=== PATIENT | male | born 1940 | race Caucasian/White ===

== ENCOUNTER → 2017-11-13 13:27 | Outpatient (CLI) | payer MEDICARE, BC, SELFPAY ==
--- NOTE | 2017-11-13 13:30 | RAD_ITS ---
STUDY: X-RAY CHEST REASON FOR EXAM: Male, 77 years old. Shortness of breath/dyspnea and chest tightness. TECHNIQUE: PA and lateral views of the chest. COMPARISON: Comparison is made with prior study dated February 08, 2017. FINDINGS: Hyperinflation. Mild increased linear markings at the lung bases worse in the lingular segment of the left upper lobe suggestive of scarring. Decreased bronchovascular markings bilaterally suggestive of emphysematous changes. Blunting of both cost phrenic angles. Sternal cerclage wires and vascular clips are present from a prior sternotomy and coronary artery bypass graft procedure (CABG). Normal mediastinum and abraham. Normal visualized pulmonary arteries. There is atherosclerotic calcification of the aortic arch with tortuosity. There is demineralization of the osseous structures. Normal visualized ribs, clavicles, and shoulders. There is no demonstrated abnormality of the visualized soft tissue structures of the upper abdomen. RAD/Chest PA and Lateral IMPRESSION: Hyperinflation. Increased markings at the lung bases worse in the lingular segment of the left upper lobe suggestive of scarring. Electronically Signed: Chris Gregory MD at 13:52 EST Tel [phone], Service support ,
--- NOTE | 2017-11-13 13:30 | EKG12_ITS ---
Test Reason : SOB Blood Pressure : / mmHG Vent. Rate : 082 BPM Atrial Rate : 082 BPM P-R Int : 136 ms QRS Dur : 116 ms QT Int : 402 ms P-R-T Axes : 079 052 -39 degrees QTc Int : 469 ms Sinus rhythm with Premature supraventricular complexes Possible Inferior infarct , age undetermined Abnormal ECG Confirmed by BAILEY SALDANA ([id number]), editor in chief newspaper JACQUELINE MEDLEY ([id number]) on 11/16/2017 8:12:42 AM Referred By: MINAL MENENDEZ Confirmed By:BAILEY SALDANA
[2017-11-13 14:17] LABS: Hematocrit 38.8 % (40-54); Hemoglobin 12.5 g/dl (13.0-16.5); Mean Corp Hgb Conc 32.2 g/gl (32-36); Mean Corpuscular Hgb 29.5 pg (27.0-32.0); Mean Corpuscular Volume 91.5 fL (80-94); Mean Platelet Vol. 10.1 fl (6.2-12.0); Platelet Count 299 K/mm3 (150-450); RBC Distribution Width SD 42.7 fl (35.1-43.9); Red Blood Count 4.24 M/mm3 (4.6-6.2); White Blood Count 8.2 K/mm3 (4.4-11.0)
[2017-11-13 14:21] LABS: Scan Indicated on CBC? Y/N NO
[2017-11-13 14:54] LABS: ALB/GLOB Ratio 1.1 RATIO (0.9-2.4); AST(SGOT) 17 U/L (15-37); Alanine Aminotransfer ALT/SGPT 24 U/L (12-78); Alkaline Phosphatase 87 U/L (45-117); Anion Gap 5 (5-15); BUN 38 mg/dL (7-18); BUN/Creat Ratio 26.4 RATIO (10-20); Calcium,Total 9.4 mg/dL (8.5-10.1); Chloride 92 mmol/L (98-107); Creatinine, Serum 1.44 mg/dL (0.70-1.30); EST Glomerular Filtration Rate 50 mL/min (>60); Est Glom Filt Rate - Afr Amer 61 mL/min (>60); Globulin 3.7 g/dL (2.2-4.2); Glucose 75 mg/dL (70-110); Potassium 3.3 mmol/L (3.5-5.1); Protein, Total 7.7 g/dL (6.4-8.2); Sodium Level 136 mmol/L (136-145)
== END ==
PROVIDERS: Family Provider Internal Medicine; PCP Internal Medicine; Visit Provider Nurse Practitioner Acute Care
DX: R06.09 Other forms of dyspnea (principal)
CPT/HCPCS: 36415; 71046; 80053; 83880; 85027; 93005

== ENCOUNTER → 2017-11-30 14:48 | Outpatient (CLI) | payer MEDICARE, BC, SELFPAY ==
[2017-11-30 18:55] LABS: Anion Gap 7 (5-15); BUN 25 mg/dL (7-18); BUN/Creat Ratio 23.6 RATIO (10-20); Calcium,Total 9.3 mg/dL (8.5-10.1); Chloride 100 mmol/L (98-107); Creatinine, Serum 1.06 mg/dL (0.70-1.30); EST Glomerular Filtration Rate 72 mL/min (>60); Est Glom Filt Rate - Afr Amer 87 mL/min (>60); Glucose 73 mg/dL (74-106); Potassium 3.7 mmol/L (3.5-5.1); Sodium Level 140 mmol/L (136-145)
[2017-11-30 18:59] LABS: Hemoglobin A1c 6.1 % (4.2-6.3)
== END ==
PROVIDERS: Family Provider Internal Medicine; PCP Internal Medicine; Visit Provider Internal Medicine
DX: E87.6 Hypokalemia (principal); E11.9 Type 2 diabetes mellitus without complications
CPT/HCPCS: 36415; 80048; 83036

== ENCOUNTER → 2018-04-09 10:49 | Outpatient (CLI) | payer MEDICARE, BC, SELFPAY ==
--- NOTE | 2018-04-09 15:29 | LEAS ---
Arterial Study - Arterial Study Arterial Study: This is a 78-year-old male with a history of chronic obstructive pulmonary disease, coronary artery disease, hypertension, and diabetes mellitus. Suspecting the presence of atherosclerotic peripheral arterial occlusive disease, the patient was brought to the noninvasive vascular laboratory at this time for the purpose of bilateral noninvasive lower extremity arterial assessment. Doppler signal assessment was used to evaluate the pulses at ankle level bilaterally. The posterior tibial and dorsalis pedis pulses were triphasic bilaterally. Segmental limb pressures were obtained bilaterally. The right ankle pressure, as determined by posterior tibial pulse, was measured at 154 mmHg. The right ankle pressure, as determined by dorsalis pedis pulse, was measured at 154 mmHg. The right digital pressure was measured at 117 mmHg. The left ankle pressure, as determined by posterior tibial pulse, was measured at 147 mmHg. The left ankle pressure, as determined by dorsalis pedis pulse, was measured at 143 mmHg. The left digital pressure was measured at 107 mmHg. Pulse-volume recordings were obtained at ankle and digital levels bilaterally. Waveform amplitudes appeared to be satisfactory bilaterally. Resting ankle-brachial indices were calculated bilaterally. The resting right ankle-brachial index was calculated to be 1.14. The resting left ankle-brachial index was calculated be 1.09. Digital-brachial indices were calculated bilaterally. The right digital-brachial index was calculated to be 0.87. The left digital-brachial index was calculated to be 0.79. Impression: Based upon the findings of this resting noninvasive lower extremity arterial study, there is no evidence of significant atherosclerotic peripheral arterial occlusive disease in the lower extremities bilaterally. Triphasic waveforms were noted at ankle level bilaterally. Resting ankle-brachial indices were bilaterally normal. Digital-brachial indices were also normal bilaterally. In summary, this represents a normal resting noninvasive lower extremity arterial study bilaterally.
--- NOTE | 2018-04-09 15:37 | LEAS_ITS ---
Arterial Study - Arterial Study Arterial Study: This is a 78-year-old male with a history of chronic obstructive pulmonary disease, coronary artery disease, hypertension, and diabetes mellitus. Suspecting the presence of atherosclerotic peripheral arterial occlusive disease , the patient was brought to the noninvasive vascular laboratory at this time for the purpose of bilateral noninvasive lower extremity arterial assessment. Doppler signal assessment was used to evaluate the pulses at ankle level bilaterally. The posterior tibial and dorsalis pedis pulses were triphasic bilaterally. Segmental limb pressures were obtained bilaterally. The right ankle pressure, as determined by posterior tibial pulse, was measured at 154 mmHg. The right ankle pressure, as determined by dorsalis pedis pulse, was measured at 154 mmHg. The right digital pressure was measured at 117 mmHg. The left ankle pressure, as determined by posterior tibial pulse, was measured at 147 mmHg. The left ankle pressure, as determined by dorsalis pedis pulse, was measured at 143 mmHg. The left digital pressure was measured at 107 mmHg. Pulse-volume recordings were obtained at ankle and digital levels bilaterally. Waveform amplitudes appeared to be satisfactory bilaterally. Resting ankle-brachial indices were calculated bilaterally. The resting right ankle-brachial index was calculated to be 1.14. The resting left ankle- brachial index was calculated be 1.09. Digital-brachial indices were calculated bilaterally. The right digital- brachial index was calculated to be 0.87. The left digital-brachial index was calculated to be 0.79. Impression: Based upon the findings of this resting noninvasive lower extremity arterial study, there is no evidence of significant atherosclerotic peripheral arterial occlusive disease in the lower extremities bilaterally. Triphasic waveforms were noted at ankle level bilaterally. Resting ankle-brachial indices were bilaterally normal. Digital-brachial indices were also normal bilaterally. In summary, this represents a normal resting noninvasive lower extremity arterial study bilaterally.
== END ==
PROVIDERS: Family Provider Internal Medicine; PCP Internal Medicine; Visit Provider Internal Medicine
DX: I73.9 Peripheral vascular disease, unspecified (principal)
CPT/HCPCS: 93922

== ENCOUNTER 2018-05-20 13:58 | Inpatient (IN) | payer MEDICARE, BC, SELFPAY ==
[2018-05-20] VITALS (21 sets, daily range): BP systolic 127–155; BP diastolic 60–77; PULSE 73–105; RESP 12–44; TEMP 36.2; O2SAT 97–100; BMI 29.7
--- NOTE | 2018-05-20 14:22 | EKG12_ITS ---
Test Reason : SOB Blood Pressure : / mmHG Vent. Rate : 093 BPM Atrial Rate : 093 BPM P-R Int : 142 ms QRS Dur : 112 ms QT Int : 370 ms P-R-T Axes : 064 046 -29 degrees QTc Int : 460 ms Normal sinus rhythm T wave abnormality, consider inferior ischemia Abnormal ECG Confirmed by AL COKER, GENEVIEVE ([id number]), non linear editor JACQUELINE MEDLEY ([id number]) on 05/24/2018 3:46:24 PM Referred By: Mary Lofton Confirmed By:GENEVIEVE MELENDEZ MD
--- NOTE | 2018-05-20 14:22 | RAD_ITS ---
STUDY: X-RAY CHEST REASON FOR EXAM: Male, 78 years old. Increasing shortness of breath. TECHNIQUE: Single AP portable view of the chest. COMPARISON: Comparison is made with prior study dated May 13, 2018. FINDINGS: EKG electrodes are seen. Hyperinflation. There now is evidence of increased interstitial markings at the lung bases. This may represent bibasilar atelectasis and/or infiltrates. Mild degree of vascular congestion. Sternal cerclage wires and vascular clips are present from a prior sternotomy and coronary artery bypass graft procedure (CABG). Normal mediastinum and abraham. Normal visualized pulmonary arteries. There is atherosclerotic calcification of the aortic arch with tortuosity. Normal visualized thoracic spine. Normal visualized ribs, clavicles, and shoulders. There is no demonstrated abnormality of the visualized soft tissue structures of the upper abdomen. RAD/Chest 1 View (Portable) IMPRESSION: There is evidence of increased interstitial markings at the lung bases with areas of confluence worse in the right lung base with blunting of both cost phrenic angles. This is superimposed on mild degree of CHF. Follow-up is recommended. Electronically Signed: Chris Gregory MD at 14:57 EDT Tel [phone], Service support ,
--- NOTE | 2018-05-20 14:24 | PCM.HP.STD ---
Problem List (1) Shortness of breath Status: Acute History of Present Illness Date of Admission: 05/20/18 Chief Complaint: shortness of breath The patient is a 78 year old M with a PMH of HTN, COPD and chronic hypoxic respiratory failure who [facility] a complaint of shortness of breath of one day duration. Patient started feeling SOB this morning, which was not relieved by his inhalers. He is on 4L of oxygen at home, but still felt short of breath. HE therefore went to [place], where he was put on BIPAP; this relieved his symptoms, and he was transitioned back onto 4L of oxygen by nasal canula. He however requested to be transferred to [facility] as his pulmonologists and primary care doctor are here. Patient admitted to a cough of a few days duration, with associated fever and chills. Cough was not productive. He claimed compliance with his inhalers. He denied any other URT symptoms. Review of systems was otherwise negative. Vitals on admission showed T of 97.2F, BP of 137/60. RR pf 44 and he was saturating at 100% on 4L of oxygen. He has been admitted to be managed for acute on chronic hypoxic respiratory failure due to COPD exacerbation. Past Medical History Past Medical History (Chronic Problems): Chronic Problems (Last Reviewed 03/16/18 @ 09:36 by Rosa Lopez) Severe chronic obstructive pulmonary disease (Chronic) Dyspnea on exertion (Chronic) Lung nodule (Chronic) Hypoxia (Chronic) Chronic hypoxemic respiratory failure (Chronic) LUIS (obstructive sleep apnea) (Chronic) Fatigue (Chronic) Sarcoidosis (Chronic) Pulmonary hypertension, mild (Chronic) Stage 4 very severe COPD by GOLD classification (Chronic) Dyspnea (Chronic) History of CVA (cerebrovascular accident) (Chronic) Hypertension (Chronic) Chronic respiratory failure (Chronic) Type 2 diabetes mellitus (Chronic) Status post coronary artery bypass graft (Chronic) Coronary artery disease (Chronic) COPD (chronic obstructive pulmonary disease) (Chronic) Medical History: Medical History (Last Reviewed 03/16/18 @ 09:36 by Rosa Lopez) Severe chronic obstructive pulmonary disease (Chronic) J44.9 Dyspnea on exertion (Chronic) R06.09 Lung nodule (Chronic) R91.1 Hypoxia (Chronic) R09.02 Chronic hypoxemic respiratory failure (Chronic) J96.11 LUIS (obstructive sleep apnea) (Chronic) G47.33 Fatigue (Chronic) R53.83 Sarcoidosis (Chronic) D86.9 Pulmonary hypertension, mild (Chronic) I27.20 Stage 4 very severe COPD by GOLD classification (Chronic) J44.9 Dyspnea (Chronic) R06.00 History of CVA (cerebrovascular accident) (Chronic) Z86.73 Hypertension (Chronic) I10 Chronic respiratory failure (Chronic) J96.10 Type 2 diabetes mellitus (Chronic) E11.9 Coronary artery disease (Chronic) I25.10 COPD (chronic obstructive pulmonary disease) (Chronic) J44.9 Allergies levofloxacin [From Levaquin] Allergy (Verified 01/25/18 14:40) Hives Penicillins [PCN] Allergy (Verified 01/25/18 14:40) Hives Home Medications: Ambulatory Orders Medication Instructions Recorded Albuterol Inhaler [Ventolin Hfa] 2 puff INHALATION Q4H PRN PRN 08/04/16 Amlodipine [Norvasc] 10 mg PO DAILY 08/04/16 Clopidogrel Bisulfate [Plavix] 75 mg PO DAILY 08/04/16 Stow-3 Fatty Acids [Fish Oil] 1,290 mg PO DAILY 03/30/17 Ubidecarenone [Coq10] 100 mg PO DAILY 03/30/17 cholecalciferol (vitamin D3) 5,000 2,000 unit PO DAILY cap 11/30/17 unit capsule budesonide 0.5 mg/2 mL suspension 0.5 mg INHALATION Q12H #120 ml 02/15/18 for nebulization ipratropium-albuterol 0.5 mg-3 3 ml INHALATION Q6HWA.RT #360 ml 02/15/18 mg(2.5 mg base)/3 mL nebulization soln Aspirin [Aspirin, Baby] 81 mg PO DAILY@0800 05/20/18 Glimepiride [Amaryl] 4 mg PO BID 05/20/18 Losartan/Hydrochlorothiazide 1 tab PO DAILY 05/20/18 [Hyzaar 100-12.5 Tablet] Metformin HCl [Glucophage] 500 mg PO BID 05/20/18 Surgical History: Surgical History (Last Reviewed 03/16/18 @ 09:36 by Rosa Lopez) History of cholecystectomy (Resolved) Z98.890, Z90.49 H/O hernia repair (Resolved) Z98.890, Z87.19 History of appendectomy (Resolved) Z98.890, Z90.49 Hx of CABG (Resolved) Z95.1 Status post coronary artery bypass graft (Chronic) Z95.1 Surgical History: appendectomy, cholecystectomy, coronary bypass surgery, herniorrhaphy Psychiatric History: No pertinent psych hx Smoking Status: Former smoker - *Family History Maternal Family History: Family History (Last Reviewed 03/16/18 @ 09:36 by Rosa Lopez) Mother Cancer Father Hypertension History Items: No pertinent history Paternal Family History: Family History (Last Reviewed 03/16/18 @ 09:36 by Rosa Lopez) Mother Cancer Father Hypertension History Items: No pertinent history Review of Systems Constitutional: Denies: Chills, Fever, Weight Change Eyes: Denies: Blurred vision HEENT: Denies: Head Aches, Sinus Congestion, Sinus Drainage Cardiovascular: Denies: Chest Pain, Palpitations Respiratory: Reports: Cough, Shortness of Breath, Shortness of breath at rest, Shortness of breath upon exertion, Wheezing Gastrointestinal: Denies: Abdominal Pain, Nausea, Vomiting Genitourinary: Denies: Dysuria Musculoskeletal: Denies: Joint Pain, Joint Tenderness Skin: Denies: Rash, Wounds Neurological: Denies: Numbness, Tingling, Focal weakness Psychiatric: Denies: Anxiety, Depression, Homicidal Ideations, Suicidal Ideations Hematologic/ Lymphatic: Denies: Easy Bruising, Easy Bleeding VTE Information - Inpt Only VTE Present on Admission: No VTE Mechan Device Prophylaxis: None VTE Pharm Prophylaxis ordered?: Yes Patient Problems: Active and Suspected Problems (Last Reviewed 03/16/18 @ 09:36 by Rosa Lopez) Shortness of breath (Acute) - Physical Exam General: Alert, Oriented x3, Cooperative, - - moderate respiratory distress, even on 4L of oxygen HEENT: Atraumatic, PERRLA, EOMI, Normocephalic Oral: Moist Mucosa Neck: Supple, No JVD, Negative Carotid Bruits Lungs: Diminished, Short of Breath, Tachypneic, Using Accessory Muscles, Wheezes Cardiovascular: Regular Rhythm, Normal S1, Normal S2, Tachycardic Abdomen: Bowel Sounds Present, Soft, Non Tender, Non-Distended, No Hepato-splenomegaly Extremities: No clubbing, No cyanosis, Capillary Refill Less than 3 Seconds, - - mild 1+ bilateral pitting pedal edema Skin: No rashes, No breakdown Musculoskeletal: No Tenderness to Palpation of Joints or Extremities Lymphatic: No Cervical, Supraclavicular, or Inguinal Adenopathy Neurological: Cranial nerves II-XII grossly intact Psych/Mental Status: Anxious, Alert and oriented to time, place, person, mood and affect Vital Signs Temp Pulse Resp BP Pulse Ox 97.2 F L 96 44 H 137/60 H 100 05/20/18 14:00 05/20/18 14:00 05/20/18 14:00 05/20/18 14:00 05/20/18 14:00 Oxygen Flow Rate (L/min) 4 Oxygen Delivery Method Nasal Cannula Weight: 183 lb 13.848 oz Body Mass Index (BMI) 29.7 Finger Stick Blood Glucose 149 Assessment/Plan All Active Problems (Last Reviewed 03/16/18 @ 09:36 by Rosa Lopez) Shortness of breath (Acute) Thrush, oral (Acute) Irregular heart beat (Acute) History of cholecystectomy (Resolved) H/O hernia repair (Resolved) History of appendectomy (Resolved) Hx of CABG (Resolved) 1. Acute on chronic hypoxic and hypercapnic respiratory failure due to COPD exacerbation and NSTEMI Patient very short of breath still even on 4 L of oxygen. He is tripoding and using accessory muscles of respiration. Has wheezes bilaterally and breath sounds are diminished in all lung mccoy. is very tachypneic, breathing at 44/min will admit to PCU with telemetry BIPAP; breathing treatments and IV solumedrol 40mg q8 breathing treatments with duonebs patient ok with intubation if he fails BIPAP treatment gentle hydration with IVF NS @ 125cc/hr will get ABG, CXR, troponin CBC nad CMP. 2. NSTEMI initial troponin at [facility] was 0.35; EKG there showed st depression in inferior leads troponin repeated here was 5.2; repeat EKG still showed inferior leads st depression start IV heparin drip with loading dose; plavix 300mg once, metoprolol 25mg once and aspirin 325mg once. on BIPAP cardiology consulted will cycle troponis will order 2D echo 3. COPD exacerbation. possibly due to URTI as he complains of a cough which is dry. Has leucocytosis of 16. Chest Xray ordered. has been compliant with his meds BiPAP treatment, breathing treatments and IV solumedrol as stated above. Patient is allergic to levofloxacin. Will start IV doxycycline 100 mg twice daily. 4.Hypertension on amlodipine 10mg daily, losartan/HCTZ; hold amlodipine in light of NSTEMI 5. Diabetes mellitus: on metformin. Accuchecks ACHS. ISS. Will hold metformin in light as he may possibly have a cardiac cath. 6. CAD s/p CABG: on aspirin and plavix DVT prophylaxis: on heparin drip. GI prophylaxis: PPI Code status: Patient counseled extensively about different types of CODE STATUS and also counseled about the need for intubation if he feels BiPAP therapy. Patient expressed understanding of all this and is okay with intubation and CPR as needed. CODE STATUS is full code. This note was generated with [employer] dictation software. It may contain incorrect words, spelling, and punctuation that were not noted in checking the note before signing. Code Visit Inpatient E&M: 47020 Init Hosp L3 Procedures: 40199 Advncd Care Plan 30 Min
--- NOTE | 2018-05-20 14:29 | HP.PCM_ITS ---
Problem List (1) Shortness of breath Status: Acute History of Present Illness Date of Admission: 05/20/18 Chief Complaint: shortness of breath The patient is a 78 year old M with a PMH of HTN, COPD and chronic hypoxic respiratory failure who was admitted from [facility] with a complaint of shortness of breath of one day duration. Patient started feeling SOB this morning, which was not relieved by his inhalers. He is on 4L of oxygen at home, but still felt short of breath. HE therefore went to [place], where he was put on BIPAP; this relieved his symptoms, and he was transitioned back onto 4L of oxygen by nasal canula. He however requested to be transferred to [facility] as his pulmonologists and primary care doctor are here. Patient admitted to a cough of a few days duration, with associated fever and chills. Cough was not productive. He claimed compliance with his inhalers. He denied any other URT symptoms. Review of systems was otherwise negative. Vitals on admission showed T of 97.2F, BP of 137/60. RR pf 44 and he was saturating at 100% on 4L of oxygen. He has been admitted to be managed for acute on chronic hypoxic respiratory failure due to COPD exacerbation. Past Medical History Past Medical History (Chronic Problems): Chronic Problems (Last Reviewed 03/16/18 @ 09:36 by Rosa Lopez) Severe chronic obstructive pulmonary disease (Chronic) Dyspnea on exertion (Chronic) Lung nodule (Chronic) Hypoxia (Chronic) Chronic hypoxemic respiratory failure (Chronic) LUIS (obstructive sleep apnea) (Chronic) Fatigue (Chronic) Sarcoidosis (Chronic) Pulmonary hypertension, mild (Chronic) Stage 4 very severe COPD by GOLD classification (Chronic) Dyspnea (Chronic) History of CVA (cerebrovascular accident) (Chronic) Hypertension (Chronic) Chronic respiratory failure (Chronic) Type 2 diabetes mellitus (Chronic) Status post coronary artery bypass graft (Chronic) Coronary artery disease (Chronic) COPD (chronic obstructive pulmonary disease) (Chronic) Medical History: Medical History (Last Reviewed 03/16/18 @ 09:36 by Rosa Lopez) Severe chronic obstructive pulmonary disease (Chronic) J44.9 Dyspnea on exertion (Chronic) R06.09 Lung nodule (Chronic) R91.1 Hypoxia (Chronic) R09.02 Chronic hypoxemic respiratory failure (Chronic) J96.11 LUIS (obstructive sleep apnea) (Chronic) G47.33 Fatigue (Chronic) R53.83 Sarcoidosis (Chronic) D86.9 Pulmonary hypertension, mild (Chronic) I27.20 Stage 4 very severe COPD by GOLD classification (Chronic) J44.9 Dyspnea (Chronic) R06.00 History of CVA (cerebrovascular accident) (Chronic) Z86.73 Hypertension (Chronic) I10 Chronic respiratory failure (Chronic) J96.10 Type 2 diabetes mellitus (Chronic) E11.9 Coronary artery disease (Chronic) I25.10 COPD (chronic obstructive pulmonary disease) (Chronic) J44.9 Allergies levofloxacin [From Levaquin] Allergy (Verified 01/25/18 14:40) Hives Penicillins [PCN] Allergy (Verified 01/25/18 14:40) Hives Home Medications: Ambulatory Orders Medication Instructions Recorded Albuterol Inhaler [Ventolin Hfa] 2 puff INHALATION Q4H PRN PRN 08/04/16 Amlodipine [Norvasc] 10 mg PO DAILY 08/04/16 Clopidogrel Bisulfate [Plavix] 75 mg PO DAILY 08/04/16 [place]-3 Fatty Acids [Fish Oil] 1,290 mg PO DAILY 03/30/17 Ubidecarenone [Coq10] 100 mg PO DAILY 03/30/17 cholecalciferol (vitamin D3) 5,000 2,000 unit PO DAILY cap 11/30/17 unit capsule budesonide 0.5 mg/2 mL suspension 0.5 mg INHALATION Q12H #120 ml 02/15/18 for nebulization ipratropium-albuterol 0.5 mg-3 3 ml INHALATION Q6HWA.RT #360 ml 02/15/18 mg(2.5 mg base)/3 mL nebulization soln Aspirin [Aspirin, Baby] 81 mg PO DAILY@0800 05/20/18 Glimepiride [Amaryl] 4 mg PO BID 05/20/18 Losartan/Hydrochlorothiazide 1 tab PO DAILY 05/20/18 [Hyzaar 100-12.5 Tablet] Metformin HCl [Glucophage] 500 mg PO BID 05/20/18 Surgical History: Surgical History (Last Reviewed 03/16/18 @ 09:36 by Rosa Lopez) History of cholecystectomy (Resolved) Z98.890, Z90.49 H/O hernia repair (Resolved) Z98.890, Z87.19 History of appendectomy (Resolved) Z98.890, Z90.49 Hx of CABG (Resolved) Z95.1 Status post coronary artery bypass graft (Chronic) Z95.1 Surgical History: appendectomy, cholecystectomy, coronary bypass surgery, herniorrhaphy Psychiatric History: No pertinent psych hx Smoking Status: Former smoker - *Family History Maternal Family History: Family History (Last Reviewed 03/16/18 @ 09:36 by Rosa Lopez) Mother Cancer Father Hypertension History Items: No pertinent history Paternal Family History: Family History (Last Reviewed 03/16/18 @ 09:36 by Rosa Lopez) Mother Cancer Father Hypertension History Items: No pertinent history Review of Systems Constitutional: Denies: Chills, Fever, Weight Change Eyes: Denies: Blurred vision HEENT: Denies: Head Aches, Sinus Congestion, Sinus Drainage Cardiovascular: Denies: Chest Pain, Palpitations Respiratory: Reports: Cough, Shortness of Breath, Shortness of breath at rest, Shortness of breath upon exertion, Wheezing Gastrointestinal: Denies: Abdominal Pain, Nausea, Vomiting Genitourinary: Denies: Dysuria Musculoskeletal: Denies: Joint Pain, Joint Tenderness Skin: Denies: Rash, Wounds Neurological: Denies: Numbness, Tingling, Focal weakness Psychiatric: Denies: Anxiety, Depression, Homicidal Ideations, Suicidal Ideations Hematologic/ Lymphatic: Denies: Easy Bruising, Easy Bleeding VTE Information - Inpt Only VTE Present on Admission: No VTE Mechan Device Prophylaxis: None VTE Pharm Prophylaxis ordered?: Yes Patient Problems: Active and Suspected Problems (Last Reviewed 03/16/18 @ 09:36 by Rosa Lopez ) Shortness of breath (Acute) - Physical Exam General: Alert, Oriented x3, Cooperative, - - moderate respiratory distress, even on 4L of oxygen HEENT: Atraumatic, PERRLA, EOMI, Normocephalic Oral: Moist Mucosa Neck: Supple, No JVD, Negative Carotid Bruits Lungs: Diminished, Short of Breath, Tachypneic, Using Accessory Muscles, Wheezes Cardiovascular: Regular Rhythm, Normal S1, Normal S2, Tachycardic Abdomen: Bowel Sounds Present, Soft, Non Tender, Non-Distended, No Hepato- splenomegaly Extremities: No clubbing, No cyanosis, Capillary Refill Less than 3 Seconds, - - mild 1+ bilateral pitting pedal edema Skin: No rashes, No breakdown Musculoskeletal: No Tenderness to Palpation of Joints or Extremities Lymphatic: No Cervical, Supraclavicular, or Inguinal Adenopathy Neurological: Cranial nerves II-XII grossly intact Psych/Mental Status: Anxious, Alert and oriented to time, place, person, mood and affect Vital Signs Temp Pulse Resp BP Pulse Ox 97.2 F L 96 44 H 137/60 H 100 05/20/18 14:00 05/20/18 14:00 05/20/18 14:00 05/20/18 14:00 05/20/18 14:00 Oxygen Flow Rate (L/min) 4 Oxygen Delivery Method Nasal Cannula Weight: 183 lb 13.848 oz Body Mass Index (BMI) 29.7 Finger Stick Blood Glucose 149 Assessment/Plan All Active Problems (Last Reviewed 03/16/18 @ 09:36 by Rosa Lopez) Shortness of breath (Acute) Thrush, oral (Acute) Irregular heart beat (Acute) History of cholecystectomy (Resolved) H/O hernia repair (Resolved) History of appendectomy (Resolved) Hx of CABG (Resolved) 1. Acute on chronic hypoxic and hypercapnic respiratory failure due to COPD exacerbation and NSTEMI * Patient very short of breath still even on 4 L of oxygen. He is tripoding and using accessory muscles of respiration. * Has wheezes bilaterally and breath sounds are diminished in all lung mccoy. * is very tachypneic, breathing at 44/min * will admit to PCU with telemetry * BIPAP; breathing treatments and IV solumedrol 40mg q8 * breathing treatments with duonebs * patient ok with intubation if he fails BIPAP treatment * gentle hydration with IVF NS @ 125cc/hr * will get ABG, CXR, troponin CBC nad CMP. * 2. NSTEMI * initial troponin at [facility] was 0.35; EKG there showed st depression in inferior leads * troponin repeated here was 5.2; repeat EKG still showed inferior leads st depression * start IV heparin drip with loading dose; plavix 300mg once, metoprolol 25mg once and aspirin 325mg once. on BIPAP * cardiology consulted * will cycle troponis * will order 2D echo * 3. COPD exacerbation. * possibly due to URTI as he complains of a cough which is dry. Has leucocytosis of 16. Chest Xray ordered. * has been compliant with his meds * BiPAP treatment, breathing treatments and IV solumedrol as stated above. * Patient is allergic to levofloxacin. Will start IV doxycycline 100 mg twice daily. * 4.Hypertension * on amlodipine 10mg daily, losartan/HCTZ; hold amlodipine in light of NSTEMI * 5. Diabetes mellitus: on metformin. Accuchecks ACHS. ISS. Will hold metformin in light as he may possibly have a cardiac cath. 6. CAD s/p CABG: on aspirin and plavix DVT prophylaxis: on heparin drip. GI prophylaxis: PPI Code status: Patient counseled extensively about different types of CODE STATUS and also counseled about the need for intubation if he feels BiPAP therapy. Patient expressed understanding of all this and is okay with intubation and CPR as needed. CODE STATUS is full code. This note was generated with [employer] dictation software. It may contain incorrect words, spelling, and punctuation that were not noted in checking the note before signing. Code Visit Inpatient E&M: 88957 Init Hosp L3 Procedures: 99595 Advncd Care Plan 30 Min
[2018-05-20 14:51] LABS: Allen Test POS; Base Excess 5 mmol/L (-2 to +2); Bicarbonate 30.5 mmol/L (22-26); Blood Gas Specimen Type ART; O2 Delivery Device Nasal Can; PO2 41 mmHG (75-100); SITE R Radial; SO2 74 % (95-99); Time Given 1420; Total Carbon Dioxide 32 mmol/L; pCO2 51.7 mmHg (35-45); pH 7.38 (7.35-7.45)
[2018-05-20 15:02] LABS: Absolute Neutrophil Count 15.6 X10^3/uL (2.0-7.7); Basophil# 0.01 X10^3/uL; Basophil% 0.1 % (0-1); Hematocrit 34.9 % (40-54); Hemoglobin 10.5 g/dl (13.0-16.5); Lymphocyte % 2.5 % (19-41); Mean Corp Hgb Conc 30.1 g/gl (32-36); Mean Corpuscular Hgb 27.6 pg (27.0-32.0); Mean Corpuscular Volume 91.8 fL (80-94); Mean Platelet Vol. 10.3 fl (6.2-12.0); Monocyte# 0.13 X10^3/uL; Monocyte% 0.8 % (0-10); Neutrophil # 15.64 X10^3/uL (2.7-7.7); Neutrophil % 96.5 % (47-70); Platelet Count 239 K/mm3 (150-450); RBC Distribution Width CV 13.9 % (11.6-14.6); RBC Distribution Width SD 45.7 fl (35.1-43.9); White Blood Count 16.2 K/mm3 (4.4-11.0)
[2018-05-20 15:04] LABS: Differential Indicated SCAN CRITERIA MET; POSITIVE COUNT NO; POSITIVE DIFFERENTIAL YES; POSITIVE MORPHOLOGY NO
[2018-05-20 15:21] LABS: ALB/GLOB Ratio 1.1 RATIO (0.9-2.4); AST(SGOT) 35 U/L (15-37); Alanine Aminotransfer ALT/SGPT 23 U/L (16-61); Albumin, Serum 3.7 g/dL (3.2-5.0); Alkaline Phosphatase 75 U/L (45-117); Anion Gap 4 (5-15); BUN 26 mg/dL (7-18); BUN/Creat Ratio 16.9 RATIO (10-20); Calcium,Total 8.6 mg/dL (8.5-10.1); Chloride 102 mmol/L (98-107); Creatinine, Serum 1.54 mg/dL (0.70-1.30); EST Glomerular Filtration Rate 47 mL/min (>60); Est Glom Filt Rate - Afr Amer 56 mL/min (>60); Globulin 3.5 g/dL (2.2-4.2); Glucose 204 mg/dL (74-106); Potassium 4.3 mmol/L (3.5-5.1); Protein, Total 7.2 g/dL (6.4-8.2); Sodium Level 140 mmol/L (136-145)
[2018-05-20] MEDS: Ipratropium/Albuterol Sulfate 3 ML AMPUL.NEB INHALATION ×2 (15:30→18:49)
[2018-05-20] MEDS: 0.9% NaCl Peripheral Flush Adult/Peds IV ×2 (15:31→19:03)
[2018-05-20 16:36] LABS: Bedside Glucose 157 mg/dL (70-110)
[2018-05-20] MEDS: Clopidogrel Bisulfate 300 MG Tablet PO (16:37)
[2018-05-20] MEDS: Metoprolol Tartrate 25 MG Tablet PO (16:41)
[2018-05-20] MEDS: Aspirin 325 MG Tablet PO (16:41)
--- NOTE | 2018-05-20 16:47 | ECHOD_ITS ---
Reason For Study: CAD/ASHD Procedure This was a 2D Doppler, Color Flow transthoracic echocardiogram. The study was technically difficult. Exam performed portable in patient room. Left Ventricle Normal LV size. Segmental dysfunction with preserved ejection fraction (see wall motion). The estimated ejection fraction is 65 %. Posterior-Basal: Hypokinetic. Infero-Basal: Akinetic. Mid- Posterior: Hypokinetic. Mid-Inferior: Hypokinetic. Right Ventricle Normal RV size. Normal systolic function. Atria The left atrium is mildly enlarged. The right atrium is mildly enlarged. No doppler evidence for ASD. Mitral Valve There is mild mitral annular calcification. Extension of the mitral annular calcification onto the posterior mitral valve leaflet. Moderate (2+) eccentric mitral valve insufficiency. Tricuspid Valve Normal tricuspid valve. Moderate (2+) tricuspid valve insufficiency. Right ventricular systolic pressure estimated to be 67 mmHg. Aortic Valve Trisinus/trileaflet aortic valve. Mild focal aortic valve thickening. Pulmonic Valve The pulmonic valve is not well visualized. Mild-Moderate (1-2+) pulmonic valve insufficiency. Great Vessels Normal sized aortic root. Pericardium/Pleural No pericardial effusion. MMode/2D Measurements & Calculations LVIDd: 5.0 cm IVSd: 0.91 cm Ao root diam: 3.5 cm LVIDs: 3.9 cm LVPWd: 0.95 cm LA dimension: 4.7 cm FS: 21.5 % LAV(MOD-bp): 91.7 ml LA A4 area: 25.3 cm2 RA A4 area: 21.9 cm2 LAV(MOD-bp) Indexed: 53.6 ml/m2 LAV(MOD-sp2): 98.8 ml LAV(MOD-sp4): 82.0 ml Time Measurements MV dec time: 0.11 sec Doppler Measurements & Calculations MV E max julieta: 140.7 cm/sec MV V2 max: 135.5 cm/sec MV P1/2t max julieta: 135.9 cm/sec MV A max julieta: 86.9 cm/sec MV max P.4 mmHg MV P1/2t: 82.2 msec MV E/A: 1.6 MV V2 mean: 66.3 cm/sec MV dec slope: 484.0 cm/sec2 MV mean P.3 mmHg MVA(P1/2t): 2.7 cm2 MV V2 VTI: 30.3 cm Ao V2 max: 98.4 cm/sec LV V1 max: 84.5 cm/sec MR max julieta: 541.6 cm/sec Ao max P.9 mmHg LV V1 max P.9 mmHg MR max P.3 mmHg Ao V2 mean: 59.3 cm/sec LV V1 mean P.5 mmHg MR mean julieta: 408.1 cm/sec Ao mean P.7 mmHg LV V1 mean: 54.8 cm/sec MR mean P.4 mmHg Ao V2 VTI: 19.8 cm LV V1 VTI: 17.7 cm MR VTI: 146.0 cm PA V2 max: 85.3 cm/sec TR max julieta: 384.2 cm/sec TR max P.1 mmHg Interpretation Summary The study was technically difficult. Segmental dysfunction with preserved ejection fraction (see wall motion). The estimated ejection fraction is 65 %. The left atrium is mildly enlarged. The right atrium is mildly enlarged. There is mild mitral annular calcification. Extension of the mitral annular calcification onto the posterior mitral valve leaflet. Moderate (2+) eccentric mitral valve insufficiency. Moderate (2+) tricuspid valve insufficiency. Mild focal aortic valve thickening. Mild-Moderate (1-2+) pulmonic valve insufficiency. Right ventricular systolic pressure estimated to be 67 mmHg. Transmitral diastolic flow velocities suggest diastolic dysfunction (pseudonormal pattern). Ordering Physician: Mary Lofton Referring Physician: Mary Lofton Performed By: Jagjit Lee RCS
[2018-05-20 16:49] LABS: Partial Thromboplast Time 24.5 Seconds (24.1-36.2)
[2018-05-20 17:14] LABS: BNP,B-Type NATRIURETIC PEPTIDE 427.3 pg/mL (0-100)
--- NOTE | 2018-05-20 18:11 | NURSING ---
Attempted break from bipap to eat. Was only able to tolerate approx 5mins off bipap and called out c/o SOB and asked to have bipap reapplied. Educated on need to keep NPO until able to tolerate longer breaks off bipap, pt and family verbalize understanding.
--- NOTE | 2018-05-20 18:30 | PCM.CONS.C ---
Reason for Consult Date of Consultation: 05/20/18 Reason for Consultation: Abnormal cardiac enzymes and shortness of breath. History of Present Illness: The patient is a 78 year old M with a PMH of HTN, COPD coronary artery disease status post coronary artery bypass surgery remotely and chronic hypoxic respiratory failure who was admitted from [facility] with a complaint of shortness of breath of one day duration. Patient started feeling SOB this morning, which was not relieved by his inhalers. He is on 4L of oxygen at home, but still felt short of breath. HE therefore went to [place], where he was put on BIPAP; this relieved his symptoms, and he was transitioned back onto 4L of oxygen by nasal canula. He however requested to be transferred to [facility] as his pulmonologists and primary care doctor are here. Patient admitted to a cough of a few days duration, with associated fever and chills. He unfortunately had what appeared to be a pneumonia approximately 1-2 weeks ago and was put on antibiotics from which he recovered. He has also noticed some swelling bilaterally in his lower extremities. He denies any chest pain per se. On admission to the hospital he was noted to have an EKG with nonspecific inferior changes and he had an abnormal cardiac enzyme patent. Of interest was the fact that he was admitted to the hospital approximately a year ago and underwent an echocardiogram which demonstrated preserved ejection fraction of 65% with inferior segmental wall motion abnormalities noted. A preoperative stress test for his carotid endarterectomy demonstrated no evidence of ischemia but evidence of previous anterior infarct. He underwent an uneventful carotid endarterectomy. He follows up with a senior hr manager in [facility]. He says he underwent a cardiac catheterization approximately 2 years ago at [facility]. Attempts are being made to obtain these results. Past Medical History Allergies/Adverse Reactions: Allergies levofloxacin [From Levaquin] Allergy (Verified 01/25/18 14:40) Hives Penicillins [PCN] Allergy (Verified 01/25/18 14:40) Hives Home Medications: Ambulatory Orders Medication Instructions Recorded Albuterol Inhaler [Ventolin Hfa] 2 puff INHALATION Q4H PRN PRN 08/04/16 Amlodipine [Norvasc] 10 mg PO DAILY 08/04/16 Clopidogrel Bisulfate [Plavix] 75 mg PO DAILY 08/04/16 [place]-3 Fatty Acids [Fish Oil] 1,290 mg PO DAILY 03/30/17 Ubidecarenone [Coq10] 100 mg PO DAILY 03/30/17 cholecalciferol (vitamin D3) 5,000 2,000 unit PO DAILY cap 11/30/17 unit capsule budesonide 0.5 mg/2 mL suspension 0.5 mg INHALATION Q12H #120 ml 02/15/18 for nebulization ipratropium-albuterol 0.5 mg-3 3 ml INHALATION Q6HWA.RT #360 ml 02/15/18 mg(2.5 mg base)/3 mL nebulization soln Aspirin [Aspirin, Baby] 81 mg PO DAILY@0800 05/20/18 Glimepiride [Amaryl] 4 mg PO BID 05/20/18 Losartan/Hydrochlorothiazide 1 tab PO DAILY 05/20/18 [Hyzaar 100-12.5 Tablet] Metformin HCl [Glucophage] 500 mg PO BID 05/20/18 Past Medical History (Chronic Problems): Chronic Problems (Last Reviewed 03/16/18 @ 09:36 by Rosa Lopez) Severe chronic obstructive pulmonary disease (Chronic) Dyspnea on exertion (Chronic) Lung nodule (Chronic) Hypoxia (Chronic) Chronic hypoxemic respiratory failure (Chronic) LUIS (obstructive sleep apnea) (Chronic) Fatigue (Chronic) Sarcoidosis (Chronic) Pulmonary hypertension, mild (Chronic) Stage 4 very severe COPD by GOLD classification (Chronic) Dyspnea (Chronic) History of CVA (cerebrovascular accident) (Chronic) Hypertension (Chronic) Chronic respiratory failure (Chronic) Type 2 diabetes mellitus (Chronic) Status post coronary artery bypass graft (Chronic) Coronary artery disease (Chronic) COPD (chronic obstructive pulmonary disease) (Chronic) Surgical History: appendectomy, cholecystectomy, coronary bypass surgery, herniorrhaphy, - - Carotid endarterectomy Psychiatric History: No pertinent psych hx - *Family History Maternal Family History: Family History (Last Reviewed 03/16/18 @ 09:36 by Rosa Lopez) Mother Cancer Father Hypertension History Items: No pertinent history Paternal Family History: Family History (Last Reviewed 03/16/18 @ 09:36 by Rosa Lopez) Mother Cancer Father Hypertension History Items: No pertinent history Smoking Status: Former smoker Alcohol: None Drugs: None Review of Systems - Review of Systems General: Denies: Fever, Night Sweats, Fatigue Cardiovascular: Reports: Shortness of Breath, Shortness of Breath at Rest, Shortness of Breath with Exertion, Peripheral Edema. Denies: Chest Discomfort, Orthopnea, PND, Palpitations, Lightheadedness, Dizziness, Near Syncope, Syncope Respiratory: Reports: Cough. Denies: Sputum Production, Hemoptysis Gastrointestinal: Denies: Hematemesis, Hematochezia, Melena Genitourinary: Denies: Dysuria, Hematuria Skin: Denies: Rash Subjectve: Pleasant gentleman in mild respiratory distress Objective: Vital Signs Temp Pulse Resp BP Pulse Ox 97.2 F L 86 28 H 144/77 H 98 05/20/18 14:00 05/20/18 18:00 05/20/18 18:00 05/20/18 18:00 05/20/18 18:00 Oxygen Flow Rate (L/min) 4 Oxygen Delivery Method Bi-pap Weight: 183 lb 13.848 oz Body Mass Index (BMI) 29.7 Finger Stick Blood Glucose 149 Intake and Output for Last 24 Hours 05/18/18 05/19/18 05/20/18 23:59 23:59 23:59 Output Total 200 / 200 Balance -200 / -200 General: Awake, Alert, Oriented x 3 HEENT: PERRL, EOMI, Sclera Non Icteric Neck: Supple, Good ROM, No Lymph Node Enlargement Lungs: Rales - Dajuan Bases Cardiovascular: Regular Rhythm, Normal S1, Normal S2, No Murmurs, No Rubs, No Gallops Vascular: No Carotid Bruits, Normal Femoral Pulses, Normal Radial Pulses, Normal Dorsalis Pedal Pulse, Normal Posterior Tibial Pulses Abdomen: Bowel Sounds Present, Soft, Non Tender, No HSM, No Organomegaly Extremities: No Cyanosis, No Clubbing, Bilateral Edema +1 Neurological: No Focal Motor or Sensory Deficit 05/20/18 14:45: pH 7.38, Bicarbonate Actual 30.5 H, POC Total CO2 32, Base Excess 5 H, O2 Saturation 74 L, ABG pCO2 51.7 H, ABG pO2 41 L, Steven Test POS 05/20/18 14:50: WBC 16.2 H, RBC 3.80 L, Hgb 10.5 L, Hct 34.9 L, MCV 91.8, MCH 27.6, MCHC 30.1 L, RDW 13.9, RDW Differential 45.7 H, Plt Count 239, MPV 10.3, Immature Gran % (Auto) 0.100, Neut % (Auto) 96.5 H, Lymph % (Auto) 2.5 L, Dare % (Auto) 0.8, Eos % (Auto) 0.0, Baso % (Auto) 0.1, Absolute Neuts (auto) 15.6 H, Total Counted Not Reportable 05/20/18 14:50: Sodium 140, Potassium 4.3, Chloride 102, Carbon Dioxide 34.0 H, Anion Gap 4 L, BUN 26 H, Creatinine 1.54 H, Est GFR (MDRD) Af Amer 56 L, Est GFR (MDRD) Non-Af 47 L, BUN/Creatinine Ratio 16.9, Glucose 204 H, Calcium 8.6, Total Bilirubin 0.30, Troponin I 5.200 H* 05/20/18 16:18: PT 13.0, INR 1.0, APTT 24.5 05/20/18 16:18: B-Natriuretic Peptide 427.3 H Rhythm: EKG: Normal sinus rhythm with T-wave inversions noted inferiorly ECHO: Stress Test: Cardiac Cath: PCI: CT Surgery: Holter monitor: EPS: PPM: CXR: Chest CT Scan: Assessment/Plan 1. Acute on chronic hypoxic and hypercapnic respiratory failure due to COPD exacerbation and congestive heart failure Patient very short of breath still even on 4 L of oxygen. He is tripoding and using accessory muscles of respiration. Has wheezes bilaterally and breath sounds are diminished in all lung mccoy. Will recommend a dose of intravenous Lasix especially as his natruretic peptide is also elevated 2. NSTEMI initial troponin at [facility] was 0.35; EKG there showed st depression in inferior leads troponin repeated here was 5.2; repeat EKG still showed inferior leads st depression Will continue Plavix and utilize Lovenox daily Will need to consider cardiac catheterization. It would be helpful to obtain the previous catheterization from 2 years ago from [facility] and after the patient has been optimized from the respiratory standpoint would pursue a left heart catheterization. I have discussed the above with the patient and the family and they understand and agreed to proceed. 3.Hypertension on amlodipine 10mg daily, losartan/HCTZ; hold amlodipine in light of NSTEMI 4. CAD s/p CABG: on aspirin and plavix With history of recent non-ST elevation myocardial infarction would pursue a cardiac catheterization. The patient will be signed out to my partner for the above to be performed when he is more stable from the respiratory standpoint. 5. Carotid endarterectomy Aggressive risk factor modification with Plavix as well as lipid-lowering medication. Thank you for allowing me to participate in the care of your patient. Please don't hesitate to call if any issues arise
--- NOTE | 2018-05-20 18:34 | CON.PCM_ITS ---
Reason for Consult Date of Consultation: 05/20/18 Reason for Consultation: Abnormal cardiac enzymes and shortness of breath. History of Present Illness: The patient is a 78 year old M with a PMH of HTN, COPD coronary artery disease status post coronary artery bypass surgery remotely and chronic hypoxic respiratory failure who was admitted from [facility] with a complaint of shortness of breath of one day duration. Patient started feeling SOB this morning, which was not relieved by his inhalers. He is on 4L of oxygen at home, but still felt short of breath. HE therefore went to [place], where he was put on BIPAP; this relieved his symptoms, and he was transitioned back onto 4L of oxygen by nasal canula. He however requested to be transferred to [facility] as his pulmonologists and primary care doctor are here. Patient admitted to a cough of a few days duration, with associated fever and chills. He unfortunately had what appeared to be a pneumonia approximately 1-2 weeks ago and was put on antibiotics from which he recovered. He has also noticed some swelling bilaterally in his lower extremities. He denies any chest pain per se. On admission to the hospital he was noted to have an EKG with nonspecific inferior changes and he had an abnormal cardiac enzyme patent. Of interest was the fact that he was admitted to the hospital approximately a year ago and underwent an echocardiogram which demonstrated preserved ejection fraction of 65 % with inferior segmental wall motion abnormalities noted. A preoperative stress test for his carotid endarterectomy demonstrated no evidence of ischemia but evidence of previous anterior infarct. He underwent an uneventful carotid endarterectomy. He follows up with a medical coding specialist in [facility]. He says he underwent a cardiac catheterization approximately [address] [facility]. Attempts are being made to obtain these results. Past Medical History Allergies/Adverse Reactions: Allergies levofloxacin [From Levaquin] Allergy (Verified 01/25/18 14:40) Hives Penicillins [PCN] Allergy (Verified 01/25/18 14:40) Hives Home Medications: Ambulatory Orders Medication Instructions Recorded Albuterol Inhaler [Ventolin Hfa] 2 puff INHALATION Q4H PRN PRN 08/04/16 Amlodipine [Norvasc] 10 mg PO DAILY 08/04/16 Clopidogrel Bisulfate [Plavix] 75 mg PO DAILY 08/04/16 Marble-3 Fatty Acids [Fish Oil] 1,290 mg PO DAILY 03/30/17 Ubidecarenone [Coq10] 100 mg PO DAILY 03/30/17 cholecalciferol (vitamin D3) 5,000 2,000 unit PO DAILY cap 11/30/17 unit capsule budesonide 0.5 mg/2 mL suspension 0.5 mg INHALATION Q12H #120 ml 02/15/18 for nebulization ipratropium-albuterol 0.5 mg-3 3 ml INHALATION Q6HWA.RT #360 ml 02/15/18 mg(2.5 mg base)/3 mL nebulization soln Aspirin [Aspirin, Baby] 81 mg PO DAILY@0800 05/20/18 Glimepiride [Amaryl] 4 mg PO BID 05/20/18 Losartan/Hydrochlorothiazide 1 tab PO DAILY 05/20/18 [Hyzaar 100-12.5 Tablet] Metformin HCl [Glucophage] 500 mg PO BID 05/20/18 Past Medical History (Chronic Problems): Chronic Problems (Last Reviewed 03/16/18 @ 09:36 by Rosa Lopez) Severe chronic obstructive pulmonary disease (Chronic) Dyspnea on exertion (Chronic) Lung nodule (Chronic) Hypoxia (Chronic) Chronic hypoxemic respiratory failure (Chronic) LUIS (obstructive sleep apnea) (Chronic) Fatigue (Chronic) Sarcoidosis (Chronic) Pulmonary hypertension, mild (Chronic) Stage 4 very severe COPD by GOLD classification (Chronic) Dyspnea (Chronic) History of CVA (cerebrovascular accident) (Chronic) Hypertension (Chronic) Chronic respiratory failure (Chronic) Type 2 diabetes mellitus (Chronic) Status post coronary artery bypass graft (Chronic) Coronary artery disease (Chronic) COPD (chronic obstructive pulmonary disease) (Chronic) Surgical History: appendectomy, cholecystectomy, coronary bypass surgery, herniorrhaphy, - - Carotid endarterectomy Psychiatric History: No pertinent psych hx - *Family History Maternal Family History: Family History (Last Reviewed 03/16/18 @ 09:36 by Rosa Lopez) Mother Cancer Father Hypertension History Items: No pertinent history Paternal Family History: Family History (Last Reviewed 03/16/18 @ 09:36 by Rosa Lopez) Mother Cancer Father Hypertension History Items: No pertinent history Smoking Status: Former smoker Alcohol: None Drugs: None Review of Systems - Review of Systems General: Denies: Fever, Night Sweats, Fatigue Cardiovascular: Reports: Shortness of Breath, Shortness of Breath at Rest, Shortness of Breath with Exertion, Peripheral Edema. Denies: Chest Discomfort, Orthopnea, PND, Palpitations, Lightheadedness, Dizziness, Near Syncope, Syncope Respiratory: Reports: Cough. Denies: Sputum Production, Hemoptysis Gastrointestinal: Denies: Hematemesis, Hematochezia, Melena Genitourinary: Denies: Dysuria, Hematuria Skin: Denies: Rash Subjectve: Pleasant gentleman in mild respiratory distress Objective: Vital Signs Temp Pulse Resp BP Pulse Ox 97.2 F L 86 28 H 144/77 H 98 05/20/18 14:00 05/20/18 18:00 05/20/18 18:00 05/20/18 18:00 05/20/18 18:00 Oxygen Flow Rate (L/min) 4 Oxygen Delivery Method Bi-pap Weight: 183 lb 13.848 oz Body Mass Index (BMI) 29.7 Finger Stick Blood Glucose 149 Intake and Output for Last 24 Hours 05/18/18 05/19/18 05/20/18 23:59 23:59 23:59 Output Total 200 / 200 Balance -200 / -200 General: Awake, Alert, Oriented x 3 HEENT: PERRL, EOMI, Sclera Non Icteric Neck: Supple, Good ROM, No Lymph Node Enlargement Lungs: Rales - Dajuan Bases Cardiovascular: Regular Rhythm, Normal S1, Normal S2, No Murmurs, No Rubs, No Gallops Vascular: No Carotid Bruits, Normal Femoral Pulses, Normal Radial Pulses, Normal Dorsalis Pedal Pulse, Normal Posterior Tibial Pulses Abdomen: Bowel Sounds Present, Soft, Non Tender, No HSM, No Organomegaly Extremities: No Cyanosis, No Clubbing, Bilateral Edema +1 Neurological: No Focal Motor or Sensory Deficit 05/20/18 14:45: pH 7.38, Bicarbonate Actual 30.5 H, POC Total CO2 32, Base Excess 5 H, O2 Saturation 74 L, ABG pCO2 51.7 H, ABG pO2 41 L, Steven Test POS 05/20/18 14:50: WBC 16.2 H, RBC 3.80 L, Hgb 10.5 L, Hct 34.9 L, MCV 91.8, MCH 27.6, MCHC 30.1 L, RDW 13.9, RDW Differential 45.7 H, Plt Count 239, MPV 10.3, Immature Gran % (Auto) 0.100, Neut % (Auto) 96.5 H, Lymph % (Auto) 2.5 L, [place] % (Auto) 0.8, Eos % (Auto) 0.0, Baso % (Auto) 0.1, Absolute Neuts (auto) 15.6 H , Total Counted Not Reportable 05/20/18 14:50: Sodium 140, Potassium 4.3, Chloride 102, Carbon Dioxide 34.0 H, Anion Gap 4 L, BUN 26 H, Creatinine 1.54 H, Est GFR (MDRD) Af Amer 56 L, Est GFR (MDRD) Non-Af 47 L, BUN/Creatinine Ratio 16.9, Glucose 204 H, Calcium 8.6, Total Bilirubin 0.30, Troponin I 5.200 H* 05/20/18 16:18: PT 13.0, INR 1.0, APTT 24.5 05/20/18 16:18: B-Natriuretic Peptide 427.3 H Rhythm: EKG: Normal sinus rhythm with T-wave inversions noted inferiorly ECHO: Stress Test: Cardiac Cath: PCI: CT Surgery: Holter monitor: EPS: PPM: CXR: Chest CT Scan: Assessment/Plan 1. Acute on chronic hypoxic and hypercapnic respiratory failure due to COPD exacerbation and congestive heart failure * Patient very short of breath still even on 4 L of oxygen. He is tripoding and using accessory muscles of respiration. * Has wheezes bilaterally and breath sounds are diminished in all lung mccoy. * Will recommend a dose of intravenous Lasix especially as his natruretic peptide is also elevated * 2. NSTEMI * initial troponin at [facility] was 0.35; EKG there showed st depression in inferior leads * troponin repeated here was 5.2; repeat EKG still showed inferior leads st depression * Will continue Plavix and utilize Lovenox daily * Will need to consider cardiac catheterization. It would be helpful to obtain the previous catheterization from 2 years ago from [facility] and after the patient has been optimized from the respiratory standpoint would pursue a left heart catheterization. I have discussed the above with the patient and the family and they understand and agreed to proceed. 3.Hypertension * on amlodipine 10mg daily, losartan/HCTZ; hold amlodipine in light of NSTEMI * 4. CAD s/p CABG: on aspirin and plavix * With history of recent non-ST elevation myocardial infarction would pursue a cardiac catheterization. The patient will be signed out to my partner for the above to be performed when he is more stable from the respiratory standpoint. 5. Carotid endarterectomy * Aggressive risk factor modification with Plavix as well as lipid-lowering medication. * Thank you for allowing me to participate in the care of your patient. Please don't hesitate to call if any issues arise
[2018-05-20] MEDS: Furosemide 40 MG/4 ML Vial IV (19:03)
[2018-05-20] MEDS: Enoxaparin 80 MG/0.8 ML Syringe SC (22:04)
[2018-05-20] MEDS: Insulin Lispro 100 UNIT/ML INSULN.PEN SC (22:14)
[2018-05-20 22:36] LABS: Bedside Glucose 209 mg/dL (70-110)
[2018-05-21] VITALS (38 sets, daily range): BP systolic 117–167; BP diastolic 54–105; PULSE 68–116; RESP 12–38; TEMP 36.9–37.7; O2SAT 98–100
[2018-05-21] MEDS: 0.9% NaCl Peripheral Flush Adult/Peds IV ×2 (05:57→21:06)
[2018-05-21] MEDS: Ipratropium/Albuterol Sulfate 3 ML AMPUL.NEB INHALATION ×3 (06:04→17:25)
--- NOTE | 2018-05-21 06:29 | PN.CARD_ITS ---
Subjectve: Patient seen and evaluated. Apparently required BiPAP through the night. Denies any chest pain. Objective: Vital Signs Temp Pulse Resp BP Pulse Ox 99.5 F H 89 20 H 159/75 H 100 05/21/18 06:00 05/21/18 06:05 05/21/18 06:05 05/21/18 06:00 05/21/18 06:00 Oxygen Flow Rate (L/min) 35 Oxygen Delivery Method Bi-pap Weight: 183 lb 13.848 oz Body Mass Index (BMI) 29.7 Finger Stick Blood Glucose 149 Intake and Output for Last 24 Hours 05/19/18 05/20/18 05/21/18 23:59 23:59 23:59 Intake Total 100 / 100 392 / 392 Output Total 1000 / 1000 650 / 650 Balance -900 / -900 -258 / -258 General: Awake, Alert, Oriented x 3 HEENT: PERRL, EOMI, Sclera Non Icteric Neck: Supple, Good ROM, No Lymph Node Enlargement Lungs: Diminished Dajuan Bases Cardiovascular: Regular Rhythm, Normal S1, Normal S2, No Murmurs, No Rubs, No Gallops Vascular: No Carotid Bruits, Normal Femoral Pulses, Normal Radial Pulses, Normal Dorsalis Pedal Pulse, Normal Posterior Tibial Pulses Abdomen: Bowel Sounds Present, Soft, Non Tender, No HSM, No Organomegaly Extremities: No Cyanosis, No Clubbing, Trace RLE Edema, Trace LLE Edema Neurological: No Focal Motor or Sensory Deficit 05/20/18 14:45: pH 7.38, Bicarbonate Actual 30.5 H, POC Total CO2 32, Base Excess 5 H, O2 Saturation 74 L, ABG pCO2 51.7 H, ABG pO2 41 L, Steven Test POS 05/20/18 14:50: WBC 16.2 H, RBC 3.80 L, Hgb 10.5 L, Hct 34.9 L, MCV 91.8, MCH 27.6, MCHC 30.1 L, RDW 13.9, RDW Differential 45.7 H, Plt Count 239, MPV 10.3, Immature Gran % (Auto) 0.100, Neut % (Auto) 96.5 H, Lymph % (Auto) 2.5 L, [place] % (Auto) 0.8, Eos % (Auto) 0.0, Baso % (Auto) 0.1, Absolute Neuts (auto) 15.6 H , Total Counted Not Reportable 05/20/18 14:50: Sodium 140, Potassium 4.3, Chloride 102, Carbon Dioxide 34.0 H, Anion Gap 4 L, BUN 26 H, Creatinine 1.54 H, Est GFR (MDRD) Af Amer 56 L, Est GFR (MDRD) Non-Af 47 L, BUN/Creatinine Ratio 16.9, Glucose 204 H, Calcium 8.6, Total Bilirubin 0.30, Troponin I 5.200 H* 05/20/18 16:18: PT 13.0, INR 1.0, APTT 24.5 05/20/18 16:18: B-Natriuretic Peptide 427.3 H 05/20/18 19:44: Troponin I 7.220 H* 05/20/18 22:35: Troponin I 6.490 H* Rhythm: EKG: Normal sinus rhythm with T-wave inversions in the inferior leads. Medical Necessity - Tobacco Use Smoking Status: Former smoker Assessment/Plan 1. Acute on chronic hypoxic and hypercapnic respiratory failure due to COPD exacerbation and congestive heart failure * Patient very short of breath still even on 4 L of oxygen. He is tripoding and using accessory muscles of respiration. * Has less wheezes bilaterally and breath sounds are diminished in all lung mccoy. * Will recommend a dose of intravenous Lasix especially as his natruretic peptide is also elevated * 2. NSTEMI * initial troponin at [facility] was 0.35; EKG there showed st depression in inferior leads * troponin repeated here was 5.2; repeat EKG still showed inferior leads st depression * Will continue Plavix and utilize Lovenox daily * Will need to consider cardiac catheterization. Cardiac catheterization from 2 years ago demonstrated a patent left internal mammary artery to the left anterior descending artery, saphenous vein graft to the obtuse marginal branch and to the diagonal branch were all patent. Medical therapy was recommended at that time. * Will discuss timing of repeat cardiac catheterization dependent on patient's clinical response. 3.Hypertension * on amlodipine 10mg daily, losartan/HCTZ; hold amlodipine in light of NSTEMI * 4. CAD s/p CABG: on aspirin and plavix * With history of recent non-ST elevation myocardial infarction would pursue a cardiac catheterization. The patient will be signed out to my partner for the above to be performed when he is more stable from the respiratory standpoint. 5. Carotid endarterectomy * Aggressive risk factor modification with Plavix as well as lipid-lowering medication. * Thank you for allowing me to participate in the care of your patient. Please don't hesitate to call if any issues arise
[2018-05-21 06:42] LABS: Absolute Lymphocyte Count 0.76 X10^3/ul (0.83-4.51); Basophil# 0.01 X10^3/uL; Basophil% 0.1 % (0-1); Hematocrit 32.1 % (40-54); Hemoglobin 9.9 g/dl (13.0-16.5); Lymphocyte # 0.76 X10^3/ul (4.0); Mean Corp Hgb Conc 30.8 g/gl (32-36); Mean Corpuscular Hgb 27.8 pg (27.0-32.0); Mean Corpuscular Volume 90.2 fL (80-94); Mean Platelet Vol. 10.3 fl (6.2-12.0); Monocyte# 0.35 X10^3/uL; Monocyte% 2.3 % (0-10); Neutrophil # 13.97 X10^3/uL (2.7-7.7); Neutrophil % 92.4 % (47-70); Platelet Count 231 K/mm3 (150-450); RBC Distribution Width CV 13.3 % (11.6-14.6); RBC Distribution Width SD 42.8 fl (35.1-43.9); Red Blood Count 3.56 M/mm3 (4.6-6.2); White Blood Count 15.1 K/mm3 (4.4-11.0)
[2018-05-21 06:55] LABS: POSITIVE COUNT NO; POSITIVE DIFFERENTIAL NO; POSITIVE MORPHOLOGY NO
[2018-05-21 07:01] LABS: Bedside Glucose 183 mg/dL (70-110)
[2018-05-21 07:01] LABS: Anion Gap 7 (5-15); BUN 36 mg/dL (7-18); BUN/Creat Ratio 25.7 RATIO (10-20); Calcium,Total 8.8 mg/dL (8.5-10.1); Chloride 100 mmol/L (98-107); EST Glomerular Filtration Rate 52 mL/min (>60); Est Glom Filt Rate - Afr Amer 63 mL/min (>60); Estimated Creatinine Clearance 38.61 ml/min; Glucose 179 mg/dL (74-106); Potassium 4.1 mmol/L (3.5-5.1); Sodium Level 142 mmol/L (136-145)
--- NOTE | 2018-05-21 08:25 | NURSING ---
echo in progress
[2018-05-21] MEDS: Clopidogrel Bisulfate 75 MG Tablet PO (09:01)
[2018-05-21] MEDS: Aspirin 81 MG TAB.CHEW PO (09:01)
[2018-05-21] MEDS: Pantoprazole Sodium 20 MG Tablet PO (09:01)
[2018-05-21] MEDS: Furosemide 40 MG Tablet PO ×2 (09:02→16:59)
[2018-05-21] MEDS: Insulin Lispro 100 UNIT/ML INSULN.PEN SC ×4 (09:03→21:25)
--- NOTE | 2018-05-21 09:57 | PCM.PN.HOSP ---
Patient Problems: Active and Suspected Problems (Last Reviewed 03/16/18 @ 09:36 by Rosa Lopez) Shortness of breath (Acute) Subjective: Patient seen and examined. Admitted from [facility] with a complaint of shortness of breath was initially managed for COPD exacerbation. Was found to have elevated troponin of 5.2 on arrival here with EKG showing only mild ST depression in inferior leads. Troponin was 0.35 at [facility]. Patient now be managed for an NST JEREMY and COPD exacerbation. He was started on heparin drip, and cardiology was consulted. He is on BiPAP. Patient seen and examined. He remains short of breath and remains on BiPAP. He denies any chest pain and admits to a dry cough. Shortness of breath has not really improved. He denies any lower extremity edema, any abdominal pain, any diarrhea vomiting. Cardiology is on board and heparin was switched to Lovenox. He is currently not in an ideal state to undergo a cardiac cath on account of acute on chronic respiratory failure. Labs and vitals reviewed. Vitals/I&O's: Vital Signs Temp Pulse Resp BP Pulse Ox 99.0 F 96 29 H 154/77 H 99 05/21/18 08:00 05/21/18 09:00 05/21/18 09:00 05/21/18 09:00 05/21/18 09:00 Oxygen Flow Rate (L/min) 4 Oxygen Delivery Method Nasal Cannula Weight: 183 lb 13.848 oz Body Mass Index (BMI) 29.7 Finger Stick Blood Glucose 149 Intake and Output for Last 24 Hours 05/19/18 05/20/18 05/21/18 23:59 23:59 23:59 Intake Total 100 / 100 392 / 392 Output Total 1000 / 1000 650 / 650 Balance -900 / -900 -258 / -258 General: Alert, Oriented x3, Cooperative, - - in moderate respiratory distress HEENT: Atraumatic, PERRLA, EOMI, Normocephalic Oral: Moist Mucosa Neck: Supple, No JVD, Negative Carotid Bruits Lungs: Short of Breath, - - still has coarse crackles and wheezing in all lung mccoy bilaterally. Remains tachypneic Cardiovascular: Regular rate, Regular Rhythm, Normal S1, Normal S2, No murmurs Abdomen: Bowel Sounds Present, Soft, Non Tender Extremities: No clubbing, No cyanosis, Capillary Refill Less than 3 Seconds, - - bilateral 1+ pitting pedal edema Skin: No rashes, No breakdown Musculoskeletal: No Tenderness to Palpation of Joints or Extremities Lymphatic: No Cervical, Supraclavicular, or Inguinal Adenopathy Neurological: Cranial nerves II-XII grossly intact, Motor Exam 5/5 strength throughout Psych/Mental Status: Normal Affect, Appropriate, Alert and oriented to time, place, person, mood and affect Laboratory Results 05/20/18 14:45: Specimen Type ART, Sample Site R Radial, pH 7.38, Bicarbonate Actual 30.5 H, POC Total CO2 32, Base Excess 5 H, O2 Saturation 74 L, ABG pCO2 51.7 H, ABG pO2 41 L, Steven Test POS, O2 Delivery Device Nasal Can, Liter Flow 4.0, Blood Gas Notified Whom [facility] , Blood Gas Notified Time 1420 05/20/18 14:50: WBC 16.2 H, RBC 3.80 L, Hgb 10.5 L, Hct 34.9 L, MCV 91.8, MCH 27.6, MCHC 30.1 L, RDW 13.9, RDW Differential 45.7 H, Plt Count 239, MPV 10.3, Immature Gran % (Auto) 0.100, Neut % (Auto) 96.5 H, Lymph % (Auto) 2.5 L, [place] % (Auto) 0.8, Eos % (Auto) 0.0, Baso % (Auto) 0.1, Absolute Neuts (auto) 15.6 H, Absolute Lymphs (auto) 0.40 L, Total Counted Not Reportable, Differential Comment COMMENT 05/20/18 14:50: Sodium 140, Potassium 4.3, Chloride 102, Carbon Dioxide 34.0 H, Anion Gap 4 L, BUN 26 H, Creatinine 1.54 H, Estim Creat Clear Calc 35.10, Est GFR (MDRD) Af Amer 56 L, Est GFR (MDRD) Non-Af 47 L, BUN/Creatinine Ratio 16.9, Glucose 204 H, Calcium 8.6, Total Bilirubin 0.30, AST 35, ALT 23, Alkaline Phosphatase 75, Troponin I 5.200 H*, Total Protein 7.2, Albumin 3.7, Globulin 3.5, Albumin/Globulin Ratio 1.1 05/20/18 16:15: POC Glucose 157 H 05/20/18 16:18: PT 13.0, INR 1.0, APTT 24.5 05/20/18 16:18: B-Natriuretic Peptide 427.3 H 05/20/18 19:44: Troponin I 7.220 H* 05/20/18 21:40: POC Glucose 209 H 05/20/18 22:35: Troponin I 6.490 H* 05/21/18 06:18: WBC 15.1 H, RBC 3.56 L, Hgb 9.9 L, Hct 32.1 L, MCV 90.2, MCH 27.8, MCHC 30.8 L, RDW 13.3, RDW Differential 42.8, Plt Count 231, MPV 10.3, Immature Gran % (Auto) 0.200, Neut % (Auto) 92.4 H, Lymph % (Auto) 5.0 L, [place] % (Auto) 2.3, Eos % (Auto) 0.0, Baso % (Auto) 0.1, Absolute Neuts (auto) 14.0 H, Absolute Lymphs (auto) 0.76 L, Total Counted Not Reportable 05/21/18 06:18: Sodium 142, Potassium 4.1, Chloride 100, Carbon Dioxide 35.0 H, Anion Gap 7, BUN 36 H, Creatinine 1.40 H, Estim Creat Clear Calc 38.61, Est GFR (MDRD) Af Amer 63, Est GFR (MDRD) Non-Af 52 L, BUN/Creatinine Ratio 25.7 H, Glucose 179 H, Calcium 8.8 05/21/18 06:55: POC Glucose 183 H Diagnostic Data Chest X-Ray 05/20/18 14:22 IMPRESSION: There is evidence of increased interstitial markings at the lung bases with areas of confluence worse in the right lung base with blunting of both cost phrenic angles. This is superimposed on mild degree of CHF. Follow-up is recommended. Electronically Signed: Chris Gregory MD at 14:57 EDT Tel [phone], Service support , Current Medications Albuterol Sulfate (Ventolin Aerosols) 2.5 mg INHALATION Q4H PRN PRN Reason: DYSPNEA Albuterol/Ipratropium (Duoneb) 3 ml INHALATION Q6HWA.RT [facility] Last Admin: 05/21/18 06:04 Dose: 3 ml Aspirin (Aspirin, Baby) 81 mg PO DAILY@0800 [facility] Last Admin: 05/21/18 09:01 Dose: 81 mg Clopidogrel Bisulfate (Plavix) 75 mg PO DAILY [facility] Last Admin: 05/21/18 09:01 Dose: 75 mg Furosemide (Lasix) 40 mg PO BID@1000,1800 [facility] Last Admin: 05/21/18 09:02 Dose: 40 mg Heparin Sodium (Porcine) (Heparin Na) 0 unit IV UD PRN PRN Reason: Protocol Hydrochlorothiazide (Hydrochlorothiazide) 12.5 mg PO DAILY [facility] Doxycycline Hyclate 100 mg/ (Dextrose) 260 mls @ 250 mls/hr IV Q12 [facility] Last Admin: 05/20/18 22:04 Dose: 250 mls/hr Sodium Chloride () 250 mls @ 15 mls/hr IV .[id number] PRN PRN Reason: SALINE FLUSH Sodium Chloride () 250 mls @ 15 mls/hr IV .[id number] PRN PRN Reason: SALINE FLUSH Insulin Human Lispro (Humalog Kwikpen (Bkc)) 0 unit SC ACHS [facility] PRN Reason: Protocol Last Admin: 05/21/18 09:03 Dose: 2 units Losartan Potassium (Cozaar) 100 mg PO DAILY [facility] Magnesium Hydroxide (Milk Of Magnesia) 30 ml PO DAILY PRN PRN PRN Reason: Constipation Methylprednisolone (Solu-Medrol) 40 mg IV Q8 [facility] Last Admin: 05/21/18 05:57 Dose: 40 mg Pantoprazole Sodium (Protonix) 20 mg PO DAILY [facility] Last Admin: 05/21/18 09:01 Dose: 20 mg Sodium Chloride () 5 - 30 ml IV UD PRN PRN Reason: SALINE FLUSH Last Admin: 05/21/18 05:57 Dose: 10 ml Medical Necessity - Tobacco Use Smoking Status: Former smoker Assessment/Plan All Active Problems (Last Reviewed 03/16/18 @ 09:36 by Rosa Lopez) Shortness of breath (Acute) Thrush, oral (Acute) Irregular heart beat (Acute) History of cholecystectomy (Resolved) H/O hernia repair (Resolved) History of appendectomy (Resolved) Hx of CABG (Resolved) 1. Acute on chronic hypoxic and hypercapnic respiratory failure due to COPD exacerbation and NSTEMI Patient remains short of breath and was on BiPAP at time of review. Was switched to oxygen by nasal cannula but tolerated for only about 20 minutes and had to be put back on BiPAP. Still has wheezing and coarse crackles bilaterally. Remains tachypneic. Waiting treatment with DuoNeb and IV supplement of 40 mg every 8. ABGs done on admission showed pH of 7.38 with PCO2 of 51.7 and PO2 of 41. CXR: Evidence of increased interstitial markings of the lung base with areas of confluence worse in the right lung base with blunting of both costophrenic angles. Superimposed mild degree of CHF. Will consult pulmonology. 2. NSTEMI initial troponin at [facility] was 0.35; EKG there showed st depression in inferior leads troponin repeated here was 5.2; repeat EKG still showed inferior leads st depression Was started on IV heparin and received loading dose of Plavix. Was also given metoprolol and aspirin. Switch to Lovenox therapeutic dose per cardiology in order to minimize blood draws. Bone is trended up to 6.49 2D echo ordred, report is pending Patient needs to be optimized respiratory benitez before he can have cardiac cath. 3. COPD exacerbation. still has dry cough. CXR as documented above remains on BIPAP, as documented above on IV doxycycline 100mg bid. 4. CHF exacerbation BNP was 427; on IV lasix 40mg bid 2D echo ordered to delineate heart function better 5.Hypertension on amlodipine 10mg daily, losartan/HCTZ; hold amlodipine in light of NSTEMI 6. Diabetes mellitus: Accuchecks ACHS. ISS. Metformin on hold. 7. CAD s/p CABG: on aspirin and plavix DVT prophylaxis: on lovenox GI prophylaxis: PPI Code status: I was just informed by supervisor reclamation Dr. Mckeon the patient had been referred to palliative care in February 2018 and was seen by palliative care in March 2018. CODE STATUS was made DNR CC and papers were signed. Copy of previous currently not available. I discussed patient's CODE STATUS extensively with him yesterday and he had stated then that he wanted to be full code. Dr. Mckeon to discuss CODE STATUS with him again today. This note was generated with Sparxentation software. It may contain incorrect words, spelling, and punctuation that were not noted in checking the note before signing. Code Visit Inpatient E&M: 21179 Subs Hosp L3
--- NOTE | 2018-05-21 09:59 | PCM.CONS.GEN ---
Reason for Consult Date of Consultation: 05/21/18 Reason for Consultation: Respiratory failure History of Present Illness: The patient is a 78-year-old male, with a history as outlined below, who presented as a transfer of care from [facility] on May 20 with complaints of progressive shortness of breath. The patient follows with me in the pulmonary medicine clinic and has a history of end-stage COPD and chronic hypoxemic respiratory failure. He is on a maximal triple therapy inhaler regimen and utilizes a trilogy noninvasive ventilator in his home environment. The patient has an approximate [id number] smoking history, having quit completely in 1998. He has baseline, chronic hypoxemic respiratory failure with a 4 L/min baseline supplemental oxygen requirement. He also has evidence of several small sub-some subcentimeter left lung nodules, which were noted on a CT chest obtained through [facility] in June 2016. The patient reportedly has a history of previous chest scans demonstrating similar sized pulmonary nodules. In fact, the patient also has a negative PET scan. The patient did complete pulmonary rehabilitation in October 2016. Pulmonary function testing completed in April 2017 revealed evidence of a partially reversible very severe large airways obstructive ventilatory defect with associated air trapping and reduction in diffusing capacity. During my last office visit with the patient, he was referred to be evaluated by palliative care. On April 03, 2018, the patient was evaluated by [facility]. At that time, DNR CC paperwork was completed and the patient was referred to the hospice admission team. However, upon further discussion with the patient and his son, he reports that he was interested in remaining active with palliative care but did not want to pursue hospice. He felt that he was being pressured towards enrollment in hospice and therefore fired the [facility]. On presentation to the emergency department, the patient was noted to be afebrile hemodynamically stable. He was tachypneic and hypoxic. Laboratory evaluation revealed an elevated white blood cell count to 16,000. Arterial blood gas on 4 L/min revealed a pH of 7.38 with a corresponding PCO2 of 51 and PO2 of 41. Chemistry profile revealed an elevated creatinine to 1.54. Troponin was elevated to 5.2, which peaked on May 20 at 7.2. BNP was elevated to 427. Plain film chest imaging revealed evidence of pulmonary vascular congestion. The patient has been treated medically for an NSTEMI, but has essentially been dependent on his noninvasive ventilator since his admission. The patient has been receiving IV Lasix throughout his hospital stay and is currently documented to be overall net -1.1 L for the admission. He is also receiving scheduled bronchodilators, antibiotics and steroids. Past Medical History Past Medical History (Chronic Problems): Chronic Problems (Last Reviewed 03/16/18 @ 09:36 by Rosa Lopez) Severe chronic obstructive pulmonary disease (Chronic) Dyspnea on exertion (Chronic) Lung nodule (Chronic) Hypoxia (Chronic) Chronic hypoxemic respiratory failure (Chronic) LUIS (obstructive sleep apnea) (Chronic) Fatigue (Chronic) Sarcoidosis (Chronic) Pulmonary hypertension, mild (Chronic) Stage 4 very severe COPD by GOLD classification (Chronic) Dyspnea (Chronic) History of CVA (cerebrovascular accident) (Chronic) Hypertension (Chronic) Chronic respiratory failure (Chronic) Type 2 diabetes mellitus (Chronic) Status post coronary artery bypass graft (Chronic) Coronary artery disease (Chronic) COPD (chronic obstructive pulmonary disease) (Chronic) Medical History: Medical History (Last Reviewed 03/16/18 @ 09:36 by Rosa Lopez) Severe chronic obstructive pulmonary disease (Chronic) J44.9 Dyspnea on exertion (Chronic) R06.09 Lung nodule (Chronic) R91.1 Hypoxia (Chronic) R09.02 Chronic hypoxemic respiratory failure (Chronic) J96.11 LUIS (obstructive sleep apnea) (Chronic) G47.33 Fatigue (Chronic) R53.83 Sarcoidosis (Chronic) D86.9 Pulmonary hypertension, mild (Chronic) I27.20 Stage 4 very severe COPD by GOLD classification (Chronic) J44.9 Dyspnea (Chronic) R06.00 History of CVA (cerebrovascular accident) (Chronic) Z86.73 Hypertension (Chronic) I10 Chronic respiratory failure (Chronic) J96.10 Type 2 diabetes mellitus (Chronic) E11.9 Coronary artery disease (Chronic) I25.10 COPD (chronic obstructive pulmonary disease) (Chronic) J44.9 Allergies levofloxacin [From Levaquin] Allergy (Verified 01/25/18 14:40) Hives Penicillins [PCN] Allergy (Verified 01/25/18 14:40) Hives Home Medications: Ambulatory Orders Medication Instructions Recorded Albuterol Inhaler [Ventolin Hfa] 2 puff INHALATION Q4H PRN PRN 08/04/16 Amlodipine [Norvasc] 10 mg PO DAILY 08/04/16 Clopidogrel Bisulfate [Plavix] 75 mg PO DAILY 08/04/16 Irwin-3 Fatty Acids [Fish Oil] 1,290 mg PO DAILY 03/30/17 Ubidecarenone [Coq10] 100 mg PO DAILY 03/30/17 cholecalciferol (vitamin D3) 5,000 2,000 unit PO DAILY cap 11/30/17 unit capsule budesonide 0.5 mg/2 mL suspension 0.5 mg INHALATION Q12H #120 ml 02/15/18 for nebulization ipratropium-albuterol 0.5 mg-3 3 ml INHALATION Q6HWA.RT #360 ml 02/15/18 mg(2.5 mg base)/3 mL nebulization soln Aspirin [Aspirin, Baby] 81 mg PO DAILY@0800 05/20/18 Glimepiride [Amaryl] 4 mg PO BID 05/20/18 Losartan/Hydrochlorothiazide 1 tab PO DAILY 05/20/18 [Hyzaar 100-12.5 Tablet] Metformin HCl [Glucophage] 500 mg PO BID 05/20/18 Surgical History: Surgical History (Last Reviewed 03/16/18 @ 09:36 by Rosa Lopez) History of cholecystectomy (Resolved) Z98.890, Z90.49 H/O hernia repair (Resolved) Z98.890, Z87.19 History of appendectomy (Resolved) Z98.890, Z90.49 Hx of CABG (Resolved) Z95.1 Status post coronary artery bypass graft (Chronic) Z95.1 Surgical History: appendectomy, cholecystectomy, coronary bypass surgery, herniorrhaphy, - - Carotid endarterectomy Psychiatric History: No pertinent psych hx Smoking Status: Former smoker Alcohol: None Drugs: None - *Family History Maternal Family History: Family History (Last Reviewed 03/16/18 @ 09:36 by Rosa Lopez) Mother Cancer Father Hypertension History Items: No pertinent history Paternal Family History: Family History (Last Reviewed 03/16/18 @ 09:36 by Rosa Lopez) Mother Cancer Father Hypertension History Items: No pertinent history Review of Systems Constitutional: Denies: Chills, Fever Eyes: Denies: Blurred vision, Double vision HEENT: Denies: Head Aches, Sinus Congestion, Sinus Drainage Cardiovascular: Denies: Chest Pain, Palpitations Respiratory: Reports: Shortness of Breath, Wheezing Gastrointestinal: Denies: Abdominal Pain, Nausea, Vomiting Genitourinary: Denies: Dysuria Musculoskeletal: Denies: Joint Pain, Joint Tenderness Skin: Denies: Rash, Wounds Neurological: Denies: Numbness, Tingling, Focal weakness Psychiatric: Reports: Anxiety Hematologic/ Lymphatic: Reports: Anemia Patient Problems: Active and Suspected Problems (Last Reviewed 03/16/18 @ 09:36 by Rosa Lopez) Shortness of breath (Acute) Objective: The patient's most recent lab work, culture data and imaging studies have all been personally reviewed. - Physical Exam General: Alert, Cooperative, No apparent distress, - - Currently tolerating AVAPS without issue. His son is present at the bedside. HEENT: Atraumatic, PERRLA, Normocephalic Oral: No Gingival or Mucosal Lesions/ Ulcerations Neck: Supple, No Nodes, Trachea Midline Lungs: - - Globally diminished air movement throughout all lung mccoy without appreciable wheezes, rales or rhonchi. Cardiovascular: Regular rate, Regular Rhythm, Normal S1, Normal S2, No murmurs Abdomen: Bowel Sounds Present, Soft, Non Tender, Obese Extremities: No cyanosis, Clubbing, Edema - Trace LE Skin: No breakdown Musculoskeletal: No Tenderness to Palpation of Joints or Extremities, No Muscle Wasting Lymphatic: No Cervical, Supraclavicular, or Inguinal Adenopathy Neurological: Neuro grossly intact Psych/Mental Status: Alert and oriented to time, place, person, mood and affect Vital Signs Temp Pulse Resp BP Pulse Ox 99.0 F 96 29 H 154/77 H 99 05/21/18 08:00 05/21/18 09:00 05/21/18 09:00 05/21/18 09:00 05/21/18 09:00 Oxygen Flow Rate (L/min) 4 Oxygen Delivery Method Nasal Cannula Weight: 183 lb 13.848 oz Body Mass Index (BMI) 29.7 Finger Stick Blood Glucose 149 Intake and Output for Last 24 Hours 05/19/18 05/20/18 05/21/18 23:59 23:59 23:59 Intake Total 100 / 100 392 / 392 Output Total 1000 / 1000 650 / 650 Balance -900 / -900 -258 / -258 Laboratory Tests Past 24 Hrs 05/20/18 05/20/18 05/20/18 14:45 14:50 14:50 WBC 16.2 H RBC 3.80 L Hgb 10.5 L Hct 34.9 L MCV 91.8 MCH 27.6 MCHC 30.1 L RDW 13.9 RDW Differential 45.7 H Plt Count 239 MPV 10.3 Immature Gran % (Auto) 0.100 Neut % (Auto) 96.5 H Lymph % (Auto) 2.5 L [place] % (Auto) 0.8 Eos % (Auto) 0.0 Baso % (Auto) 0.1 Absolute Neuts (auto) 15.6 H Absolute Lymphs (auto) 0.40 L Total Counted Not Reportable Differential Comment COMMENT PT INR APTT Specimen Type ART Sample Site R Radial pH 7.38 Bicarbonate Actual 30.5 H POC Total CO2 32 Base Excess 5 H O2 Saturation 74 L ABG pCO2 51.7 H ABG pO2 41 L Steven Test POS O2 Delivery Device Nasal Can Liter Flow 4.0 Blood Gas Notified Whom [facility] Blood Gas Notified Time 1420 Sodium 140 Potassium 4.3 Chloride 102 Carbon Dioxide 34.0 H Anion Gap 4 L BUN 26 H Creatinine 1.54 H Estim Creat Clear Calc 35.10 Est GFR (MDRD) Af Amer 56 L Est GFR (MDRD) Non-Af 47 L BUN/Creatinine Ratio 16.9 Glucose 204 H Calcium 8.6 Total Bilirubin 0.30 AST 35 ALT 23 Alkaline Phosphatase 75 Troponin I 5.200 H* B-Natriuretic Peptide Total Protein 7.2 Albumin 3.7 Globulin 3.5 Albumin/Globulin Ratio 1.1 05/20/18 05/20/18 05/20/18 16:18 16:18 19:44 WBC RBC Hgb Hct MCV MCH MCHC RDW RDW Differential Plt Count MPV Immature Gran % (Auto) Neut % (Auto) Lymph % (Auto) [place] % (Auto) Eos % (Auto) Baso % (Auto) Absolute Neuts (auto) Absolute Lymphs (auto) Total Counted Differential Comment PT 13.0 INR 1.0 APTT 24.5 Specimen Type Sample Site pH Bicarbonate Actual POC Total CO2 Base Excess O2 Saturation ABG pCO2 ABG pO2 Steven Test O2 Delivery Device Liter Flow Blood Gas Notified Whom Blood Gas Notified Time Sodium Potassium Chloride Carbon Dioxide Anion Gap BUN Creatinine Estim Creat Clear Calc Est GFR (MDRD) Af Amer Est GFR (MDRD) Non-Af BUN/Creatinine Ratio Glucose Calcium Total Bilirubin AST ALT Alkaline Phosphatase Troponin I 7.220 H* B-Natriuretic Peptide 427.3 H Total Protein Albumin Globulin Albumin/Globulin Ratio 05/20/18 05/21/18 05/21/18 22:35 06:18 06:18 WBC 15.1 H RBC 3.56 L Hgb 9.9 L Hct 32.1 L MCV 90.2 MCH 27.8 MCHC 30.8 L RDW 13.3 RDW Differential 42.8 Plt Count 231 MPV 10.3 Immature Gran % (Auto) 0.200 Neut % (Auto) 92.4 H Lymph % (Auto) 5.0 L [place] % (Auto) 2.3 Eos % (Auto) 0.0 Baso % (Auto) 0.1 Absolute Neuts (auto) 14.0 H Absolute Lymphs (auto) 0.76 L Total Counted Not Reportable Differential Comment PT INR APTT Specimen Type Sample Site pH Bicarbonate Actual POC Total CO2 Base Excess O2 Saturation ABG pCO2 ABG pO2 Steven Test O2 Delivery Device Liter Flow Blood Gas Notified Whom Blood Gas Notified Time Sodium 142 Potassium 4.1 Chloride 100 Carbon Dioxide 35.0 H Anion Gap 7 BUN 36 H Creatinine 1.40 H Estim Creat Clear Calc 38.61 Est GFR (MDRD) Af Amer 63 Est GFR (MDRD) Non-Af 52 L BUN/Creatinine Ratio 25.7 H Glucose 179 H Calcium 8.8 Total Bilirubin AST ALT Alkaline Phosphatase Troponin I 6.490 H* B-Natriuretic Peptide Total Protein Albumin Globulin Albumin/Globulin Ratio POC Glucose 05/21/18 05/20/18 05/20/18 06:55 21:40 16:15 POC Glucose 183 H 209 H 157 H Clinical Impression(s) from Imaging Studies Chest X-Ray 05/20/18 14:22 IMPRESSION: There is evidence of increased interstitial markings at the lung bases with areas of confluence worse in the right lung base with blunting of both cost phrenic angles. This is superimposed on mild degree of CHF. Follow-up is recommended. Electronically Signed: Chris Gregory MD at 14:57 EDT Tel [phone], Service support , Assessment/Plan All Active Problems (Last Reviewed 03/16/18 @ 09:36 by Rosa Lopez) Shortness of breath (Acute) Thrush, oral (Acute) Irregular heart beat (Acute) History of cholecystectomy (Resolved) H/O hernia repair (Resolved) History of appendectomy (Resolved) Hx of CABG (Resolved) RECOMMENDATIONS: 1. Following a lengthy discussion with the patient and his family, CODE STATUS has been updated to DNR CCA without intubation. 2. Continue scheduled bronchodilators and steroids. 3. Continue AVAPS and wean as tolerated. 4. Low clinical index suspicion for underlying pulmonary infectious process. Therefore, would discontinue antibiotics. 5. If the patient's echocardiograms reveals increased right ventricular systolic pressures as compared to previous, could consider obtaining CTA chest to rule out for pulmonary embolism. 6. At the current time, given the advanced age of the patient's lung disease, he is certainly a candidate for palliative care involvement and this would be strongly recommended that he reestablish care with him upon discharge from the hospital. IMPRESSIONS: 1. Acute on chronic hypoxemic and hypercarbic respiratory failure Potentially related to underlying decompensated heart failure/NSTEMI. The patient does have a history of end-stage COPD and chronic hypoxemic respiratory failure, for which she utilizes a trilogy noninvasive ventilator in his home environment. He is on maximal therapy from a COPD perspective and has already completed pulmonary rehabilitation. He is not a candidate for lung transplantation. The patient had been enrolled with palliative care previously but subsequently discontinued their services, as he felt that he was being pressured into enrollment in hospice. Regardless, I do feel that the patient would benefit from palliative care being involved in his management. I did express this explicitly to the patient and his family. I had a lengthy discussion with him regarding CODE STATUS and they are all in agreement that a DNR CCA without plans for intubation would be appropriate. At this time, I would plan to continue the patient's home trilogy along with scheduled bronchodilators and steroids. I do not feel that the patient is experiencing an acute pulmonary infectious process would recommend discontinuation of antibiotics. A repeat surface echocardiogram is pending. If his right ventricular systolic pressures are significantly elevated as compared to previous, one could consider obtaining a CTA chest to rule out for the presence of pulmonary embolism. 2. Non-ST elevation myocardial infarction/history of coronary artery disease status post CABG Continue current medical management per cardiology recommendations. Unclear if diagnostic cardiac catheterization is being entertained at this point. 3. Hypertension/diabetes/hyperlipidemia Complicates care, management, recovery and prognosis. Likely okay to continue home medications as indicated. This note was generated with [employer] dictation software. It may contain incorrect words, spelling, and punctuation that were not noted in checking the note before signing. Code Visit Inpatient E&M: 08149 Init Hosp L3
--- NOTE | 2018-05-21 10:01 | PN_ITS ---
Patient Problems: Active and Suspected Problems (Last Reviewed 03/16/18 @ 09:36 by Rosa Lopez ) Shortness of breath (Acute) Subjective: Patient seen and examined. Admitted from [facility] with a complaint of shortness of breath was initially managed for COPD exacerbation. Was found to have elevated troponin of 5.2 on arrival here with EKG showing only mild ST depression in inferior leads. [facility] Patient now be managed for an NST JEREMY and COPD exacerbation. He was started on heparin drip, and cardiology was consulted. He is on BiPAP. Patient seen and examined. He remains short of breath and remains on BiPAP. He denies any chest pain and admits to a dry cough. Shortness of breath has not really improved. He denies any lower extremity edema, any abdominal pain, any diarrhea vomiting. Cardiology is on board and heparin was switched to Lovenox. He is currently not in an ideal state to undergo a cardiac cath on account of acute on chronic respiratory failure. Labs and vitals reviewed. Vitals/I&O's: Vital Signs Temp Pulse Resp BP Pulse Ox 99.0 F 96 29 H 154/77 H 99 05/21/18 08:00 05/21/18 09:00 05/21/18 09:00 05/21/18 09:00 05/21/18 09:00 Oxygen Flow Rate (L/min) 4 Oxygen Delivery Method Nasal Cannula Weight: 183 lb 13.848 oz Body Mass Index (BMI) 29.7 Finger Stick Blood Glucose 149 Intake and Output for Last 24 Hours 05/19/18 05/20/18 05/21/18 23:59 23:59 23:59 Intake Total 100 / 100 392 / 392 Output Total 1000 / 1000 650 / 650 Balance -900 / -900 -258 / -258 General: Alert, Oriented x3, Cooperative, - - in moderate respiratory distress HEENT: Atraumatic, PERRLA, EOMI, Normocephalic Oral: Moist Mucosa Neck: Supple, No JVD, Negative Carotid Bruits Lungs: Short of Breath, - - still has coarse crackles and wheezing in all lung mccoy bilaterally. Remains tachypneic Cardiovascular: Regular rate, Regular Rhythm, Normal S1, Normal S2, No murmurs Abdomen: Bowel Sounds Present, Soft, Non Tender Extremities: No clubbing, No cyanosis, Capillary Refill Less than 3 Seconds, - - bilateral 1+ pitting pedal edema Skin: No rashes, No breakdown Musculoskeletal: No Tenderness to Palpation of Joints or Extremities Lymphatic: No Cervical, Supraclavicular, or Inguinal Adenopathy Neurological: Cranial nerves II-XII grossly intact, Motor Exam 5/5 strength throughout Psych/Mental Status: Normal Affect, Appropriate, Alert and oriented to time, place, person, mood and affect Laboratory Results 05/20/18 14:45: Specimen Type ART, Sample Site R Radial, pH 7.38, Bicarbonate Actual 30.5 H, POC Total CO2 32, Base Excess 5 H, O2 Saturation 74 L, ABG pCO2 51.7 H, ABG pO2 41 L, Steven Test POS, O2 Delivery Device Nasal Can, Liter Flow 4.0, Blood Gas Notified Whom [facility] , Blood Gas Notified Time 1420 05/20/18 14:50: WBC 16.2 H, RBC 3.80 L, Hgb 10.5 L, Hct 34.9 L, MCV 91.8, MCH 27.6, MCHC 30.1 L, RDW 13.9, RDW Differential 45.7 H, Plt Count 239, MPV 10.3, Immature Gran % (Auto) 0.100, Neut % (Auto) 96.5 H, Lymph % (Auto) 2.5 L, [place] % (Auto) 0.8, Eos % (Auto) 0.0, Baso % (Auto) 0.1, Absolute Neuts (auto) 15.6 H , Absolute Lymphs (auto) 0.40 L, Total Counted Not Reportable, Differential Comment COMMENT 05/20/18 14:50: Sodium 140, Potassium 4.3, Chloride 102, Carbon Dioxide 34.0 H, Anion Gap 4 L, BUN 26 H, Creatinine 1.54 H, Estim Creat Clear Calc 35.10, Est GFR (MDRD) Af Amer 56 L, Est GFR (MDRD) Non-Af 47 L, BUN/Creatinine Ratio 16.9, Glucose 204 H, Calcium 8.6, Total Bilirubin 0.30, AST 35, ALT 23, Alkaline Phosphatase 75, Troponin I 5.200 H*, Total Protein 7.2, Albumin 3.7, Globulin 3.5, Albumin/Globulin Ratio 1.1 05/20/18 16:15: POC Glucose 157 H 05/20/18 16:18: PT 13.0, INR 1.0, APTT 24.5 05/20/18 16:18: B-Natriuretic Peptide 427.3 H 05/20/18 19:44: Troponin I 7.220 H* 05/20/18 21:40: POC Glucose 209 H 05/20/18 22:35: Troponin I 6.490 H* 05/21/18 06:18: WBC 15.1 H, RBC 3.56 L, Hgb 9.9 L, Hct 32.1 L, MCV 90.2, MCH 27.8, MCHC 30.8 L, RDW 13.3, RDW Differential 42.8, Plt Count 231, MPV 10.3, Immature Gran % (Auto) 0.200, Neut % (Auto) 92.4 H, Lymph % (Auto) 5.0 L, [place] % (Auto) 2.3, Eos % (Auto) 0.0, Baso % (Auto) 0.1, Absolute Neuts (auto) 14.0 H , Absolute Lymphs (auto) 0.76 L, Total Counted Not Reportable 05/21/18 06:18: Sodium 142, Potassium 4.1, Chloride 100, Carbon Dioxide 35.0 H, Anion Gap 7, BUN 36 H, Creatinine 1.40 H, Estim Creat Clear Calc 38.61, Est GFR (MDRD) Af Amer 63, Est GFR (MDRD) Non-Af 52 L, BUN/Creatinine Ratio 25.7 H, Glucose 179 H, Calcium 8.8 05/21/18 06:55: POC Glucose 183 H Diagnostic Data Chest X-Ray 05/20/18 14:22 IMPRESSION: There is evidence of increased interstitial markings at the lung bases with areas of confluence worse in the right lung base with blunting of both cost phrenic angles. This is superimposed on mild degree of CHF. Follow-up is recommended. Electronically Signed: Chris Gregory MD at 14:57 EDT Tel [phone], Service support , Current Medications Albuterol Sulfate (Ventolin Aerosols) 2.5 mg INHALATION Q4H PRN PRN Reason: DYSPNEA Albuterol/Ipratropium (Duoneb) 3 ml INHALATION Q6HWA.RT [facility] Last Admin: 05/21/18 06:04 Dose: 3 ml Aspirin (Aspirin, Baby) 81 mg PO DAILY@0800 [facility] Last Admin: 05/21/18 09:01 Dose: 81 mg Clopidogrel Bisulfate (Plavix) 75 mg PO DAILY [facility] Last Admin: 05/21/18 09:01 Dose: 75 mg Furosemide (Lasix) 40 mg PO BID@1000,1800 [facility] Last Admin: 05/21/18 09:02 Dose: 40 mg Heparin Sodium (Porcine) (Heparin Na) 0 unit IV UD PRN PRN Reason: Protocol Hydrochlorothiazide (Hydrochlorothiazide) 12.5 mg PO DAILY [facility] Doxycycline Hyclate 100 mg/ (Dextrose) 260 mls @ 250 mls/hr IV Q12 [facility] Last Admin: 05/20/18 22:04 Dose: 250 mls/hr Sodium Chloride () 250 mls @ 15 mls/hr IV .[id number] PRN PRN Reason: SALINE FLUSH Sodium Chloride () 250 mls @ 15 mls/hr IV .[id number] PRN PRN Reason: SALINE FLUSH Insulin Human Lispro (Humalog Kwikpen (Bkc)) 0 unit SC ACHS [facility] PRN Reason: Protocol Last Admin: 05/21/18 09:03 Dose: 2 units Losartan Potassium (Cozaar) 100 mg PO DAILY [facility] Magnesium Hydroxide (Milk Of Magnesia) 30 ml PO DAILY PRN PRN PRN Reason: Constipation Methylprednisolone (Solu-Medrol) 40 mg IV Q8 [facility] Last Admin: 05/21/18 05:57 Dose: 40 mg Pantoprazole Sodium (Protonix) 20 mg PO DAILY [facility] Last Admin: 05/21/18 09:01 Dose: 20 mg Sodium Chloride () 5 - 30 ml IV UD PRN PRN Reason: SALINE FLUSH Last Admin: 05/21/18 05:57 Dose: 10 ml Medical Necessity - Tobacco Use Smoking Status: Former smoker Assessment/Plan All Active Problems (Last Reviewed 03/16/18 @ 09:36 by Rosa Lopez) Shortness of breath (Acute) Thrush, oral (Acute) Irregular heart beat (Acute) History of cholecystectomy (Resolved) H/O hernia repair (Resolved) History of appendectomy (Resolved) Hx of CABG (Resolved) 1. Acute on chronic hypoxic and hypercapnic respiratory failure due to COPD exacerbation and NSTEMI * Patient remains short of breath and was on BiPAP at time of review. Was switched to oxygen by nasal cannula but tolerated for only about 20 minutes and had to be put back on BiPAP. * Still has wheezing and coarse crackles bilaterally. Remains tachypneic. * Waiting treatment with DuoNeb and IV supplement of 40 mg every 8. * ABGs done on admission showed pH of 7.38 with PCO2 of 51.7 and PO2 of 41. * CXR: Evidence of increased interstitial markings of the lung base with areas of confluence worse in the right lung base with blunting of both costophrenic angles. Superimposed mild degree of CHF. * Will consult pulmonology. * 2. NSTEMI * initial troponin at [facility] was 0.35; EKG there showed st depression in inferior leads * troponin repeated here was 5.2; repeat EKG still showed inferior leads st depression * Was started on IV heparin and received loading dose of Plavix. Was also given metoprolol and aspirin. * Switch to Lovenox therapeutic dose per cardiology in order to minimize blood draws. * Bone is trended up to 6.49 * 2D echo ordred, report is pending * Patient needs to be optimized respiratory benitez before he can have cardiac cath. * * 3. COPD exacerbation. * still has dry cough. CXR as documented above * remains on BIPAP, as documented above * on IV doxycycline 100mg bid. * 4. CHF exacerbation * BNP was 427; on IV lasix 40mg bid * 2D echo ordered to delineate heart function better * 5.Hypertension * on amlodipine 10mg daily, losartan/HCTZ; hold amlodipine in light of NSTEMI * 6. Diabetes mellitus: Accuchecks ACHS. ISS. Metformin on hold. 7. CAD s/p CABG: on aspirin and plavix DVT prophylaxis: on lovenox GI prophylaxis: PPI Code status: I was just informed by in house counsel Dr. Mckeon the patient had been referred to palliative care in February 2018 and was seen by palliative care in March 2018. CODE STATUS was made DNR CC and papers were signed. Copy of previous currently not available. I discussed patient's CODE STATUS extensively with him yesterday and he had stated then that he wanted to be full code. Dr. Mckeon to discuss CODE STATUS with him again today. This note was generated with [employer] software. It may contain incorrect words, spelling, and punctuation that were not noted in checking the note before signing. Code Visit Inpatient E&M: 04938 Subs Hosp L3
[2018-05-21] MEDS: Enoxaparin 80 MG/0.8 ML Syringe SC ×2 (12:14→21:03)
[2018-05-21 13:36] LABS: Bedside Glucose 185 mg/dL (70-110)
[2018-05-21] MEDS: Losartan Potassium 100 MG Tablet PO (13:52)
[2018-05-21] MEDS: HYDROCHLOROTHIAZIDE 12.5 MG CAPSULE PO (13:52)
--- NOTE | 2018-05-21 14:34 | NURSING ---
This RN taking over care at this time
--- NOTE | 2018-05-21 15:44 | CASEMGMT ---
See RN CM Assessment Link. DC PLAN: home with home care. See Green sheet if dc'd over weekend. -Pt has home oxygen through [employer], nebulizer and trilogy @ home. -Referral faxed to [facility] for [facility] on dc RN/PT/OT FAX: Henry MARINO RN ACM
[2018-05-21 16:16] LABS: Bedside Glucose 229 mg/dL (70-110)
--- NOTE | 2018-05-21 16:37 | PCM.PN.CARD ---
Subjectve: The patient is without BiPAP at the moment. He has had intermittent trials without it that have lasted for short periods of time. He denies any ongoing chest discomfort. He has been short of breath and dyspneic. He notes he has had waxing and waning lower extremity peripheral pitting edema. Objective: Vital Signs Temp Pulse Resp BP Pulse Ox 99.0 F 85 24 H 144/64 H 100 05/21/18 14:00 05/21/18 16:00 05/21/18 16:00 05/21/18 16:00 05/21/18 16:00 Oxygen Flow Rate (L/min) 4 Oxygen Delivery Method Nasal Cannula Weight: 183 lb 13.848 oz Body Mass Index (BMI) 29.7 Finger Stick Blood Glucose 149 Intake and Output for Last 24 Hours 05/19/18 05/20/18 05/21/18 23:59 23:59 23:59 Intake Total 100 / 100 722 / 722 Output Total 1000 / 1000 850 / 850 Balance -900 / -900 -128 / -128 General: Awake, Alert, Oriented x 3, Cooperative Lungs: Diminished Dajuan Bases Cardiovascular: Regular Rhythm, Normal S1, Normal S2 Abdomen: Bowel Sounds Present, Soft, Non Tender Extremities: Trace RLE Edema, Trace LLE Edema 05/20/18 16:18: PT 13.0, INR 1.0, APTT 24.5 05/20/18 16:18: B-Natriuretic Peptide 427.3 H 05/20/18 19:44: Troponin I 7.220 H* 05/20/18 22:35: Troponin I 6.490 H* 05/21/18 06:18: WBC 15.1 H, RBC 3.56 L, Hgb 9.9 L, Hct 32.1 L, MCV 90.2, MCH 27.8, MCHC 30.8 L, RDW 13.3, RDW Differential 42.8, Plt Count 231, MPV 10.3, Immature Gran % (Auto) 0.200, Neut % (Auto) 92.4 H, Lymph % (Auto) 5.0 L, [place] % (Auto) 2.3, Eos % (Auto) 0.0, Baso % (Auto) 0.1, Absolute Neuts (auto) 14.0 H, Total Counted Not Reportable 05/21/18 06:18: Sodium 142, Potassium 4.1, Chloride 100, Carbon Dioxide 35.0 H, Anion Gap 7, BUN 36 H, Creatinine 1.40 H, Est GFR (MDRD) Af Amer 63, Est GFR (MDRD) Non-Af 52 L, BUN/Creatinine Ratio 25.7 H, Glucose 179 H, Calcium 8.8 Rhythm: Sinus rhythm ECHO: 05/21/2018: Technically difficult study: Segmental left ventricular dysfunction with overall preserved LVEF of 65%; mild biatrial enlargement; mild mitral annual calcification; moderate MR/TR; mild focal aortic valve thickening; mild to moderate HI; estimated RV systolic pressure of 67 mmHg; decreased diastolic compliance Medical Necessity - Tobacco Use Smoking Status: Former smoker Assessment/Plan 1. CHF The patient has concerns of underlying CHF. Based upon his studies thus far this may be diastolic mediated. He will need to continue medical management. When his CHF is under better control as is his underlying chronic pulmonary disease process and he is able to lie supine, then, if he and his family wants to proceed further evaluation with diagnostic cardiac catheterization this can be considered. 2. Non-ST segment elevation IA The does have abnormal cardiac enzymes. There is concern of a non-ST segment elevation IA. There is concern this may be a primary cardiovascular event versus a type II supply demand mismatch event. The patient appears without acute ongoing symptoms. He will continue medication optimization. He can be considered for diagnostic cardiac catheterization when he is clinically able to undergo such a procedure-again if he and his family want to pursue such a procedure. 3. CAD status post CABG Based upon his outside medical records it appears he had a REHMAN to the LAD and an SVG to the LCx and an SVG to the OM. The RCA was reported as diseased with bridging collaterals. LV was reported as normal with an LVEF of 64%. This was based upon a diagnostic cardiac catheterization performed at [facility] on 07/24/2015. Again at the present time he will continue medical therapy. He can be considered for repeat invasive evaluation when he is clinically able to do so if he wants to pursue such. 4. Hypertension He will continue medical management and follow-up. 5. Peripheral vascular disease/carotid artery disease He apparently has history of underlying carotid artery disease. He will continue evaluation care per his primary care physicians for this. The above was discussed and reviewed with the patient. The patient's case was previously discussed and reviewed with Dr. Adams performed his initial cardiovascular consultation. This note was generated with [employer] software. It may contain incorrect words, spelling, and punctuation that were not noted in checking the note before signing.
--- NOTE | 2018-05-21 16:43 | PN.CARD_ITS ---
Subjectve: The patient is without BiPAP at the moment. He has had intermittent trials without it that have lasted for short periods of time. He denies any ongoing chest discomfort. He has been short of breath and dyspneic. He notes he has had waxing and waning lower extremity peripheral pitting edema. Objective: Vital Signs Temp Pulse Resp BP Pulse Ox 99.0 F 85 24 H 144/64 H 100 05/21/18 14:00 05/21/18 16:00 05/21/18 16:00 05/21/18 16:00 05/21/18 16:00 Oxygen Flow Rate (L/min) 4 Oxygen Delivery Method Nasal Cannula Weight: 183 lb 13.848 oz Body Mass Index (BMI) 29.7 Finger Stick Blood Glucose 149 Intake and Output for Last 24 Hours 05/19/18 05/20/18 05/21/18 23:59 23:59 23:59 Intake Total 100 / 100 722 / 722 Output Total 1000 / 1000 850 / 850 Balance -900 / -900 -128 / -128 General: Awake, Alert, Oriented x 3, Cooperative Lungs: Diminished Dajuan Bases Cardiovascular: Regular Rhythm, Normal S1, Normal S2 Abdomen: Bowel Sounds Present, Soft, Non Tender Extremities: Trace RLE Edema, Trace LLE Edema 05/20/18 16:18: PT 13.0, INR 1.0, APTT 24.5 05/20/18 16:18: B-Natriuretic Peptide 427.3 H 05/20/18 19:44: Troponin I 7.220 H* 05/20/18 22:35: Troponin I 6.490 H* 05/21/18 06:18: WBC 15.1 H, RBC 3.56 L, Hgb 9.9 L, Hct 32.1 L, MCV 90.2, MCH 27.8, MCHC 30.8 L, RDW 13.3, RDW Differential 42.8, Plt Count 231, MPV 10.3, Immature Gran % (Auto) 0.200, Neut % (Auto) 92.4 H, Lymph % (Auto) 5.0 L, [place] % (Auto) 2.3, Eos % (Auto) 0.0, Baso % (Auto) 0.1, Absolute Neuts (auto) 14.0 H , Total Counted Not Reportable 05/21/18 06:18: Sodium 142, Potassium 4.1, Chloride 100, Carbon Dioxide 35.0 H, Anion Gap 7, BUN 36 H, Creatinine 1.40 H, Est GFR (MDRD) Af Amer 63, Est GFR ( MDRD) Non-Af 52 L, BUN/Creatinine Ratio 25.7 H, Glucose 179 H, Calcium 8.8 Rhythm: Sinus rhythm ECHO: 05/21/2018: Technically difficult study: Segmental left ventricular dysfunction with overall preserved LVEF of 65%; mild biatrial enlargement; mild mitral annual calcification; moderate MR/TR; mild focal aortic valve thickening ; mild to moderate MI; estimated RV systolic pressure of 67 mmHg; decreased diastolic compliance Medical Necessity - Tobacco Use Smoking Status: Former smoker Assessment/Plan 1. CHF The patient has concerns of underlying CHF. Based upon his studies thus far this may be diastolic mediated. He will need to continue medical management. When his CHF is under better control as is his underlying chronic pulmonary disease process and he is able to lie supine, then, if he and his family wants to proceed further evaluation with diagnostic cardiac catheterization this can be considered. 2. Non-ST segment elevation CA The does have abnormal cardiac enzymes. There is concern of a non-ST segment elevation CA. There is concern this may be a primary cardiovascular event versus a type II supply demand mismatch event. The patient appears without acute ongoing symptoms. He will continue medication optimization. He can be considered for diagnostic cardiac catheterization when he is clinically able to undergo such a procedure-again if he and his family want to pursue such a procedure. 3. CAD status post CABG Based upon his outside medical records it appears he had a REHMAN to the LAD and an SVG to the LCx and an SVG to the OM. The RCA was reported as diseased with bridging collaterals. LV was reported as normal with an LVEF of 64%. This was based upon a diagnostic cardiac catheterization performed at [facility] [place] on 07/24/2015. Again at the present time he will continue medical therapy. He can be considered for repeat invasive evaluation when he is clinically able to do so if he wants to pursue such. 4. Hypertension He will continue medical management and follow-up. 5. Peripheral vascular disease/carotid artery disease He apparently has history of underlying carotid artery disease. He will continue evaluation care per his primary care physicians for this. The above was discussed and reviewed with the patient. The patient's case was previously discussed and reviewed with Dr. Adams performed his initial cardiovascular consultation. This note was generated with [employer] software. It may contain incorrect words, spelling, and punctuation that were not noted in checking the note before signing.
[2018-05-21] MEDS: Metoprolol Tartrate 25 MG Tablet 12.5 MG PO (21:04)
[2018-05-21 21:31] LABS: Bedside Glucose 278 mg/dL (70-110)
[2018-05-22] VITALS (30 sets, daily range): BP systolic 119–168; BP diastolic 51–107; PULSE 61–98; RESP 18–28; TEMP 36.5–36.8; O2SAT 94–100
[2018-05-22 06:52] LABS: Absolute Lymphocyte Count 0.72 X10^3/ul (0.83-4.51); Absolute Neutrophil Count 15.4 X10^3/uL (2.0-7.7); Hematocrit 29.5 % (40-54); Hemoglobin 9.1 g/dl (13.0-16.5); Lymphocyte # 0.72 X10^3/ul (4.0); Lymphocyte % 4.3 % (19-41); Mean Corp Hgb Conc 30.8 g/gl (32-36); Mean Corpuscular Hgb 27.7 pg (27.0-32.0); Mean Corpuscular Volume 89.9 fL (80-94); Mean Platelet Vol. 10.9 fl (6.2-12.0); Monocyte# 0.69 X10^3/uL; Monocyte% 4.1 % (0-10); Neutrophil % 91.4 % (47-70); Platelet Count 242 K/mm3 (150-450); RBC Distribution Width CV 13.4 % (11.6-14.6); RBC Distribution Width SD 42.8 fl (35.1-43.9); Red Blood Count 3.28 M/mm3 (4.6-6.2); White Blood Count 16.9 K/mm3 (4.4-11.0)
[2018-05-22 06:53] LABS: POSITIVE COUNT NO; POSITIVE DIFFERENTIAL NO; POSITIVE MORPHOLOGY NO
[2018-05-22 07:03] LABS: Anion Gap 4 (5-15); BUN 49 mg/dL (7-18); BUN/Creat Ratio 32.2 RATIO (10-20); Calcium,Total 8.6 mg/dL (8.5-10.1); Chloride 99 mmol/L (98-107); Creatinine, Serum 1.52 mg/dL (0.70-1.30); EST Glomerular Filtration Rate 47 mL/min (>60); Est Glom Filt Rate - Afr Amer 57 mL/min (>60); Estimated Creatinine Clearance 35.56 ml/min; Glucose 185 mg/dL (74-106); Sodium Level 140 mmol/L (136-145)
[2018-05-22 07:06] LABS: Bedside Glucose 183 mg/dL (70-110)
[2018-05-22] MEDS: Ipratropium/Albuterol Sulfate 3 ML AMPUL.NEB INHALATION ×3 (07:06→19:47)
--- NOTE | 2018-05-22 07:24 | PN_ITS ---
Patient Problems: Active and Suspected Problems (Last Reviewed 03/16/18 @ 09:36 by Rosa Lopez ) Shortness of breath (Acute) Subjective: The patient was seen and examined at the bedside this morning. Events from the last 24 hours have been reviewed. The patient is currently afebrile, hemodynamically stable and maintaining appropriate oxygen saturations on his baseline 4 L/min supplemental oxygen requirement. The patient tolerated his home trilogy machine well overnight. He feels well this morning and states that he is hoping that he is able to lay flat in order for cardiology to perform a cardiac catheterization. Objective: The patient's most recent lab work, culture data and imaging studies have all been personally reviewed. Surface echocardiogram revealed segmental dysfunction with preserved ejection fraction of 65%. There was evidence of mild biatrial enlargement along with mitral and tricuspid valve insufficiency and a right ventricular systolic pressure which was estimated to be 67 mmHg. - Physical Exam General: Alert, Oriented x3, Cooperative, No apparent distress, - - Appears in good spirits this morning. HEENT: Atraumatic, PERRLA, Normocephalic Oral: No Gingival or Mucosal Lesions/ Ulcerations Neck: Supple, No Nodes, Trachea Midline Lungs: No rhonchi, No wheeze, No rales, Diminished Cardiovascular: Regular rate, Regular Rhythm, Normal S1, Normal S2, No murmurs Abdomen: Bowel Sounds Present, Soft, Non Tender, Non-Distended Extremities: No cyanosis, Clubbing, Edema - Trace Musculoskeletal: No Tenderness to Palpation of Joints or Extremities Lymphatic: No Cervical, Supraclavicular, or Inguinal Adenopathy Neurological: Neuro grossly intact Psych/Mental Status: Alert and oriented to time, place, person, mood and affect Vital Signs Temp Pulse Resp BP Pulse Ox 97.9 F 93 26 H 155/75 H 99 05/22/18 07:08 05/22/18 07:08 05/22/18 07:08 05/22/18 07:08 05/22/18 07:08 Oxygen Flow Rate (L/min) 4 Oxygen Delivery Method Nasal Cannula Weight: 183 lb 13.848 oz Body Mass Index (BMI) 29.7 Finger Stick Blood Glucose 149 Intake and Output for Last 24 Hours 05/20/18 05/21/18 05/22/18 23:59 23:59 23:59 Intake Total 100 / 100 1313 / 1313 50 / 50 Output Total 1000 / 1000 2200 / 2200 200 / 200 Balance -900 / -900 -887 / -887 -150 / -150 Laboratory Tests Past 24 Hrs 05/22/18 05/22/18 06:20 06:20 WBC 16.9 H RBC 3.28 L Hgb 9.1 L Hct 29.5 L MCV 89.9 MCH 27.7 MCHC 30.8 L RDW 13.4 RDW Differential 42.8 Plt Count 242 MPV 10.9 Immature Gran % (Auto) 0.200 Neut % (Auto) 91.4 H Lymph % (Auto) 4.3 L [place] % (Auto) 4.1 Eos % (Auto) 0.0 Baso % (Auto) 0.0 Absolute Neuts (auto) 15.4 H Absolute Lymphs (auto) 0.72 L Total Counted Not Reportable Sodium 140 Potassium 4.0 Chloride 99 Carbon Dioxide 37.0 H Anion Gap 4 L BUN 49 H Creatinine 1.52 H Estim Creat Clear Calc 35.56 Est GFR (MDRD) Af Amer 57 L Est GFR (MDRD) Non-Af 47 L BUN/Creatinine Ratio 32.2 H Glucose 185 H Calcium 8.6 POC Glucose 05/22/18 05/21/18 05/21/18 06:53 21:22 16:12 POC Glucose 183 H 278 H 229 H 05/21/18 13:29 POC Glucose 185 H Clinical Impression(s) from Imaging Studies Chest X-Ray 05/20/18 14:22 IMPRESSION: There is evidence of increased interstitial markings at the lung bases with areas of confluence worse in the right lung base with blunting of both cost phrenic angles. This is superimposed on mild degree of CHF. Follow-up is recommended. Electronically Signed: Chris Gregory MD at 14:57 EDT Tel [phone], Service support , Medical Necessity - Tobacco Use Smoking Status: Former smoker Assessment/Plan All Active Problems (Last Reviewed 03/16/18 @ 09:36 by Rosa Lopez) Shortness of breath (Acute) Thrush, oral (Acute) Irregular heart beat (Acute) History of cholecystectomy (Resolved) H/O hernia repair (Resolved) History of appendectomy (Resolved) Hx of CABG (Resolved) RECOMMENDATIONS: 1. Following a lengthy discussion with the patient and his family, CODE STATUS has been updated to DNR CCA without intubation. 2. Continue scheduled bronchodilators and steroids. I would suggest transitioning from IV methylprednisone to prednisone 40 mg with plans to complete a 5 day burst. 3. Continue AVAPS (per home regimen) with naps and nightly. 4. Low clinical index suspicion for underlying pulmonary infectious process. Therefore, would discontinue antibiotics. 5. At the current time, given the advanced age of the patient's lung disease, he is certainly a candidate for palliative care involvement and this would be strongly recommended that he reestablish care with them upon discharge from the hospital. IMPRESSIONS: 1. Acute on chronic hypoxemic and hypercarbic respiratory failure Potentially related to underlying decompensated heart failure/NSTEMI. 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 He is on maximal therapy from a COPD perspective and has already completed pulmonary rehabilitation. He is not a candidate for lung transplantation. The patient had been enrolled with palliative care previously but subsequently discontinued their services, as he felt that he was being pressured into enrollment in hospice. Regardless, I do feel that the patient would benefit from palliative care being involved in his management. I did express this explicitly to the patient and his family. I had a lengthy discussion with him regarding CODE STATUS and they are all in agreement that a DNR CCA without plans for intubation would be appropriate. At this time, I would plan to continue the patient's home trilogy along with scheduled bronchodilators and steroids. I do not feel that the patient is experiencing an acute pulmonary infectious process would recommend discontinuation of antibiotics. The patient's IV steroids can be transitioned to prednisone 40 mg daily with plans to complete a 5 day burst. The patient has been weaned back to his baseline 4 L/min supplemental oxygen requirement. Recommend encouraging incentive spirometer use and mobilize patient as tolerated. 2. Non-ST elevation myocardial infarction/history of coronary artery disease status post CABG Continue current medical management per cardiology recommendations. Unclear if diagnostic cardiac catheterization is being entertained at this point. 3. Hypertension/diabetes/hyperlipidemia Complicates care, management, recovery and prognosis. Likely okay to continue home medications as indicated. This note was generated with [employer] software. It may contain incorrect words, spelling, and punctuation that were not noted in checking the note before signing. Code Visit Inpatient E&M: 62616 Subs Hosp L2
[2018-05-22] MEDS: Insulin Lispro 100 UNIT/ML INSULN.PEN SC ×4 (08:26→22:12)
[2018-05-22] MEDS: Aspirin 81 MG TAB.CHEW PO (08:27)
[2018-05-22] MEDS: Metoprolol Tartrate 25 MG Tablet 12.5 MG PO ×2 (10:33→22:14)
[2018-05-22] MEDS: Furosemide 40 MG Tablet PO ×2 (10:35→17:17)
[2018-05-22] MEDS: HYDROCHLOROTHIAZIDE 12.5 MG CAPSULE PO (10:35)
[2018-05-22] MEDS: Losartan Potassium 100 MG Tablet PO (10:35)
[2018-05-22] MEDS: Clopidogrel Bisulfate 75 MG Tablet PO (10:35)
[2018-05-22] MEDS: Enoxaparin 80 MG/0.8 ML Syringe SC ×2 (10:35→22:13)
[2018-05-22] MEDS: Pantoprazole Sodium 20 MG Tablet PO (10:35)
[2018-05-22 11:20] LABS: Bedside Glucose 263 mg/dL (70-110)
--- NOTE | 2018-05-22 11:20 | PCM.PN.HOSP ---
Patient Problems: Active and Suspected Problems (Last Reviewed 03/16/18 @ 09:36 by Rosa Lopez) Shortness of breath (Acute) Subjective: Patient seen and examined. He looks slightly comfortable than previous. He is now 4 L of oxygen by nasal cannula which is his baseline. He is BiPAP overnight. He says shortness of breath is better. He has a cough which is productive of scanty sputum. He denies fever or chills, chest pain, abdominal pain, diarrhea vomiting. Review of systems otherwise negative. CODE STATUS changed to DNR CCA yesterday after he was counseled by pulmonology. Labs and vitals reviewed. Vitals/I&O's: Vital Signs Temp Pulse Resp BP Pulse Ox 97.9 F 86 24 H 149/57 H 100 05/22/18 07:08 05/22/18 10:33 05/22/18 10:00 05/22/18 10:33 05/22/18 10:00 Oxygen Flow Rate (L/min) 4 Oxygen Delivery Method Nasal Cannula Weight: 183 lb 13.848 oz Body Mass Index (BMI) 29.7 Finger Stick Blood Glucose 149 Intake and Output for Last 24 Hours 05/20/18 05/21/18 05/22/18 23:59 23:59 23:59 Intake Total 100 / 100 1313 / 1313 50 / 50 Output Total 1000 / 1000 2200 / 2200 200 / 200 Balance -900 / -900 -887 / -887 -150 / -150 General: Alert, Oriented x3, Cooperative, No apparent distress HEENT: Atraumatic, PERRLA, EOMI, Normocephalic Oral: Moist Mucosa Neck: Supple, No JVD, Negative Carotid Bruits Lungs: - - has mild wheezing in lung mccoy bilaterally, no crackles ausultated Cardiovascular: Regular rate, Regular Rhythm, Normal S1, Normal S2, No murmurs Abdomen: Bowel Sounds Present, Soft, Non Tender Extremities: No clubbing, No cyanosis, No edema, Capillary Refill Less than 3 Seconds Skin: No rashes, No breakdown Musculoskeletal: No Tenderness to Palpation of Joints or Extremities Lymphatic: No Cervical, Supraclavicular, or Inguinal Adenopathy Neurological: Cranial nerves II-XII grossly intact, Motor Exam 5/5 strength throughout Psych/Mental Status: Normal Affect, Appropriate, Alert and oriented to time, place, person, mood and affect Laboratory Results 05/21/18 13:29: POC Glucose 185 H 05/21/18 16:12: POC Glucose 229 H 05/21/18 21:22: POC Glucose 278 H 05/22/18 06:20: WBC 16.9 H, RBC 3.28 L, Hgb 9.1 L, Hct 29.5 L, MCV 89.9, MCH 27.7, MCHC 30.8 L, RDW 13.4, RDW Differential 42.8, Plt Count 242, MPV 10.9, Immature Gran % (Auto) 0.200, Neut % (Auto) 91.4 H, Lymph % (Auto) 4.3 L, [place] % (Auto) 4.1, Eos % (Auto) 0.0, Baso % (Auto) 0.0, Absolute Neuts (auto) 15.4 H, Absolute Lymphs (auto) 0.72 L, Total Counted Not Reportable 05/22/18 06:20: Sodium 140, Potassium 4.0, Chloride 99, Carbon Dioxide 37.0 H, Anion Gap 4 L, BUN 49 H, Creatinine 1.52 H, Estim Creat Clear Calc 35.56, Est GFR (MDRD) Af Amer 57 L, Est GFR (MDRD) Non-Af 47 L, BUN/Creatinine Ratio 32.2 H, Glucose 185 H, Calcium 8.6 05/22/18 06:53: POC Glucose 183 H 05/22/18 11:09: POC Glucose 263 H Current Medications Albuterol Sulfate (Ventolin Aerosols) 2.5 mg INHALATION Q4H PRN PRN Reason: DYSPNEA Albuterol/Ipratropium (Duoneb) 3 ml INHALATION Q6HWA.RT [facility] Last Admin: 05/22/18 07:06 Dose: 3 ml Aspirin (Aspirin, Baby) 81 mg PO DAILY@0800 [facility] Last Admin: 05/22/18 08:27 Dose: 81 mg Atorvastatin Calcium (Lipitor) 40 mg PO QHS [facility] Last Admin: 05/21/18 21:24 Dose: Not Given Clopidogrel Bisulfate (Plavix) 75 mg PO DAILY [facility] Last Admin: 05/22/18 10:35 Dose: 75 mg Enoxaparin Sodium (Lovenox) 80 mg SC Q12 [facility] Last Admin: 05/22/18 10:35 Dose: 80 mg Furosemide (Lasix) 40 mg PO BID@1000,1800 [facility] Last Admin: 05/22/18 10:35 Dose: 40 mg Heparin Sodium (Porcine) (Heparin Na) 0 unit IV UD PRN PRN Reason: Protocol Hydrochlorothiazide (Hydrochlorothiazide) 12.5 mg PO DAILY [facility] Last Admin: 05/22/18 10:35 Dose: 12.5 mg Sodium Chloride () 250 mls @ 15 mls/hr IV .[id number] PRN PRN Reason: SALINE FLUSH Sodium Chloride () 250 mls @ 15 mls/hr IV .[id number] PRN PRN Reason: SALINE FLUSH Insulin Human Lispro (Humalog Kwikpen (Bkc)) 0 unit SC ACHS [facility] PRN Reason: Protocol Last Admin: 05/22/18 11:12 Dose: 6 units Losartan Potassium (Cozaar) 100 mg PO DAILY [facility] Last Admin: 05/22/18 10:35 Dose: 100 mg Magnesium Hydroxide (Milk Of Magnesia) 30 ml PO DAILY PRN PRN PRN Reason: Constipation Methylprednisolone (Solu-Medrol) 40 mg IV Q8 [facility] Last Admin: 05/22/18 06:28 Dose: 40 mg Metoprolol Tartrate (Lopressor (Beta Jr)) 12.5 mg PO BID [facility] Last Admin: 05/22/18 10:33 Dose: 12.5 mg Pantoprazole Sodium (Protonix) 20 mg PO DAILY [facility] Last Admin: 05/22/18 10:35 Dose: 20 mg Sodium Chloride () 5 - 30 ml IV UD PRN PRN Reason: SALINE FLUSH Last Admin: 05/21/18 21:06 Dose: 10 ml Medical Necessity - Tobacco Use Smoking Status: Former smoker Assessment/Plan All Active Problems (Last Reviewed 03/16/18 @ 09:36 by Rosa Lopez) Shortness of breath (Acute) Thrush, oral (Acute) Irregular heart beat (Acute) History of cholecystectomy (Resolved) H/O hernia repair (Resolved) History of appendectomy (Resolved) Hx of CABG (Resolved) 1. Acute on chronic hypoxic and hypercapnic respiratory failure due to COPD exacerbation and NSTEMI Was on BiPAP overnight and on 4 L of oxygen by nasal cannula. Has some wheezing bilaterally. On breathing treatments with duo nebs. On IV Solu-Medrol 40 mg every 8. Will switch to p.o. prednisone 40 mg daily for 5 days. Received a dose of Lasix due to elevated BNP which did help. Pulmonology on board: To continue a VAP S. Home regimen. White cell count elevated but this is likely due to steroids. No evidence of infection. X-rays. Doxycycline therefore stopped. 2. NSTEMI initial troponin at [facility] was 0.35; EKG there showed st depression in inferior leads troponin repeated here was 5.2; repeat EKG still showed inferior leads st depression Was started on IV heparin and received loading dose of Plavix. Was also given metoprolol and aspirin. Switch to Lovenox therapeutic dose per cardiology in order to minimize blood draws. troponin trended up to 6.49 2D echo:EF is 65%, with hypokinetic posterior basal, mid posterior mid inferior drake. Inferior basal wall was akinetic. Left atrium mildly enlarged and right atrium mildly enlarged. RVSP is 67 mmHg with 2+ tricuspid insufficiency. 1-2+ pulmonic valve insufficiency patient wants to have cath; per cardiology, patient needs to be optimised respiratory benitez to be able to lie down for the cath cardiology on board 3. COPD exacerbation. As documented in the 1. Doxycycline stopped as documented above. We will stop IV Solu-Medrol and switch to p.o. prednisone 40 mg daily for 5 days. has undergone pulmonary rehab,a nd is not a candidate for lung transplantation. was referred to hospice; however, patient opted to continue treatment. 4. acute diastolic heart failure exacerbation BNP was 427; on IV lasix 40mg bid 2D echo as documented above cardiology on board 5. SHARRI: Cr was 1.54 on admisison, baseline ~ 1.06 (12/06);Now 1.52. Cannot give IVF o/a of CHF exacerbation. Will monitor 6.Hypertension on amlodipine 10mg daily, losartan/HCTZ; hold amlodipine in light of NSTEMI 7. Diabetes mellitus: Accuchecks ACHS. ISS. Metformin on hold. 8. CAD s/p CABG: on aspirin and plavix DVT prophylaxis: on lovenox GI prophylaxis: PPI Code status: DNRCCA This note was generated with [employer] software. It may contain incorrect words, spelling, and punctuation that were not noted in checking the note before signing. Code Visit Inpatient E&M: 85070 Subs Hosp L3
--- NOTE | 2018-05-22 11:25 | PN_ITS ---
Patient Problems: Active and Suspected Problems (Last Reviewed 03/16/18 @ 09:36 by Rosa Lopez ) Shortness of breath (Acute) Subjective: Patient seen and examined. He looks slightly comfortable than previous. He is now 4 L of oxygen by nasal cannula which is his baseline. He is BiPAP overnight. He says shortness of breath is better. He has a cough which is productive of scanty sputum. He denies fever or chills, chest pain, abdominal pain, diarrhea vomiting. Review of systems otherwise negative. CODE STATUS changed to DNR CCA yesterday after he was counseled by pulmonology. Labs and vitals reviewed. Vitals/I&O's: Vital Signs Temp Pulse Resp BP Pulse Ox 97.9 F 86 24 H 149/57 H 100 05/22/18 07:08 05/22/18 10:33 05/22/18 10:00 05/22/18 10:33 05/22/18 10:00 Oxygen Flow Rate (L/min) 4 Oxygen Delivery Method Nasal Cannula Weight: 183 lb 13.848 oz Body Mass Index (BMI) 29.7 Finger Stick Blood Glucose 149 Intake and Output for Last 24 Hours 05/20/18 05/21/18 05/22/18 23:59 23:59 23:59 Intake Total 100 / 100 1313 / 1313 50 / 50 Output Total 1000 / 1000 2200 / 2200 200 / 200 Balance -900 / -900 -887 / -887 -150 / -150 General: Alert, Oriented x3, Cooperative, No apparent distress HEENT: Atraumatic, PERRLA, EOMI, Normocephalic Oral: Moist Mucosa Neck: Supple, No JVD, Negative Carotid Bruits Lungs: - - has mild wheezing in lung mccoy bilaterally, no crackles ausultated Cardiovascular: Regular rate, Regular Rhythm, Normal S1, Normal S2, No murmurs Abdomen: Bowel Sounds Present, Soft, Non Tender Extremities: No clubbing, No cyanosis, No edema, Capillary Refill Less than 3 Seconds Skin: No rashes, No breakdown Musculoskeletal: No Tenderness to Palpation of Joints or Extremities Lymphatic: No Cervical, Supraclavicular, or Inguinal Adenopathy Neurological: Cranial nerves II-XII grossly intact, Motor Exam 5/5 strength throughout Psych/Mental Status: Normal Affect, Appropriate, Alert and oriented to time, place, person, mood and affect Laboratory Results 05/21/18 13:29: POC Glucose 185 H 05/21/18 16:12: POC Glucose 229 H 05/21/18 21:22: POC Glucose 278 H 05/22/18 06:20: WBC 16.9 H, RBC 3.28 L, Hgb 9.1 L, Hct 29.5 L, MCV 89.9, MCH 27.7, MCHC 30.8 L, RDW 13.4, RDW Differential 42.8, Plt Count 242, MPV 10.9, Immature Gran % (Auto) 0.200, Neut % (Auto) 91.4 H, Lymph % (Auto) 4.3 L, [place] % (Auto) 4.1, Eos % (Auto) 0.0, Baso % (Auto) 0.0, Absolute Neuts (auto) 15.4 H , Absolute Lymphs (auto) 0.72 L, Total Counted Not Reportable 05/22/18 06:20: Sodium 140, Potassium 4.0, Chloride 99, Carbon Dioxide 37.0 H, Anion Gap 4 L, BUN 49 H, Creatinine 1.52 H, Estim Creat Clear Calc 35.56, Est GFR (MDRD) Af Amer 57 L, Est GFR (MDRD) Non-Af 47 L, BUN/Creatinine Ratio 32.2 H , Glucose 185 H, Calcium 8.6 05/22/18 06:53: POC Glucose 183 H 05/22/18 11:09: POC Glucose 263 H Current Medications Albuterol Sulfate (Ventolin Aerosols) 2.5 mg INHALATION Q4H PRN PRN Reason: DYSPNEA Albuterol/Ipratropium (Duoneb) 3 ml INHALATION Q6HWA.RT [facility] Last Admin: 05/22/18 07:06 Dose: 3 ml Aspirin (Aspirin, Baby) 81 mg PO DAILY@0800 [facility] Last Admin: 05/22/18 08:27 Dose: 81 mg Atorvastatin Calcium (Lipitor) 40 mg PO QHS [facility] Last Admin: 05/21/18 21:24 Dose: Not Given Clopidogrel Bisulfate (Plavix) 75 mg PO DAILY [facility] Last Admin: 05/22/18 10:35 Dose: 75 mg Enoxaparin Sodium (Lovenox) 80 mg SC Q12 [facility] Last Admin: 05/22/18 10:35 Dose: 80 mg Furosemide (Lasix) 40 mg PO BID@1000,1800 [facility] Last Admin: 05/22/18 10:35 Dose: 40 mg Heparin Sodium (Porcine) (Heparin Na) 0 unit IV UD PRN PRN Reason: Protocol Hydrochlorothiazide (Hydrochlorothiazide) 12.5 mg PO DAILY [facility] Last Admin: 05/22/18 10:35 Dose: 12.5 mg Sodium Chloride () 250 mls @ 15 mls/hr IV .[id number] PRN PRN Reason: SALINE FLUSH Sodium Chloride () 250 mls @ 15 mls/hr IV .[id number] PRN PRN Reason: SALINE FLUSH Insulin Human Lispro (Humalog Kwikpen (Bkc)) 0 unit SC ACHS [facility] PRN Reason: Protocol Last Admin: 05/22/18 11:12 Dose: 6 units Losartan Potassium (Cozaar) 100 mg PO DAILY [facility] Last Admin: 05/22/18 10:35 Dose: 100 mg Magnesium Hydroxide (Milk Of Magnesia) 30 ml PO DAILY PRN PRN PRN Reason: Constipation Methylprednisolone (Solu-Medrol) 40 mg IV Q8 [facility] Last Admin: 05/22/18 06:28 Dose: 40 mg Metoprolol Tartrate (Lopressor (Beta Jr)) 12.5 mg PO BID [facility] Last Admin: 05/22/18 10:33 Dose: 12.5 mg Pantoprazole Sodium (Protonix) 20 mg PO DAILY [facility] Last Admin: 05/22/18 10:35 Dose: 20 mg Sodium Chloride () 5 - 30 ml IV UD PRN PRN Reason: SALINE FLUSH Last Admin: 05/21/18 21:06 Dose: 10 ml Medical Necessity - Tobacco Use Smoking Status: Former smoker Assessment/Plan All Active Problems (Last Reviewed 03/16/18 @ 09:36 by Rosa Lopez) Shortness of breath (Acute) Thrush, oral (Acute) Irregular heart beat (Acute) History of cholecystectomy (Resolved) H/O hernia repair (Resolved) History of appendectomy (Resolved) Hx of CABG (Resolved) 1. Acute on chronic hypoxic and hypercapnic respiratory failure due to COPD exacerbation and NSTEMI * Was on BiPAP overnight and on 4 L of oxygen by nasal cannula. * Has some wheezing bilaterally. On breathing treatments with duo nebs. On IV Solu-Medrol 40 mg every 8. Will switch to p.o. prednisone 40 mg daily for 5 days. * Received a dose of Lasix due to elevated BNP which did help. * Pulmonology on board: To continue a VAP S. Home regimen. * White cell count elevated but this is likely due to steroids. No evidence of infection. X-rays. Doxycycline therefore stopped. * * * 2. NSTEMI * initial troponin at [facility] was 0.35; EKG there showed st depression in inferior leads * troponin repeated here was 5.2; repeat EKG still showed inferior leads st depression * Was started on IV heparin and received loading dose of Plavix. Was also given metoprolol and aspirin. * Switch to Lovenox therapeutic dose per cardiology in order to minimize blood draws. * troponin trended up to 6.49 * 2D echo:EF is 65%, with hypokinetic posterior basal, mid posterior mid inferior drake. Inferior basal wall was akinetic. Left atrium mildly enlarged and right atrium mildly enlarged. RVSP is 67 mmHg with 2+ tricuspid insufficiency. 1-2+ pulmonic valve insufficiency * patient wants to have cath; per cardiology, patient needs to be optimised respiratory benitez to be able to lie down for the cath * cardiology on board * * 3. COPD exacerbation. * As documented in the 1. * Doxycycline stopped as documented above. We will stop IV Solu-Medrol and switch to p.o. prednisone 40 mg daily for 5 days. * has undergone pulmonary rehab,a nd is not a candidate for lung transplantation. * was referred to hospice; however, patient opted to continue treatment. * 4. acute diastolic heart failure exacerbation * BNP was 427; on IV lasix 40mg bid * 2D echo as documented above * cardiology on board * 5. SHARRI: Cr was 1.54 on admisison, baseline ~ 1.06 (12/06);Now 1.52. Cannot give IVF o/a of CHF exacerbation. Will monitor 6.Hypertension * on amlodipine 10mg daily, losartan/HCTZ; hold amlodipine in light of NSTEMI * 7. Diabetes mellitus: Accuchecks ACHS. ISS. Metformin on hold. 8. CAD s/p CABG: on aspirin and plavix DVT prophylaxis: on lovenox GI prophylaxis: PPI Code status: DNRCCA This note was generated with Dragon dictation software. It may contain incorrect words, spelling, and punctuation that were not noted in checking the note before signing. Code Visit Inpatient E&M: 88015 Subs Hosp L3
--- NOTE | 2018-05-22 14:34 | PCM.PN.CARD ---
Subjectve: The patient has been without his BiPAP device for period of time this day. He states in the chair he has been resting comfortably. He has not described any new acute events. Objective: Vital Signs Temp Pulse Resp BP Pulse Ox 98.3 F 87 18 140/65 H 94 05/22/18 12:00 05/22/18 13:00 05/22/18 13:00 05/22/18 13:00 05/22/18 13:00 Oxygen Flow Rate (L/min) 4 Oxygen Delivery Method Nasal Cannula Weight: 183 lb 13.848 oz Body Mass Index (BMI) 29.7 Finger Stick Blood Glucose 149 Intake and Output for Last 24 Hours 05/20/18 05/21/18 05/22/18 23:59 23:59 23:59 Intake Total 100 / 100 1313 / 1313 425 / 425 Output Total 1000 / 1000 2200 / 2200 1000 / 1000 Balance -900 / -900 -887 / -887 -575 / -575 General: Awake, Alert, Oriented x 3 Neck: No JVD Lungs: Diminished Dajuan Bases Cardiovascular: Regular Rhythm, Normal S1, Normal S2 Abdomen: Bowel Sounds Present, Soft, Non Tender Extremities: Trace RLE Edema 05/22/18 06:20: WBC 16.9 H, RBC 3.28 L, Hgb 9.1 L, Hct 29.5 L, MCV 89.9, MCH 27.7, MCHC 30.8 L, RDW 13.4, RDW Differential 42.8, Plt Count 242, MPV 10.9, Immature Gran % (Auto) 0.200, Neut % (Auto) 91.4 H, Lymph % (Auto) 4.3 L, [place] % (Auto) 4.1, Eos % (Auto) 0.0, Baso % (Auto) 0.0, Absolute Neuts (auto) 15.4 H, Total Counted Not Reportable 05/22/18 06:20: Sodium 140, Potassium 4.0, Chloride 99, Carbon Dioxide 37.0 H, Anion Gap 4 L, BUN 49 H, Creatinine 1.52 H, Est GFR (MDRD) Af Amer 57 L, Est GFR (MDRD) Non-Af 47 L, BUN/Creatinine Ratio 32.2 H, Glucose 185 H, Calcium 8.6 Rhythm: Sinus rhythm Medical Necessity - Tobacco Use Smoking Status: Former smoker Assessment/Plan 1. CHF The patient has concerns of underlying CHF. Based upon his studies thus far this may be diastolic mediated. He will need to continue medical management. When his CHF is under better control as is his underlying chronic pulmonary disease process and he is able to lie supine, then, if he and his family wants to proceed further evaluation with diagnostic cardiac catheterization this can be considered-if the patient and family want to proceed in that manner. In the interim he will continue medical therapy. 2. Non-ST segment elevation NH The does have abnormal cardiac enzymes. There is concern of a non-ST segment elevation NH. There is concern this may be a primary cardiovascular event versus a type II supply demand mismatch event. The patient appears without acute ongoing symptoms. He will continue medication optimization. He can be considered for diagnostic cardiac catheterization when he is clinically able to undergo such a procedure-again if he and his family want to pursue such a procedure. 3. CAD status post CABG Based upon his outside medical records it appears he had a REHMAN to the LAD and an SVG to the LCx and an SVG to the OM. The RCA was reported as diseased with bridging collaterals. LV was reported as normal with an LVEF of 64%. This was based upon a diagnostic cardiac catheterization performed at [facility] on 07/24/2015. Again at the present time he will continue medical therapy. He can be considered for repeat invasive evaluation when he is clinically able to do so if he wants to pursue such. 4. Hypertension He will continue medical management and follow-up. 5. Peripheral vascular disease/carotid artery disease He apparently has history of underlying carotid artery disease. He will continue evaluation care per his primary care physicians for this. The patient's case was discussed with Dr. Mckeon of pulmonology. Dr. Mckeon noted that the patient has been considered for palliative/hospice care. He has not recommended further aggressive evaluation or care of the patient from his standpoint. The patient and his family will need to take this into consideration with respect to how they want to pursue his cardiovascular evaluation especially with respect to invasive evaluation noting his somewhat elevated creatinine level and the concerns for possible IV contrast related nephropathy. This note was generated with [employer] software. It may contain incorrect words, spelling, and punctuation that were not noted in checking the note before signing.
--- NOTE | 2018-05-22 14:39 | PN.CARD_ITS ---
Subjectve: The patient has been without his BiPAP device for period of time this day. He states in the chair he has been resting comfortably. He has not described any new acute events. Objective: Vital Signs Temp Pulse Resp BP Pulse Ox 98.3 F 87 18 140/65 H 94 05/22/18 12:00 05/22/18 13:00 05/22/18 13:00 05/22/18 13:00 05/22/18 13:00 Oxygen Flow Rate (L/min) 4 Oxygen Delivery Method Nasal Cannula Weight: 183 lb 13.848 oz Body Mass Index (BMI) 29.7 Finger Stick Blood Glucose 149 Intake and Output for Last 24 Hours 05/20/18 05/21/18 05/22/18 23:59 23:59 23:59 Intake Total 100 / 100 1313 / 1313 425 / 425 Output Total 1000 / 1000 2200 / 2200 1000 / 1000 Balance -900 / -900 -887 / -887 -575 / -575 General: Awake, Alert, Oriented x 3 Neck: No JVD Lungs: Diminished Dajuan Bases Cardiovascular: Regular Rhythm, Normal S1, Normal S2 Abdomen: Bowel Sounds Present, Soft, Non Tender Extremities: Trace RLE Edema 05/22/18 06:20: WBC 16.9 H, RBC 3.28 L, Hgb 9.1 L, Hct 29.5 L, MCV 89.9, MCH 27.7, MCHC 30.8 L, RDW 13.4, RDW Differential 42.8, Plt Count 242, MPV 10.9, Immature Gran % (Auto) 0.200, Neut % (Auto) 91.4 H, Lymph % (Auto) 4.3 L, [place] % (Auto) 4.1, Eos % (Auto) 0.0, Baso % (Auto) 0.0, Absolute Neuts (auto) 15.4 H , Total Counted Not Reportable 05/22/18 06:20: Sodium 140, Potassium 4.0, Chloride 99, Carbon Dioxide 37.0 H, Anion Gap 4 L, BUN 49 H, Creatinine 1.52 H, Est GFR (MDRD) Af Amer 57 L, Est GFR (MDRD) Non-Af 47 L, BUN/Creatinine Ratio 32.2 H, Glucose 185 H, Calcium 8.6 Rhythm: Sinus rhythm Medical Necessity - Tobacco Use Smoking Status: Former smoker Assessment/Plan 1. CHF The patient has concerns of underlying CHF. Based upon his studies thus far this may be diastolic mediated. He will need to continue medical management. When his CHF is under better control as is his underlying chronic pulmonary disease process and he is able to lie supine, then, if he and his family wants to proceed further evaluation with diagnostic cardiac catheterization this can be considered-if the patient and family want to proceed in that manner. In the interim he will continue medical therapy. 2. Non-ST segment elevation OR The does have abnormal cardiac enzymes. There is concern of a non-ST segment elevation OR. There is concern this may be a primary cardiovascular event versus a type II supply demand mismatch event. The patient appears without acute ongoing symptoms. He will continue medication optimization. He can be considered for diagnostic cardiac catheterization when he is clinically able to undergo such a procedure-again if he and his family want to pursue such a procedure. 3. CAD status post CABG Based upon his outside medical records it appears he had a REHMAN to the LAD and an SVG to the LCx and an SVG to the OM. The RCA was reported as diseased with bridging collaterals. LV was reported as normal with an LVEF of 64%. This was based upon a diagnostic cardiac catheterization performed at [facility] on 07/24/2015. Again at the present time he will continue medical therapy. He can be considered for repeat invasive evaluation when he is clinically able to do so if he wants to pursue such. 4. Hypertension He will continue medical management and follow-up. 5. Peripheral vascular disease/carotid artery disease He apparently has history of underlying carotid artery disease. He will continue evaluation care per his primary care physicians for this. The patient's case was discussed with Dr. Mckeon of pulmonology. Dr. Mckeon noted that the patient has been considered for palliative/hospice care. He has not recommended further aggressive evaluation or care of the patient from his standpoint. The patient and his family will need to take this into consideration with respect to how they want to pursue his cardiovascular evaluation especially with respect to invasive evaluation noting his somewhat elevated creatinine level and the concerns for possible IV contrast related nephropathy. This note was generated with [employer] software. It may contain incorrect words, spelling, and punctuation that were not noted in checking the note before signing.
[2018-05-22 16:31] LABS: Bedside Glucose 191 mg/dL (70-110)
[2018-05-22 22:41] LABS: Bedside Glucose 319 mg/dL (70-110)
[2018-05-23] VITALS (18 sets, daily range): BP systolic 136–149; BP diastolic 47–66; PULSE 56–147; RESP 18–24; TEMP 36.6–36.9; O2SAT 97–99
[2018-05-23] MEDS: Mag Hydrox/Al Hydrox/Simeth 30 ML UDC PO (06:33)
[2018-05-23 07:10] LABS: Magnesium 2.5 mg/dL (1.6-2.6)
[2018-05-23 07:15] LABS: Bedside Glucose 151 mg/dL (70-110)
[2018-05-23] MEDS: Ipratropium/Albuterol Sulfate 3 ML AMPUL.NEB INHALATION ×3 (07:16→20:34)
[2018-05-23 07:40] LABS: Absolute Lymphocyte Count 1.02 X10^3/ul (0.83-4.51); Absolute Neutrophil Count 15.1 X10^3/uL (2.0-7.7); Hematocrit 30.7 % (40-54); Hemoglobin 9.4 g/dl (13.0-16.5); Lymphocyte # 1.02 X10^3/ul (4.0); Lymphocyte % 5.8 % (19-41); Mean Corp Hgb Conc 30.6 g/gl (32-36); Mean Corpuscular Hgb 27.6 pg (27.0-32.0); Monocyte# 1.39 X10^3/uL; Monocyte% 7.9 % (0-10); Neutrophil # 15.06 X10^3/uL (2.7-7.7); Neutrophil % 86.2 % (47-70); POSITIVE COUNT NO; POSITIVE DIFFERENTIAL NO; POSITIVE MORPHOLOGY NO; Platelet Count 264 K/mm3 (150-450); RBC Distribution Width CV 13.8 % (11.6-14.6); RBC Distribution Width SD 44.8 fl (35.1-43.9); Red Blood Count 3.41 M/mm3 (4.6-6.2); White Blood Count 17.5 K/mm3 (4.4-11.0)
[2018-05-23 07:44] LABS: Anion Gap 4 (5-15); BUN 61 mg/dL (7-18); BUN/Creat Ratio 38.6 RATIO (10-20); Calcium,Total 9.4 mg/dL (8.5-10.1); Chloride 98 mmol/L (98-107); Creatinine, Serum 1.58 mg/dL (0.70-1.30); EST Glomerular Filtration Rate 45 mL/min (>60); Est Glom Filt Rate - Afr Amer 55 mL/min (>60); Estimated Creatinine Clearance 34.21 ml/min; Glucose 154 mg/dL (74-106); Sodium Level 142 mmol/L (136-145)
[2018-05-23] MEDS: Insulin Lispro 100 UNIT/ML INSULN.PEN SC ×4 (08:21→22:36)
[2018-05-23] MEDS: predniSONE 20 MG Tablet 40 MG PO (08:23)
[2018-05-23] MEDS: Aspirin 81 MG TAB.CHEW PO (08:23)
--- NOTE | 2018-05-23 08:29 | PN_ITS ---
Patient Problems: Active and Suspected Problems (Last Reviewed 03/16/18 @ 09:36 by Rosa Lopez ) Shortness of breath (Acute) Subjective: The patient was seen and examined at the bedside this morning. Events from the last 24 hours have been reviewed. The patient is currently afebrile, hemodynamically stable and maintaining appropriate oxygen saturations on 4 L/ min via nasal cannula. The patient is currently overall net -2.8 L for the admission. The patient tolerated his trilogy overnight and feels well this morning. Objective: The patient's most recent lab work, culture data and imaging studies have all been personally reviewed. Surface echocardiogram revealed segmental dysfunction with preserved ejection fraction of 65%. There was evidence of mild biatrial enlargement along with mitral and tricuspid valve insufficiency and a right ventricular systolic pressure which was estimated to be 67 mmHg. - Physical Exam General: Alert, Oriented x3, Cooperative, No apparent distress HEENT: Atraumatic, PERRLA, Normocephalic Oral: No Gingival or Mucosal Lesions/ Ulcerations Neck: Supple, No Nodes, Trachea Midline Lungs: - - Globally diminished air movement bilaterally without appreciable wheezes, rales or rhonchi. Cardiovascular: Regular rate, Regular Rhythm, Normal S1, Normal S2, No murmurs Abdomen: Bowel Sounds Present, Soft, Non Tender, Non-Distended Extremities: No cyanosis, Clubbing, Edema - Trace LE Skin: - - No significant change from previous. Musculoskeletal: No Tenderness to Palpation of Joints or Extremities, No Muscle Wasting Lymphatic: No Cervical, Supraclavicular, or Inguinal Adenopathy Neurological: Cranial nerves II-XII grossly intact, Neuro grossly intact Psych/Mental Status: Alert and oriented to time, place, person, mood and affect Vital Signs Temp Pulse Resp BP Pulse Ox 98.4 F 82 20 H 146/62 H 99 05/23/18 04:00 05/23/18 07:16 05/23/18 07:16 05/23/18 04:00 05/23/18 07:16 Oxygen Flow Rate (L/min) 4 Oxygen Delivery Method Nasal Cannula Weight: 183 lb 13.848 oz Body Mass Index (BMI) 29.7 Finger Stick Blood Glucose 149 Intake and Output for Last 24 Hours 05/21/18 05/22/18 05/23/18 23:59 23:59 23:59 Intake Total 1313 / 1313 875 / 875 360 / 360 Output Total 2200 / 2200 1475 / 1475 775 / 775 Balance -887 / -887 -600 / -600 -415 / -415 Laboratory Tests Past 24 Hrs 05/23/18 05/23/18 05/23/18 06:30 06:30 06:30 WBC 17.5 H RBC 3.41 L Hgb 9.4 L Hct 30.7 L MCV 90.0 MCH 27.6 MCHC 30.6 L RDW 13.8 RDW Differential 44.8 H Plt Count 264 MPV 11.0 Immature Gran % (Auto) 0.100 Neut % (Auto) 86.2 H Lymph % (Auto) 5.8 L [place] % (Auto) 7.9 Eos % (Auto) 0.0 Baso % (Auto) 0.0 Absolute Neuts (auto) 15.1 H Absolute Lymphs (auto) 1.02 Total Counted Not Reportable Sodium 142 Potassium 4.0 Chloride 98 Carbon Dioxide 40.0 H Anion Gap 4 L BUN 61 H Creatinine 1.58 H Estim Creat Clear Calc 34.21 Est GFR (MDRD) Af Amer 55 L Est GFR (MDRD) Non-Af 45 L BUN/Creatinine Ratio 38.6 H Glucose 154 H Calcium 9.4 Magnesium 2.5 POC Glucose 05/23/18 05/22/18 05/22/18 06:41 22:09 16:19 POC Glucose 151 H 319 H 191 H 05/22/18 11:09 POC Glucose 263 H Clinical Impression(s) from Imaging Studies Chest X-Ray 05/20/18 14:22 IMPRESSION: There is evidence of increased interstitial markings at the lung bases with areas of confluence worse in the right lung base with blunting of both cost phrenic angles. This is superimposed on mild degree of CHF. Follow-up is recommended. Electronically Signed: Chris Gregory MD at 14:57 EDT Tel [phone], Service support , Medical Necessity - Tobacco Use Smoking Status: Former smoker Assessment/Plan All Active Problems (Last Reviewed 03/16/18 @ 09:36 by Rosa Lopez) Shortness of breath (Acute) Thrush, oral (Acute) Irregular heart beat (Acute) History of cholecystectomy (Resolved) H/O hernia repair (Resolved) History of appendectomy (Resolved) Hx of CABG (Resolved) RECOMMENDATIONS: 1. Following a lengthy discussion with the patient and his family, CODE STATUS has been updated to DNR CCA without intubation. 2. Continue scheduled bronchodilators and steroids. I would suggest transitioning from IV methylprednisone to prednisone 40 mg with plans to complete a 5 day burst. 3. Continue AVAPS (per home regimen) with naps and nightly. 4. Low clinical index suspicion for underlying pulmonary infectious process. Therefore, would discontinue antibiotics. 5. At the current time, given the advanced age of the patient's lung disease, he is certainly a candidate for palliative care involvement and this would be strongly recommended that he reestablish care with them upon discharge from the hospital. 6. The patient should follow-up with our nurse practitioner in the pulmonary medicine clinic within 2 weeks of his discharge from the hospital. IMPRESSIONS: 1. Acute on chronic hypoxemic and hypercarbic respiratory failure Potentially related to underlying decompensated heart failure/NSTEMI. 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 He is on maximal therapy from a COPD perspective and has already completed pulmonary rehabilitation. He is not a candidate for lung transplantation. The patient had been enrolled with palliative care previously but subsequently discontinued their services, as he felt that he was being pressured into enrollment in hospice. Regardless, I do feel that the patient would benefit from palliative care being involved in his management. I did express this explicitly to the patient and his family. I had a lengthy discussion with him regarding CODE STATUS and they are all in agreement that a DNR CCA without plans for intubation would be appropriate. At this time, I would plan to continue the patient's home trilogy along with scheduled bronchodilators and steroids. I do not feel that the patient is experiencing an acute pulmonary infectious process would recommend discontinuation of antibiotics. The patient's IV steroids can be transitioned to prednisone 40 mg daily with plans to complete a 5 day burst. The patient has been weaned back to his baseline 4 L/min supplemental oxygen requirement. Recommend encouraging incentive spirometer use and mobilize patient as tolerated. 2. Non-ST elevation myocardial infarction/history of coronary artery disease status post CABG Continue current medical management per cardiology recommendations. I do not feel that additional cardiac angiography and/or intervention would be likely to benefit this patient and would run the risk for additional kidney insult. 3. Hypertension/diabetes/hyperlipidemia Complicates care, management, recovery and prognosis. Likely okay to continue home medications as indicated. This note was generated with [employer] dictation software. It may contain incorrect words, spelling, and punctuation that were not noted in checking the note before signing. Code Visit Inpatient E&M: 84261 Subs Hosp L2
[2018-05-23] MEDS: Metoprolol Tartrate 25 MG Tablet 12.5 MG PO ×2 (09:54→22:37)
[2018-05-23] MEDS: Losartan Potassium 100 MG Tablet PO (09:55)
[2018-05-23] MEDS: Clopidogrel Bisulfate 75 MG Tablet PO (09:55)
[2018-05-23] MEDS: HYDROCHLOROTHIAZIDE 12.5 MG CAPSULE PO (09:55)
[2018-05-23] MEDS: Furosemide 40 MG Tablet PO ×2 (09:55→16:24)
[2018-05-23] MEDS: Pantoprazole Sodium 20 MG Tablet PO (09:56)
[2018-05-23] MEDS: Enoxaparin 80 MG/0.8 ML Syringe SC ×2 (09:56→22:38)
[2018-05-23 11:11] LABS: Bedside Glucose 237 mg/dL (70-110)
--- NOTE | 2018-05-23 12:17 | PCM.PN.HOSP ---
Patient Problems: Active and Suspected Problems (Last Reviewed 03/16/18 @ 09:36 by Rosa Lopez) Shortness of breath (Acute) Subjective: Patient seen and examined. He had no complaints and was sitting comfortably in his chair. He was on 4 L of oxygen and breathing comfortably. He denied any fever or chills, any chest pain, any wheezing, any abdominal pain, any diarrhea vomiting. Review of systems is otherwise negative. Patient states he wants to have a meeting with Dr. Price and Dr. Mckeon to decide about cardiac cath. Labs and vitals reviewed. Vitals/I&O's: Vital Signs Temp Pulse Resp BP Pulse Ox 98.4 F 89 18 136/47 H 97 05/23/18 09:53 05/23/18 09:54 05/23/18 09:53 05/23/18 09:54 05/23/18 09:53 Oxygen Flow Rate (L/min) 2 Oxygen Delivery Method Nasal Cannula Weight: 183 lb 13.848 oz Body Mass Index (BMI) 29.7 Finger Stick Blood Glucose 149 Intake and Output for Last 24 Hours 05/21/18 05/22/18 05/23/18 23:59 23:59 23:59 Intake Total 1313 / 1313 875 / 875 360 / 360 Output Total 2200 / 2200 1475 / 1475 775 / 775 Balance -887 / -887 -600 / -600 -415 / -415 General: Alert, Oriented x3, Cooperative, No apparent distress HEENT: Atraumatic, PERRLA, EOMI, Normocephalic Oral: Moist Mucosa Neck: Supple, No JVD, Negative Carotid Bruits Lungs: Normal air movement, - - Wheezing bilaterally. On 4 L of oxygen by nasal cannula, which is his baseline. Cardiovascular: Regular rate, No murmurs Abdomen: Bowel Sounds Present, Soft, Non Tender, Non-Distended, No Hepato-splenomegaly Extremities: No clubbing, No cyanosis, No edema, Capillary Refill Less than 3 Seconds Skin: No rashes, No breakdown Musculoskeletal: No Tenderness to Palpation of Joints or Extremities Lymphatic: No Cervical, Supraclavicular, or Inguinal Adenopathy Neurological: Cranial nerves II-XII grossly intact, Motor Exam 5/5 strength throughout Psych/Mental Status: Normal Affect, Appropriate, Alert and oriented to time, place, person, mood and affect Laboratory Results 05/22/18 16:19: POC Glucose 191 H 05/22/18 22:09: POC Glucose 319 H 05/23/18 06:30: Magnesium 2.5 05/23/18 06:30: WBC 17.5 H, RBC 3.41 L, Hgb 9.4 L, Hct 30.7 L, MCV 90.0, MCH 27.6, MCHC 30.6 L, RDW 13.8, RDW Differential 44.8 H, Plt Count 264, MPV 11.0, Immature Gran % (Auto) 0.100, Neut % (Auto) 86.2 H, Lymph % (Auto) 5.8 L, [place] % (Auto) 7.9, Eos % (Auto) 0.0, Baso % (Auto) 0.0, Absolute Neuts (auto) 15.1 H, Absolute Lymphs (auto) 1.02, Total Counted Not Reportable 05/23/18 06:30: Sodium 142, Potassium 4.0, Chloride 98, Carbon Dioxide 40.0 H, Anion Gap 4 L, BUN 61 H, Creatinine 1.58 H, Estim Creat Clear Calc 34.21, Est GFR (MDRD) Af Amer 55 L, Est GFR (MDRD) Non-Af 45 L, BUN/Creatinine Ratio 38.6 H, Glucose 154 H, Calcium 9.4 05/23/18 06:41: POC Glucose 151 H 05/23/18 11:03: POC Glucose 237 H Current Medications Al Hydroxide/Mg Hydroxide (Mylanta Ii) 30 ml PO Q4H PRN PRN PRN Reason: INDIGESTION Last Admin: 05/23/18 06:33 Dose: 30 ml Albuterol Sulfate (Ventolin Aerosols) 2.5 mg INHALATION Q4H PRN PRN Reason: DYSPNEA Albuterol/Ipratropium (Duoneb) 3 ml INHALATION Q6HWA.RT [facility] Last Admin: 05/23/18 07:16 Dose: 3 ml Aspirin (Aspirin, Baby) 81 mg PO DAILY@0800 [facility] Last Admin: 05/23/18 08:23 Dose: 81 mg Atorvastatin Calcium (Lipitor) 40 mg PO QHS [facility] Last Admin: 05/22/18 21:59 Dose: Not Given Clopidogrel Bisulfate (Plavix) 75 mg PO DAILY [facility] Last Admin: 05/23/18 09:55 Dose: 75 mg Enoxaparin Sodium (Lovenox) 80 mg SC Q12 [facility] Last Admin: 05/23/18 09:56 Dose: 80 mg Furosemide (Lasix) 40 mg PO BID@1000,1800 [facility] Last Admin: 05/23/18 09:55 Dose: 40 mg Heparin Sodium (Porcine) (Heparin Na) 0 unit IV UD PRN PRN Reason: Protocol Hydrochlorothiazide (Hydrochlorothiazide) 12.5 mg PO DAILY [facility] Last Admin: 05/23/18 09:55 Dose: 12.5 mg Sodium Chloride () 250 mls @ 15 mls/hr IV .[id number] PRN PRN Reason: SALINE FLUSH Sodium Chloride () 250 mls @ 15 mls/hr IV .[id number] PRN PRN Reason: SALINE FLUSH Insulin Human Lispro (Humalog Kwikpen (Bkc)) 0 unit SC ACHS [facility] PRN Reason: Protocol Last Admin: 05/23/18 11:05 Dose: 4 units Losartan Potassium (Cozaar) 100 mg PO DAILY [facility] Last Admin: 05/23/18 09:55 Dose: 100 mg Magnesium Hydroxide (Milk Of Magnesia) 30 ml PO DAILY PRN PRN PRN Reason: Constipation Metoprolol Tartrate (Lopressor (Beta Jr)) 12.5 mg PO BID [facility] Last Admin: 05/23/18 09:54 Dose: 12.5 mg Pantoprazole Sodium (Protonix) 20 mg PO DAILY [facility] Last Admin: 05/23/18 09:56 Dose: 20 mg Prednisone () 40 mg PO DAILY@0800 [facility] Stop: 05/27/18 08:01 Last Admin: 05/23/18 08:23 Dose: 40 mg Sodium Chloride () 5 - 30 ml IV UD PRN PRN Reason: SALINE FLUSH Last Admin: 05/21/18 21:06 Dose: 10 ml Medical Necessity - Tobacco Use Smoking Status: Former smoker Assessment/Plan All Active Problems (Last Reviewed 03/16/18 @ 09:36 by Rosa Lopez) Shortness of breath (Acute) Thrush, oral (Acute) Irregular heart beat (Acute) History of cholecystectomy (Resolved) H/O hernia repair (Resolved) History of appendectomy (Resolved) Hx of CABG (Resolved) 1. Acute on chronic hypoxic and hypercapnic respiratory failure due to COPD exacerbation and NSTEMI Improving. Remains on 4 L of oxygen by nasal cannula which is his baseline. Treatments with duo nebs. Switch to p.o. prednisone 40 mg daily for 5 days yesterday. Will monitor. 2. NSTEMI initial troponin at [facility] was 0.35; EKG there showed st depression in inferior leads troponin repeated here was 5.2; repeat EKG still showed inferior leads st depression Was started on IV heparin and received loading dose of Plavix. Was also given metoprolol and aspirin. Switch to Lovenox therapeutic dose per cardiology in order to minimize blood draws. troponin trended up to 6.49 2D echo:EF is 65%, with hypokinetic posterior basal, mid posterior mid inferior drake. Inferior basal wall was akinetic. Left atrium mildly enlarged and right atrium mildly enlarged. RVSP is 67 mmHg with 2+ tricuspid insufficiency. 1-2+ pulmonic valve insufficiency Patient discussed with retail service representative Dr. Priec and brake repairer bus Dr. Mckeon today. He has decided he is not going to have cardiac cath and wants medical management. 3. COPD exacerbation. As documented in the 1. Resolving. Patient back to his baseline of 4 L of oxygen by nasal cannula. Doxycycline stopped as documented above. We will stop IV Solu-Medrol and switch to p.o. prednisone 40 mg daily for 5 days. has undergone pulmonary rehab,a nd is not a candidate for lung transplantation. 4. acute diastolic heart failure exacerbation BNP was 427; on IV lasix 40mg bid; gram twice daily today. 2D echo as documented above cardiology on board 5. SHARRI: Cr was 1.54 on admisison, baseline ~ 1.06 (12/06);Now 1.56. Cannot give IVF o/a of CHF exacerbation. Will monitor 6.Hypertension on amlodipine 10mg daily, losartan/HCTZ; hold amlodipine in light of NSTEMI 7. Diabetes mellitus: Accuchecks ACHS. ISS. Metformin on hold. 8. CAD s/p CABG: on aspirin and plavix DVT prophylaxis: on lovenox GI prophylaxis: PPI Code status: DNRCCA Disposition: For discharge home tomorrow if he remains stable This note was generated with [employer] software. It may contain incorrect words, spelling, and punctuation that were not noted in checking the note before signing. Code Visit Inpatient E&M: 05329 Subs Hosp L2
--- NOTE | 2018-05-23 12:23 | PN_ITS ---
Patient Problems: Active and Suspected Problems (Last Reviewed 03/16/18 @ 09:36 by Rosa Lopez ) Shortness of breath (Acute) Subjective: Patient seen and examined. He had no complaints and was sitting comfortably in his chair. He was on 4 L of oxygen and breathing comfortably. He denied any fever or chills, any chest pain, any wheezing, any abdominal pain, any diarrhea vomiting. Review of systems is otherwise negative. Patient states he wants to have a meeting with Dr. Price and Dr. Mckeon to decide about cardiac cath. Labs and vitals reviewed. Vitals/I&O's: Vital Signs Temp Pulse Resp BP Pulse Ox 98.4 F 89 18 136/47 H 97 05/23/18 09:53 05/23/18 09:54 05/23/18 09:53 05/23/18 09:54 05/23/18 09:53 Oxygen Flow Rate (L/min) 2 Oxygen Delivery Method Nasal Cannula Weight: 183 lb 13.848 oz Body Mass Index (BMI) 29.7 Finger Stick Blood Glucose 149 Intake and Output for Last 24 Hours 05/21/18 05/22/18 05/23/18 23:59 23:59 23:59 Intake Total 1313 / 1313 875 / 875 360 / 360 Output Total 2200 / 2200 1475 / 1475 775 / 775 Balance -887 / -887 -600 / -600 -415 / -415 General: Alert, Oriented x3, Cooperative, No apparent distress HEENT: Atraumatic, PERRLA, EOMI, Normocephalic Oral: Moist Mucosa Neck: Supple, No JVD, Negative Carotid Bruits Lungs: Normal air movement, - - Wheezing bilaterally. On 4 L of oxygen by nasal cannula, which is his baseline. Cardiovascular: Regular rate, No murmurs Abdomen: Bowel Sounds Present, Soft, Non Tender, Non-Distended, No Hepato- splenomegaly Extremities: No clubbing, No cyanosis, No edema, Capillary Refill Less than 3 Seconds Skin: No rashes, No breakdown Musculoskeletal: No Tenderness to Palpation of Joints or Extremities Lymphatic: No Cervical, Supraclavicular, or Inguinal Adenopathy Neurological: Cranial nerves II-XII grossly intact, Motor Exam 5/5 strength throughout Psych/Mental Status: Normal Affect, Appropriate, Alert and oriented to time, place, person, mood and affect Laboratory Results 05/22/18 16:19: POC Glucose 191 H 05/22/18 22:09: POC Glucose 319 H 05/23/18 06:30: Magnesium 2.5 05/23/18 06:30: WBC 17.5 H, RBC 3.41 L, Hgb 9.4 L, Hct 30.7 L, MCV 90.0, MCH 27.6, MCHC 30.6 L, RDW 13.8, RDW Differential 44.8 H, Plt Count 264, MPV 11.0, Immature Gran % (Auto) 0.100, Neut % (Auto) 86.2 H, Lymph % (Auto) 5.8 L, [place] % (Auto) 7.9, Eos % (Auto) 0.0, Baso % (Auto) 0.0, Absolute Neuts (auto) 15.1 H , Absolute Lymphs (auto) 1.02, Total Counted Not Reportable 05/23/18 06:30: Sodium 142, Potassium 4.0, Chloride 98, Carbon Dioxide 40.0 H, Anion Gap 4 L, BUN 61 H, Creatinine 1.58 H, Estim Creat Clear Calc 34.21, Est GFR (MDRD) Af Amer 55 L, Est GFR (MDRD) Non-Af 45 L, BUN/Creatinine Ratio 38.6 H , Glucose 154 H, Calcium 9.4 05/23/18 06:41: POC Glucose 151 H 05/23/18 11:03: POC Glucose 237 H Current Medications Al Hydroxide/Mg Hydroxide (Mylanta Ii) 30 ml PO Q4H PRN PRN PRN Reason: INDIGESTION Last Admin: 05/23/18 06:33 Dose: 30 ml Albuterol Sulfate (Ventolin Aerosols) 2.5 mg INHALATION Q4H PRN PRN Reason: DYSPNEA Albuterol/Ipratropium (Duoneb) 3 ml INHALATION Q6HWA.RT [facility] Last Admin: 05/23/18 07:16 Dose: 3 ml Aspirin (Aspirin, Baby) 81 mg PO DAILY@0800 [facility] Last Admin: 05/23/18 08:23 Dose: 81 mg Atorvastatin Calcium (Lipitor) 40 mg PO QHS [facility] Last Admin: 05/22/18 21:59 Dose: Not Given Clopidogrel Bisulfate (Plavix) 75 mg PO DAILY [facility] Last Admin: 05/23/18 09:55 Dose: 75 mg Enoxaparin Sodium (Lovenox) 80 mg SC Q12 [facility] Last Admin: 05/23/18 09:56 Dose: 80 mg Furosemide (Lasix) 40 mg PO BID@1000,1800 [facility] Last Admin: 05/23/18 09:55 Dose: 40 mg Heparin Sodium (Porcine) (Heparin Na) 0 unit IV UD PRN PRN Reason: Protocol Hydrochlorothiazide (Hydrochlorothiazide) 12.5 mg PO DAILY [facility] Last Admin: 05/23/18 09:55 Dose: 12.5 mg Sodium Chloride () 250 mls @ 15 mls/hr IV .[id number] PRN PRN Reason: SALINE FLUSH Sodium Chloride () 250 mls @ 15 mls/hr IV .[id number] PRN PRN Reason: SALINE FLUSH Insulin Human Lispro (Humalog Kwikpen (Bkc)) 0 unit SC ACHS [facility] PRN Reason: Protocol Last Admin: 05/23/18 11:05 Dose: 4 units Losartan Potassium (Cozaar) 100 mg PO DAILY [facility] Last Admin: 05/23/18 09:55 Dose: 100 mg Magnesium Hydroxide (Milk Of Magnesia) 30 ml PO DAILY PRN PRN PRN Reason: Constipation Metoprolol Tartrate (Lopressor (Beta Jr)) 12.5 mg PO BID [facility] Last Admin: 05/23/18 09:54 Dose: 12.5 mg Pantoprazole Sodium (Protonix) 20 mg PO DAILY [facility] Last Admin: 05/23/18 09:56 Dose: 20 mg Prednisone () 40 mg PO DAILY@0800 [facility] Stop: 05/27/18 08:01 Last Admin: 05/23/18 08:23 Dose: 40 mg Sodium Chloride () 5 - 30 ml IV UD PRN PRN Reason: SALINE FLUSH Last Admin: 05/21/18 21:06 Dose: 10 ml Medical Necessity - Tobacco Use Smoking Status: Former smoker Assessment/Plan All Active Problems (Last Reviewed 03/16/18 @ 09:36 by Rosa Lopez) Shortness of breath (Acute) Thrush, oral (Acute) Irregular heart beat (Acute) History of cholecystectomy (Resolved) H/O hernia repair (Resolved) History of appendectomy (Resolved) Hx of CABG (Resolved) 1. Acute on chronic hypoxic and hypercapnic respiratory failure due to COPD exacerbation and NSTEMI * Improving. Remains on 4 L of oxygen by nasal cannula which is his baseline. * Treatments with duo nebs. Switch to p.o. prednisone 40 mg daily for 5 days yesterday. * Will monitor. * * * 2. NSTEMI * initial troponin at [facility] was 0.35; EKG there showed st depression in inferior leads * troponin repeated here was 5.2; repeat EKG still showed inferior leads st depression * Was started on IV heparin and received loading dose of Plavix. Was also given metoprolol and aspirin. * Switch to Lovenox therapeutic dose per cardiology in order to minimize blood draws. * troponin trended up to 6.49 * 2D echo:EF is 65%, with hypokinetic posterior basal, mid posterior mid inferior drake. Inferior basal wall was akinetic. Left atrium mildly enlarged and right atrium mildly enlarged. RVSP is 67 mmHg with 2+ tricuspid insufficiency. 1-2+ pulmonic valve insufficiency * Patient discussed with law examiner Dr. Price and cognos lead Dr. Mckeon today. He has decided he is not going to have cardiac cath and wants medical management. * * * 3. COPD exacerbation. * As documented in the 1. * Resolving. Patient back to his baseline of 4 L of oxygen by nasal cannula. * Doxycycline stopped as documented above. We will stop IV Solu-Medrol and switch to p.o. prednisone 40 mg daily for 5 days. * has undergone pulmonary rehab,a nd is not a candidate for lung transplantation. * * 4. acute diastolic heart failure exacerbation * BNP was 427; on IV lasix 40mg bid; gram twice daily today. * 2D echo as documented above * cardiology on board * 5. SHARRI: Cr was 1.54 on admisison, baseline ~ 1.06 (12/06);Now 1.56. Cannot give IVF o/a of CHF exacerbation. Will monitor 6.Hypertension * * on amlodipine 10mg daily, losartan/HCTZ; hold amlodipine in light of NSTEMI * 7. Diabetes mellitus: Accuchecks ACHS. ISS. Metformin on hold. 8. CAD s/p CABG: on aspirin and plavix DVT prophylaxis: on lovenox GI prophylaxis: PPI Code status: DNRCCA Disposition: For discharge home tomorrow if he remains stable This note was generated with [employer] dictation software. It may contain incorrect words, spelling, and punctuation that were not noted in checking the note before signing. Code Visit Inpatient E&M: 96720 Subs Hosp L2
--- NOTE | 2018-05-23 12:24 | PCM.PN.CARD ---
Subjectve: The patient denies ongoing chest discomfort. He states he has been without his BiPAP mask this morning. However he states that he still does not feel that he would be able to lie supine to go through any invasive evaluation/procedure. He also states, after discussing his case with Dr. Mckeon and his family he has elected at this time not to pursue further invasive evaluation from a cardiovascular standpoint. Objective: Vital Signs Temp Pulse Resp BP Pulse Ox 98.4 F 89 18 136/47 H 97 05/23/18 09:53 05/23/18 09:54 05/23/18 09:53 05/23/18 09:54 05/23/18 09:53 Oxygen Flow Rate (L/min) 2 Oxygen Delivery Method Nasal Cannula Weight: 183 lb 13.848 oz Body Mass Index (BMI) 29.7 Finger Stick Blood Glucose 149 Intake and Output for Last 24 Hours 05/21/18 05/22/18 05/23/18 23:59 23:59 23:59 Intake Total 1313 / 1313 875 / 875 360 / 360 Output Total 2200 / 2200 1475 / 1475 775 / 775 Balance -887 / -887 -600 / -600 -415 / -415 General: Awake, Alert, Oriented x 3, No Acute Distress Lungs: Diminished Dajuan Bases Cardiovascular: Regular Rhythm, Premature Ectopic Beats, Normal S1, Normal S2 Abdomen: Bowel Sounds Present, Soft, Non Tender 05/23/18 06:30: Magnesium 2.5 05/23/18 06:30: WBC 17.5 H, RBC 3.41 L, Hgb 9.4 L, Hct 30.7 L, MCV 90.0, MCH 27.6, MCHC 30.6 L, RDW 13.8, RDW Differential 44.8 H, Plt Count 264, MPV 11.0, Immature Gran % (Auto) 0.100, Neut % (Auto) 86.2 H, Lymph % (Auto) 5.8 L, [place] % (Auto) 7.9, Eos % (Auto) 0.0, Baso % (Auto) 0.0, Absolute Neuts (auto) 15.1 H, Total Counted Not Reportable 05/23/18 06:30: Sodium 142, Potassium 4.0, Chloride 98, Carbon Dioxide 40.0 H, Anion Gap 4 L, BUN 61 H, Creatinine 1.58 H, Est GFR (MDRD) Af Amer 55 L, Est GFR (MDRD) Non-Af 45 L, BUN/Creatinine Ratio 38.6 H, Glucose 154 H, Calcium 9.4 Rhythm: Sinus rhythm; an episode of a somewhat irregular tachydysrhythmia concerning for an ectopic atrial tachycardia, however, paroxysmal atrial fibrillation cannot necessarily be excluded Medical Necessity - Tobacco Use Smoking Status: Former smoker Assessment/Plan 1. CHF The patient has concerns of underlying CHF. Based upon his studies thus far this may be diastolic mediated. He will need to continue medical management. He will continue medical management from a cardiopulmonary standpoint as best as tolerated. 2. Non-ST segment elevation NV The does have abnormal cardiac enzymes. There is concern of a non-ST segment elevation NV. There is concern this may be a primary cardiovascular event versus a type II supply demand mismatch event. The patient appears without acute ongoing symptoms. He will continue medication optimization. At the present time he states status post discussion of his case with Dr. Mckeon and his family members he has elected not to want to pursue further invasive evaluation or care. Thus he will continue medical therapy. 3. CAD status post CABG Based upon his outside medical records it appears he had a REHMAN to the LAD and an SVG to the LCx and an SVG to the OM. The RCA was reported as diseased with bridging collaterals. LV was reported as normal with an LVEF of 64%. This was based upon a diagnostic cardiac catheterization performed at [facility] on 07/24/2015. Again at the present time he will continue medical therapy. 4. Cardiac dysrhythmia The patient did demonstrate an episode on his sludge control operator potentially compatible with ectopic atrial tachycardia although an episode of paroxysmal atrial fibrillation cannot be excluded. It would be reasonable that he continue appropriate rate control therapy. It may also be reasonable he be considered for antiarrhythmic therapy noting his underlying cardiovascular diagnosis and findings. This would include agents such as amiodarone. Depending upon his cardiac rhythm he may need to be considered for anticoagulant therapy as well unless otherwise contraindicated. 5. Hypertension He will continue medical management and follow-up. 6. Peripheral vascular disease/carotid artery disease He apparently has history of underlying carotid artery disease. He will continue evaluation care per his primary care physicians for this. Comment: The patient's case has been discussed and reviewed with the patient, Dr. Mckeon, and the [facility] hospitalist staff. This note was generated with [employer] dictation software. It may contain incorrect words, spelling, and punctuation that were not noted in checking the note before signing.
--- NOTE | 2018-05-23 12:28 | PN.CARD_ITS ---
Subjectve: The patient denies ongoing chest discomfort. He states he has been without his BiPAP mask this morning. However he states that he still does not feel that he would be able to lie supine to go through any invasive evaluation/procedure. He also states, after discussing his case with Dr. Mckeon and his family he has elected at this time not to pursue further invasive evaluation from a cardiovascular standpoint. Objective: Vital Signs Temp Pulse Resp BP Pulse Ox 98.4 F 89 18 136/47 H 97 05/23/18 09:53 05/23/18 09:54 05/23/18 09:53 05/23/18 09:54 05/23/18 09:53 Oxygen Flow Rate (L/min) 2 Oxygen Delivery Method Nasal Cannula Weight: 183 lb 13.848 oz Body Mass Index (BMI) 29.7 Finger Stick Blood Glucose 149 Intake and Output for Last 24 Hours 05/21/18 05/22/18 05/23/18 23:59 23:59 23:59 Intake Total 1313 / 1313 875 / 875 360 / 360 Output Total 2200 / 2200 1475 / 1475 775 / 775 Balance -887 / -887 -600 / -600 -415 / -415 General: Awake, Alert, Oriented x 3, No Acute Distress Lungs: Diminished Dajuan Bases Cardiovascular: Regular Rhythm, Premature Ectopic Beats, Normal S1, Normal S2 Abdomen: Bowel Sounds Present, Soft, Non Tender 05/23/18 06:30: Magnesium 2.5 05/23/18 06:30: WBC 17.5 H, RBC 3.41 L, Hgb 9.4 L, Hct 30.7 L, MCV 90.0, MCH 27.6, MCHC 30.6 L, RDW 13.8, RDW Differential 44.8 H, Plt Count 264, MPV 11.0, Immature Gran % (Auto) 0.100, Neut % (Auto) 86.2 H, Lymph % (Auto) 5.8 L, [place] % (Auto) 7.9, Eos % (Auto) 0.0, Baso % (Auto) 0.0, Absolute Neuts (auto) 15.1 H , Total Counted Not Reportable 05/23/18 06:30: Sodium 142, Potassium 4.0, Chloride 98, Carbon Dioxide 40.0 H, Anion Gap 4 L, BUN 61 H, Creatinine 1.58 H, Est GFR (MDRD) Af Amer 55 L, Est GFR (MDRD) Non-Af 45 L, BUN/Creatinine Ratio 38.6 H, Glucose 154 H, Calcium 9.4 Rhythm: Sinus rhythm; an episode of a somewhat irregular tachydysrhythmia concerning for an ectopic atrial tachycardia, however, paroxysmal atrial fibrillation cannot necessarily be excluded Medical Necessity - Tobacco Use Smoking Status: Former smoker Assessment/Plan 1. CHF The patient has concerns of underlying CHF. Based upon his studies thus far this may be diastolic mediated. He will need to continue medical management. He will continue medical management from a cardiopulmonary standpoint as best as tolerated. 2. Non-ST segment elevation ME The does have abnormal cardiac enzymes. There is concern of a non-ST segment elevation ME. There is concern this may be a primary cardiovascular event versus a type II supply demand mismatch event. The patient appears without acute ongoing symptoms. He will continue medication optimization. At the present time he states status post discussion of his case with Dr. Mckeon and his family members he has elected not to want to pursue further invasive evaluation or care. Thus he will continue medical therapy. 3. CAD status post CABG Based upon his outside medical records it appears he had a REHMAN to the LAD and an SVG to the LCx and an SVG to the OM. The RCA was reported as diseased with bridging collaterals. LV was reported as normal with an LVEF of 64%. This was based upon a diagnostic cardiac catheterization performed at [facility] on 07/24/2015. Again at the present time he will continue medical therapy. 4. Cardiac dysrhythmia The patient did demonstrate an episode on his strategic planning manager potentially compatible with ectopic atrial tachycardia although an episode of paroxysmal atrial fibrillation cannot be excluded. It would be reasonable that he continue appropriate rate control therapy. It may also be reasonable he be considered for antiarrhythmic therapy noting his underlying cardiovascular diagnosis and findings. This would include agents such as amiodarone. Depending upon his cardiac rhythm he may need to be considered for anticoagulant therapy as well unless otherwise contraindicated. 5. Hypertension He will continue medical management and follow-up. 6. Peripheral vascular disease/carotid artery disease He apparently has history of underlying carotid artery disease. He will continue evaluation care per his primary care physicians for this. Comment: The patient's case has been discussed and reviewed with the patient, Dr. Mckeon, and the [facility] hospitalist staff. This note was generated with [employer] dictation software. It may contain incorrect words, spelling, and punctuation that were not noted in checking the note before signing.
[2018-05-23 16:40] LABS: Bedside Glucose 227 mg/dL (70-110)
[2018-05-23] MEDS: 0.9% NaCl Peripheral Flush Adult/Peds IV (22:40)
[2018-05-23 22:55] LABS: Bedside Glucose 202 mg/dL (70-110)
[2018-05-24] VITALS (10 sets, daily range): BP systolic 132–135; BP diastolic 63–71; PULSE 74–86; RESP 16–20; TEMP 36.6–36.7; O2SAT 95–98
[2018-05-24 05:09] LABS: Absolute Lymphocyte Count 2.12 X10^3/ul (0.83-4.51); Absolute Neutrophil Count 9.7 X10^3/uL (2.0-7.7); Eosinophil# 0.02 X10^3/uL; Eosinophils% 0.2 % (0-5); Hematocrit 27.8 % (40-54); Hemoglobin 8.5 g/dl (13.0-16.5); Lymphocyte # 2.12 X10^3/ul (4.0); Lymphocyte % 16.2 % (19-41); Mean Corp Hgb Conc 30.6 g/gl (32-36); Mean Corpuscular Hgb 27.4 pg (27.0-32.0); Mean Corpuscular Volume 89.7 fL (80-94); Mean Platelet Vol. 10.9 fl (6.2-12.0); Monocyte# 1.15 X10^3/uL; Monocyte% 8.8 % (0-10); Neutrophil # 9.71 X10^3/uL (2.7-7.7); Neutrophil % 74.3 % (47-70); Platelet Count 231 K/mm3 (150-450); RBC Distribution Width CV 13.8 % (11.6-14.6); White Blood Count 13.1 K/mm3 (4.4-11.0)
[2018-05-24 05:34] LABS: Anion Gap 10 (5-15); BUN 76 mg/dL (7-18); BUN/Creat Ratio 44.7 RATIO (10-20); Calcium,Total 9.4 mg/dL (8.5-10.1); Chloride 93 mmol/L (98-107); EST Glomerular Filtration Rate 42 mL/min (>60); Est Glom Filt Rate - Afr Amer 50 mL/min (>60); Glucose 144 mg/dL (74-106); Potassium 3.5 mmol/L (3.5-5.1); Sodium Level 145 mmol/L (136-145); Thyroid Stim Hormone (TSH) 1.39 uIU/mL (0.358-3.74)
[2018-05-24 05:37] LABS: POSITIVE COUNT NO; POSITIVE DIFFERENTIAL NO; POSITIVE MORPHOLOGY NO
[2018-05-24 06:40] LABS: Bedside Glucose 137 mg/dL (70-110)
[2018-05-24] MEDS: Pantoprazole Sodium 20 MG Tablet PO (08:51)
[2018-05-24] MEDS: Amiodarone 200 MG Tablet PO (08:51)
[2018-05-24] MEDS: Aspirin 81 MG TAB.CHEW PO (08:52)
[2018-05-24] MEDS: Metoprolol Tartrate 25 MG Tablet 12.5 MG PO (08:52)
[2018-05-24] MEDS: Clopidogrel Bisulfate 75 MG Tablet PO (08:52)
[2018-05-24] MEDS: predniSONE 20 MG Tablet 40 MG PO (08:52)
[2018-05-24] MEDS: Losartan Potassium 100 MG Tablet PO (08:52)
[2018-05-24] MEDS: Furosemide 20 MG Tablet PO ×2 (08:56→17:26)
--- NOTE | 2018-05-24 10:57 | CASEMGMT ---
RN SIMEON Note: PT/OT notes reviewed. Intro role of CM to pt, daughter and his . RN SIMEON spoke with them last week also. Discussed PT/OT notes, recommendation for skilled therapy and they are agreeable to have pt go to TCU or second choice of [facility]. ISABEL Acosta updated and will arrange referral. -Pt had referral to [facility]- will call and notify of transfer to SNF if this occurs. Lavon BRADFORDN RN ACM
--- NOTE | 2018-05-24 11:27 | CASEMGMT ---
Addendum entered by Birdie Siegel 05/24/18 17:21: Pt ready to go to TCU today. Rea aware and orders faxed to TCU. Nurse is aware. SW inquired if pt wants SW to notify his and he denies and states he will call her. Pt agreeable to transfer. NEETU Villalobos Original Note: Addendum entered by Birdie Siegel 05/24/18 13:03: Social Work Return call from Rea in TCU and pt has been accepted and a room is available today. Met with pt and in room and informed of above. Provided information on insurance coverage. Pt and are agreeable to TCU. OFE Lima informed that pt can be discharged today if medically ready. Plan: TCU NEETU Villalobos Original Note: Social Work Sivakumar RN CM making referral to SW as pt and are requesting SNF stay in TCU prior to return home. If TCU is unable to accept second choice is [facility]. Referral made to Rea in TCU and will await determination. Plan: TCU, pending acceptance NEETU Villalobos
[2018-05-24] MEDS: Insulin Lispro 100 UNIT/ML INSULN.PEN SC ×2 (11:50→17:25)
[2018-05-24 11:56] LABS: Bedside Glucose 181 mg/dL (70-110)
--- NOTE | 2018-05-24 12:07 | PCM.PROGNOTE ---
<Clarence Robertson - Last Filed: 05/24/18 12:07> Patient Problems: Active and Suspected Problems (Last Reviewed 03/16/18 @ 09:36 by Rosa Lopez) Shortness of breath (Acute) NSTEMI (non-ST elevated myocardial infarction) (Acute) COPD exacerbation (Acute) Subjective: Pt remains very weak and with significant SOB on mild exertion. None at rest. No CP. No heaviness, dizziness, LH, palp, cough. Pt has nebulizer, trilogy, O2, at home. He is considering intermediate placement. - Physical Exam General: Alert, Oriented x3, Cooperative HEENT: Atraumatic, PERRLA, EOMI, Normocephalic Neck: Supple, No JVD, Negative Carotid Bruits Lungs: Diminished, Wheezes - right sided faint. Cardiovascular: Regular rate, No murmurs Abdomen: Bowel Sounds Present, Soft, Non Tender Extremities: No edema, Capillary Refill Less than 3 Seconds Skin: No rashes, No breakdown Musculoskeletal: No Tenderness to Palpation of Joints or Extremities Neurological: Cranial nerves II-XII grossly intact Psych/Mental Status: Normal Affect, Appropriate, Alert and oriented to time, place, person, mood and affect Vital Signs Temp Pulse Resp BP Pulse Ox 97.8 F 77 20 H 135/65 H 98 05/24/18 10:00 05/24/18 11:00 05/24/18 10:00 05/24/18 10:00 05/24/18 10:00 Oxygen Flow Rate (L/min) 4 Oxygen Delivery Method Nasal Cannula Weight: 183 lb 13.848 oz Body Mass Index (BMI) 29.7 Finger Stick Blood Glucose 149 Intake and Output for Last 24 Hours 05/22/18 05/23/18 05/24/18 23:59 23:59 23:59 Intake Total 875 / 875 800 / 800 50 / 50 Output Total 1475 / 1475 2150 / 2150 475 / 475 Balance -600 / -600 -1350 / -1350 -425 / -425 Laboratory Tests Past 24 Hrs 05/24/18 05/24/18 04:26 04:26 WBC 13.1 H RBC 3.10 L Hgb 8.5 L Hct 27.8 L MCV 89.7 MCH 27.4 MCHC 30.6 L RDW 13.8 RDW Differential 45.0 H Plt Count 231 MPV 10.9 Immature Gran % (Auto) 0.500 Neut % (Auto) 74.3 H Lymph % (Auto) 16.2 L [place] % (Auto) 8.8 Eos % (Auto) 0.2 Baso % (Auto) 0.0 Absolute Neuts (auto) 9.7 H Absolute Lymphs (auto) 2.12 Total Counted Not Reportable Sodium 145 Potassium 3.5 Chloride 93 L Carbon Dioxide 42.0 H Anion Gap 10 BUN 76 H Creatinine 1.70 H Estim Creat Clear Calc 31.80 Est GFR (MDRD) Af Amer 50 L Est GFR (MDRD) Non-Af 42 L BUN/Creatinine Ratio 44.7 H Glucose 144 H Calcium 9.4 TSH 1.39 POC Glucose 05/24/18 05/24/18 05/23/18 11:47 06:34 22:30 POC Glucose 181 H 137 H 202 H 05/23/18 16:18 POC Glucose 227 H Medical Necessity - Tobacco Use Smoking Status: Former smoker Assessment/Plan All Active Problems (Last Reviewed 03/16/18 @ 09:36 by Rosa Lopez) Shortness of breath (Acute) NSTEMI (non-ST elevated myocardial infarction) (Acute) COPD exacerbation (Acute) Thrush, oral (Acute) Irregular heart beat (Acute) History of cholecystectomy (Resolved) H/O hernia repair (Resolved) History of appendectomy (Resolved) 1. NSTEMI, hx CAD - medical management only. Dr. Dee coyle. 2. SHARRI - hold arb, lovenox. recheck in am. 3. Acute on chronic hypoxic hypercapnic respiratory failure 2/2 acute copd exacerbation / nstemi - resolved. at baseline. continue prednisone taper, aerosols, trilogy. Dr. Liz following. 4. Acute on chronic diastolic CHF - EF 65%. Continue lasix. 5. HTN - stable. 6. DMt2 - continue ISS. Continue to hold metformin 2/2 sharri. DVT ppx: SCDs DC planning: ready for discharge, considering SNF placement for debility This patient was seen by Clarence Robertson PA-C under the supervision of Dr. Lofton. <Mary Lofton - Last Filed: 05/24/18 17:09> - Physical Exam Vital Signs Temp Pulse Resp BP Pulse Ox 98.0 F 74 20 H 132/71 H 95 05/24/18 15:40 05/24/18 15:40 05/24/18 15:40 05/24/18 15:40 05/24/18 15:40 Oxygen Flow Rate (L/min) 4 Oxygen Delivery Method Nasal Cannula Weight: 183 lb 13.848 oz Body Mass Index (BMI) 29.7 Finger Stick Blood Glucose 149 Intake and Output for Last 24 Hours 05/22/18 05/23/18 05/24/18 23:59 23:59 23:59 Intake Total 875 / 875 800 / 800 410 / 410 Output Total 1475 / 1475 2150 / 2150 475 / 475 Balance -600 / -600 -1350 / -1350 -65 / -65 Laboratory Tests Past 24 Hrs 05/24/18 05/24/18 04:26 04:26 WBC 13.1 H RBC 3.10 L Hgb 8.5 L Hct 27.8 L MCV 89.7 MCH 27.4 MCHC 30.6 L RDW 13.8 RDW Differential 45.0 H Plt Count 231 MPV 10.9 Immature Gran % (Auto) 0.500 Neut % (Auto) 74.3 H Lymph % (Auto) 16.2 L [place] % (Auto) 8.8 Eos % (Auto) 0.2 Baso % (Auto) 0.0 Absolute Neuts (auto) 9.7 H Absolute Lymphs (auto) 2.12 Total Counted Not Reportable Sodium 145 Potassium 3.5 Chloride 93 L Carbon Dioxide 42.0 H Anion Gap 10 BUN 76 H Creatinine 1.70 H Estim Creat Clear Calc 31.80 Est GFR (MDRD) Af Amer 50 L Est GFR (MDRD) Non-Af 42 L BUN/Creatinine Ratio 44.7 H Glucose 144 H Calcium 9.4 TSH 1.39 POC Glucose 05/24/18 05/24/18 05/23/18 11:47 06:34 22:30 POC Glucose 181 H 137 H 202 H Assessment/Plan Patient seen by Clarence Robertson PA-C under my supervision. Agree with above note and assessment and plan. Patient seen and examined. HE felt well and had no complaints. HE was saturating well on 4L of oxygen, which is his baseline. DUe to be discharged today to SNF. TO follow up with PCP, residential youth counselor and spray operator. Agree with above note.
[2018-05-24] MEDS: Ipratropium/Albuterol Sulfate 3 ML AMPUL.NEB INHALATION ×2 (12:40→18:48)
--- NOTE | 2018-05-24 12:46 | PCM.PROGNOTE ---
Patient Problems: Active and Suspected Problems (Last Reviewed 03/16/18 @ 09:36 by Rosa Lopez) Shortness of breath (Acute) Subjective: Patient did well overnight. No acute issues were reported. Patient subjectively slightly improved from previous. Patient still with significant dyspnea on exertion. Compliant with Trilogy overnight - Physical Exam General: Alert, Oriented x3, Cooperative, No apparent distress, - - Appears stated age HEENT: Atraumatic, PERRLA, EOMI, Normocephalic, - - No epistaxis. O2 in place Oral: Moist Mucosa, No Gingival or Mucosal Lesions/ Ulcerations Neck: Supple, No JVD, No Nodes, Trachea Midline Lungs: No rhonchi, No wheeze, No rales, Diminished Cardiovascular: Regular rate, Regular Rhythm, Normal S1, Normal S2, No murmurs, No rub noted, No Gallop Abdomen: Bowel Sounds Present, Soft, Non Tender, Non-Distended Extremities: No cyanosis, Clubbing, Edema Skin: No rashes, No breakdown Musculoskeletal: No Tenderness to Palpation of Joints or Extremities Lymphatic: No Cervical, Supraclavicular, or Inguinal Adenopathy Neurological: Cranial nerves II-XII grossly intact, Neuro grossly intact, Motor Exam 5/5 strength throughout Psych/Mental Status: Alert and oriented to time, place, person, mood and affect Vital Signs Temp Pulse Resp BP Pulse Ox 36.6 C 77 20 H 135/65 H 98 05/24/18 10:00 05/24/18 11:00 05/24/18 10:00 05/24/18 10:00 05/24/18 10:00 Oxygen Flow Rate (L/min) 4 Oxygen Delivery Method Nasal Cannula Weight: 83.4 kg Body Mass Index (BMI) 29.7 Finger Stick Blood Glucose 149 Intake and Output for Last 24 Hours 05/22/18 05/23/18 05/24/18 23:59 23:59 23:59 Intake Total 875 / 875 800 / 800 410 / 410 Output Total 1475 / 1475 2150 / 2150 475 / 475 Balance -600 / -600 -1350 / -1350 -65 / -65 Laboratory Tests Past 24 Hrs 05/24/18 05/24/18 04:26 04:26 WBC 13.1 H RBC 3.10 L Hgb 8.5 L Hct 27.8 L MCV 89.7 MCH 27.4 MCHC 30.6 L RDW 13.8 RDW Differential 45.0 H Plt Count 231 MPV 10.9 Immature Gran % (Auto) 0.500 Neut % (Auto) 74.3 H Lymph % (Auto) 16.2 L [place] % (Auto) 8.8 Eos % (Auto) 0.2 Baso % (Auto) 0.0 Absolute Neuts (auto) 9.7 H Absolute Lymphs (auto) 2.12 Total Counted Not Reportable Sodium 145 Potassium 3.5 Chloride 93 L Carbon Dioxide 42.0 H Anion Gap 10 BUN 76 H Creatinine 1.70 H Estim Creat Clear Calc 31.80 Est GFR (MDRD) Af Amer 50 L Est GFR (MDRD) Non-Af 42 L BUN/Creatinine Ratio 44.7 H Glucose 144 H Calcium 9.4 TSH 1.39 POC Glucose 05/24/18 05/24/18 05/23/18 11:47 06:34 22:30 POC Glucose 181 H 137 H 202 H 05/23/18 16:18 POC Glucose 227 H Medical Necessity - Tobacco Use Smoking Status: Former smoker Assessment/Plan All Active Problems (Last Reviewed 03/16/18 @ 09:36 by Rosa Lopez) Shortness of breath (Acute) Thrush, oral (Acute) Irregular heart beat (Acute) History of cholecystectomy (Resolved) H/O hernia repair (Resolved) History of appendectomy (Resolved) Hx of CABG (Resolved) RECOMMENDATIONS: 1. CODE STATUS has been updated to DNR CCA without intubation. 2. Complete 5 days of prednisone therapy 3. Continue AVAPS (per home regimen) with naps and nightly. 4. Low clinical index suspicion for underlying pulmonary infectious process. Monitor off antibiotics. 5. Consider palliative care consult as outpatient 6. The patient should follow-up with our nurse practitioner in the pulmonary medicine clinic within 2 weeks of his discharge from the hospital. IMPRESSIONS: 1. Acute on chronic hypoxemic and hypercarbic respiratory failure Patient planning on going to rehab. Monitor saturations with exertion. Continue AVAPS overnight. Complete 5 days of prednisone. This can be prolonged if patient decomensates. Ok to go to rehab. Patient with advanced disease on multiple medications for maximal medical therapy. Patient still having symptoms despite triple therapy. Involvement of palliative care would be appropriate. 2. Non-ST elevation myocardial infarction/history of coronary artery disease status post CABG Continue current medical management per cardiology recommendations. I do not feel that additional cardiac angiography and/or intervention would be likely to benefit this patient and would run the risk for additional kidney insult. 3. Hypertension/diabetes/hyperlipidemia Complicates care, management, recovery and prognosis. Likely okay to continue home medications as indicated. Code Visit Inpatient E&M: 46052 Subs Hosp L2
[2018-05-24] MEDS: Glucerna Shake 120 ML LIQUID PO ×2 (14:34→17:24)
--- NOTE | 2018-05-24 14:47 | PCM.TXEXTCAR ---
- Diet 05/21/18 15:34 Diet: Cardiac/Low Cholesterol Is pt able to select menu?: Yes - Routine Orders/Code Status Suppository Type: Dulcolax 10mg Suppository Frequency: Daily PRN O2 Frequency: Continuous Keep PO Greater than or Equal to (%): 89 Routine Lab Work: CBC - 3 days, BMP - tomorrow Code Status: Full Code - Therapies Physical Therapy: Eval and Treat Occupational Therapy: Eval and Treat - Problem/Diagnosis (1) NSTEMI (non-ST elevated myocardial infarction) Status: Acute Current Visit: Yes (2) Hx of CABG Status: Chronic Current Visit: No (3) Chronic hypoxemic respiratory failure Status: Chronic Current Visit: No (4) LUIS (obstructive sleep apnea) Status: Chronic Current Visit: No (5) Pulmonary hypertension, mild Status: Chronic Current Visit: No (6) Stage 4 very severe COPD by GOLD classification Status: Chronic Current Visit: No (7) History of CVA (cerebrovascular accident) Status: Chronic Current Visit: No (8) Hypertension Status: Chronic Current Visit: No (9) Type 2 diabetes mellitus Status: Chronic Current Visit: No (10) COPD exacerbation Status: Acute Current Visit: Yes - Allergies/Procedures Done in Hospital Allergies/Adverse Reactions: Allergies levofloxacin [From Levaquin] Allergy (Verified 01/25/18 14:40) Hives Penicillins [PCN] Allergy (Verified 01/25/18 14:40) Hives atorvastatin [From Lipitor] Adverse Reaction (Verified 05/22/18 22:03) Other Procedures: None - Type of Care/Length of Stay Estimated LOS: Convalescent Care Less Than 30 days Type of Care Needed: Skilled Rehab Potential: Fair Prognosis: Fair - Additional Orders/Day of Discharge Additional Orders: Trilogy ventilator at night. Please hold losartan and metformin for 2 more days for SHARRI. Restart if appropriate. BMP tomorrow. Insulin Sliding scale for DMt2 until metformin restarted. Day of Discharge: 05/24/18 - Dietary and Speech Recommendations Dietitian Recommendations/Changes: Rec CHO controlled, cardiac diet. Will provide Glucerna ONS w/medpass. - Follow Up Care Primary Care Physician: Ellie Ackerman MD [Primary Care Provider] - Please follow up with your Primary Care Physician in: 2 weeks Please Follow Up With: Kameron Liz MD When: 2 weeks Please Follow Up With: Stephen Price MD When: 2 weeks
--- NOTE | 2018-05-24 14:53 | PCM.DC.SUM ---
<Clarence Robertson - Last Filed: 05/24/18 14:53> Discharge Date and Diagnosis - Problem List Patient Problems: Active and Suspected Problems (Last Reviewed 03/16/18 @ 09:36 by Rosa Lopez) Shortness of breath (Acute) NSTEMI (non-ST elevated myocardial infarction) (Acute) COPD exacerbation (Acute) Date of Admission: 05/20/18 Date of Discharge: 05/24/18 - Primary Discharge Diagnosis Active and Suspected Problems (Last Reviewed 03/16/18 @ 09:36 by Rosa Lopez) NSTEMI Acute on chronic hypoxic resp failure 2/2 above and COPD exacerbation End stage COPD, on trilogy HTN LUIS Pulmonary htn hx CVA CAD prior CABG - Secondary Discharge Diagnosis Chronic Problems (Last Reviewed 03/16/18 @ 09:36 by Rosa Lopez) Hx of CABG (Chronic) Severe chronic obstructive pulmonary disease (Chronic) Dyspnea on exertion (Chronic) Lung nodule (Chronic) Hypoxia (Chronic) Chronic hypoxemic respiratory failure (Chronic) LUIS (obstructive sleep apnea) (Chronic) Fatigue (Chronic) Sarcoidosis (Chronic) Pulmonary hypertension, mild (Chronic) Stage 4 very severe COPD by GOLD classification (Chronic) Dyspnea (Chronic) History of CVA (cerebrovascular accident) (Chronic) Hypertension (Chronic) Chronic respiratory failure (Chronic) Type 2 diabetes mellitus (Chronic) Status post coronary artery bypass graft (Chronic) Coronary artery disease (Chronic) COPD (chronic obstructive pulmonary disease) (Chronic) Hospital Course and Treatment Imaging Results: RAD/Chest 1 View (Portable) IMPRESSION: There is evidence of increased interstitial markings at the lung bases with areas of confluence worse in the right lung base with blunting of both cost phrenic angles. This is superimposed on mild degree of CHF. Follow-up is recommended. Echo: Interpretation Summary The study was technically difficult. Segmental dysfunction with preserved ejection fraction (see wall motion). The estimated ejection fraction is 65 %. The left atrium is mildly enlarged. The right atrium is mildly enlarged. There is mild mitral annular calcification. Extension of the mitral annular calcification onto the posterior mitral valve leaflet. Moderate (2+) eccentric mitral valve insufficiency. Moderate (2+) tricuspid valve insufficiency. Mild focal aortic valve thickening. Mild-Moderate (1-2+) pulmonic valve insufficiency. Right ventricular systolic pressure estimated to be 67 mmHg. Transmitral diastolic flow velocities suggest diastolic dysfunction (pseudonormal pattern). Consults: Mike/Agusto - pulm Moodiswilfred - cardiology Operations: None Procedures: 2-D Echocardiogram Summary of Care Provided: Physical exam on day of discharge: General: Resting comfortably NAD Psych: A/Ox3 normal affect HEENT: PEARRLA AT NC Neck: Supple NT CV: RRR no m/t/r/g/h Resp: CTA Abd: [id number] Soft NT no guarding or rigidity Ext: DP2+= no edema Skin: W/D normal turgor Lymph/Heme: No active bleeding or adenopathy Neuro: CN2-12 intact Hospital Course: The patient is a 78 year old M with a hx of CAD, prior CABG, end stage COPD, on trilogy, chronic hypoxic resp failure, DMt2, HTN, LUIS, who presented from [facility] with increased SOB, found to require bipap, tripoding, wheezing, tachypneic. He had an elevated troponin at 5.2 and EKG with inferior lead ST depression. He was placed on heparin, cardiology consulted, echo obtained for NSTEMI. He was placed on steroids, aerosols, and pulmonology consulted as he was felt to be in acute COPD exacerbation. Echo showed preserved EF and findings as above. CXR showed chronic changes and mild CHF. He had continued difficulty with SOB and laying flat, and discussion between him and cardiology resulted in the decision to forego a heart cath at this time. He was treated for CHF with mild lasix. Metformin, losartan, and lovenox were held for SHARRI. These should be restarted in 2 days if renal function improves. His breathing remained stable at his home O2 level (4lpm). He did remain overall weak and SNF was suggested. The patient was agreeable. He was accepted at TCU. He was discharged to SNF in stable condition. Please follow BMP closely. Please continue sliding scale insulin until metformin restarted. Restart arb when renal function improved. HCTZ discontinued. Continue trilogy nightly. Prednisone taper order at discharge. Follow up with PCP, pulmonary, and cardiology in 2 weeks. Patient seen by Clarence Robertson PA-C under the supervision of Dr. Lofton. [] Discharge Diet: Low fat/ Low Cholesterol, 1800 Calorie Control Diet, 2000 mg Sodium Diet Discharge Activity: Return to Normal Activity Home Medications: Medications to take at Discharge Albuterol Inhaler [Ventolin Hfa] 2 puff INHALATION Q4H PRN PRN 08/04/16 Clopidogrel Bisulfate [Plavix] 75 mg PO DAILY 08/04/16 [place]-3 Fatty Acids [Fish Oil] 1,290 mg PO DAILY 03/30/17 Ubidecarenone [Coq10] 100 mg PO DAILY 03/30/17 cholecalciferol (vitamin D3) 5,000 unit capsule 2,000 unit PO DAILY cap 11/30/17 budesonide 0.5 mg/2 mL suspension for nebulization 0.5 mg INHALATION Q12H #120 ml 02/15/18 ipratropium-albuterol 0.5 mg-3 mg(2.5 mg base)/3 mL nebulization soln 3 ml INHALATION Q6HWA.RT #360 ml 02/15/18 Aspirin [Aspirin, Baby] 81 mg PO DAILY@0800 05/20/18 Glimepiride [Amaryl] 4 mg PO BID 05/20/18 Amiodarone HCl [Cordarone] 200 mg PO DAILY tablet 05/24/18 Furosemide [Lasix] 20 mg PO BIDLX tablet 05/24/18 Glucerna Shake 120 ml PO 4X/DAY liquid 05/24/18 Insulin Lispro [Humalog KwikPen] See Protocol SC ACHS insuln.pen 05/24/18 Losartan Potassium [Cozaar] 100 mg PO DAILY tablet 05/24/18 Mag Hydrox/Al Hydrox/Simeth [Mylanta II] 30 ml PO Q4H PRN PRN udc 05/24/18 Magnesium Hydroxide [Milk Of Magnesia] 30 ml PO DAILY PRN PRN udc 05/24/18 Metformin HCl [Glucophage] 500 mg PO BID #0 05/24/18 Metoprolol Tartrate [Lopressor (beta ed)] 12.5 mg PO BID tablet 05/24/18 Pantoprazole Sodium [Protonix] 20 mg PO DAILY tablet 05/24/18 Prednisone 10 mg PO UD #22 tablet 05/24/18 Following Prescrptions Were Given to Patient: Prednisone 10 mg PO UD #22 tablet Primary Care Physician: Ellie Ackerman MD [Primary Care Provider] - Please follow up with your Primary Care Physician in: 2 weeks Please Follow Up With: Kameron Liz MD When: 2 weeks Please Follow Up With: Stephen Price MD When: 2 weeks Disposition: Care Home facility Minutes spent on discharge:: 40 Patient Condition:: Stable Medical Necessity - Tobacco Use Smoking Status: Former smoker Meaningful Use Info Meaningful Use Diagnoses (Choose all that apply): None applicable <Mary Lofton - Last Filed: 05/24/18 16:16> Discharge Date and Diagnosis - Primary Discharge Diagnosis Active and Suspected Problems (Last Reviewed 03/16/18 @ 09:36 by Rosa Lopez) Shortness of breath (Acute) NSTEMI (non-ST elevated myocardial infarction) (Acute) COPD exacerbation (Acute) - Secondary Discharge Diagnosis Chronic Problems (Last Reviewed 03/16/18 @ 09:36 by Rosa Lopez) Hx of CABG (Chronic) Severe chronic obstructive pulmonary disease (Chronic) Dyspnea on exertion (Chronic) Lung nodule (Chronic) Hypoxia (Chronic) Chronic hypoxemic respiratory failure (Chronic) LUIS (obstructive sleep apnea) (Chronic) Fatigue (Chronic) Sarcoidosis (Chronic) Pulmonary hypertension, mild (Chronic) Stage 4 very severe COPD by GOLD classification (Chronic) Dyspnea (Chronic) History of CVA (cerebrovascular accident) (Chronic) Hypertension (Chronic) Chronic respiratory failure (Chronic) Type 2 diabetes mellitus (Chronic) Status post coronary artery bypass graft (Chronic) Coronary artery disease (Chronic) COPD (chronic obstructive pulmonary disease) (Chronic) Hospital Course and Treatment Summary of Care Provided: Patient seen by Clarence Robertson PA-C under my supervision The patient is a 78 year old M with past medical history as mentioned above. He was admitted after being transferred from [facility] where he had presented with a complaint of SOB, wheezing and tachypnea. He was initially being managed for COPD exacerbation. Initial troponin done at [facility] was 0.35; on referral to [facility] at his request, his troponin was elevated at 5.2 and EKG showed inferior lead ST depression. He was managed for acute on chronic hypoxic respiratory failure due to acute COPD exacerbation and NSTEMI. He was given IV steroids, breathing treatments and cardiology was consulted. Patient was started on heparin drip also. Echo done showed EF of 65% with hypokinetic and akinetic drake, left and right atria mildly enlarged; VSP was 67 mmHg. Heparin drip was switched to Lovenox and patient gradually improved. He was transitioned off BiPAP back on to his baseline of 4 L of nasal cannula. Patient was initially full code when he came in, but upon pulmonology consults, it turned out that patient had been referred to hospice but had been unhappy with them and so had fired them. After discussion with pulmonology, he switched his CODE STATUS to DNR CCA. After extensive discussion with hospitalist team, painting contractor and lan support specialist, patient decided to opt for conservative management for an STEMI and defer cath as he would likely not be able to lie down flat for the cath. Patient remained stable and was discharged to intermediate facility for rehab on 05/24/2018. He was given prescription for tapering dose of prednisone. He is to follow-up with his primary care doctor, lan support specialist and painting contractor. Patient seen and examined prior to discharge. o/e: Vital Signs Height 5 ft 6 in Weight: 183 lb 13.848 oz Weight in Pounds 183.9 lbs Pulse Ox 95 Temperature 98.0 F Pulse Rate 74 Respiratory Rate 20 Blood Pressure [2nd BP] 148/69 Blood Pressure [BP] 159/64 Blood Pressure 132/71 Blood Pressure Position [2nd Semi-Fowlers BP] Blood Pressure Position [BP] Semi-Fowlers Blood Pressure Position Semi-Fowlers General: Alert, Oriented x3, Cooperative, No apparent distress HEENT: Atraumatic, PERRLA, EOMI, Normocephalic Oral: Moist Mucosa Neck: Supple, No JVD, Negative Carotid Bruits Lungs: Normal air movement, - - Wheezing bilaterally. On 4 L of oxygen by nasal cannula, which is his baseline. Cardiovascular: Regular rate, No murmurs Abdomen: Bowel Sounds Present, Soft, Non Tender, Non-Distended, No Hepato-splenomegaly Extremities: No clubbing, No cyanosis, No edema, Capillary Refill Less than 3 Seconds Skin: No rashes, No breakdown Musculoskeletal: No Tenderness to Palpation of Joints or Extremities Lymphatic: No Cervical, Supraclavicular, or Inguinal Adenopathy Neurological: Cranial nerves II-XII grossly intact, Motor Exam 5/5 strength throughout Psych/Mental Status: Normal Affect, Appropriate, Alert and oriented to time, place, person, mood and affect Plan as documented above. [] Code Visit Inpatient E&M: 10365 Disch Hosp
--- NOTE | 2018-05-24 15:05 | DS.PCM_ITS ---
<Clarence Robertson - Last Filed: 05/24/18 14:53> Discharge Date and Diagnosis - Problem List Patient Problems: Active and Suspected Problems (Last Reviewed 03/16/18 @ 09:36 by Rosa Lopez ) Shortness of breath (Acute) NSTEMI (non-ST elevated myocardial infarction) (Acute) COPD exacerbation (Acute) Date of Admission: 05/20/18 Date of Discharge: 05/24/18 - Primary Discharge Diagnosis Active and Suspected Problems (Last Reviewed 03/16/18 @ 09:36 by Rosa Lopez ) NSTEMI Acute on chronic hypoxic resp failure 2/2 above and COPD exacerbation End stage COPD, on trilogy HTN LUIS Pulmonary htn hx CVA CAD prior CABG - Secondary Discharge Diagnosis Chronic Problems (Last Reviewed 03/16/18 @ 09:36 by Rosa Lopez) Hx of CABG (Chronic) Severe chronic obstructive pulmonary disease (Chronic) Dyspnea on exertion (Chronic) Lung nodule (Chronic) Hypoxia (Chronic) Chronic hypoxemic respiratory failure (Chronic) LUIS (obstructive sleep apnea) (Chronic) Fatigue (Chronic) Sarcoidosis (Chronic) Pulmonary hypertension, mild (Chronic) Stage 4 very severe COPD by GOLD classification (Chronic) Dyspnea (Chronic) History of CVA (cerebrovascular accident) (Chronic) Hypertension (Chronic) Chronic respiratory failure (Chronic) Type 2 diabetes mellitus (Chronic) Status post coronary artery bypass graft (Chronic) Coronary artery disease (Chronic) COPD (chronic obstructive pulmonary disease) (Chronic) Hospital Course and Treatment Imaging Results: RAD/Chest 1 View (Portable) IMPRESSION: There is evidence of increased interstitial markings at the lung bases with areas of confluence worse in the right lung base with blunting of both cost phrenic angles. This is superimposed on mild degree of CHF. Follow-up is recommended. Echo: Interpretation Summary The study was technically difficult. Segmental dysfunction with preserved ejection fraction (see wall motion). The estimated ejection fraction is 65 %. The left atrium is mildly enlarged. The right atrium is mildly enlarged. There is mild mitral annular calcification. Extension of the mitral annular calcification onto the posterior mitral valve leaflet. Moderate (2+) eccentric mitral valve insufficiency. Moderate (2+) tricuspid valve insufficiency. Mild focal aortic valve thickening. Mild-Moderate (1-2+) pulmonic valve insufficiency. Right ventricular systolic pressure estimated to be 67 mmHg. Transmitral diastolic flow velocities suggest diastolic dysfunction ( pseudonormal pattern). Consults: Mike/Agusto - pulm Moodiswilfred - cardiology Operations: None Procedures: 2-D Echocardiogram Summary of Care Provided: Physical exam on day of discharge: General: Resting comfortably NAD Psych: A/Ox3 normal affect HEENT: PEARRLA AT NC Neck: Supple NT CV: RRR no m/t/r/g/h Resp: CTA Abd: [id number] Soft NT no guarding or rigidity Ext: DP2+= no edema Skin: W/D normal turgor Lymph/Heme: No active bleeding or adenopathy Neuro: CN2-12 intact Hospital Course: The patient is a 78 year old M with a hx of CAD, prior CABG, end stage COPD, on trilogy, chronic hypoxic resp failure, DMt2, HTN, LUIS, who presented from [place] [facility] with increased SOB, found to require bipap, tripoding, wheezing, tachypneic. He had an elevated troponin at 5.2 and EKG with inferior lead ST depression. He was placed on heparin, cardiology consulted, echo obtained for NSTEMI. He was placed on steroids, aerosols, and pulmonology consulted as he was felt to be in acute COPD exacerbation. Echo showed preserved EF and findings as above. CXR showed chronic changes and mild CHF. He had continued difficulty with SOB and laying flat, and discussion between him and cardiology resulted in the decision to forego a heart cath at this time. He was treated for CHF with mild lasix. Metformin, losartan, and lovenox were held for SHARRI. These should be restarted in 2 days if renal function improves. His breathing remained stable at his home O2 level (4lpm). He did remain overall weak and SNF was suggested. The patient was agreeable. He was accepted at TCU. He was discharged to SNF in stable condition. Please follow BMP closely. Please continue sliding scale insulin until metformin restarted. Restart arb when renal function improved. HCTZ discontinued. Continue trilogy nightly. Prednisone taper order at discharge. Follow up with PCP, pulmonary, and cardiology in 2 weeks. Patient seen by Clarence Robertson PA-C under the supervision of Dr. Lofton. [] Discharge Diet: Low fat/ Low Cholesterol, 1800 Calorie Control Diet, 2000 mg Sodium Diet Discharge Activity: Return to Normal Activity Home Medications: Medications to take at Discharge Albuterol Inhaler [Ventolin Hfa] 2 puff INHALATION Q4H PRN PRN 08/04/16 Clopidogrel Bisulfate [Plavix] 75 mg PO DAILY 08/04/16 [place]-3 Fatty Acids [Fish Oil] 1,290 mg PO DAILY 03/30/17 Ubidecarenone [Coq10] 100 mg PO DAILY 03/30/17 cholecalciferol (vitamin D3) 5,000 unit capsule 2,000 unit PO DAILY cap budesonide 0.5 mg/2 mL suspension for nebulization 0.5 mg INHALATION Q12H #120 ml 02/15/18 ipratropium-albuterol 0.5 mg-3 mg(2.5 mg base)/3 mL nebulization soln 3 ml INHALATION Q6HWA.RT #360 ml 02/15/18 Aspirin [Aspirin, Baby] 81 mg PO DAILY@0800 05/20/18 Glimepiride [Amaryl] 4 mg PO BID 05/20/18 Amiodarone HCl [Cordarone] 200 mg PO DAILY tablet 05/24/18 Furosemide [Lasix] 20 mg PO BIDLX tablet 05/24/18 Glucerna Shake 120 ml PO 4X/DAY liquid 05/24/18 Insulin Lispro [Humalog KwikPen] See Protocol SC ACHS insuln.pen 05/24/18 Losartan Potassium [Cozaar] 100 mg PO DAILY tablet 05/24/18 Mag Hydrox/Al Hydrox/Simeth [Mylanta II] 30 ml PO Q4H PRN PRN udc 05/24/18 Magnesium Hydroxide [Milk Of Magnesia] 30 ml PO DAILY PRN PRN udc 05/24/18 Metformin HCl [Glucophage] 500 mg PO BID #0 05/24/18 Metoprolol Tartrate [Lopressor (beta ed)] 12.5 mg PO BID tablet 05/24/18 Pantoprazole Sodium [Protonix] 20 mg PO DAILY tablet 05/24/18 Prednisone 10 mg PO UD #22 tablet 05/24/18 Following Prescrptions Were Given to Patient: Prednisone 10 mg PO UD #22 tablet Primary Care Physician: Ellie Ackerman MD [Primary Care Provider] - Please follow up with your Primary Care Physician in: 2 weeks Please Follow Up With: Kameron Liz MD When: 2 weeks Please Follow Up With: Stephen Price MD When: 2 weeks Disposition: Assisted facility Minutes spent on discharge:: 40 Patient Condition:: Stable Medical Necessity - Tobacco Use Smoking Status: Former smoker Meaningful Use Info Meaningful Use Diagnoses (Choose all that apply): None applicable <Mary Lofton - Last Filed: 05/24/18 16:16> Discharge Date and Diagnosis - Primary Discharge Diagnosis Active and Suspected Problems (Last Reviewed 03/16/18 @ 09:36 by Rosa Lopez ) Shortness of breath (Acute) NSTEMI (non-ST elevated myocardial infarction) (Acute) COPD exacerbation (Acute) - Secondary Discharge Diagnosis Chronic Problems (Last Reviewed 03/16/18 @ 09:36 by Rosa Lopez) Hx of CABG (Chronic) Severe chronic obstructive pulmonary disease (Chronic) Dyspnea on exertion (Chronic) Lung nodule (Chronic) Hypoxia (Chronic) Chronic hypoxemic respiratory failure (Chronic) LUIS (obstructive sleep apnea) (Chronic) Fatigue (Chronic) Sarcoidosis (Chronic) Pulmonary hypertension, mild (Chronic) Stage 4 very severe COPD by GOLD classification (Chronic) Dyspnea (Chronic) History of CVA (cerebrovascular accident) (Chronic) Hypertension (Chronic) Chronic respiratory failure (Chronic) Type 2 diabetes mellitus (Chronic) Status post coronary artery bypass graft (Chronic) Coronary artery disease (Chronic) COPD (chronic obstructive pulmonary disease) (Chronic) Hospital Course and Treatment Summary of Care Provided: Patient seen by Clarence Robertson PA-C under my supervision The patient is a 78 year old M with past medical history as mentioned above. He was admitted after being transferred from [place] [facility] where he had presented with a complaint of SOB, wheezing and tachypnea. He was initially being managed for COPD exacerbation. Initial troponin done at [place] was 0.35; on referral to [facility] at his request, his troponin was elevated at 5.2 and EKG showed inferior lead ST depression. He was managed for acute on chronic hypoxic respiratory failure due to acute COPD exacerbation and NSTEMI. He was given IV steroids, breathing treatments and cardiology was consulted. Patient was started on heparin drip also. Echo done showed EF of 65% with hypokinetic and akinetic drake, left and right atria mildly enlarged; VSP was 67 mmHg. Heparin drip was switched to Lovenox and patient gradually improved. He was transitioned off BiPAP back on to his baseline of 4 L of nasal cannula. Patient was initially full code when he came in, but upon pulmonology consults, it turned out that patient had been referred to hospice but had been unhappy with them and so had fired them. After discussion with pulmonology, he switched his CODE STATUS to DNR CCA. After extensive discussion with hospitalist team, dehydrator operator and class a regional drivers , patient decided to opt for conservative management for an STEMI and defer cath as he would likely not be able to lie down flat for the cath. Patient remained stable and was discharged to residential facility for rehab on 2017. He was given prescription for tapering dose of prednisone. He is to follow-up with his primary care doctor, class a regional drivers and dehydrator operator. Patient seen and examined prior to discharge. o/e: Vital Signs Height 5 ft 6 in Weight: 183 lb 13.848 oz Weight in Pounds 183.9 lbs Pulse Ox 95 Temperature 98.0 F Pulse Rate 74 Respiratory Rate 20 Blood Pressure [2nd BP] 148/69 Blood Pressure [BP] 159/64 Blood Pressure 132/71 Blood Pressure Position [2nd Semi-Fowlers BP] Blood Pressure Position [BP] Semi-Fowlers Blood Pressure Position Semi-Fowlers General: Alert, Oriented x3, Cooperative, No apparent distress HEENT: Atraumatic, PERRLA, EOMI, Normocephalic Oral: Moist Mucosa Neck: Supple, No JVD, Negative Carotid Bruits Lungs: Normal air movement, - - Wheezing bilaterally. On 4 L of oxygen by nasal cannula, which is his baseline. Cardiovascular: Regular rate, No murmurs Abdomen: Bowel Sounds Present, Soft, Non Tender, Non-Distended, No Hepato- splenomegaly Extremities: No clubbing, No cyanosis, No edema, Capillary Refill Less than 3 Seconds Skin: No rashes, No breakdown Musculoskeletal: No Tenderness to Palpation of Joints or Extremities Lymphatic: No Cervical, Supraclavicular, or Inguinal Adenopathy Neurological: Cranial nerves II-XII grossly intact, Motor Exam 5/5 strength throughout Psych/Mental Status: Normal Affect, Appropriate, Alert and oriented to time, place, person, mood and affect Plan as documented above. [] Code Visit Inpatient E&M: 50684 Disch Hosp
[2018-05-24 17:16] LABS: Bedside Glucose 234 mg/dL (70-110)
== END 2018-05-24 19:25 | disposition skilled nursing facility (03) | DRG 280 ==
PROVIDERS: Family Medicine; Internal Medicine Cardiovascular Disease; Admitting Provider Student in an Organized Health Care Education/Training Program; Family Provider Internal Medicine; PCP Internal Medicine; Visit Provider Student in an Organized Health Care Education/Training Program
DX: I21.4 Non-ST elevation (NSTEMI) myocardial infarction (principal); J96.21 Acute and chronic respiratory failure with hypoxia; I50.33 Acute on chronic diastolic (congestive) heart failure; J44.1 Chronic obstructive pulmonary disease with (acute) exacerbation; N17.9 Acute kidney failure, unspecified; I27.20 Pulmonary hypertension, unspecified; Z95.1 Presence of aortocoronary bypass graft; I25.10 Atherosclerotic heart disease of native coronary artery without angina pectoris; Z86.73 Personal history of transient ischemic attack (TIA), and cerebral infarction without residual deficits; G47.33 Obstructive sleep apnea (adult) (pediatric); D86.9 Sarcoidosis, unspecified; Z99.81 Dependence on supplemental oxygen; Z87.891 Personal history of nicotine dependence; Z79.899 Other long term (current) drug therapy; E11.9 Type 2 diabetes mellitus without complications; Z79.84 Long term (current) use of oral hypoglycemic drugs; Z66 Do not resuscitate; I11.0 Hypertensive heart disease with heart failure
CPT/HCPCS: 36415; 36600; 71045; 80048; 80053; 82803; 82962; 83735; 83880; 84443; 84484; 85025; 85610; 85730; 93005; 93306; 94002; 94003; 94640; 97110; 97162; 97166; 97530; 97535; 99251; J7040; A4216; G0463; J1940

== ENCOUNTER 2018-05-24 19:10 | Inpatient (IN) | payer MEDICARE, BC, SELFPAY ==
[2018-05-24 20:28] VITALS: BP 116/62; PULSE 51; RESP 20; TEMP 36.7; O2SAT 97; BMI 28.2
[2018-05-24 20:37] VITALS: PULSE 85; O2SAT 4
--- NOTE | 2018-05-24 20:51 | PCM.HP.STD ---
Problem List (1) Acute and chronic respiratory failure Status: Acute (2) Acute on chronic diastolic heart failure Status: Acute (3) Stroke Status: Chronic (4) Shortness of breath Status: Acute (5) NSTEMI (non-ST elevated myocardial infarction) Status: Acute (6) COPD exacerbation Status: Acute (7) LUIS (obstructive sleep apnea) Status: Chronic (8) Sarcoidosis Status: Chronic (9) Pulmonary hypertension, mild Status: Chronic (10) Hypertension Status: Chronic (11) Type 2 diabetes mellitus Status: Chronic (12) Coronary artery disease Status: Chronic (13) COPD (chronic obstructive pulmonary disease) Status: Chronic History of Present Illness Date of Admission: 05/24/18 Chief Complaint: Here for rehabilitation, strengthening, prior to discharge home with significant other. The patient is a 78 year old Male with below past medical history significant for COPD, chronic respiratory failure with following. 05/20/2018 Chest X-ray bibasilar increased interstitial markings, bilateral costophrenic angle blunting, mild CHF. 05/20/2018 EKG normal sinus rhythm, T wave abnormality, consider inferior ischemia. 05/20/2018 Admit to [facility] from [facility] with shortness of breath. Shortness of breath in AM, inhalers not helpful. 4 liters home oxygen per NC. BiPAP applied at [facility] helpful, patient requested transfer to [facility] because his primary care doctor, and serology technician are here. Cough x few days, fever, chills. Acute on chronic respiratory failure, secondary to COPD exacerbation. BiPAP, IV Solu-Medrol. Albuterol, Duoneb. Gentle hydration. Cycle enzymes, Plavix, Metoprolol, Aspirin for NSTEMI. Troponin 5.2. Doxycycline 100MG twice daily for bronchitis. 05/20/2018 Dr. Adams considered left heart catheterization. 05/21/2018 Dr. Mckeon recommended DNRCCA without intubation. Continue AVAPS, wean as tolerated. Stop antibiotics. Consider palliative care. 05/21/2018 Echo segmental dysfunction with preserved EF. EF 65% RVSP 67mm HG. Diastolic dysfunction. Decided to forego heart catheterization at this time. Mild Lasix for acute on chronic diastolic congestive heart failure Metformin, Losartan held for acute kidney injury. 05/24/2018 Admit to TCU for rehabilitation, strengthening, prior to discharge home with significant other. Past Medical History Past Medical History (Chronic Problems): Chronic Problems (Last Reviewed 03/16/18 @ 09:36 by Rosa Lopez) Stroke (Chronic) Hx of CABG (Chronic) Severe chronic obstructive pulmonary disease (Chronic) Dyspnea on exertion (Chronic) Lung nodule (Chronic) Hypoxia (Chronic) Chronic hypoxemic respiratory failure (Chronic) LUIS (obstructive sleep apnea) (Chronic) Fatigue (Chronic) Sarcoidosis (Chronic) Pulmonary hypertension, mild (Chronic) Stage 4 very severe COPD by GOLD classification (Chronic) Dyspnea (Chronic) History of CVA (cerebrovascular accident) (Chronic) Hypertension (Chronic) Chronic respiratory failure (Chronic) Type 2 diabetes mellitus (Chronic) Status post coronary artery bypass graft (Chronic) Coronary artery disease (Chronic) COPD (chronic obstructive pulmonary disease) (Chronic) Medical History: Medical History (Last Reviewed 03/16/18 @ 09:36 by Rosa Lopez) Severe chronic obstructive pulmonary disease (Chronic) J44.9 Dyspnea on exertion (Chronic) R06.09 Lung nodule (Chronic) R91.1 Hypoxia (Chronic) R09.02 Chronic hypoxemic respiratory failure (Chronic) J96.11 LUIS (obstructive sleep apnea) (Chronic) G47.33 Fatigue (Chronic) R53.83 Sarcoidosis (Chronic) D86.9 Pulmonary hypertension, mild (Chronic) I27.20 Stage 4 very severe COPD by GOLD classification (Chronic) J44.9 Dyspnea (Chronic) R06.00 History of CVA (cerebrovascular accident) (Chronic) Z86.73 Hypertension (Chronic) I10 Chronic respiratory failure (Chronic) J96.10 Type 2 diabetes mellitus (Chronic) E11.9 Coronary artery disease (Chronic) I25.10 COPD (chronic obstructive pulmonary disease) (Chronic) J44.9 Allergies levofloxacin [From Levaquin] Allergy (Verified 01/25/18 14:40) Hives Penicillins [PCN] Allergy (Verified 01/25/18 14:40) Hives atorvastatin [From Lipitor] Adverse Reaction (Verified 05/22/18 22:03) Other Home Medications: Ambulatory Orders Medication Instructions Recorded Albuterol Inhaler [Ventolin Hfa] 2 puff INHALATION Q4H PRN PRN 08/04/16 Clopidogrel Bisulfate [Plavix] 75 mg PO DAILY 08/04/16 [place]-3 Fatty Acids [Fish Oil] 1,290 mg PO DAILY 03/30/17 Ubidecarenone [Coq10] 100 mg PO DAILY 03/30/17 cholecalciferol (vitamin D3) 5,000 2,000 unit PO DAILY cap 11/30/17 unit capsule budesonide 0.5 mg/2 mL suspension 0.5 mg INHALATION Q12H #120 ml 02/15/18 for nebulization ipratropium-albuterol 0.5 mg-3 3 ml INHALATION Q6HWA.RT #360 ml 02/15/18 mg(2.5 mg base)/3 mL nebulization soln Aspirin [Aspirin, Baby] 81 mg PO DAILY@0800 05/20/18 Glimepiride [Amaryl] 4 mg PO BID 05/20/18 Amiodarone HCl [Cordarone] 200 mg PO DAILY 05/24/18 Furosemide [Lasix] 20 mg PO BIDLX 05/24/18 Glucerna Shake 120 ml PO 4X/DAY 05/24/18 Insulin Lispro [Humalog KwikPen] See Protocol SC ACHS 05/24/18 Losartan Potassium [Cozaar] 100 mg PO DAILY 05/24/18 Mag Hydrox/Al Hydrox/Simeth 30 ml PO Q4H PRN PRN udc 05/24/18 [Mylanta II] Magnesium Hydroxide [Milk Of 30 ml PO DAILY PRN PRN udc 05/24/18 Magnesia] Metformin HCl [Glucophage] 500 mg PO BID #0 05/24/18 Metoprolol Tartrate [Lopressor 12.5 mg PO BID 05/24/18 (beta ed)] Pantoprazole Sodium [Protonix] 20 mg PO DAILY 05/24/18 Prednisone 10 mg PO UD 05/24/18 Surgical History: Surgical History (Last Reviewed 18 @ 09:36 by Rosa Lopez) History of cholecystectomy (Resolved) Z98.890, Z90.49 H/O hernia repair (Resolved) Z98.890, Z87.19 History of appendectomy (Resolved) Z98.890, Z90.49 Hx of CABG (Chronic) Z95.1 Status post coronary artery bypass graft (Chronic) Z95.1 Surgical History: appendectomy, cholecystectomy, coronary bypass surgery, herniorrhaphy, - - Carotid endarterectomy Psychiatric History: No pertinent psych hx Lives: Spouse/ Significant Other Smoking Status: Former smoker Tobacco Use: Non-smoker Alcohol: None Drugs: None - *Family History Maternal Family History: Family History (Last Reviewed 03/16/18 @ 09:36 by Rosa Lopez) Mother Cancer Father Hypertension History Items: No pertinent history Paternal Family History: Family History (Last Reviewed 03/16/18 @ 09:36 by Rosa Lopez) Mother Cancer Father Hypertension History Items: No pertinent history Review of Systems Constitutional: Denies: Chills, Fever, Weight Change HEENT: Denies: Head Aches, Sinus Congestion, Sinus Drainage Cardiovascular: Denies: Chest Pain, Palpitations Respiratory: Denies: Cough, Shortness of breath at rest, Sputum production Gastrointestinal: Denies: Abdominal Pain, Nausea, Vomiting Genitourinary: Denies: Dysuria Musculoskeletal: Denies: Joint Pain, Joint Tenderness Skin: Denies: Rash, Wounds Neurological: Reports: - - Lightheaded.. Denies: Focal weakness, Numbness, Tingling Psychiatric: Denies: Anxiety, Depression, Homicidal Ideations, Suicidal Ideations Hematologic/ Lymphatic: Denies: Easy Bruising, Easy Bleeding VTE Information - Inpt Only VTE Present on Admission: No VTE Mechan Device Prophylaxis: Knee High SHARATH Hose VTE Pharm Prophylaxis ordered?: No Reason prophylaxis not ordered:: Medical Contraindication Patient Problems: Active and Suspected Problems (Last Reviewed 03/16/18 @ 09:36 by Rosa Lopez) Acute and chronic respiratory failure (Acute) Acute on chronic diastolic heart failure (Acute) - Physical Exam General: Alert, Oriented x3, Cooperative HEENT: Atraumatic, PERRLA, EOMI, Normocephalic Neck: Supple, No JVD, Negative Carotid Bruits Lungs: Normal air movement, Wheezes Cardiovascular: Regular rate, No murmurs Abdomen: Bowel Sounds Present, Soft, Non Tender Extremities: No edema, Capillary Refill Less than 3 Seconds Skin: No rashes, No breakdown Musculoskeletal: No Tenderness to Palpation of Joints or Extremities Neurological: Cranial nerves II-XII grossly intact Psych/Mental Status: Normal Affect, Appropriate Weight: 79.379 kg Body Mass Index (BMI) 28.2 Finger Stick Blood Glucose 149 Assessment/Plan All Active Problems (Last Reviewed 03/16/18 @ 09:36 by Rosa Lopez) Shortness of breath (Acute) NSTEMI (non-ST elevated myocardial infarction) (Acute) COPD exacerbation (Acute) Acute and chronic respiratory failure (Acute) Acute on chronic diastolic heart failure (Acute) Thrush, oral (Acute) Irregular heart beat (Acute) History of cholecystectomy (Resolved) H/O hernia repair (Resolved) History of appendectomy (Resolved) 78 year old male with below past medical history significant for COPD, hospitalized for acute on chronic respiratory failure secondary to COPD exacerbation, complicated by NSTEMI, decided against left heart catheterization, admitted to TCU with debility, for rehabilitation, strengthening, prior to discharge home. Debility - PT/OT. Pain - Tylenol 1000MG Q8H PRN mild pain. Bowel - Miralax 17GM daily, Senna/colace 2 tablets BID, Dulcolax 10MG NM daily PRN. Pneumonia vaccination - Administer Prevnar 13 and/or Pneumovax 23 as necessary. DVT prophylaxis - Lovenox 30MG SC daily. COPD - Albuterol 2 puffs Q4H PRN, Pulmicort 0.5MG Q12H, Duoneb 3ML Q6H, Prednisone taper, Oxygen. Sleep apnea - Trilogy at nighttime. Atrial Fibrillation - Metoprolol 12.5MG BID, Amiodarone 200MG daily. Coronary Artery Disease s/p NSTEMI - Metoprolol 12.5MG BID, Losartan 100MG daily, Aspirin 81MG daily, Plavix 75MG daily. Vitamin D deficiency - D3 2000IU daily. Acute on chronic diastolic heart failure - Metoprolol 12.5MG BID, Losartan 100MG daily, Lasix 20MG BID. Diabetes Mellitus II - Metformin 500MG BID, Glimepiride 4MG BID, will add scheduled insulin if necessary. Nutrition - Glucerna 120ML 4x/day. GERD - Pantoprazole 20MG daily, Mylanta 30ML PO Q4H PRN. Anemia - Ferrex 150MG daily, check stool for blood, CBCD in 2 days. Lightheaded - NS 1 liter IV bolus, check orthostatic vital signs.
--- NOTE | 2018-05-24 21:04 | HP.PCM_ITS ---
Problem List (1) Acute and chronic respiratory failure Status: Acute (2) Acute on chronic diastolic heart failure Status: Acute (3) Stroke Status: Chronic (4) Shortness of breath Status: Acute (5) NSTEMI (non-ST elevated myocardial infarction) Status: Acute (6) COPD exacerbation Status: Acute (7) LUIS (obstructive sleep apnea) Status: Chronic (8) Sarcoidosis Status: Chronic (9) Pulmonary hypertension, mild Status: Chronic (10) Hypertension Status: Chronic (11) Type 2 diabetes mellitus Status: Chronic (12) Coronary artery disease Status: Chronic (13) COPD (chronic obstructive pulmonary disease) Status: Chronic History of Present Illness Date of Admission: 05/24/18 Chief Complaint: Here for rehabilitation, strengthening, prior to discharge home with significant other. The patient is a 78 year old Male with below past medical history significant for COPD, chronic respiratory failure with following. 05/20/2018 Chest X-ray bibasilar increased interstitial markings, bilateral costophrenic angle blunting, mild CHF. 05/20/2018 EKG normal sinus rhythm, T wave abnormality, consider inferior ischemia. 05/20/2018 Admit to [facility] from [facility] with shortness of breath. Shortness of breath in AM, inhalers not helpful. 4 liters home oxygen per [place]. BiPAP applied at [facility] helpful, patient requested transfer to [facility] because his primary care doctor, and inside channel account manager are here. Cough x few days, fever, chills. Acute on chronic respiratory failure, secondary to COPD exacerbation. BiPAP, IV Solu-Medrol. Albuterol, Duoneb. Gentle hydration. Cycle enzymes, Plavix, Metoprolol, Aspirin for NSTEMI. Troponin 5.2. Doxycycline 100MG twice daily for bronchitis. 05/20/2018 Dr. Adams considered left heart catheterization. 05/21/2018 Dr. Mckeon recommended DNRCCA without intubation. Continue AVAPS, wean as tolerated. Stop antibiotics. Consider palliative care. 05/21/2018 Echo segmental dysfunction with preserved EF. EF 65% RVSP 67mm HG. Diastolic dysfunction. Decided to forego heart catheterization at this time. Mild Lasix for acute on chronic diastolic congestive heart failure Metformin, Losartan held for acute kidney injury. 05/24/2018 Admit to TCU for rehabilitation, strengthening, prior to discharge home with significant other. Past Medical History Past Medical History (Chronic Problems): Chronic Problems (Last Reviewed 03/16/18 @ 09:36 by Rosa Lopez) Stroke (Chronic) Hx of CABG (Chronic) Severe chronic obstructive pulmonary disease (Chronic) Dyspnea on exertion (Chronic) Lung nodule (Chronic) Hypoxia (Chronic) Chronic hypoxemic respiratory failure (Chronic) LUIS (obstructive sleep apnea) (Chronic) Fatigue (Chronic) Sarcoidosis (Chronic) Pulmonary hypertension, mild (Chronic) Stage 4 very severe COPD by GOLD classification (Chronic) Dyspnea (Chronic) History of CVA (cerebrovascular accident) (Chronic) Hypertension (Chronic) Chronic respiratory failure (Chronic) Type 2 diabetes mellitus (Chronic) Status post coronary artery bypass graft (Chronic) Coronary artery disease (Chronic) COPD (chronic obstructive pulmonary disease) (Chronic) Medical History: Medical History (Last Reviewed 03/16/18 @ 09:36 by Rosa Lopez) Severe chronic obstructive pulmonary disease (Chronic) J44.9 Dyspnea on exertion (Chronic) R06.09 Lung nodule (Chronic) R91.1 Hypoxia (Chronic) R09.02 Chronic hypoxemic respiratory failure (Chronic) J96.11 LUIS (obstructive sleep apnea) (Chronic) G47.33 Fatigue (Chronic) R53.83 Sarcoidosis (Chronic) D86.9 Pulmonary hypertension, mild (Chronic) I27.20 Stage 4 very severe COPD by GOLD classification (Chronic) J44.9 Dyspnea (Chronic) R06.00 History of CVA (cerebrovascular accident) (Chronic) Z86.73 Hypertension (Chronic) I10 Chronic respiratory failure (Chronic) J96.10 Type 2 diabetes mellitus (Chronic) E11.9 Coronary artery disease (Chronic) I25.10 COPD (chronic obstructive pulmonary disease) (Chronic) J44.9 Allergies levofloxacin [From Levaquin] Allergy (Verified 01/25/18 14:40) Hives Penicillins [PCN] Allergy (Verified 01/25/18 14:40) Hives atorvastatin [From Lipitor] Adverse Reaction (Verified 05/22/18 22:03) Other Home Medications: Ambulatory Orders Medication Instructions Recorded Albuterol Inhaler [Ventolin Hfa] 2 puff INHALATION Q4H PRN PRN 08/04/16 Clopidogrel Bisulfate [Plavix] 75 mg PO DAILY 08/04/16 [place]-3 Fatty Acids [Fish Oil] 1,290 mg PO DAILY 03/30/17 Ubidecarenone [Coq10] 100 mg PO DAILY 03/30/17 cholecalciferol (vitamin D3) 5,000 2,000 unit PO DAILY cap 11/30/17 unit capsule budesonide 0.5 mg/2 mL suspension 0.5 mg INHALATION Q12H #120 ml 02/15/18 for nebulization ipratropium-albuterol 0.5 mg-3 3 ml INHALATION Q6HWA.RT #360 ml 02/15/18 mg(2.5 mg base)/3 mL nebulization soln Aspirin [Aspirin, Baby] 81 mg PO DAILY@0800 05/20/18 Glimepiride [Amaryl] 4 mg PO BID 05/20/18 Amiodarone HCl [Cordarone] 200 mg PO DAILY 05/24/18 Furosemide [Lasix] 20 mg PO BIDLX 05/24/18 Glucerna Shake 120 ml PO 4X/DAY 05/24/18 Insulin Lispro [Humalog KwikPen] See Protocol SC ACHS 05/24/18 Losartan Potassium [Cozaar] 100 mg PO DAILY 05/24/18 Mag Hydrox/Al Hydrox/Simeth 30 ml PO Q4H PRN PRN udc 05/24/18 [Mylanta II] Magnesium Hydroxide [Milk Of 30 ml PO DAILY PRN PRN udc 05/24/18 Magnesia] Metformin HCl [Glucophage] 500 mg PO BID #0 05/24/18 Metoprolol Tartrate [Lopressor 12.5 mg PO BID 05/24/18 (beta ed)] Pantoprazole Sodium [Protonix] 20 mg PO DAILY 05/24/18 Prednisone 10 mg PO UD 05/24/18 Surgical History: Surgical History (Last Reviewed 18 @ 09:36 by Rosa Lopez) History of cholecystectomy (Resolved) Z98.890, Z90.49 H/O hernia repair (Resolved) Z98.890, Z87.19 History of appendectomy (Resolved) Z98.890, Z90.49 Hx of CABG (Chronic) Z95.1 Status post coronary artery bypass graft (Chronic) Z95.1 Surgical History: appendectomy, cholecystectomy, coronary bypass surgery, herniorrhaphy, - - Carotid endarterectomy Psychiatric History: No pertinent psych hx Lives: Spouse/ Significant Other Smoking Status: Former smoker Tobacco Use: Non-smoker Alcohol: None Drugs: None - *Family History Maternal Family History: Family History (Last Reviewed 03/16/18 @ 09:36 by Rosa Lopez) Mother Cancer Father Hypertension History Items: No pertinent history Paternal Family History: Family History (Last Reviewed 03/16/18 @ 09:36 by Rosa Lopez) Mother Cancer Father Hypertension History Items: No pertinent history Review of Systems Constitutional: Denies: Chills, Fever, Weight Change HEENT: Denies: Head Aches, Sinus Congestion, Sinus Drainage Cardiovascular: Denies: Chest Pain, Palpitations Respiratory: Denies: Cough, Shortness of breath at rest, Sputum production Gastrointestinal: Denies: Abdominal Pain, Nausea, Vomiting Genitourinary: Denies: Dysuria Musculoskeletal: Denies: Joint Pain, Joint Tenderness Skin: Denies: Rash, Wounds Neurological: Reports: - - Lightheaded.. Denies: Focal weakness, Numbness, Tingling Psychiatric: Denies: Anxiety, Depression, Homicidal Ideations, Suicidal Ideations Hematologic/ Lymphatic: Denies: Easy Bruising, Easy Bleeding VTE Information - Inpt Only VTE Present on Admission: No VTE Mechan Device Prophylaxis: Knee High SHARATH Hose VTE Pharm Prophylaxis ordered?: No Reason prophylaxis not ordered:: Medical Contraindication Patient Problems: Active and Suspected Problems (Last Reviewed 03/16/18 @ 09:36 by Rosa Loepz ) Acute and chronic respiratory failure (Acute) Acute on chronic diastolic heart failure (Acute) - Physical Exam General: Alert, Oriented x3, Cooperative HEENT: Atraumatic, PERRLA, EOMI, Normocephalic Neck: Supple, No JVD, Negative Carotid Bruits Lungs: Normal air movement, Wheezes Cardiovascular: Regular rate, No murmurs Abdomen: Bowel Sounds Present, Soft, Non Tender Extremities: No edema, Capillary Refill Less than 3 Seconds Skin: No rashes, No breakdown Musculoskeletal: No Tenderness to Palpation of Joints or Extremities Neurological: Cranial nerves II-XII grossly intact Psych/Mental Status: Normal Affect, Appropriate Weight: 79.379 kg Body Mass Index (BMI) 28.2 Finger Stick Blood Glucose 149 Assessment/Plan All Active Problems (Last Reviewed 03/16/18 @ 09:36 by Rosa Lopez) Shortness of breath (Acute) NSTEMI (non-ST elevated myocardial infarction) (Acute) COPD exacerbation (Acute) Acute and chronic respiratory failure (Acute) Acute on chronic diastolic heart failure (Acute) Thrush, oral (Acute) Irregular heart beat (Acute) History of cholecystectomy (Resolved) H/O hernia repair (Resolved) History of appendectomy (Resolved) 78 year old male with below past medical history significant for COPD, hospitalized for acute on chronic respiratory failure secondary to COPD exacerbation, complicated by NSTEMI, decided against left heart catheterization , admitted to TCU with debility, for rehabilitation, strengthening, prior to discharge home. * Debility - PT/OT. * Pain - Tylenol 1000MG Q8H PRN mild pain. * Bowel - Miralax 17GM daily, Senna/colace 2 tablets BID, Dulcolax 10MG VT daily PRN. * Pneumonia vaccination - Administer Prevnar 13 and/or Pneumovax 23 as necessary. * DVT prophylaxis - Lovenox 30MG SC daily. * COPD - Albuterol 2 puffs Q4H PRN, Pulmicort 0.5MG Q12H, Duoneb 3ML Q6H, Prednisone taper, Oxygen. * Sleep apnea - Trilogy at nighttime. * Atrial Fibrillation - Metoprolol 12.5MG BID, Amiodarone 200MG daily. * Coronary Artery Disease s/p NSTEMI - Metoprolol 12.5MG BID, Losartan 100MG daily, Aspirin 81MG daily, Plavix 75MG daily. * Vitamin D deficiency - D3 2000IU daily. * Acute on chronic diastolic heart failure - Metoprolol 12.5MG BID, Losartan 100MG daily, Lasix 20MG BID. * Diabetes Mellitus II - Metformin 500MG BID, Glimepiride 4MG BID, will add scheduled insulin if necessary. * Nutrition - Glucerna 120ML 4x/day. * GERD - Pantoprazole 20MG daily, Mylanta 30ML PO Q4H PRN. * Anemia - Ferrex 150MG daily, check stool for blood, CBCD in 2 days. * Lightheaded - NS 1 liter IV bolus, check orthostatic vital signs.
[2018-05-24 21:15] LABS: Bedside Glucose 299 mg/dL (70-110)
[2018-05-24 21:56] VITALS: BP 106/59; PULSE 79
[2018-05-24] MEDS: Metoprolol Tartrate 25 MG Tablet 12.5 MG PO (21:56)
[2018-05-25] VITALS (9 sets, daily range): BP systolic 123–144; BP diastolic 40–65; PULSE 63–84; RESP 16–20; TEMP 36.6; O2SAT 98–99
[2018-05-25] MEDS: Ipratropium/Albuterol Sulfate 3 ML AMPUL.NEB INHALATION ×3 (04:35→19:48)
[2018-05-25] MEDS: Budesonide Respules 0.5 MG/2 ML AMPUL.NEB. INHALATION ×2 (04:35→11:06)
[2018-05-25] MEDS: Metoprolol Tartrate 25 MG Tablet 12.5 MG PO ×2 (06:35→17:13)
[2018-05-25] MEDS: Clopidogrel Bisulfate 75 MG Tablet PO (06:35)
[2018-05-25] MEDS: Enoxaparin 30 MG/0.3 ML Syringe SC (06:35)
[2018-05-25] MEDS: Furosemide 20 MG Tablet PO ×2 (06:35→14:42)
[2018-05-25 06:36] LABS: Absolute Lymphocyte Count 2.71 X10^3/ul (0.83-4.51); Basophil# 0.01 X10^3/uL; Basophil% 0.1 % (0-1); Eosinophil# 0.09 X10^3/uL; Eosinophils% 0.7 % (0-5); Hematocrit 25.7 % (40-54); Lymphocyte # 2.71 X10^3/ul (4.0); Lymphocyte % 22.5 % (19-41); Mean Corp Hgb Conc 31.1 g/gl (32-36); Mean Corpuscular Hgb 28.3 pg (27.0-32.0); Mean Corpuscular Volume 90.8 fL (80-94); Mean Platelet Vol. 11.2 fl (6.2-12.0); Monocyte# 1.08 X10^3/uL; Neutrophil # 7.98 X10^3/uL (2.7-7.7); Neutrophil % 66.5 % (47-70); Platelet Count 215 K/mm3 (150-450); RBC Distribution Width CV 13.4 % (11.6-14.6); RBC Distribution Width SD 42.5 fl (35.1-43.9); Red Blood Count 2.83 M/mm3 (4.6-6.2)
[2018-05-25] MEDS: Amiodarone 200 MG Tablet PO (06:36)
[2018-05-25] MEDS: Pantoprazole Sodium 20 MG Tablet PO (06:36)
[2018-05-25] MEDS: Bisacodyl 10 MG Suppository RECTAL (06:36)
[2018-05-25] MEDS: Polyethylene Glycol 3350 17 GM PACKET PO (06:45)
[2018-05-25 06:47] LABS: POSITIVE COUNT NO; POSITIVE DIFFERENTIAL NO; POSITIVE MORPHOLOGY NO
[2018-05-25] MEDS: Nystatin Powder 15gm Bottle 1 APPLIC TOPICAL ×2 (06:47→21:02)
[2018-05-25 06:49] LABS: Anion Gap 9 (5-15); BUN 75 mg/dL (7-18); BUN/Creat Ratio 46.6 RATIO (10-20); Chloride 94 mmol/L (98-107); Creatinine, Serum 1.61 mg/dL (0.70-1.30); EST Glomerular Filtration Rate 44 mL/min (>60); Est Glom Filt Rate - Afr Amer 54 mL/min (>60); Estimated Creatinine Clearance 33.57 ml/min; Glucose 136 mg/dL (74-106); Potassium 3.3 mmol/L (3.5-5.1); Sodium Level 142 mmol/L (136-145)
[2018-05-25 06:51] LABS: Bedside Glucose 139 mg/dL (70-110)
[2018-05-25] MEDS: Mag Hydrox/Al Hydrox/Simeth 30 ML UDC PO (08:05)
[2018-05-25] MEDS: Glimepiride 4 MG Tablet PO ×2 (08:48→17:13)
[2018-05-25] MEDS: Aspirin 81 MG TAB.CHEW PO (08:48)
[2018-05-25] MEDS: predniSONE 10 MG Tablet PO (08:48)
[2018-05-25] MEDS: Tuberculin,Purif.prot.deriv. 50 TU/ML Vial 5 ML ID (11:11)
[2018-05-25 11:36] LABS: Bedside Glucose 215 mg/dL (70-110)
[2018-05-25] MEDS: Glucerna Shake 120 ML LIQUID PO ×3 (11:44→21:01)
--- NOTE | 2018-05-25 12:45 | NURSING ---
IV fluid bolus complete. Resident states he just feels complelety whooped that i cant hardly function. Did not eat a good lunch because of this. Assisted back to bed. Triology vent unit hooked up to patient and rests with eyes closed. Will continue to monitor and update DAYAN Bueno.
--- NOTE | 2018-05-25 12:48 | NURSING ---
Reports having trouble swallowing while eating and drinking. Denies coughing while swallowing but feels like he is having to swallow around something. DAYAN Bueno updated and will order speech therapy consult.
--- NOTE | 2018-05-25 15:23 | PCM.PN.RX ---
<MariselMatthew shrestha D - Last Filed: 05/25/18 15:23> Progress Note - Pharmacy Subjective: TCU Admission Objective: Allergies levofloxacin [From Levaquin] Allergy (Verified 01/25/18 14:40) Hives Penicillins [PCN] Allergy (Verified 01/25/18 14:40) Hives atorvastatin [From Lipitor] Adverse Reaction (Verified 05/22/18 22:03) Other Current Medications Generic Name Dose Route Start Last Admin Trade Name Freq PRN Reason Stop Dose Admin Acetaminophen 1,000 mg 05/24/18 21:19 Tylenol PO Q8H PRN PRN MILD PAIN (1-10) Al Hydroxide/Mg Hydroxide 30 ml 05/24/18 20:13 05/25/18 08:05 Mylanta Ii PO 30 ml Q4H PRN PRN Administration INDIGESTION Albuterol Sulfate 2 puff 05/24/18 20:13 Ventolin Hfa (Sp) INHALATION Q4H PRN PRN DYSPNEA Albuterol/Ipratropium 3 ml 05/24/18 20:15 05/25/18 11:06 Duoneb INHALATION 3 ml Q6HWA.RT KEY Administration Amiodarone HCl 200 mg 05/25/18 06:00 05/25/18 06:36 Cordarone PO 200 mg DAILY KEY Administration Aspirin 81 mg 05/25/18 08:00 05/25/18 08:48 Aspirin, Baby PO 81 mg DAILY@0800 KEY Administration Bisacodyl 10 mg 05/24/18 20:19 05/25/18 06:36 Dulcolax RECTAL 10 mg DAILY PRN Administration Constipation Budesonide 0.5 mg 05/24/18 20:15 05/25/18 11:06 Pulmicort Aerosol INHALATION 0.5 mg Q12H.RT KEY Administration Cholecalciferol 2,000 unit 05/25/18 06:00 05/25/18 06:35 Vitamin D PO 2,000 unit DAILY KEY Administration Clopidogrel Bisulfate 75 mg 05/25/18 06:00 05/25/18 06:35 Plavix PO 75 mg DAILY KEY Administration Enoxaparin Sodium 30 mg 05/25/18 06:00 05/25/18 06:35 Lovenox SC 30 mg DAILY@0600 KEY Administration Furosemide 20 mg 05/25/18 06:00 05/25/18 14:42 Lasix PO 20 mg BIDLX [facility] Administration Glimepiride 4 mg 05/25/18 08:00 05/25/18 08:48 Amaryl PO 4 mg BIDCM [facility] Administration Insulin Glargine 10 units 05/25/18 06:00 05/25/18 06:35 Lantus (Bkc) SC 10 u BID [facility] Administration Losartan Potassium 100 mg 05/26/18 06:00 Cozaar PO DAILY [facility] Metformin HCl 500 mg 05/26/18 08[facility]00 [facility] Metoprolol Tartrate 12.5 mg 05/24/18 20:15 05/25/18 06:35 Lopressor (Beta Jr) PO 12.5 mg BID [facility] Administration Multi-Ingredient Cream 1 applic 05/25/18 06:00 05/25/18 06:44 Eucerin TOPICAL 1 applicatio [phone] [facility] Administration Protocol Nutritional Formula (Lactose Free) 120 ml 05/24/18 22:00 05/25/18 11:44 Glucerna Shake PO 120 ml 4X/DAY [facility] Administration Nystatin 1 applic 05/25/18 06:00 05/25/18 06:47 Mycostatin Powder TOPICAL 1 applicatio [phone] [facility] Administration Protocol Pantoprazole Sodium 20 mg 05/25/18 06:00 05/25/18 06:36 Protonix PO 20 mg DAILY [facility] Administration Polyethylene Glycol 17 gm 05/25/18 06:00 05/25/18 06:45 Miralax PO 17 gm DAILY [facility] Administration Polysaccharide Iron Complex 150 mg 05/26/18 08:00 [facility] Prednisone 40 mg 05/25/18 08:00 05/25/18 08:48 PO 06/04/18 07:59 40 mg DAILY@0800 [facility] Administration Taper Senna/Docusate Sodium 2 tablet 05/25/18 06:00 05/25/18 06:45 Senokot-S, Zeny-Colace PO Not Given BID [facility] Tuberculin PPD 5 tu 06/01/18 10:00 Tubersol, Aplisol, Ppd ID 06/01/18 10:01 X1 ONE Problem List (Last Reviewed 03/16/18 @ 09:36 by Rosa Lopez) Acute and chronic respiratory failure (Acute) Acute on chronic diastolic heart failure (Acute) Stroke (Chronic) Vital Signs Temp Pulse Resp BP Pulse Ox 98.0 F 84 20 H 135/44 H 98 05/24/18 20:28 05/25/18 12:41 05/25/18 11:04 05/25/18 14:43 05/25/18 12:41 Oxygen Flow Rate (L/min) 4 Oxygen Delivery Method Nasal Cannula Weight: 79.6 kg Body Mass Index (BMI) 28.2 Finger Stick Blood Glucose 149 Sodium 142 mmol/L (136-145) 05/25/18 06:00 Potassium 3.3 mmol/L (3.5-5.1) L 05/25/18 06:00 Chloride 94 mmol/L (98-107) L 05/25/18 06:00 Carbon Dioxide 39.0 mmol/L (21.0-32.0) H 05/25/18 06:00 Anion Gap 9 (5-15) 05/25/18 06:00 BUN 75 mg/dL (7-18) H 05/25/18 06:00 Creatinine 1.61 mg/dL (0.70-1.30) H 05/25/18 06:00 Est GFR (MDRD) Af Amer 54 mL/min (>60) L 05/25/18 06:00 Est GFR (MDRD) Non-Af 44 mL/min (>60) L 05/25/18 06:00 BUN/Creatinine Ratio 46.6 RATIO (10-20) H 05/25/18 06:00 Glucose 136 mg/dL (74-106) H 05/25/18 06:00 Assessment/Plan: 1) Pain APAP for mild pain. Continue to monitor prn medication use, daily pain scores. 2) AFib/CAD Amiodarone, ASA, clopidogrel, metoprolol, losartan. Continue to monitor BP/HR, renal function, electrolytes, s/s chest pain. 3) Pulm Budesonide, prn albuterol, scheduled Duonebs, prednisone taper. Continue to monitor prn medication use, for shortness of breath. * 4) DM2 Insulin glargine twice daily, glimepiride, metformin. Continue to monitor BGT, s/s hyper/hypoglycemia. * Consider d/c glimepiride and titrating insulin. Likely no extra benefit from a sulfonylurea with insulin. Additionally at a higher risk for hypoglycemia. 5) DVT PPx Enoxaparin daily. Continue to monitor for bleeding/clot. 6) Nutrition FeJesse D. Continue to monitor clinically. 7) GI Pantoprazole, Maalox. Continue to monitor prn medication use, for GI distress. Psychotropic Medications: None Unnecessary Medications: None Bowel Regimen: 8) Senna/s, PEG, prn bisacodyl. Continue to monitor prn medication use, for constipation/diarrhea. Date of Note:: 05/25/18 - Provider Comments Provider responsibility: Provider responsible to enter orders to implement recommendations <Yoshi Yu Chi - Last Filed: 05/25/18 18:02> Progress Note - Pharmacy Subjective: [] Objective: Allergies levofloxacin [From Levaquin] Allergy (Verified 01/25/18 14:40) Hives Penicillins [PCN] Allergy (Verified 01/25/18 14:40) Hives atorvastatin [From Lipitor] Adverse Reaction (Verified 05/22/18 22:03) Other Current Medications Generic Name Dose Route Start Last Admin Trade Name Freq PRN Reason Stop Dose Admin Acetaminophen 1,000 mg 05/24/18 21:19 Tylenol PO Q8H PRN PRN MILD PAIN (1-3/10) Al Hydroxide/Mg Hydroxide 30 ml 05/24/18 20:13 05/25/18 08:05 Mylanta Ii PO 30 ml Q4H PRN PRN Administration INDIGESTION Albuterol Sulfate 2 puff 05/24/18 20:13 Ventolin Hfa (Sp) INHALATION Q4H PRN PRN DYSPNEA Albuterol/Ipratropium 3 ml 05/24/18 20:15 05/25/18 11:06 Duoneb INHALATION 3 ml Q6HWA.RT KEY Administration Amiodarone HCl 200 mg 05/25/18 06:00 05/25/18 06:36 Cordarone PO 200 mg DAILY [facility] Administration Aspirin 81 mg 05/25/18 08:00 05/25/18 08:48 Aspirin, Baby PO 81 mg DAILY@0800 [facility] Administration Bisacodyl 10 mg 05/24/18 20:19 05/25/18 06:36 Dulcolax RECTAL 10 mg DAILY PRN Administration Constipation Budesonide 0.5 mg 06/05/18 06:00 Pulmicort Aerosol INHALATION Q12H.RT KEY Cholecalciferol 2,000 unit 05/25/18 06:00 05/25/18 06:35 Vitamin D PO 2,000 unit DAILY [facility] Administration Clopidogrel Bisulfate 75 mg 05/25/18 06:00 05/25/18 06:35 Plavix PO 75 mg DAILY [facility] Administration Enoxaparin Sodium 30 mg 05/25/18 06:00 05/25/18 06:35 Lovenox SC 30 mg DAILY@0600 [facility] Administration Furosemide 20 mg 05/25/18 06:00 05/25/18 14:42 Lasix PO 20 mg BIDLX [facility] Administration Glimepiride 4 mg 05/25/18 08:00 05/25/18 17:13 Amaryl PO 4 mg BIDCM [facility] Administration Insulin Glargine 10 units 05/25/18 06:00 05/25/18 17:14 Lantus (Bkc) SC 10 u BID [facility] Administration Losartan Potassium 100 mg 05/26/18 06:00 Cozaar PO DAILY [facility] Metformin HCl 500 mg 05/26/18 08:00 [facility] Metoprolol Tartrate 12.5 mg 05/24/18 20:15 05/25/18 17:13 Lopressor (Beta Jr) PO 12.5 mg BID [facility] Administration Multi-Ingredient Cream 1 applic 05/25/18 06:00 05/25/18 06:44 Eucerin TOPICAL 1 applicatio [phone] [facility] Administration Protocol Nutritional Formula (Lactose Free) 120 ml 05/24/18 22:00 05/25/18 17:13 Glucerna Shake PO 120 ml 4X/DAY [facility] Administration Nystatin 1 applic 05/25/18 06:00 05/25/18 06:47 Mycostatin Powder TOPICAL 1 applicatio [phone] [facility] Administration Protocol Pantoprazole Sodium 20 mg 05/25/18 06:00 05/25/18 06:36 Protonix PO 20 mg DAILY [facility] Administration Polyethylene Glycol 17 gm 05/25/18 06:00 05/25/18 06:45 Miralax PO 17 gm DAILY [facility] Administration Polysaccharide Iron Complex 150 mg 05/26/18 08:00 [facility]rex [facility] Prednisone 40 mg 05/25/18 08:00 05/25/18 08:48 PO 06/04/18 07:59 40 mg DAILY@0800 [facility] Administration Taper Senna/Docusate Sodium 2 tablet 05/25/18 06:00 05/25/18 17:13 Senokot-S, Zeny-Colace PO 2 tablet BID [facility] Administration Tuberculin PPD 5 tu 06/01/18 10:00 Tubersol, Aplisol, Ppd ID 06/01/18 10:01 X1 ONE Problem List (Last Reviewed 03/16/18 @ 09:36 by Rosa Lopez) Acute and chronic respiratory failure (Acute) Acute on chronic diastolic heart failure (Acute) Stroke (Chronic) Vital Signs Temp Pulse Resp BP Pulse Ox 97.9 F 71 20 H 128/52 H 99 05/25/18 16:00 05/25/18 17:13 05/25/18 16:00 05/25/18 16:00 05/25/18 16:00 Oxygen Flow Rate (L/min) 4 Oxygen Delivery Method Nasal Cannula Weight: 79.6 kg Body Mass Index (BMI) 28.2 Finger Stick Blood Glucose 149 Sodium 142 mmol/L (136-145) 05/25/18 06:00 Potassium 3.3 mmol/L (3.5-5.1) L 05/25/18 06:00 Chloride 94 mmol/L (98-107) L 05/25/18 06:00 Carbon Dioxide 39.0 mmol/L (21.0-32.0) H 05/25/18 06:00 Anion Gap 9 (5-15) 05/25/18 06:00 BUN 75 mg/dL (7-18) H 05/25/18 06:00 Creatinine 1.61 mg/dL (0.70-1.30) H 05/25/18 06:00 Est GFR (MDRD) Af Amer 54 mL/min (>60) L 05/25/18 06:00 Est GFR (MDRD) Non-Af 44 mL/min (>60) L 05/25/18 06:00 BUN/Creatinine Ratio 46.6 RATIO (10-20) H 05/25/18 06:00 Glucose 136 mg/dL (74-106) H 05/25/18 06:00 Assessment/Plan: Psychotropic Medications: Unnecessary Medications: Bowel Regimen: - Provider Comments Provider responsibility: Provider responsible to enter orders to implement recommendations Provider Comments to Recommendations by Pharmacy: Agree
--- NOTE | 2018-05-25 15:33 | PHA.CONS_ITS ---
<MariselMatthew shrestha D - Last Filed: 05/25/18 15:23> Progress Note - Pharmacy Subjective: TCU Admission Objective: Allergies levofloxacin [From Levaquin] Allergy (Verified 01/25/18 14:40) Hives Penicillins [PCN] Allergy (Verified 01/25/18 14:40) Hives atorvastatin [From Lipitor] Adverse Reaction (Verified 05/22/18 22:03) Other Current Medications Generic Name Dose Route Start Last Admin Trade Name Freq PRN Reason Stop Dose Admin Acetaminophen 1,000 mg 05/24/18 21:19 Tylenol PO Q8H PRN PRN MILD PAIN (1-10) Al Hydroxide/Mg Hydroxide 30 ml 05/24/18 20:13 05/25/18 08:05 Mylanta Ii PO 30 ml Q4H PRN PRN Administration INDIGESTION Albuterol Sulfate 2 puff 05/24/18 20:13 Ventolin Hfa (Sp) INHALATION Q4H PRN PRN DYSPNEA Albuterol/Ipratropium 3 ml 05/24/18 20:15 05/25/18 11:06 Duoneb INHALATION 3 ml Q6HWA.RT KEY Administration Amiodarone HCl 200 mg 05/25/18 06:00 05/25/18 06:36 Cordarone PO 200 mg DAILY [facility] Administration Aspirin 81 mg 05/25/18 08:00 05/25/18 08:48 Aspirin, Baby PO 81 mg DAILY@0800 [facility] Administration Bisacodyl 10 mg 05/24/18 20:19 05/25/18 06:36 Dulcolax RECTAL 10 mg DAILY PRN Administration Constipation Budesonide 0.5 mg 05/24/18 20:15 05/25/18 11:06 Pulmicort Aerosol INHALATION 0.5 mg Q12H.RT KEY Administration Cholecalciferol 2,000 unit 05/25/18 06:00 05/25/18 06:35 Vitamin D PO 2,000 unit DAILY KEY Administration Clopidogrel Bisulfate 75 mg 05/25/18 06:00 05/25/18 06:35 Plavix PO 75 mg DAILY [facility] Administration Enoxaparin Sodium 30 mg 05/25/18 06:00 05/25/18 06:35 Lovenox SC 30 mg DAILY@0600 [facility] Administration Furosemide 20 mg 05/25/18 06:00 05/25/18 14:42 Lasix PO 20 mg BIDLX [facility] Administration Glimepiride 4 mg 05/25/18 08:00 05/25/18 08:48 Amaryl PO 4 mg BIDCM [facility] Administration Insulin Glargine 10 units 05/25/18 06:00 05/25/18 06:35 Lantus (Bkc) SC 10 u BID [facility] Administration Losartan Potassium 100 mg 05/26/18 06:00 Cozaar PO DAILY [facility] Metformin HCl 500 mg 05/26/18 08:00 [facility] Metoprolol Tartrate 12.5 mg 05/24/18 20:15 05/25/18 06:35 Lopressor (Beta Jr) PO 12.5 mg BID [facility] Administration Multi-Ingredient Cream 1 applic 05/25/18 06:00 05/25/18 06:44 Eucerin TOPICAL 1 applicatio [phone] [facility] Administration Protocol Nutritional Formula (Lactose Free) 120 ml 05/24/18 22:00 05/25/18 11:44 Glucerna Shake PO 120 ml 4X/DAY [facility] Administration Nystatin 1 applic 05/25/18 06:00 05/25/18 06:47 Mycostatin Powder TOPICAL 1 applicatio [phone] [facility] Administration Protocol Pantoprazole Sodium 20 mg 05/25/18 06:00 05/25/18 06:36 Protonix PO 20 mg DAILY [facility] Administration Polyethylene Glycol 17 gm 05/25/18 06:00 05/25/18 06:45 Miralax PO 17 gm DAILY [facility] Administration Polysaccharide Iron Complex 150 mg 05/26/18 08:00 [facility] Prednisone 40 mg 05/25/18 08:00 05/25/18 08:48 PO 06/04/18 07:59 40 mg DAILY@0800 [facility] Administration Taper Senna/Docusate Sodium 2 tablet 05/25/18 06:00 05/25/18 06:45 Senokot-S, Zeny-Colace PO Not Given BID [facility] Tuberculin PPD 5 tu 06/01/18 10:00 Tubersol, Aplisol, Ppd ID 06/01/18 10:01 X1 ONE Problem List (Last Reviewed 03/16/18 @ 09:36 by Rosa Lopez) Acute and chronic respiratory failure (Acute) Acute on chronic diastolic heart failure (Acute) Stroke (Chronic) Vital Signs Temp Pulse Resp BP Pulse Ox 98.0 F 84 20 H 135/44 H 98 05/24/18 20:28 05/25/18 12:41 05/25/18 11:04 05/25/18 14:43 05/25/18 12:41 Oxygen Flow Rate (L/min) 4 Oxygen Delivery Method Nasal Cannula Weight: 79.6 kg Body Mass Index (BMI) 28.2 Finger Stick Blood Glucose 149 Sodium 142 mmol/L (136-145) 05/25/18 06:00 Potassium 3.3 mmol/L (3.5-5.1) L 05/25/18 06:00 Chloride 94 mmol/L (98-107) L 05/25/18 06:00 Carbon Dioxide 39.0 mmol/L (21.0-32.0) H 05/25/18 06:00 Anion Gap 9 (5-15) 05/25/18 06:00 BUN 75 mg/dL (7-18) H 05/25/18 06:00 Creatinine 1.61 mg/dL (0.70-1.30) H 05/25/18 06:00 Est GFR (MDRD) Af Amer 54 mL/min (>60) L 05/25/18 06:00 Est GFR (MDRD) Non-Af 44 mL/min (>60) L 05/25/18 06:00 BUN/Creatinine Ratio 46.6 RATIO (10-20) H 05/25/18 06:00 Glucose 136 mg/dL (74-106) H 05/25/18 06:00 Assessment/Plan: 1) Pain APAP for mild pain. Continue to monitor prn medication use, daily pain scores. 2) AFib/CAD Amiodarone, ASA, clopidogrel, metoprolol, losartan. Continue to monitor BP/HR , renal function, electrolytes, s/s chest pain. 3) Pulm Budesonide, prn albuterol, scheduled Duonebs, prednisone taper. Continue to monitor prn medication use, for shortness of breath. * 4) DM2 Insulin glargine twice daily, glimepiride, metformin. Continue to monitor BGT , s/s hyper/hypoglycemia. * Consider d/c glimepiride and titrating insulin. Likely no extra benefit from a sulfonylurea with insulin. Additionally at a higher risk for hypoglycemia. 5) DVT PPx Enoxaparin daily. Continue to monitor for bleeding/clot. 6) Nutrition FeJesse D. Continue to monitor clinically. 7) GI Pantoprazole, Maalox. Continue to monitor prn medication use, for GI distress. Psychotropic Medications: None Unnecessary Medications: None Bowel Regimen: 8) Senna/s, PEG, prn bisacodyl. Continue to monitor prn medication use, for constipation/diarrhea. Date of Note:: 05/25/18 - Provider Comments Provider responsibility: Provider responsible to enter orders to implement recommendations <Yoshi Yu Chi - Last Filed: 05/25/18 18:02> Progress Note - Pharmacy Subjective: [] Objective: Allergies levofloxacin [From Levaquin] Allergy (Verified 01/25/18 14:40) Hives Penicillins [PCN] Allergy (Verified 01/25/18 14:40) Hives atorvastatin [From Lipitor] Adverse Reaction (Verified 05/22/18 22:03) Other Current Medications Generic Name Dose Route Start Last Admin Trade Name Freq PRN Reason Stop Dose Admin Acetaminophen 1,000 mg 05/24/18 21:19 Tylenol PO Q8H PRN PRN MILD PAIN (1-3/10) Al Hydroxide/Mg Hydroxide 30 ml 05/24/18 20:13 05/25/18 08:05 Mylanta Ii PO 30 ml Q4H PRN PRN Administration INDIGESTION Albuterol Sulfate 2 puff 05/24/18 20:13 Ventolin Hfa (Sp) INHALATION Q4H PRN PRN DYSPNEA Albuterol/Ipratropium 3 ml 05/24/18 20:15 05/25/18 11:06 Duoneb INHALATION 3 ml Q6HWA.RT [facility] Administration Amiodarone HCl 200 mg 05/25/18 06:00 05/25/18 06:36 Cordarone PO 200 mg DAILY [facility] Administration Aspirin 81 mg 05/25/18 08:00 05/25/18 08:48 Aspirin, Baby PO 81 mg DAILY@0800 [facility] Administration Bisacodyl 10 mg 05/24/18 20:19 05/25/18 06:36 Dulcolax RECTAL 10 mg DAILY PRN Administration Constipation Budesonide 0.5 mg 06/05/18 06:00 Pulmicort Aerosol INHALATION Q12H.RT [facility] Cholecalciferol 2,000 unit 05/25/18 06:00 05/25/18 06:35 Vitamin D PO 2,000 unit DAILY [facility] Administration Clopidogrel Bisulfate 75 mg 05/25/18 06:00 05/25/18 06:35 Plavix PO 75 mg DAILY [facility] Administration Enoxaparin Sodium 30 mg 05/25/18 06:00 05/25/18 06:35 Lovenox SC 30 mg DAILY@0600 [facility] Administration Furosemide 20 mg 05/25/18 06:00 05/25/18 14:42 Lasix PO 20 mg BIDLX [facility] Administration Glimepiride 4 mg 05/25/18 08:00 05/25/18 17:13 Amaryl PO 4 mg BIDCM [facility] Administration Insulin Glargine 10 units 05/25/18 06:00 05/25/18 17:14 Lantus (Bkc) SC 10 u BID [facility] Administration Losartan Potassium 100 mg 05/26/18 06:00 Cozaar PO DAILY [facility] Metformin HCl 500 mg 05/26/18 08:00 [facility] Metoprolol Tartrate 12.5 mg 05/24/18 20:15 05/25/18 17:13 Lopressor (Beta Jr) PO 12.5 mg BID [facility] Administration Multi-Ingredient Cream 1 applic 05/25/18 06:00 05/25/18 06:44 Eucerin TOPICAL 1 applicatio [phone] [facility] Administration Protocol Nutritional Formula (Lactose Free) 120 ml 05/24/18 22:00 05/25/18 17:13 Glucerna Shake PO 120 ml 4X/DAY [facility] Administration Nystatin 1 applic 05/25/18 06:00 05/25/18 06:47 Mycostatin Powder TOPICAL 1 applicatio [phone] [facility] Administration Protocol Pantoprazole Sodium 20 mg 05/25/18 06:00 05/25/18 06:36 Protonix PO 20 mg DAILY [facility] Administration Polyethylene Glycol 17 gm 05/25/18 06:00 05/25/18 06:45 Miralax PO 17 gm DAILY [facility] Administration Polysaccharide Iron Complex 150 mg 05/26/18 08:00 [facility] Prednisone 40 mg 05/25/18 08:00 05/25/18 08:48 PO 06/04/18 07:59 40 mg DAILY@0800 [facility] Administration Taper Senna/Docusate Sodium 2 tablet 05/25/18 06:00 05/25/18 17:13 Senokot-S, Zeny-Colace PO 2 tablet BID [facility] Administration Tuberculin PPD 5 tu 06/01/18 10:00 Tubersol, Aplisol, Ppd ID 06/01/18 10:01 X1 ONE Problem List (Last Reviewed 03/16/18 @ 09:36 by Rosa Lopez) Acute and chronic respiratory failure (Acute) Acute on chronic diastolic heart failure (Acute) Stroke (Chronic) Vital Signs Temp Pulse Resp BP Pulse Ox 97.9 F 71 20 H 128/52 H 99 05/25/18 16:00 05/25/18 17:13 05/25/18 16:00 05/25/18 16:00 05/25/18 16:00 Oxygen Flow Rate (L/min) 4 Oxygen Delivery Method Nasal Cannula Weight: 79.6 kg Body Mass Index (BMI) 28.2 Finger Stick Blood Glucose 149 Sodium 142 mmol/L (136-145) 05/25/18 06:00 Potassium 3.3 mmol/L (3.5-5.1) L 05/25/18 06:00 Chloride 94 mmol/L (98-107) L 05/25/18 06:00 Carbon Dioxide 39.0 mmol/L (21.0-32.0) H 05/25/18 06:00 Anion Gap 9 (5-15) 05/25/18 06:00 BUN 75 mg/dL (7-18) H 05/25/18 06:00 Creatinine 1.61 mg/dL (0.70-1.30) H 05/25/18 06:00 Est GFR (MDRD) Af Amer 54 mL/min (>60) L 05/25/18 06:00 Est GFR (MDRD) Non-Af 44 mL/min (>60) L 05/25/18 06:00 BUN/Creatinine Ratio 46.6 RATIO (10-20) H 05/25/18 06:00 Glucose 136 mg/dL (74-106) H 05/25/18 06:00 Assessment/Plan: Psychotropic Medications: Unnecessary Medications: Bowel Regimen: - Provider Comments Provider responsibility: Provider responsible to enter orders to implement recommendations Provider Comments to Recommendations by Pharmacy: Agree
[2018-05-25 17:05] LABS: Bedside Glucose 262 mg/dL (70-110)
[2018-05-25] MEDS: Senna/Docusate Sodium 1 Tablet 2 TABLET PO (17:13)
[2018-05-25 21:11] LABS: Bedside Glucose 201 mg/dL (70-110)
[2018-05-26] VITALS (7 sets, daily range): BP systolic 122–123; BP diastolic 41–42; PULSE 48–80; RESP 16–18; TEMP 36.6; O2SAT 98–99
[2018-05-26] MEDS: Senna/Docusate Sodium 1 Tablet 2 TABLET PO (06:37)
[2018-05-26] MEDS: Furosemide 20 MG Tablet PO ×2 (06:38→14:54)
[2018-05-26] MEDS: Pantoprazole Sodium 20 MG Tablet PO (06:38)
[2018-05-26] MEDS: Polyethylene Glycol 3350 17 GM PACKET PO (06:38)
[2018-05-26] MEDS: Glucerna Shake 120 ML LIQUID PO ×4 (06:39→19:51)
[2018-05-26] MEDS: Enoxaparin 30 MG/0.3 ML Syringe SC (06:40)
[2018-05-26] MEDS: Nystatin Powder 15gm Bottle 1 APPLIC TOPICAL ×2 (06:41→19:51)
[2018-05-26 06:56] LABS: Bedside Glucose 71 mg/dL (70-110)
[2018-05-26] MEDS: Ipratropium/Albuterol Sulfate 3 ML AMPUL.NEB INHALATION ×3 (07:03→19:30)
[2018-05-26] MEDS: Losartan Potassium 100 MG Tablet PO (08:47)
[2018-05-26] MEDS: Metoprolol Tartrate 25 MG Tablet 12.5 MG PO ×2 (08:47→16:38)
[2018-05-26] MEDS: Amiodarone 200 MG Tablet PO (08:47)
[2018-05-26] MEDS: Clopidogrel Bisulfate 75 MG Tablet PO (08:48)
[2018-05-26] MEDS: Aspirin 81 MG TAB.CHEW PO (08:48)
[2018-05-26] MEDS: predniSONE 10 MG Tablet PO (08:48)
[2018-05-26] MEDS: Iron Polysaccharide Complex 150 MG CAPSULE PO (10:37)
[2018-05-26 12:10] LABS: Bedside Glucose 165 mg/dL (70-110)
--- NOTE | 2018-05-26 15:54 | CHAPLAIN ---
Type of Pastoral Visit _x__ Initial Visit ___ Follow-up Visit ___ On-call Visit ___ General Patient Visit ___ Spiritual Assessment ___ Family Conference ___ Bereavement ___ Rapid Response ___ Code Blue ___ Other (describe below) Pastoral Care Referral From _x__ Patient ___ Family ___ Nurse ___ Physician ___ Sap Security Architect ___ Ciso ___ Other (describe below) Sacrament/Intervention _x__ Active listening ___ Anointing ___ Anabaptist ___ Bereavement ___ Communion ___ Marilyn exploration ___ ___ Life review ___ Prayer ___ Reconciliation ___ Sacrament of Sick ___ Supportive presence ___ Wedding ___ Other (describe below) Pastoral Comments
[2018-05-26 16:50] LABS: Bedside Glucose 283 mg/dL (70-110)
[2018-05-26] MEDS: 0.9% Saline Lock 10 ML Syringe IV ×2 (17:35→19:51)
--- NOTE | 2018-05-26 18:26 | NURSING ---
dr lara aware of occult stool results. no new orders.
[2018-05-26 20:51] LABS: Bedside Glucose 170 mg/dL (70-110)
--- NOTE | 2018-05-26 21:51 | NURSING ---
Addendum entered by Leyla Cifuentes 05/26/18 22:09: Dr. Yu notified of EKG results and previous EKG results. No new orders given. Original Note: Patient c/o heart fluttering in chest. Does not complain of any pain but he just feels it fluttering. Patient's heart rate irregular ranging from 48-75. BP 129/48. O2 98 on [address] Yu notified of this. Orders given for EKG.
[2018-05-27 06:18] VITALS: BP 151/65; PULSE 77; O2SAT 99
[2018-05-27] MEDS: Glucerna Shake 120 ML LIQUID PO ×3 (06:19→19:38)
[2018-05-27] MEDS: Pantoprazole Sodium 20 MG Tablet PO (06:20)
[2018-05-27] MEDS: Furosemide 20 MG Tablet PO (06:21)
[2018-05-27] MEDS: Enoxaparin 30 MG/0.3 ML Syringe SC (06:21)
[2018-05-27 06:23] LABS: Absolute Lymphocyte Count 2.27 X10^3/ul (0.83-4.51); Absolute Neutrophil Count 8.1 X10^3/uL (2.0-7.7); Eosinophil# 0.19 X10^3/uL; Eosinophils% 1.6 % (0-5); Hematocrit 22.8 % (40-54); Hemoglobin 6.9 g/dl (13.0-16.5); Lymphocyte # 2.27 X10^3/ul (4.0); Lymphocyte % 19.5 % (19-41); Mean Corp Hgb Conc 30.3 g/gl (32-36); Mean Corpuscular Volume 92.7 fL (80-94); Mean Platelet Vol. 11.3 fl (6.2-12.0); Monocyte# 0.86 X10^3/uL; Monocyte% 7.4 % (0-10); Neutrophil # 8.14 X10^3/uL (2.7-7.7); Platelet Count 194 K/mm3 (150-450); RBC Distribution Width CV 13.9 % (11.6-14.6); RBC Distribution Width SD 45.1 fl (35.1-43.9); Red Blood Count 2.46 M/mm3 (4.6-6.2); White Blood Count 11.6 K/mm3 (4.4-11.0)
[2018-05-27] MEDS: Nystatin Powder 15gm Bottle 1 APPLIC TOPICAL ×2 (06:24→19:39)
[2018-05-27 06:27] LABS: POSITIVE COUNT NO; POSITIVE DIFFERENTIAL NO; POSITIVE MORPHOLOGY NO
[2018-05-27 06:46] LABS: Bedside Glucose 98 mg/dL (70-110)
--- NOTE | 2018-05-27 06:50 | NURSING ---
Addendum entered by Leyla Cifuentes 05/27/18 07:17: Patient and Vannesa aware of new orders. Original Note: Dr. Yu notified of Hbg of 6.9 and Potassium of 3.3. New orders given.
[2018-05-27 07:17] VITALS: PULSE 73; RESP 16; O2SAT 99
[2018-05-27] MEDS: Ipratropium/Albuterol Sulfate 3 ML AMPUL.NEB INHALATION (07:17)
[2018-05-27 08:17] VITALS: BP 154/55; PULSE 85; O2SAT 96
[2018-05-27] MEDS: Aspirin 81 MG TAB.CHEW PO (08:19)
[2018-05-27] MEDS: Amiodarone 200 MG Tablet PO (08:19)
[2018-05-27 08:20] VITALS: PULSE 85
[2018-05-27] MEDS: Losartan Potassium 100 MG Tablet PO (08:20)
[2018-05-27] MEDS: Clopidogrel Bisulfate 75 MG Tablet PO (08:20)
[2018-05-27] MEDS: Metoprolol Tartrate 25 MG Tablet 12.5 MG PO ×2 (08:20→17:59)
[2018-05-27] MEDS: Iron Polysaccharide Complex 150 MG CAPSULE PO (08:20)
[2018-05-27] MEDS: predniSONE 10 MG Tablet PO (08:20)
--- NOTE | 2018-05-27 09:34 | NURSING ---
pt off unit to infusion center for blood tx at this time via wc. at bedside
[2018-05-27 17:59] VITALS: BP 159/59; PULSE 76
[2018-05-27] MEDS: 0.9% Saline Lock 10 ML Syringe IV (19:36)
[2018-05-27 21:06] LABS: Bedside Glucose 223 mg/dL (70-110)
[2018-05-28] VITALS (8 sets, daily range): BP systolic 127–154; BP diastolic 43–75; PULSE 71–83; RESP 17–20; TEMP 36.3–36.9; O2SAT 93–98
[2018-05-28] MEDS: Senna/Docusate Sodium 1 Tablet 2 TABLET PO ×2 (04:45→17:24)
[2018-05-28] MEDS: Pantoprazole Sodium 20 MG Tablet PO (04:45)
[2018-05-28] MEDS: Glucerna Shake 120 ML LIQUID PO ×4 (04:45→22:53)
[2018-05-28] MEDS: Furosemide 20 MG Tablet PO ×2 (04:46→13:12)
[2018-05-28] MEDS: Nystatin Powder 15gm Bottle 1 APPLIC TOPICAL ×2 (04:47→22:54)
[2018-05-28 05:45] LABS: Hematocrit 31.6 % (40-54)
[2018-05-28 06:21] LABS: Bedside Glucose 119 mg/dL (70-110)
[2018-05-28] MEDS: Ipratropium/Albuterol Sulfate 3 ML AMPUL.NEB INHALATION ×3 (07:43→19:05)
[2018-05-28] MEDS: Amiodarone 200 MG Tablet PO (09:29)
[2018-05-28] MEDS: Iron Polysaccharide Complex 150 MG CAPSULE PO (09:29)
[2018-05-28] MEDS: Losartan Potassium 100 MG Tablet PO (09:30)
[2018-05-28] MEDS: predniSONE 10 MG Tablet PO (09:30)
[2018-05-28] MEDS: Metoprolol Tartrate 25 MG Tablet 12.5 MG PO ×2 (09:31→17:23)
[2018-05-28 11:41] LABS: Bedside Glucose 186 mg/dL (70-110)
--- NOTE | 2018-05-28 13:39 | CASEMGMT ---
Brief interview for mental status (BIMS) and resident mood interview (PHQ-9) completed on this day. BIMS . PHQ-9 score 02/12
[2018-05-28 16:56] LABS: Bedside Glucose 218 mg/dL (70-110)
[2018-05-28 21:21] LABS: Bedside Glucose 183 mg/dL (70-110)
--- NOTE | 2018-05-28 21:23 | NURSING ---
Addendum entered by Jyothi Tracy 05/28/18 22:06: Dr Yu aware, continue to monitor. Original Note: pt sitting up to chair, felt like he was going to pass out. denied chest pain but reported pain to abd and back of neck. VSS- see trends. glucose checked- see trends. pt alert/oriented and no distress noted. called for EKG.
[2018-05-29] MEDS: Furosemide 20 MG Tablet PO ×2 (05:50→13:54)
[2018-05-29] MEDS: Pantoprazole Sodium 20 MG Tablet PO (05:50)
[2018-05-29] MEDS: Senna/Docusate Sodium 1 Tablet 2 TABLET PO ×2 (05:50→17:08)
[2018-05-29] MEDS: Nystatin Powder 15gm Bottle 1 APPLIC TOPICAL ×2 (05:51→20:38)
[2018-05-29] MEDS: Glucerna Shake 120 ML LIQUID PO ×4 (05:52→20:37)
[2018-05-29 06:16] LABS: Bedside Glucose 98 mg/dL (70-110)
[2018-05-29] MEDS: Ipratropium/Albuterol Sulfate 3 ML AMPUL.NEB INHALATION ×3 (07:15→19:20)
[2018-05-29 07:20] VITALS: PULSE 88; RESP 18; O2SAT 95
[2018-05-29] MEDS: Losartan Potassium 100 MG Tablet PO (08:25)
[2018-05-29] MEDS: Amiodarone 200 MG Tablet PO (08:25)
[2018-05-29] MEDS: predniSONE 10 MG Tablet PO (08:25)
[2018-05-29] MEDS: Iron Polysaccharide Complex 150 MG CAPSULE PO (08:25)
[2018-05-29 08:26] VITALS: PULSE 78
[2018-05-29] MEDS: Metoprolol Tartrate 25 MG Tablet 12.5 MG PO ×2 (08:26→17:07)
[2018-05-29 11:51] LABS: Bedside Glucose 189 mg/dL (70-110)
[2018-05-29 13:42] VITALS: PULSE 83; RESP 17
[2018-05-29 16:00] VITALS: BP 116/50; PULSE 71; RESP 18; TEMP 36.7; O2SAT 99
[2018-05-29 17:00] LABS: Bedside Glucose 216 mg/dL (70-110)
[2018-05-29 17:07] VITALS: PULSE 71
[2018-05-29 19:20] VITALS: PULSE 85; RESP 18; O2SAT 95
[2018-05-29 21:01] LABS: Bedside Glucose 167 mg/dL (70-110)
[2018-05-30] MEDS: Glucerna Shake 120 ML LIQUID PO ×4 (06:23→20:12)
[2018-05-30] MEDS: Senna/Docusate Sodium 1 Tablet 2 TABLET PO (06:23)
[2018-05-30] MEDS: Pantoprazole Sodium 20 MG Tablet PO (06:24)
[2018-05-30] MEDS: Furosemide 20 MG Tablet PO ×2 (06:24→12:29)
[2018-05-30] MEDS: Nystatin Powder 15gm Bottle 1 APPLIC TOPICAL ×2 (06:27→20:13)
[2018-05-30 06:31] LABS: Bedside Glucose 106 mg/dL (70-110)
[2018-05-30 07:02] VITALS: PULSE 65; RESP 18; O2SAT 99
[2018-05-30] MEDS: Ipratropium/Albuterol Sulfate 3 ML AMPUL.NEB INHALATION ×3 (07:02→19:22)
[2018-05-30] MEDS: Iron Polysaccharide Complex 150 MG CAPSULE PO (07:46)
[2018-05-30] MEDS: Amiodarone 200 MG Tablet PO (07:46)
[2018-05-30] MEDS: Losartan Potassium 100 MG Tablet PO (07:46)
[2018-05-30] MEDS: predniSONE 10 MG Tablet PO (07:46)
[2018-05-30 07:47] VITALS: PULSE 79
[2018-05-30] MEDS: Metoprolol Tartrate 25 MG Tablet 12.5 MG PO ×2 (07:47→18:03)
[2018-05-30 11:46] LABS: Bedside Glucose 176 mg/dL (70-110)
[2018-05-30 13:00] VITALS: PULSE 70; RESP 16
[2018-05-30 16:00] VITALS: BP 147/44; PULSE 75; RESP 20; TEMP 36.1; O2SAT 98
[2018-05-30 16:56] LABS: Bedside Glucose 242 mg/dL (70-110)
[2018-05-30 18:03] VITALS: BP 147/64; PULSE 75
[2018-05-30 19:25] VITALS: PULSE 70; RESP 16; O2SAT 98
[2018-05-30 21:15] LABS: Bedside Glucose 221 mg/dL (70-110)
[2018-05-31] MEDS: Furosemide 20 MG Tablet PO ×2 (06:45→14:49)
[2018-05-31 06:46] LABS: Bedside Glucose 100 mg/dL (70-110)
[2018-05-31] MEDS: Pantoprazole Sodium 20 MG Tablet PO (06:46)
[2018-05-31] MEDS: Nystatin Powder 15gm Bottle 1 APPLIC TOPICAL ×2 (06:48→20:43)
[2018-05-31] MEDS: Glucerna Shake 120 ML LIQUID PO ×4 (06:49→20:42)
[2018-05-31 07:00] LABS: Hematocrit 32.6 % (40-54)
[2018-05-31 07:15] VITALS: PULSE 80; RESP 18; O2SAT 98
[2018-05-31] MEDS: Ipratropium/Albuterol Sulfate 3 ML AMPUL.NEB INHALATION ×3 (07:15→19:35)
[2018-05-31 07:46] VITALS: PULSE 82
[2018-05-31] MEDS: Metoprolol Tartrate 25 MG Tablet 12.5 MG PO ×2 (07:46→17:18)
[2018-05-31] MEDS: Iron Polysaccharide Complex 150 MG CAPSULE PO (07:47)
[2018-05-31] MEDS: Amiodarone 200 MG Tablet PO (07:47)
[2018-05-31] MEDS: Losartan Potassium 100 MG Tablet PO (07:47)
[2018-05-31] MEDS: predniSONE 10 MG Tablet PO (07:47)
[2018-05-31 11:06] LABS: Bedside Glucose 238 mg/dL (70-110)
[2018-05-31 12:50] VITALS: PULSE 88; RESP 18
--- NOTE | 2018-05-31 13:09 | CASEMGMT ---
Plan of care meeting held. Resident present as well as resident spouse. No discharge date set at this time. Resident plans to discharge home with spouse at time of discharge Deanna DE ANDA, HOUSEHOLD APPLIANCE INSTALLER
--- NOTE | 2018-05-31 13:20 | CASEMGMT ---
Plan of care meeting held. Resident present as well as resident spouse. No discharge date set at this time. Resident wanting to discharge on on but aware that team is not currently recommending that. Resident to have physical therapy session this afternoon and see how that goes. This social media sr strategy manager to meet with resident after therapy session to see what resident is thinking. Resident plans to discharge to home with spouse and home health services through [facility] P: [phone] F: [phone] at time of discharge date being set. Support given. Will continue to follow. Deanna DE ANDA, PENCIL SORTER
[2018-05-31 15:10] VITALS: BP 138/54; PULSE 73; RESP 18; TEMP 36.5; O2SAT 98
--- NOTE | 2018-05-31 15:39 | CASEMGMT ---
Social Work Spoke with resident and resident spouse in room. Resident reporting to have done well with therapy today and to want to discharge home on 06/03/18. Team is agreeable to this discharge date. Resident reporting to have a walker and oxygen already set up within the home. Resident reporting no further durable medical equipment needs. Physical and occupational therapy along with nursing are recommending for resident to continue with services within the home. Resident is agreeable to recommendation and requesting for home health services to be set up through [facility] - [phone]. Resident plans to discharge home with spouse at time of discharge. Resident spouse to provide transportation home for resident. Support given. Telephone call to Gabriella Damon. This social staff worker making referral for physical and occupational therapy as well as [facility]. Clinical information faxed. Will fax orders when obtained. Proposed discharge date: 06/03/18 PLAN: Discharge to home with spouse and home health services. Deanna DE ANDA, STREAMING MEDIA SPECIALIST
[2018-05-31 16:55] LABS: Bedside Glucose 226 mg/dL (70-110)
[2018-05-31 17:18] VITALS: PULSE 73
[2018-05-31] MEDS: Senna/Docusate Sodium 1 Tablet 2 TABLET PO (17:18)
[2018-05-31 19:35] VITALS: PULSE 77; RESP 16
--- NOTE | 2018-05-31 20:53 | PCM.DC ---
- Discharge Diagnoses Current Active Problems: Current Active and Chronic Problems (Last Reviewed 03/16/18 @ 09:36 by Rosa Lopez) Acute and chronic respiratory failure (Acute) Acute on chronic diastolic heart failure (Acute) Stroke (Chronic) You will use the following diet at home:: No restrictions, Regular Your food should be the consistency of: Regular Your liquids should be the consistency of: Regular/Thin Discharge Activity: Return to Normal Activity, May Shower, Use Walker Weight Bearing Status: Weight bearing as tolerated Call your doctor if you observe: Fever of 101 or Higher, Inability to urinate, Inability to have a bowel movement, Shortness of breath, Chest pain, Uncontrolled pain Allergies/Adverse Reactions: Allergies levofloxacin [From Levaquin] Allergy (Verified 05/27/18 10:09) Hives Penicillins [PCN] Allergy (Verified 05/27/18 10:09) Hives atorvastatin [From Lipitor] Adverse Reaction (Verified 05/27/18 10:09) Other Medications to take at Discharge Albuterol Inhaler [Ventolin Hfa] 2 puff INHALATION Q4H PRN PRN 08/04/16 Clopidogrel Bisulfate [Plavix] 75 mg PO DAILY 08/04/16 Power-3 Fatty Acids [Fish Oil] 1,290 mg PO DAILY 03/30/17 Ubidecarenone [Coq10] 100 mg PO DAILY 03/30/17 cholecalciferol (vitamin D3) 5,000 unit capsule 2,000 unit PO DAILY cap 11/30/17 budesonide 0.5 mg/2 mL suspension for nebulization 0.5 mg INHALATION Q12H #120 ml 02/15/18 ipratropium-albuterol 0.5 mg-3 mg(2.5 mg base)/3 mL nebulization soln 3 ml INHALATION Q6HWA.RT #360 ml 02/15/18 Aspirin [Aspirin, Baby] 81 mg PO DAILY@0800 05/20/18 Metformin HCl [Glucophage] 500 mg PO BID #0 05/24/18 Acetaminophen [Tylenol] 1,000 mg PO Q8H PRN PRN tablet 05/31/18 Amiodarone HCl [Cordarone] 200 mg PO DAILY #30 tab 05/31/18 Furosemide [Lasix] 20 mg PO BIDLX #60 tab 05/31/18 Iron Polysaccharide Complex [Ferrex 150] 150 mg PO DAILYCM #30 cap 05/31/18 Losartan Potassium [Cozaar] 100 mg PO DAILY #30 tab 05/31/18 Metoprolol Tartrate [Lopressor (beta ed)] 12.5 mg PO BID #60 tab 05/31/18 Pantoprazole Sodium [Protonix] 20 mg PO DAILY #30 tab 05/31/18 Potassium Chloride [K-Dur] 20 meq PO DAILYCM #30 tab 05/31/18 The following prescriptions were given: Amiodarone HCl [Cordarone] 200 mg PO DAILY #30 tab Furosemide [Lasix] 20 mg PO BIDLX #60 tab Iron Polysaccharide Complex [Ferrex 150] 150 mg PO DAILYCM #30 cap Losartan Potassium [Cozaar] 100 mg PO DAILY #30 tab Pantoprazole Sodium [Protonix] 20 mg PO DAILY #30 tab Potassium Chloride [K-Dur] 20 meq PO DAILYCM #30 tab Metoprolol Tartrate [Lopressor (beta ed)] 12.5 mg PO BID #60 tab Primary Care Physician: Ellie Ackerman MD [Primary Care Provider] - Please follow up with your Primary Care Physician in: 1 week. Test Results: Test results from this visit will be discussed in further detail at your follow-up appointment, if applicable. Please Follow Up With: Irina Lozano for Dr. Kameron Liz When: 2 weeks Please Follow Up With: Dionicio Adams MD Proposed Discharge Date: 06/03/18
--- NOTE | 2018-05-31 20:55 | PCM.DC.SUM ---
Discharge Date and Diagnosis - Problem List Patient Problems: Active and Suspected Problems (Last Reviewed 03/16/18 @ 09:36 by Rosa Lopez) Acute and chronic respiratory failure (Acute) Acute on chronic diastolic heart failure (Acute) Date of Admission: 05/24/18 Date of Discharge: 06/03/18 - Primary Discharge Diagnosis Active and Suspected Problems (Last Reviewed 03/16/18 @ 09:36 by Rosa Lopez) Acute and chronic respiratory failure (Acute) Acute on chronic diastolic heart failure (Acute) - Secondary Discharge Diagnosis Chronic Problems (Last Reviewed 03/16/18 @ 09:36 by Rosa Lopez) Stroke (Chronic) Hx of CABG (Chronic) Severe chronic obstructive pulmonary disease (Chronic) Dyspnea on exertion (Chronic) Lung nodule (Chronic) Hypoxia (Chronic) Chronic hypoxemic respiratory failure (Chronic) LUIS (obstructive sleep apnea) (Chronic) Fatigue (Chronic) Sarcoidosis (Chronic) Pulmonary hypertension, mild (Chronic) Stage 4 very severe COPD by GOLD classification (Chronic) Dyspnea (Chronic) History of CVA (cerebrovascular accident) (Chronic) Hypertension (Chronic) Chronic respiratory failure (Chronic) Type 2 diabetes mellitus (Chronic) Status post coronary artery bypass graft (Chronic) Coronary artery disease (Chronic) COPD (chronic obstructive pulmonary disease) (Chronic) Hospital Course and Treatment Imaging Results: 05/24/18 20:18 Diet: Cardiac/Low Cholesterol Labs (Last 48 Hours) 05/29/18 05/30/18 05/30/18 20:56 06:23 11:40 Hgb Hct POC Glucose 167 H 106 176 H 05/30/18 05/30/18 05/31/18 16:40 20:59 05:30 Hgb 10.0 L Hct 32.6 L POC Glucose 242 H 221 H 05/31/18 05/31/18 05/31/18 06:28 10:57 16:49 Hgb Hct POC Glucose 100 238 H 226 H Operations: None Procedures: None Summary of Care Provided: The patient is a 78 year old Male with below past medical history significant for COPD, hospitalized for acute on chronic respiratory failure secondary to COPD exacerbation, complicated by NSTEMI, decided against left heart catheterization, admitted to TCU with debility, for rehabilitation, strengthening, prior to discharge home. Discharge home with spouse, and Home Health Services. Discharge Diet: No Restrictions Discharge Activity: Return to Normal Activity, May Shower, Use Walker Weight Bearing Status: Weight bearing as tolerated Call your doctor if you observe: Fever of 101 or Higher, Inability to urinate, Inability to have a bowel movement, Shortness of breath, Chest pain, Uncontrolled pain Home Medications: Medications to take at Discharge Albuterol Inhaler [Ventolin Hfa] 2 puff INHALATION Q4H PRN PRN 08/04/16 Clopidogrel Bisulfate [Plavix] 75 mg PO DAILY 08/04/16 Jena-3 Fatty Acids [Fish Oil] 1,290 mg PO DAILY 03/30/17 Ubidecarenone [Coq10] 100 mg PO DAILY 03/30/17 cholecalciferol (vitamin D3) 5,000 unit capsule 2,000 unit PO DAILY cap 11/30/17 budesonide 0.5 mg/2 mL suspension for nebulization 0.5 mg INHALATION Q12H #120 ml 02/15/18 ipratropium-albuterol 0.5 mg-3 mg(2.5 mg base)/3 mL nebulization soln 3 ml INHALATION Q6HWA.RT #360 ml 02/15/18 Aspirin [Aspirin, Baby] 81 mg PO DAILY@0800 05/20/18 Metformin HCl [Glucophage] 500 mg PO BID #0 05/24/18 Acetaminophen [Tylenol] 1,000 mg PO Q8H PRN PRN tablet 05/31/18 Amiodarone HCl [Cordarone] 200 mg PO DAILY #30 tab 05/31/18 Furosemide [Lasix] 20 mg PO BIDLX #60 tab 05/31/18 Iron Polysaccharide Complex [Ferrex 150] 150 mg PO DAILYCM #30 cap 05/31/18 Losartan Potassium [Cozaar] 100 mg PO DAILY #30 tab 05/31/18 Metoprolol Tartrate [Lopressor (beta ed)] 12.5 mg PO BID #60 tab 05/31/18 Pantoprazole Sodium [Protonix] 20 mg PO DAILY #30 tab 05/31/18 Potassium Chloride [K-Dur] 20 meq PO DAILYCM #30 tab 05/31/18 Following Prescrptions Were Given to Patient: Amiodarone HCl [Cordarone] 200 mg PO DAILY #30 tab Furosemide [Lasix] 20 mg PO BIDLX #60 tab Iron Polysaccharide Complex [Ferrex 150] 150 mg PO DAILYCM #30 cap Losartan Potassium [Cozaar] 100 mg PO DAILY #30 tab Pantoprazole Sodium [Protonix] 20 mg PO DAILY #30 tab Potassium Chloride [K-Dur] 20 meq PO DAILYCM #30 tab Metoprolol Tartrate [Lopressor (beta ed)] 12.5 mg PO BID #60 tab Primary Care Physician: Ellie Ackerman MD [Primary Care Provider] - Please follow up with your Primary Care Physician in: 1 week. Please Follow Up With: Irina Lozano for Dr. Kameron Liz When: 2 weeks Please Follow Up With: Dionicio Adams MD When: 2 weeks. Disposition: Home with Home Health Minutes spent on discharge:: 35 Patient Condition:: Stable Medical Necessity - Tobacco Use Smoking Status: Former smoker Tobacco Use: Non-smoker Meaningful Use Info Meaningful Use Diagnoses (Choose all that apply): None applicable
--- NOTE | 2018-05-31 20:57 | PCM.PN.HH ---
Home Health Note - Plan Overview of reason of hospitalization: The patient is a 78 year old Male with below past medical history significant for COPD, hospitalized for acute on chronic respiratory failure secondary to COPD exacerbation, complicated by NSTEMI, decided against left heart catheterization, admitted to TCU with debility, for rehabilitation, strengthening, prior to discharge home. Discharge home with spouse, and Home Health Services. Problems: Patient was seen for (Last Reviewed 03/16/18 @ 09:36 by Rosa Lopez) Acute and chronic respiratory failure (Acute) Acute on chronic diastolic heart failure (Acute) Stroke (Chronic) Complete List of Medical Problems (Last Reviewed 03/16/18 @ 09:36 by Rosa Lopez) Shortness of breath (Acute) NSTEMI (non-ST elevated myocardial infarction) (Acute) COPD exacerbation (Acute) Acute and chronic respiratory failure (Acute) Acute on chronic diastolic heart failure (Acute) Stroke (Chronic) Thrush, oral (Acute) Irregular heart beat (Acute) Hx of CABG (Chronic) Severe chronic obstructive pulmonary disease (Chronic) Dyspnea on exertion (Chronic) Lung nodule (Chronic) Hypoxia (Chronic) Chronic hypoxemic respiratory failure (Chronic) LUIS (obstructive sleep apnea) (Chronic) Fatigue (Chronic) Sarcoidosis (Chronic) Pulmonary hypertension, mild (Chronic) Stage 4 very severe COPD by GOLD classification (Chronic) Dyspnea (Chronic) History of CVA (cerebrovascular accident) (Chronic) Hypertension (Chronic) Chronic respiratory failure (Chronic) Type 2 diabetes mellitus (Chronic) Status post coronary artery bypass graft (Chronic) Coronary artery disease (Chronic) COPD (chronic obstructive pulmonary disease) (Chronic) - Requirements and Reasons Disciplines Needed/Ordered: Long-Term, Physical Therapy Reason for Disciplines: Disease Specific Monitoring/education, Medication Management/Knowledge Deficit, Gait Training, Stair Training, Fall Prevention, Home Safety/Equipment Instruction, Balance and/or Posture Training, Transfer Training Related To: Limited/Poor Endurance, Shortness of Breath with Activity, Physical Impairments, Unsteady Gait/Balance, Fall Risk Patient is unable to leave the home: Without Aid of Supportive Devices (crutches, cane, wheelchair, walker), Without the assistance of another person - Additional Disciplines Additional Disciplines Needed/Ordered: Occupational Therapy
[2018-05-31 21:05] LABS: Bedside Glucose 167 mg/dL (70-110)
--- NOTE | 2018-05-31 22:39 | NURSING ---
Pt complaint of his heart feeling funny. HR 44 radial. BP 135/62. HR rechecked 5min later up to 69 and pt denies any pain or SOB. Will monitor.
[2018-06-01] VITALS (7 sets, daily range): BP systolic 128; BP diastolic 46; PULSE 60–85; RESP 16–24; TEMP 36.3; O2SAT 98–99
[2018-06-01 05:37] LABS: Absolute Lymphocyte Count 2.27 X10^3/ul (0.83-4.51); Absolute Neutrophil Count 10.4 X10^3/uL (2.0-7.7); Basophil# 0.01 X10^3/uL; Basophil% 0.1 % (0-1); Eosinophil# 0.35 X10^3/uL; Eosinophils% 2.5 % (0-5); Hematocrit 32.9 % (40-54); Hemoglobin 10.1 g/dl (13.0-16.5); Lymphocyte # 2.27 X10^3/ul (4.0); Lymphocyte % 16.4 % (19-41); Mean Corp Hgb Conc 30.7 g/gl (32-36); Mean Corpuscular Hgb 28.3 pg (27.0-32.0); Mean Corpuscular Volume 92.2 fL (80-94); Mean Platelet Vol. 10.6 fl (6.2-12.0); Monocyte# 0.75 X10^3/uL; Monocyte% 5.4 % (0-10); Neutrophil % 75.1 % (47-70); Platelet Count 212 K/mm3 (150-450); RBC Distribution Width CV 14.5 % (11.6-14.6); RBC Distribution Width SD 48.1 fl (35.1-43.9); Red Blood Count 3.57 M/mm3 (4.6-6.2); White Blood Count 13.9 K/mm3 (4.4-11.0)
[2018-06-01 05:38] LABS: POSITIVE COUNT NO; POSITIVE DIFFERENTIAL NO; POSITIVE MORPHOLOGY NO
[2018-06-01] MEDS: Furosemide 20 MG Tablet PO ×2 (05:38→14:17)
[2018-06-01] MEDS: Senna/Docusate Sodium 1 Tablet 2 TABLET PO ×2 (05:38→17:20)
[2018-06-01] MEDS: Glucerna Shake 120 ML LIQUID PO ×4 (05:38→20:39)
[2018-06-01] MEDS: Pantoprazole Sodium 20 MG Tablet PO (05:38)
[2018-06-01] MEDS: Nystatin Powder 15gm Bottle 1 APPLIC TOPICAL ×2 (05:40→20:40)
[2018-06-01 05:54] LABS: Anion Gap 8 (5-15); BUN 32 mg/dL (7-18); BUN/Creat Ratio 21.3 RATIO (10-20); Chloride 98 mmol/L (98-107); EST Glomerular Filtration Rate 48 mL/min (>60); Est Glom Filt Rate - Afr Amer 58 mL/min (>60); Estimated Creatinine Clearance 36.04 ml/min; Glucose 109 mg/dL (74-106); Potassium 4.2 mmol/L (3.5-5.1); Sodium Level 141 mmol/L (136-145)
[2018-06-01 06:25] LABS: Bedside Glucose 135 mg/dL (70-110)
[2018-06-01] MEDS: Ipratropium/Albuterol Sulfate 3 ML AMPUL.NEB INHALATION ×3 (07:08→19:10)
[2018-06-01] MEDS: Iron Polysaccharide Complex 150 MG CAPSULE PO (09:26)
[2018-06-01] MEDS: Amiodarone 200 MG Tablet PO (09:27)
[2018-06-01] MEDS: Metoprolol Tartrate 25 MG Tablet 12.5 MG PO ×2 (09:27→17:19)
[2018-06-01] MEDS: Losartan Potassium 100 MG Tablet PO (09:27)
[2018-06-01] MEDS: predniSONE 10 MG Tablet PO (09:28)
--- NOTE | 2018-06-01 11:40 | NURSING ---
Dr. Yu reviewed morning BMP on pt, no new orders.
[2018-06-01 11:46] LABS: Bedside Glucose 148 mg/dL (70-110)
[2018-06-01] MEDS: Tuberculin,Purif.prot.deriv. 50 TU/ML Vial 5 ML ID (13:20)
[2018-06-01] MEDS: Polyethylene Glycol 3350 17 GM PACKET PO (14:16)
[2018-06-01 17:11] LABS: Bedside Glucose 183 mg/dL (70-110)
--- NOTE | 2018-06-01 20:45 | NURSING ---
pt refused all hs care when offered including brushing teeth . pt stated that he wants a shower in the am
[2018-06-01 21:15] LABS: Bedside Glucose 160 mg/dL (70-110)
[2018-06-02] MEDS: Furosemide 20 MG Tablet PO ×2 (06:14→15:02)
[2018-06-02] MEDS: Pantoprazole Sodium 20 MG Tablet PO (06:14)
[2018-06-02] MEDS: Senna/Docusate Sodium 1 Tablet 2 TABLET PO ×2 (06:14→18:08)
[2018-06-02] MEDS: Glucerna Shake 120 ML LIQUID PO ×4 (06:17→20:27)
[2018-06-02 06:21] LABS: Bedside Glucose 98 mg/dL (70-110)
[2018-06-02 07:17] VITALS: PULSE 70; RESP 18; O2SAT 99
[2018-06-02] MEDS: Ipratropium/Albuterol Sulfate 3 ML AMPUL.NEB INHALATION ×3 (07:17→19:00)
[2018-06-02 09:45] VITALS: PULSE 70
[2018-06-02] MEDS: Metoprolol Tartrate 25 MG Tablet 12.5 MG PO ×2 (09:45→18:07)
[2018-06-02] MEDS: Amiodarone 200 MG Tablet PO (09:46)
[2018-06-02] MEDS: Aspirin 81 MG TAB.CHEW PO (09:47)
[2018-06-02] MEDS: Iron Polysaccharide Complex 150 MG CAPSULE PO (09:47)
[2018-06-02] MEDS: Clopidogrel Bisulfate 75 MG Tablet PO (09:47)
[2018-06-02] MEDS: predniSONE 10 MG Tablet PO (09:47)
[2018-06-02] MEDS: Losartan Potassium 100 MG Tablet PO (09:47)
[2018-06-02 11:05] LABS: Bedside Glucose 180 mg/dL (70-110)
[2018-06-02 13:44] VITALS: PULSE 75; RESP 18
[2018-06-02 15:27] VITALS: BP 133/51; PULSE 78; RESP 18; TEMP 36.7; O2SAT 97
--- NOTE | 2018-06-02 15:49 | CHAPLAIN ---
Type of Pastoral Visit ___ Initial Visit _x__ Follow-up Visit ___ On-call Visit ___ General Patient Visit ___ Spiritual Assessment ___ Family Conference ___ Bereavement ___ Rapid Response ___ Code Blue ___ Other (describe below) Pastoral Care Referral From _x__ Patient ___ Family ___ Nurse ___ Physician ___ Nuisance Wildlife Specialist ___ Php Software Engineer ___ Other (describe below) Sacrament/Intervention _x__ Active listening ___ Anointing ___ Holiness ___ Bereavement ___ Communion ___ Marilyn exploration ___ _x__ Life review _x__ Prayer ___ Reconciliation ___ Sacrament of Sick ___ Supportive presence ___ Wedding ___ Other (describe below) Pastoral Comments
--- NOTE | 2018-06-02 17:01 | NURSING ---
patient has c/o neck spasms, refusing tylenol. NO for baclofen 10mg PO TID PRN.
[2018-06-02 17:06] LABS: Bedside Glucose 162 mg/dL (70-110)
[2018-06-02 18:07] VITALS: BP 133/51; PULSE 78
[2018-06-02 19:00] VITALS: PULSE 72; RESP 22
[2018-06-02 21:05] LABS: Bedside Glucose 232 mg/dL (70-110)
[2018-06-03] MEDS: Pantoprazole Sodium 20 MG Tablet PO (06:25)
[2018-06-03] MEDS: Glucerna Shake 120 ML LIQUID PO (06:25)
[2018-06-03] MEDS: Furosemide 20 MG Tablet PO (06:25)
[2018-06-03 06:42] VITALS: PULSE 71; RESP 18; O2SAT 94
[2018-06-03] MEDS: Ipratropium/Albuterol Sulfate 3 ML AMPUL.NEB INHALATION (06:42)
[2018-06-03 08:30] LABS: Bedside Glucose 206 mg/dL (70-110)
[2018-06-03] MEDS: Aspirin 81 MG TAB.CHEW PO (09:22)
[2018-06-03] MEDS: Amiodarone 200 MG Tablet PO (09:23)
[2018-06-03] MEDS: predniSONE 10 MG Tablet PO (09:23)
[2018-06-03] MEDS: Clopidogrel Bisulfate 75 MG Tablet PO (09:23)
[2018-06-03] MEDS: Losartan Potassium 100 MG Tablet PO (09:23)
[2018-06-03 09:24] VITALS: BP 139/50; PULSE 79
[2018-06-03] MEDS: Iron Polysaccharide Complex 150 MG CAPSULE PO (09:24)
[2018-06-03] MEDS: Metoprolol Tartrate 25 MG Tablet 12.5 MG PO (09:24)
--- NOTE | 2018-06-03 09:42 | MDS.RN ---
Information for the mds was obtained from review of the clinical record, interview of resident, staff, and direct observation of resident's care.
[2018-06-03 11:30] VITALS: BP 164/72; PULSE 74; RESP 18; TEMP 36.6; O2SAT 98
== END 2018-06-03 11:50 | disposition home health service (06) | DRG 947 ==
PROVIDERS: Admitting Provider Family Medicine Geriatric Medicine; Family Provider Internal Medicine; PCP Internal Medicine; Visit Provider Family Medicine Geriatric Medicine
DX: R53.81 Other malaise (principal); I50.33 Acute on chronic diastolic (congestive) heart failure; J96.21 Acute and chronic respiratory failure with hypoxia; I21.4 Non-ST elevation (NSTEMI) myocardial infarction; J44.9 Chronic obstructive pulmonary disease, unspecified; I25.10 Atherosclerotic heart disease of native coronary artery without angina pectoris; E11.9 Type 2 diabetes mellitus without complications; Z23 Encounter for immunization; K21.9 Gastro-esophageal reflux disease without esophagitis; E55.9 Vitamin D deficiency, unspecified; I11.0 Hypertensive heart disease with heart failure; Z87.891 Personal history of nicotine dependence; G47.33 Obstructive sleep apnea (adult) (pediatric); I27.20 Pulmonary hypertension, unspecified; Z95.1 Presence of aortocoronary bypass graft; R91.1 Solitary pulmonary nodule; I48.91 Unspecified atrial fibrillation; D64.9 Anemia, unspecified
CPT/HCPCS: 36415; 80048; 82274; 82962; 85014; 85018; 85025; 86920; 86922; 93005; 94640; 97110; 97116; 97162; 97166; 97530; 97535; 97802; J7040; 90670; A4216

== ENCOUNTER → 2018-05-27 09:40 | Outpatient (CLI) | payer MEDICARE, BC, SELFPAY ==
[2018-05-27] VITALS (8 sets, daily range): BP systolic 117–148; BP diastolic 53–74; PULSE 66–77; RESP 16–18; TEMP 36.3–36.7; O2SAT 98–100; BMI 28.4
[2018-05-27] MEDS: Furosemide 40 MG/4 ML Vial IV (13:08)
[2018-05-27 17:10] LABS: Bedside Glucose 261 mg/dL (70-110)
== END ==
PROVIDERS: Family Provider Internal Medicine; PCP Internal Medicine; Visit Provider Family Medicine Geriatric Medicine
DX: J44.1 Chronic obstructive pulmonary disease with (acute) exacerbation (principal)
CPT/HCPCS: 36415; 36430; 82962; 86850; 86900; 86920; 86922; 96523; J7040; P9016; A4216; J1940

== ENCOUNTER 2018-06-19 10:19 | Inpatient (IN) | payer MEDICARE, BC, SELFPAY ==
[2018-06-19] VITALS (30 sets, daily range): BP systolic 94–143; BP diastolic 47–77; PULSE 60–121; RESP 23–39; TEMP 35.9–36.8; O2SAT 92–100; BMI 29.4
--- NOTE | 2018-06-19 10:50 | PCM.HP.STD ---
Problem List (1) Acute on chronic respiratory failure with hypoxia and hypercapnia Status: Acute History of Present Illness Date of Admission: 06/19/18 Chief Complaint: severe SOB and difficulty breathing The patient is a 78 year old M with a h/o severe COPD and CAD s/p CABG and frequent readmissions for COPD exacerbations and who has been recommended for palliative care/hospice as I am made to understand. Transferred from [facility] where he had presented with severe SOB which had gradually started yesterday but rapidly worsened this morning. At [place], patient was found to be in severe hypercapnic and hypoxic respiratory failure. O2 sats 82 on his usual 4L at home and ABGs showing pH 7.08, pCO2 102, HCO3 29. CXR showed increased interstitial prominence in both mid and lower zones which on my own viewing and inspection appears worse on the right. BNP noted to be 2340 and at baseline patient usually about 300-800 per prior records. Patient started on BIPAP, given IV Lasix 20mg x 1 and IV antibiotics as well - Ceftriaxone and Azithromycin. Patient requested transfer to [facility] as he receives most of his care here and is well known to his general doc Dr. Mahendra Mckeon. At this time is still very short of breath and breathing labored. Denies any chest pain and thinks he may have had a low grade fever yesterday. [] Past Medical History Past Medical History (Chronic Problems): Chronic Problems (Last Updated 06/10/18 @ 09:58 by Nimisha Dickens) Acute on chronic diastolic heart failure (Chronic) Stroke (Chronic) Hx of CABG (Chronic) Severe chronic obstructive pulmonary disease (Chronic) Dyspnea on exertion (Chronic) Lung nodule (Chronic) Hypoxia (Chronic) Chronic hypoxemic respiratory failure (Chronic) LUIS (obstructive sleep apnea) (Chronic) Fatigue (Chronic) Sarcoidosis (Chronic) Pulmonary hypertension, mild (Chronic) Stage 4 very severe COPD by GOLD classification (Chronic) Dyspnea (Chronic) History of CVA (cerebrovascular accident) (Chronic) Hypertension (Chronic) Chronic respiratory failure (Chronic) Type 2 diabetes mellitus (Chronic) Status post coronary artery bypass graft (Chronic) Coronary artery disease (Chronic) COPD (chronic obstructive pulmonary disease) (Chronic) Medical History: Medical History (Last Updated 06/10/18 @ 09:58 by Nimisha Dickens) Severe chronic obstructive pulmonary disease (Chronic) J44.9 Dyspnea on exertion (Chronic) R06.09 Lung nodule (Chronic) R91.1 Hypoxia (Chronic) R09.02 Chronic hypoxemic respiratory failure (Chronic) J96.11 LUIS (obstructive sleep apnea) (Chronic) G47.33 Fatigue (Chronic) R53.83 Sarcoidosis (Chronic) D86.9 Pulmonary hypertension, mild (Chronic) I27.20 Stage 4 very severe COPD by GOLD classification (Chronic) J44.9 Dyspnea (Chronic) R06.00 History of CVA (cerebrovascular accident) (Chronic) Z86.73 Hypertension (Chronic) I10 Chronic respiratory failure (Chronic) J96.10 Type 2 diabetes mellitus (Chronic) E11.9 Coronary artery disease (Chronic) I25.10 COPD (chronic obstructive pulmonary disease) (Chronic) J44.9 Chronic diastolic heart failure I50.32 Allergies levofloxacin [From Levaquin] Allergy (Verified 06/10/18 09:52) Hives Penicillins [PCN] Allergy (Verified 06/10/18 09:52) Hives atorvastatin [From Lipitor] Adverse Reaction (Verified 06/10/18 09:52) Other Home Medications: Ambulatory Orders Medication Instructions Recorded Albuterol Inhaler [Ventolin Hfa] 2 puff INHALATION Q4H PRN PRN 08/04/16 Clopidogrel Bisulfate [Plavix] 75 mg PO DAILY 08/04/16 [place]-3 Fatty Acids [Fish Oil] 1,290 mg PO DAILY 03/30/17 Ubidecarenone [Coq10] 100 mg PO DAILY 03/30/17 cholecalciferol (vitamin D3) 5,000 2,000 unit PO DAILY cap 11/30/17 unit capsule budesonide 0.5 mg/2 mL suspension 0.5 mg INHALATION Q12H #120 ml 02/15/18 for nebulization ipratropium-albuterol 0.5 mg-3 3 ml INHALATION Q6HWA.RT #360 ml 02/15/18 mg(2.5 mg base)/3 mL nebulization soln Aspirin [Aspirin, Baby] 81 mg PO DAILY@0800 05/20/18 Acetaminophen [Tylenol] 1,000 mg PO Q8H PRN PRN tab 05/31/18 Amiodarone HCl [Cordarone] 200 mg PO DAILY #30 tab 05/31/18 Potassium Chloride [K-Dur] 20 meq PO DAILYCM #30 tab 05/31/18 furosemide 20 mg tablet 20 mg PO BIDLX #60 tab 06/10/18 losartan 100 mg tablet 100 mg PO DAILY #90 tab 06/10/18 metformin 500 mg tablet 500 mg PO BID #180 tab 06/10/18 metoprolol tartrate 25 mg tablet 12.5 mg PO BID #90 tab 06/10/18 pantoprazole 20 mg tablet,delayed 20 mg PO DAILY #90 tab 06/10/18 release polysaccharide iron complex 150 mg 150 mg PO DAILYCM #90 cap 06/10/18 iron capsule Surgical History: Surgical History (Last Reviewed 06/10/18 @ 08:33 by Indy White) History of cholecystectomy (Resolved) Z98.890, Z90.49 H/O hernia repair (Resolved) Z98.890, Z87.19 History of appendectomy (Resolved) Z98.890, Z90.49 Hx of CABG (Chronic) Z95.1 Status post coronary artery bypass graft (Chronic) Z95.1 Surgical History: appendectomy, cholecystectomy, coronary bypass surgery, herniorrhaphy, - - Carotid endarterectomy Psychiatric History: No pertinent psych hx Smoking Status: Former smoker - *Family History Maternal Family History: Family History (Last Reviewed 06/10/18 @ 08:33 by Indy White) Mother Cancer Father Hypertension History Items: No pertinent history Paternal Family History: Family History (Last Reviewed 06/10/18 @ 08:33 by Indy White) Mother Cancer Father Hypertension History Items: No pertinent history Review of Systems Constitutional: Reports: Fever, Weakness, Fatigue Cardiovascular: Reports: Orthopnea. Denies: Chest Pain, Edema Respiratory: Reports: Cough, Shortness of Breath, Shortness of breath at rest, Wheezing. Denies: Hemoptysis, Pleuritic Pain Gastrointestinal: Denies: Abdominal Pain Skin: Reports: Lesions, Rash Psychiatric: Denies: Anxiety Hematologic/ Lymphatic: Reports: Petechiae VTE Information - Inpt Only VTE Present on Admission: Yes VTE Mechan Device Prophylaxis: None VTE Pharm Prophylaxis ordered?: Yes Patient Problems: Active and Suspected Problems (Last Updated 06/10/18 @ 09:58 by Nimisha Dickens) Acute on chronic respiratory failure with hypoxia and hypercapnia (Acute) - Physical Exam General: Alert, Oriented x3, Cooperative, - - acutely ill looking and in severe respiratory distress, on bipap and using accessory muscles of respiartion HEENT: Atraumatic, Normocephalic Oral: Dry Mucosa Neck: Supple Lungs: Diminished, Rales, Short of Breath - markedly diminished air flow and air entry, fine crackles in the right lung base, Tachypneic, Using Accessory Muscles Cardiovascular: Regular rate, Regular Rhythm, Normal S1, Normal S2, No murmurs, No rub noted, No Gallop, - - distant heart sounds Extremities: No edema, - - petechiae and in both legs, more distally, ecchymoses on medial aspect of left foot Skin: - - petechiae and ecchymoses Neurological: Neuro grossly intact Psych/Mental Status: Normal Affect, Appropriate, Agitated, Anxious, Restless Weight: 82.7 kg Body Mass Index (BMI) 29.4 Finger Stick Blood Glucose 149 Laboratory Tests Past 24 Hrs 06/19/18 10:15 MRSA (PCR) Pending Assessment/Plan All Active Problems (Last Reviewed 06/10/18 @ 08:33 by Indy White) Acute on chronic respiratory failure with hypoxia and hypercapnia (Acute) Shortness of breath (Acute) NSTEMI (non-ST elevated myocardial infarction) (Acute) COPD exacerbation (Acute) Acute and chronic respiratory failure (Acute) Thrush, oral (Acute) Irregular heart beat (Acute) History of cholecystectomy (Resolved) H/O hernia repair (Resolved) History of appendectomy (Resolved) 1. Acute on chronic hypercapnic and hypoxic respiratory failure with respiratory acidosis. Patient started on Bipap and to be transitions to AVAP per pulmonology/critical care Patient is DNRCCA/DNI. Continue on tele and continuous pulse Ox monitoring 2. Severe COPD exacerbation. Nebulized aerosols, IV abx, steroids, mucolytics 3. Possible acute on chronic diastolic CHF. Will continue with diuresis Check echo. Monitor electrolytes and renal function 4. DM2. Continue home regimen of treatment 5. CAD s/p CABG. stable 6. HTN. BP fairly well controlled Code Visit Inpatient E&M: 24926 Init Hosp L3
[2018-06-19] MEDS: Albuterol 2.5 MG/3 ML VIAL.NEB. INHALATION (11:05)
[2018-06-19 11:51] LABS: Allen Test POS; Base Excess 5 mmol/L (-2 to +2); Bicarbonate 32.4 mmol/L (22-26); Blood Gas Specimen Type ART; EPAP 10; PO2 98 mmHG (75-100); RR 12; SITE R Radial; SO2 96 % (95-99); Time Given 1140; Total Carbon Dioxide 35 mmol/L; pCO2 78.2 mmHg (35-45); pH 7.23 (7.35-7.45)
--- NOTE | 2018-06-19 12:36 | CASEMGMT ---
DAYAN HENDRIX assessment completed. DC PLAN: undetermined. - spoke with CM re: Palliative vs Hospice care. The Home Health Agency [facility] also has Pall/Hosp services, but pt has not signed up for Palliative Care yet. and daughter do NOT wish referral to [facility] be made. -RN SIMEON discussed both Palliative and Hospice including Hospice focus on comfort care without aggressive treatments. and daughter both are considering, and if they would like to speak with chemical sales representative-their preference is to go through [facility] ([phone]), [facility] which provides his home health. -DAYAN HENDRIX also discussed options for SNF if pt would need on dc. [facility] is [facility] if [facility]F is recommended. Referral would be made by CM earliest Thursday, Jun 22, 2018 if this becomes DC Plan. -[facility] is current home health agency. ([facility]) PHONE: [phone] FAX: [phone] -call made to orthodontic lab technician nurse to notify of pt admission. Update to nurse Cecile. Henry BRADFORDN RN ACM
[2018-06-19 13:01] LABS: Bedside Glucose 286 mg/dL (70-110)
[2018-06-19 13:30] LABS: M R Staph aureus DNA By PCR Negative (Negative); Probe Check PASS; Specimen Processing Control PASS
--- NOTE | 2018-06-19 13:58 | NURSING ---
Pt's Vannesa gives permission for daughter, Amber Cifuentes to call in and check on pt. Her number is [phone].
[2018-06-19] MEDS: 0.9% NaCl Peripheral Flush Adult/Peds IV ×2 (14:03→17:42)
[2018-06-19] MEDS: Enoxaparin 40 MG/0.4 ML Syringe SC (14:03)
[2018-06-19] MEDS: Metoprolol Tartrate 25 MG Tablet 12.5 MG PO ×2 (14:05→21:37)
[2018-06-19] MEDS: Clopidogrel Bisulfate 75 MG Tablet PO (14:05)
[2018-06-19] MEDS: Amiodarone 200 MG Tablet PO (14:06)
[2018-06-19] MEDS: Aspirin 81 MG TAB.CHEW PO (14:06)
[2018-06-19] MEDS: guaiFENesin 1,200 MG Tablet 1200 MG PO ×2 (14:06→21:37)
[2018-06-19] MEDS: Ipratropium/Albuterol Sulfate 3 ML AMPUL.NEB INHALATION ×3 (15:00→22:34)
[2018-06-19 17:16] LABS: Allen Test POS; Base Excess 7 mmol/L (-2 to +2); Bicarbonate 32.5 mmol/L (22-26); Blood Gas Specimen Type ART; O2 Delivery Device Nasal Can; PO2 96 mmHG (75-100); SITE R Radial; SO2 97 % (95-99); Time Given 1700; Total Carbon Dioxide 34 mmol/L; pCO2 60.3 mmHg (35-45); pH 7.34 (7.35-7.45)
[2018-06-19] MEDS: Furosemide 40 MG/4 ML Vial IV (17:42)
[2018-06-19 18:11] LABS: Bedside Glucose 210 mg/dL (70-110)
[2018-06-20] VITALS (44 sets, daily range): BP systolic 95–159; BP diastolic 41–74; PULSE 66–99; RESP 12–30; TEMP 36.3–36.9; O2SAT 95–100
--- NOTE | 2018-06-20 01:53 | CPS ---
Decreased FIO2 to 25%
[2018-06-20] MEDS: Ipratropium/Albuterol Sulfate 3 ML AMPUL.NEB INHALATION ×6 (02:37→22:11)
[2018-06-20] MEDS: 0.9% NaCl Peripheral Flush Adult/Peds IV ×4 (05:09→21:39)
[2018-06-20 05:56] LABS: Absolute Neutrophil Count 12.2 X10^3/uL (2.0-7.7); Basophil# 0.01 X10^3/uL; Basophil% 0.1 % (0-1); Hematocrit 27.6 % (40-54); Hemoglobin 8.6 g/dl (13.0-16.5); Lymphocyte % 4.6 % (19-41); Mean Corp Hgb Conc 31.2 g/gl (32-36); Mean Corpuscular Hgb 28.6 pg (27.0-32.0); Mean Corpuscular Volume 91.7 fL (80-94); Mean Platelet Vol. 11.1 fl (6.2-12.0); Monocyte# 0.25 X10^3/uL; Monocyte% 1.9 % (0-10); Neutrophil # 12.18 X10^3/uL (2.7-7.7); Neutrophil % 93.2 % (47-70); Platelet Count 263 K/mm3 (150-450); RBC Distribution Width CV 14.1 % (11.6-14.6); RBC Distribution Width SD 45.9 fl (35.1-43.9); Red Blood Count 3.01 M/mm3 (4.6-6.2); White Blood Count 13.1 K/mm3 (4.4-11.0)
[2018-06-20 05:58] LABS: Anion Gap 12 (5-15); BUN 44 mg/dL (7-18); Calcium,Total 8.6 mg/dL (8.5-10.1); Chloride 98 mmol/L (98-107); EST Glomerular Filtration Rate 34 mL/min (>60); Est Glom Filt Rate - Afr Amer 42 mL/min (>60); Estimated Creatinine Clearance 27.03 ml/min; Glucose 209 mg/dL (74-106); Potassium 4.6 mmol/L (3.5-5.1); Sodium Level 142 mmol/L (136-145)
[2018-06-20 05:59] LABS: POSITIVE COUNT NO; POSITIVE DIFFERENTIAL YES; POSITIVE MORPHOLOGY NO
[2018-06-20 06:00] LABS: Differential Indicated SCAN CRITERIA MET
--- NOTE | 2018-06-20 07:53 | PCM.CON.CC ---
Reason for Consult Date of Consultation: 06/20/18 Reason for Consultation: Acute on chronic respiratory failure History of Present Illness: The patient is a 78-year-old male, with a history as outlined below, who presented as a transfer of care from [facility] on June 19 with worsening shortness of breath that began rather acutely. He also reports the presence of a nonproductive cough. The patient utilizes scheduled twice daily budesonide along with scheduled DuoNeb's and as needed albuterol in his home environment. The patient follows with me in the pulmonary medicine clinic and has a history of end-stage COPD and chronic hypoxemic respiratory failure. He is on a maximal triple therapy regimen and utilizes a trilogy noninvasive ventilator in his home environment. The patient has an approximate [id number] smoking history, having quit completely in 1998. He has baseline, chronic hypoxemic respiratory failure with a 4 L/min baseline supplemental oxygen requirement. He also has evidence of several small sub-some subcentimeter left lung nodules, which were noted on a CT chest obtained through [facility] in June 2016. The patient reportedly has a history of previous chest scans demonstrating similar sized pulmonary nodules. In fact, the patient also has a negative PET scan. The patient did complete pulmonary rehabilitation in October 2016. Pulmonary function testing completed in April 2017 revealed evidence of a partially reversible very severe large airways obstructive ventilatory defect with associated air trapping and reduction in diffusing capacity. During my last office visit with the patient, he was referred to be evaluated by palliative care. On April 03, 2018, the patient was evaluated by [facility]. At that time, DNR CC paperwork was completed and the patient was referred to the hospice admission team. However, upon further discussion with the patient and his son, he reports that he was interested in remaining active with palliative care but did not want to pursue hospice. He felt that he was being pressured towards enrollment in hospice and therefore fired [facility]. The patient was last admitted to the hospital May 20- with acute on chronic respiratory failure. He followed up in the pulmonary medicine clinic on June 10 with our nurse practitioner. Since that time, the patient has established care with a new palliative care team. Past Medical History Past Medical History (Chronic Problems): Chronic Problems (Last Updated 06/10/18 @ 09:58 by Nimisha Dickens) Acute on chronic diastolic heart failure (Chronic) Stroke (Chronic) Hx of CABG (Chronic) Severe chronic obstructive pulmonary disease (Chronic) Dyspnea on exertion (Chronic) Lung nodule (Chronic) Hypoxia (Chronic) Chronic hypoxemic respiratory failure (Chronic) LUIS (obstructive sleep apnea) (Chronic) Fatigue (Chronic) Sarcoidosis (Chronic) Pulmonary hypertension, mild (Chronic) Stage 4 very severe COPD by GOLD classification (Chronic) Dyspnea (Chronic) History of CVA (cerebrovascular accident) (Chronic) Hypertension (Chronic) Chronic respiratory failure (Chronic) Type 2 diabetes mellitus (Chronic) Status post coronary artery bypass graft (Chronic) Coronary artery disease (Chronic) COPD (chronic obstructive pulmonary disease) (Chronic) Medical History: Medical History (Last Updated 06/10/18 @ 09:58 by Nimisha Dickens) Severe chronic obstructive pulmonary disease (Chronic) J44.9 Dyspnea on exertion (Chronic) R06.09 Lung nodule (Chronic) R91.1 Hypoxia (Chronic) R09.02 Chronic hypoxemic respiratory failure (Chronic) J96.11 LUIS (obstructive sleep apnea) (Chronic) G47.33 Fatigue (Chronic) R53.83 Sarcoidosis (Chronic) D86.9 Pulmonary hypertension, mild (Chronic) I27.20 Stage 4 very severe COPD by GOLD classification (Chronic) J44.9 Dyspnea (Chronic) R06.00 History of CVA (cerebrovascular accident) (Chronic) Z86.73 Hypertension (Chronic) I10 Chronic respiratory failure (Chronic) J96.10 Type 2 diabetes mellitus (Chronic) E11.9 Coronary artery disease (Chronic) I25.10 COPD (chronic obstructive pulmonary disease) (Chronic) J44.9 Chronic diastolic heart failure I50.32 Allergies levofloxacin [From Levaquin] Allergy (Verified 06/10/18 09:52) Hives Penicillins [PCN] Allergy (Verified 06/10/18 09:52) Hives atorvastatin [From Lipitor] Adverse Reaction (Verified 06/10/18 09:52) Other Home Medications: Ambulatory Orders Medication Instructions Recorded Albuterol Inhaler [Ventolin Hfa] 2 puff INHALATION Q4H PRN PRN 08/04/16 Clopidogrel Bisulfate [Plavix] 75 mg PO DAILY 08/04/16 [place]-3 Fatty Acids [Fish Oil] 1,290 mg PO DAILY 03/30/17 Ubidecarenone [Coq10] 100 mg PO DAILY 03/30/17 cholecalciferol (vitamin D3) 5,000 2,000 unit PO DAILY cap 11/30/17 unit capsule budesonide 0.5 mg/2 mL suspension 0.5 mg INHALATION Q12H #120 ml 02/15/18 for nebulization ipratropium-albuterol 0.5 mg-3 3 ml INHALATION Q6HWA.RT #360 ml 02/15/18 mg(2.5 mg base)/3 mL nebulization soln Aspirin [Aspirin, Baby] 81 mg PO DAILY@0800 05/20/18 Amiodarone HCl [Cordarone] 200 mg PO DAILY #30 tab 05/31/18 furosemide 20 mg tablet 20 mg PO BIDLX #60 tab 06/10/18 losartan 100 mg tablet 100 mg PO DAILY #90 tab 06/10/18 metformin 500 mg tablet 500 mg PO BID #180 tab 06/10/18 metoprolol tartrate 25 mg tablet 12.5 mg PO BID #90 tab 06/10/18 pantoprazole 20 mg tablet,delayed 20 mg PO DAILY #90 tab 06/10/18 release polysaccharide iron complex 150 mg 150 mg PO DAILYCM #90 cap 06/10/18 iron capsule Potassium Chloride [K-Dur] 20 meq PO DAILYCM 06/19/18 Surgical History: Surgical History (Last Reviewed 06/10/18 @ 08:33 by Indy White) History of cholecystectomy (Resolved) Z98.890, Z90.49 H/O hernia repair (Resolved) Z98.890, Z87.19 History of appendectomy (Resolved) Z98.890, Z90.49 Hx of CABG (Chronic) Z95.1 Status post coronary artery bypass graft (Chronic) Z95.1 Surgical History: appendectomy, cholecystectomy, coronary bypass surgery, herniorrhaphy, - - Carotid endarterectomy Psychiatric History: No pertinent psych hx Smoking Status: Former smoker - *Family History Maternal Family History: Family History (Last Reviewed 06/10/18 @ 08:33 by Indy White) Mother Cancer Father Hypertension History Items: No pertinent history Paternal Family History: Family History (Last Reviewed 06/10/18 @ 08:33 by Indy White) Mother Cancer Father Hypertension History Items: No pertinent history Review of Systems Constitutional: Denies: Chills, Fever Eyes: Denies: Blurred vision, Double vision HEENT: Denies: Head Aches, Sinus Congestion, Sinus Drainage Cardiovascular: Denies: Chest Pain, Palpitations Respiratory: Reports: Cough, Shortness of Breath. Denies: Sputum production Gastrointestinal: Denies: Abdominal Pain, Nausea, Vomiting Genitourinary: Reports: Retention Musculoskeletal: Denies: Joint Pain, Joint Tenderness Skin: Denies: Rash, Wounds Neurological: Denies: Numbness, Tingling, Focal weakness Psychiatric: Reports: Anxiety Hematologic/ Lymphatic: Denies: Easy Bruising, Easy Bleeding Patient Problems: Active and Suspected Problems (Last Updated 06/10/18 @ 09:58 by Nimisha Dickens) Acute on chronic respiratory failure with hypoxia and hypercapnia (Acute) Objective: The patient's most recent lab work, culture data and imaging studies have all been personally reviewed. - Physical Exam General: Alert, Oriented x3, Cooperative, No apparent distress HEENT: Atraumatic, PERRLA, Normocephalic Oral: No Gingival or Mucosal Lesions/ Ulcerations Neck: Supple, No Nodes, Trachea Midline Lungs: Diminished, - - Faint bibasilar rales present. Globally diminished air movement throughout all lung mccoy. No conversational dyspnea. Cardiovascular: Regular rate, Regular Rhythm, Normal S1, Normal S2, No murmurs Abdomen: Bowel Sounds Present, Soft, Non Tender, Obese Extremities: No cyanosis, Clubbing, - - Trace pedal edema present Skin: No breakdown Musculoskeletal: No Muscle Wasting Lymphatic: No Cervical, Supraclavicular, or Inguinal Adenopathy Neurological: Neuro grossly intact Psych/Mental Status: Alert and oriented to time, place, person, mood and affect Vital Signs Temp Pulse Resp BP Pulse Ox 98.1 F 79 21 H 136/63 H 97 06/20/18 00:00 06/20/18 07:00 06/20/18 07:00 06/20/18 07:00 06/20/18 07:00 Oxygen Flow Rate (L/min) 4 Oxygen Delivery Method Bi-pap Weight: 181 lb 10.574 oz Body Mass Index (BMI) 29.4 Finger Stick Blood Glucose 149 Intake and Output for Last 24 Hours 06/18/18 06/19/18 06/20/18 23:59 23:59 23:59 Intake Total 210 / 210 90 / 90 Output Total 300 / 300 750 / 750 Balance -90 / -90 -660 / -660 Laboratory Tests Past 24 Hrs 06/19/18 06/19/18 06/19/18 10:15 11:41 17:08 WBC RBC Hgb Hct MCV MCH MCHC RDW RDW Differential Plt Count MPV Immature Gran % (Auto) Neut % (Auto) Lymph % (Auto) [place] % (Auto) Eos % (Auto) Baso % (Auto) Absolute Neuts (auto) Absolute Lymphs (auto) Total Counted Specimen Type ART ART Sample Site R Radial R Radial pH 7.23 L 7.34 L Bicarbonate Actual 32.4 H 32.5 H POC Total CO2 35 34 Base Excess 5 H 7 H O2 Saturation 96 97 ABG pCO2 78.2 H* 60.3 H ABG pO2 98 96 Steven Test POS POS Respiration Rate 12 O2 Delivery Device Bi / C PAP Nasal Can Liter Flow 4.0 EPAP 10 Blood Gas Notified Whom HOSP ICU Blood Gas Notified Time 1140 1700 Sodium Potassium Chloride Carbon Dioxide Anion Gap BUN Creatinine Estim Creat Clear Calc Est GFR (MDRD) Af Amer Est GFR (MDRD) Non-Af BUN/Creatinine Ratio Glucose Calcium MRSA (PCR) Negative 06/20/18 06/20/18 05:12 05:12 WBC 13.1 H RBC 3.01 L Hgb 8.6 L Hct 27.6 L MCV 91.7 MCH 28.6 MCHC 31.2 L RDW 14.1 RDW Differential 45.9 H Plt Count 263 MPV 11.1 Immature Gran % (Auto) 0.200 Neut % (Auto) 93.2 H Lymph % (Auto) 4.6 L [place] % (Auto) 1.9 Eos % (Auto) 0.0 Baso % (Auto) 0.1 Absolute Neuts (auto) 12.2 H Absolute Lymphs (auto) 0.60 L Total Counted Not Reportable Specimen Type Sample Site pH Bicarbonate Actual POC Total CO2 Base Excess O2 Saturation ABG pCO2 ABG pO2 Steven Test Respiration Rate O2 Delivery Device Liter Flow EPAP Blood Gas Notified Whom Blood Gas Notified Time Sodium 142 Potassium 4.6 Chloride 98 Carbon Dioxide 32.0 Anion Gap 12 BUN 44 H Creatinine 2.00 H Estim Creat Clear Calc 27.03 Est GFR (MDRD) Af Amer 42 L Est GFR (MDRD) Non-Af 34 L BUN/Creatinine Ratio 22.0 H Glucose 209 H Calcium 8.6 MRSA (PCR) POC Glucose 06/19/18 06/19/18 17:38 12:56 POC Glucose 210 H 286 H Clinical Impression(s) from Imaging Studies Chest X-Ray 06/19/18 11:50 IMPRESSION: COPD with lower lung infiltrates or edema. Electronically Signed: Rell Golden MD at 12:25 EDT , Service support , Assessment/Plan Active and Suspected Problems (Last Updated 06/10/18 @ 09:58 by Nimisha Dickens) Acute on chronic respiratory failure with hypoxia and hypercapnia (Acute) RECOMMENDATIONS: 1. Transition to IV cefepime as monotherapy. 2. Continue scheduled bronchodilators and steroids. 3. Check strep and urine Legionella antigens, along with respiratory viral panel. 4. Continue AVAPS as needed throughout the day and with sleeping. 5. Check troponin and BNP. IMPRESSIONS: 1. Acute on chronic hypoxemic and hypercarbic respiratory failure/end-stage COPD The patient does have a history of end-stage COPD and chronic hypoxemic respiratory failure, for which he utilizes a trilogy noninvasive ventilator in his home environment. He is on maximal therapy from a COPD perspective and has already completed pulmonary rehabilitation. He is not a candidate for lung transplantation. The patient is once again enrolled with palliative care. However, he has been reluctant to proceed with enrollment in hospice care. His CODE STATUS is DNR CCA without plans for intubation. At the present time, I have a low clinical index of suspicion for an underlying pulmonary infectious process. However, I will continue IV cefepime empirically while a preliminary infectious workup is completed. Will check strep and urine Legionella antigens, along with respiratory viral panel. Scheduled bronchodilators and steroids will be continued. 2. Coronary artery disease status post CABG Continue baseline cardiac medications per outpatient regimen. Clinical concern for underlying cardiac etiology for the patient's presentation. Will check troponin levels and BNP. 3. Hypertension/diabetes/hyperlipidemia Complicates care, management, recovery and prognosis. Likely okay to continue home medications as indicated. This note was generated with [employer] software. It may contain incorrect words, spelling, and punctuation that were not noted in checking the note before signing. Code Visit Inpatient E&M: 13933 Init Hosp L3
[2018-06-20] MEDS: Insulin Lispro 100 UNIT/ML INSULN.PEN SC ×4 (08:35→21:42)
[2018-06-20] MEDS: Aspirin 81 MG TAB.CHEW PO (08:36)
[2018-06-20 08:50] LABS: BNP,B-Type NATRIURETIC PEPTIDE 900.5 pg/mL (0-100)
[2018-06-20 08:55] LABS: Bedside Glucose 226 mg/dL (70-110)
[2018-06-20] MEDS: Losartan Potassium 100 MG Tablet PO (10:34)
[2018-06-20] MEDS: guaiFENesin 1,200 MG Tablet 1200 MG PO ×2 (10:34→21:41)
[2018-06-20] MEDS: Metoprolol Tartrate 25 MG Tablet 12.5 MG PO ×2 (10:34→21:40)
[2018-06-20] MEDS: Clopidogrel Bisulfate 75 MG Tablet PO (10:35)
[2018-06-20] MEDS: Enoxaparin 40 MG/0.4 ML Syringe SC (10:35)
[2018-06-20] MEDS: Furosemide 40 MG/4 ML Vial IV ×2 (10:35→17:05)
[2018-06-20] MEDS: Amiodarone 200 MG Tablet PO (10:35)
[2018-06-20 11:55] LABS: Bedside Glucose 366 mg/dL (70-110)
--- NOTE | 2018-06-20 14:26 | PCM.PN.HOSP ---
Patient Problems: Active and Suspected Problems (Last Updated 06/10/18 @ 09:58 by Nimisha Dickens) Acute on chronic respiratory failure with hypoxia and hypercapnia (Acute) Subjective: f/u fpr COPD exacerbation and respiratory failure Patient seen and examined Doing and feeling better Still requiring NIPPV on and off Vitals/I&O's: Vital Signs Temp Pulse Resp BP Pulse Ox 98.3 F 82 27 H 126/50 H 99 06/20/18 14:00 06/20/18 14:00 06/20/18 14:00 06/20/18 14:00 06/20/18 14:00 Oxygen Flow Rate (L/min) 3 Oxygen Delivery Method Nasal Cannula Weight: 82.4 kg Body Mass Index (BMI) 29.4 Finger Stick Blood Glucose 149 Intake and Output for Last 24 Hours 06/18/18 06/19/18 06/20/18 23:59 23:59 23:59 Intake Total 210 / 210 430 / 430 Output Total 300 / 300 1275 / 1275 Balance -90 / -90 -845 / -845 General: Alert, Oriented x3, Cooperative - dyspnec at rest HEENT: Atraumatic Oral: Dry Mucosa Neck: Supple, No JVD Lungs: Diminished, Short of Breath - less rhonchi and air entry is improved, no crackles heard, Tachypneic Cardiovascular: Regular rate, Regular Rhythm, Normal S1, Normal S2, No murmurs Abdomen: Non-Distended, Obese Neurological: Cranial nerves II-XII grossly intact, Neuro grossly intact Psych/Mental Status: Normal Affect, Appropriate, Alert and oriented to time, place, person, mood and affect Microbiology Past 72 Hours 06/20/18 12:50 Urine, Random Streptococcus pneumoniae Antigen (M - Final 06/20/18 12:50 Urine, Random Legionella Antigen - Final 06/20/18 09:25 Mucosa - Nasopharyngeal Respiratory Panel (PCR) - Final Laboratory Results 06/19/18 17:08: Specimen Type ART, Sample Site R Radial, pH 7.34 L, Bicarbonate Actual 32.5 H, POC Total CO2 34, Base Excess 7 H, O2 Saturation 97, ABG pCO2 60.3 H, ABG pO2 96, Steven Test POS, O2 Delivery Device Nasal Can, Liter Flow 4.0, Blood Gas Notified Whom ICU , Blood Gas Notified Time 1700 06/19/18 17:38: POC Glucose 210 H 06/20/18 05:12: WBC 13.1 H, RBC 3.01 L, Hgb 8.6 L, Hct 27.6 L, MCV 91.7, MCH 28.6, MCHC 31.2 L, RDW 14.1, RDW Differential 45.9 H, Plt Count 263, MPV 11.1, Immature Gran % (Auto) 0.200, Neut % (Auto) 93.2 H, Lymph % (Auto) 4.6 L, Nelson % (Auto) 1.9, Eos % (Auto) 0.0, Baso % (Auto) 0.1, Absolute Neuts (auto) 12.2 H, Absolute Lymphs (auto) 0.60 L, Total Counted Not Reportable 06/20/18 05:12: Sodium 142, Potassium 4.6, Chloride 98, Carbon Dioxide 32.0, Anion Gap 12, BUN 44 H, Creatinine 2.00 H, Estim Creat Clear Calc 27.03, Est GFR (MDRD) Af Amer 42 L, Est GFR (MDRD) Non-Af 34 L, BUN/Creatinine Ratio 22.0 H, Glucose 209 H, Calcium 8.6 06/20/18 05:12: Troponin I 0.222 H 06/20/18 05:12: B-Natriuretic Peptide 900.5 H 06/20/18 08:31: POC Glucose 226 H 06/20/18 11:42: POC Glucose 366 H Current Medications Albuterol Sulfate (Ventolin Aerosols) 2.5 mg INHALATION Q2H PRN PRN PRN Reason: SHORTNESS OF BREATH Last Admin: 06/19/18 11:05 Dose: 2.5 mg Albuterol/Ipratropium (Duoneb) 3 ml INHALATION Q4H.RT [facility] Last Admin: 06/20/18 10:47 Dose: 3 ml Amiodarone HCl (Cordarone) 200 mg PO DAILY [facility] Last Admin: 06/20/18 10:35 Dose: 200 mg Aspirin (Aspirin, Baby) 81 mg PO DAILY@0800 [facility] Last Admin: 06/20/18 08:36 Dose: 81 mg Clopidogrel Bisulfate (Plavix) 75 mg PO DAILY [facility] Last Admin: 06/20/18 10:35 Dose: 75 mg Enoxaparin Sodium (Lovenox) 40 mg SC DAILY@1000 [facility] Last Admin: 06/20/18 10:35 Dose: 40 mg Furosemide (Lasix) 40 mg IV BID@1000,1800 [facility] Last Admin: 06/20/18 10:35 Dose: 40 mg Guaifenesin (Mucinex) 1,200 mg PO BID [facility] Last Admin: 06/20/18 10:34 Dose: 1,200 mg Sodium Chloride () 250 mls @ 15 mls/hr IV .[id number] PRN PRN Reason: SALINE FLUSH Cefepime HCl 2 gm/ Sodium (Chloride) 100 mls @ 200 mls/hr IV Q12 [facility] Last Admin: 06/20/18 10:34 Dose: 200 mls/hr Insulin Human Lispro (Humalog Kwikpen (Bkc)) 0 unit SC ACHS [facility] PRN Reason: Protocol Last Admin: 06/20/18 11:51 Dose: 6 u Losartan Potassium (Cozaar) 100 mg PO DAILY [facility] Last Admin: 06/20/18 10:34 Dose: 100 mg Magnesium Hydroxide (Milk Of Magnesia) 30 ml PO DAILY PRN PRN PRN Reason: Constipation [facility] Last Admin: 06/20/18 08:36 Dose: 500 mg Methylprednisolone (Solu-Medrol) 40 mg IV Q8 [facility] Last Admin: 06/20/18 14:17 Dose: 40 mg Metoprolol Tartrate (Lopressor (Beta Jr)) 12.5 mg PO BID [facility] Last Admin: 06/20/18 10:34 Dose: 12.5 mg Morphine Sulfate () 1 - 2 mg IV Q4H PRN PRN PRN Reason: Moderate Pain (pain scale 4-5) Potassium Chloride (K-Dur) [facility] Last Admin: 06/20/18 09:54 Dose: 20 meq Sodium Chloride () 5 - 30 ml IV UD PRN PRN Reason: SALINE FLUSH Last Admin: 06/20/18 10:35 Dose: 10 ml Medical Necessity - Tobacco Use Smoking Status: Former smoker Assessment/Plan All Active Problems (Last Reviewed 06/10/18 @ 08:33 by Indy White) Acute on chronic respiratory failure with hypoxia and hypercapnia (Acute) Shortness of breath (Acute) NSTEMI (non-ST elevated myocardial infarction) (Acute) COPD exacerbation (Acute) Acute and chronic respiratory failure (Acute) Thrush, oral (Acute) Irregular heart beat (Acute) History of cholecystectomy (Resolved) H/O hernia repair (Resolved) History of appendectomy (Resolved) 1. Acute on chronic hypercapnic and hypoxic respiratory failure with respiratory acidosis. Resolving and repeat ABGs near normal Will continue NIPPV intermittently as tolerated Patient is DNRCCA/DNI. Continue on tele and continuous pulse Ox monitoring Possible transfer out of ICU to PCU tomorrow if continues to improve. Appreciate input from critical care immensely 2. Severe COPD exacerbation. Improving. Will continue nebulized aerosols, IV abx, steroids, mucolytics. 3. Possible acute on chronic diastolic CHF. If at all was likely mild. Will stop IV lasix and resume po tomorrow 4. DM2. Fairly well controlled. Started on SSI. Continue other home regimen of metformin. 5. CAD s/p CABG. stable 6. HTN. BP fairly well controlled Code Visit Inpatient E&M: 58834 Subs Hosp L2
[2018-06-20 17:05] LABS: Bedside Glucose 273 mg/dL (70-110)
[2018-06-20 21:55] LABS: Bedside Glucose 241 mg/dL (70-110)
[2018-06-21] VITALS (30 sets, daily range): BP systolic 127–170; BP diastolic 45–98; PULSE 66–110; RESP 12–32; TEMP 36.3–36.9; O2SAT 97–99
[2018-06-21] MEDS: Ipratropium/Albuterol Sulfate 3 ML AMPUL.NEB INHALATION ×6 (02:11→22:13)
[2018-06-21 06:00] LABS: Anion Gap 13 (5-15); BUN 59 mg/dL (7-18); BUN/Creat Ratio 28.5 RATIO (10-20); Calcium,Total 8.9 mg/dL (8.5-10.1); Chloride 99 mmol/L (98-107); Creatinine, Serum 2.07 mg/dL (0.70-1.30); EST Glomerular Filtration Rate 33 mL/min (>60); Est Glom Filt Rate - Afr Amer 40 mL/min (>60); Estimated Creatinine Clearance 26.11 ml/min; Glucose 224 mg/dL (74-106); Magnesium 2.4 mg/dL (1.6-2.6); Phosphorus 3.1 mg/dL (2.5-4.9); Potassium 4.8 mmol/L (3.5-5.1); Sodium Level 143 mmol/L (136-145)
[2018-06-21 06:01] LABS: Bedside Glucose 243 mg/dL (70-110)
[2018-06-21 06:20] LABS: Absolute Lymphocyte Count 0.55 X10^3/ul (0.83-4.51); Absolute Neutrophil Count 11.3 X10^3/uL (2.0-7.7); Basophil# 0.01 X10^3/uL; Basophil% 0.1 % (0-1); Hematocrit 25.1 % (40-54); Hemoglobin 7.6 g/dl (13.0-16.5); Lymphocyte # 0.55 X10^3/ul (4.0); Lymphocyte % 4.5 % (19-41); Mean Corp Hgb Conc 30.3 g/gl (32-36); Mean Corpuscular Volume 92.6 fL (80-94); Mean Platelet Vol. 11.4 fl (6.2-12.0); Monocyte# 0.37 X10^3/uL; Neutrophil # 11.33 X10^3/uL (2.7-7.7); Neutrophil % 92.1 % (47-70); Platelet Count 259 K/mm3 (150-450); RBC Distribution Width CV 14.1 % (11.6-14.6); RBC Distribution Width SD 46.4 fl (35.1-43.9); Red Blood Count 2.71 M/mm3 (4.6-6.2); White Blood Count 12.3 K/mm3 (4.4-11.0)
--- NOTE | 2018-06-21 06:25 | PCM.PN.INT ---
Subjective: The patient was seen and examined at the bedside this morning. Events from the last 24 hours have been reviewed. The patient is currently afebrile, hemodynamically stable and maintaining appropriate oxygen saturations on AVAPS. When not utilizing noninvasive positive pressure ventilation, the patient is able to maintain oxygen saturations on 3 L/min via nasal cannula. Objective: The patient's most recent lab work, culture data and imaging studies have all been personally reviewed. Strep and urine Legionella antigens are both negative. Respiratory viral panel was negative. Troponin was increased to 0.22 and BNP was increased to 900. General: Alert, Oriented x3, Cooperative, No apparent distress HEENT: Atraumatic, PERRLA, Normocephalic Oral: No Gingival or Mucosal Lesions/ Ulcerations Neck: Supple, No Nodes, Trachea Midline Lungs: - - Globally diminished air movement throughout all lung mccoy with bibasilar rales present. Cardiovascular: Regular rate, Regular Rhythm, Normal S1, Normal S2, No murmurs Abdomen: Bowel Sounds Present, Soft, Non Tender Extremities: No cyanosis, Clubbing, Edema Skin: - - No significant change from previous. Musculoskeletal: No Tenderness to Palpation of Joints or Extremities Lymphatic: No Cervical, Supraclavicular, or Inguinal Adenopathy Neurological: Neuro grossly intact Psych/Mental Status: Alert and oriented to time, place, person, mood and affect Vital Signs Temp Pulse Resp BP Pulse Ox 97.6 F L 79 23 H 142/56 H 98 06/21/18 04:00 06/21/18 05:00 06/21/18 05:50 06/21/18 05:00 06/21/18 05:00 Oxygen Flow Rate (L/min) 3 Oxygen Delivery Method Bi-pap Weight: 184 lb 1.376 oz Body Mass Index (BMI) 29.4 Finger Stick Blood Glucose 149 Intake and Output for Last 24 Hours 06/19/18 06/20/18 06/21/18 23:59 23:59 23:59 Intake Total 210 / 210 1059 / 1059 Output Total 300 / 300 1950 / 1950 200 / 200 Balance -90 / -90 -891 / -891 -200 / -200 Labs (Last 48 Hours) 06/19/18 06/19/18 06/19/18 10:15 11:41 12:56 WBC RBC Hgb Hct MCV MCH MCHC RDW RDW Differential Plt Count MPV Immature Gran % (Auto) Neut % (Auto) Lymph % (Auto) Sullivan % (Auto) Eos % (Auto) Baso % (Auto) Absolute Neuts (auto) Absolute Lymphs (auto) Total Counted Specimen Type ART Sample Site R Radial pH 7.23 L Bicarbonate Actual 32.4 H POC Total CO2 35 Base Excess 5 H O2 Saturation 96 ABG pCO2 78.2 H* ABG pO2 98 Steven Test POS Respiration Rate 12 O2 Delivery Device Bi / C PAP Liter Flow EPAP 10 Blood Gas Notified Whom HOSP MD Blood Gas Notified Time 1140 Sodium Potassium Chloride Carbon Dioxide Anion Gap BUN Creatinine Estim Creat Clear Calc Est GFR (MDRD) Af Amer Est GFR (MDRD) Non-Af BUN/Creatinine Ratio Glucose Calcium Phosphorus Magnesium Troponin I B-Natriuretic Peptide MRSA (PCR) Negative POC Glucose 286 H 06/19/18 06/19/18 06/20/18 17:08 17:38 05:12 WBC 13.1 H RBC 3.01 L Hgb 8.6 L Hct 27.6 L MCV 91.7 MCH 28.6 MCHC 31.2 L RDW 14.1 RDW Differential 45.9 H Plt Count 263 MPV 11.1 Immature Gran % (Auto) 0.200 Neut % (Auto) 93.2 H Lymph % (Auto) 4.6 L Sullivan % (Auto) 1.9 Eos % (Auto) 0.0 Baso % (Auto) 0.1 Absolute Neuts (auto) 12.2 H Absolute Lymphs (auto) 0.60 L Total Counted Not Reportable Specimen Type ART Sample Site R Radial pH 7.34 L Bicarbonate Actual 32.5 H POC Total CO2 34 Base Excess 7 H O2 Saturation 97 ABG pCO2 60.3 H ABG pO2 96 Steven Test POS Respiration Rate O2 Delivery Device Nasal Can Liter Flow 4.0 EPAP Blood Gas Notified Whom ICU MD Blood Gas Notified Time 1700 Sodium Potassium Chloride Carbon Dioxide Anion Gap BUN Creatinine Estim Creat Clear Calc Est GFR (MDRD) Af Amer Est GFR (MDRD) Non-Af BUN/Creatinine Ratio Glucose Calcium Phosphorus Magnesium Troponin I B-Natriuretic Peptide MRSA (PCR) POC Glucose 210 H 06/20/18 06/20/18 06/20/18 05:12 05:12 05:12 WBC RBC Hgb Hct MCV MCH MCHC RDW RDW Differential Plt Count MPV Immature Gran % (Auto) Neut % (Auto) Lymph % (Auto) Sullivan % (Auto) Eos % (Auto) Baso % (Auto) Absolute Neuts (auto) Absolute Lymphs (auto) Total Counted Specimen Type Sample Site pH Bicarbonate Actual POC Total CO2 Base Excess O2 Saturation ABG pCO2 ABG pO2 Steven Test Respiration Rate O2 Delivery Device Liter Flow EPAP Blood Gas Notified Whom Blood Gas Notified Time Sodium 142 Potassium 4.6 Chloride 98 Carbon Dioxide 32.0 Anion Gap 12 BUN 44 H Creatinine 2.00 H Estim Creat Clear Calc 27.03 Est GFR (MDRD) Af Amer 42 L Est GFR (MDRD) Non-Af 34 L BUN/Creatinine Ratio 22.0 H Glucose 209 H Calcium 8.6 Phosphorus Magnesium Troponin I 0.222 H B-Natriuretic Peptide 900.5 H MRSA (PCR) POC Glucose 06/20/18 06/20/18 06/20/18 08:31 11:42 16:58 WBC RBC Hgb Hct MCV MCH MCHC RDW RDW Differential Plt Count MPV Immature Gran % (Auto) Neut % (Auto) Lymph % (Auto) Sullivan % (Auto) Eos % (Auto) Baso % (Auto) Absolute Neuts (auto) Absolute Lymphs (auto) Total Counted Specimen Type Sample Site pH Bicarbonate Actual POC Total CO2 Base Excess O2 Saturation ABG pCO2 ABG pO2 Steven Test Respiration Rate O2 Delivery Device Liter Flow EPAP Blood Gas Notified Whom Blood Gas Notified Time Sodium Potassium Chloride Carbon Dioxide Anion Gap BUN Creatinine Estim Creat Clear Calc Est GFR (MDRD) Af Amer Est GFR (MDRD) Non-Af BUN/Creatinine Ratio Glucose Calcium Phosphorus Magnesium Troponin I B-Natriuretic Peptide MRSA (PCR) POC Glucose 226 H 366 H 273 H 06/20/18 06/21/18 06/21/18 21:39 04:33 04:33 WBC Pending RBC Pending Hgb Pending Hct Pending MCV Pending MCH Pending MCHC Pending RDW Pending RDW Differential Pending Plt Count Pending MPV Immature Gran % (Auto) Neut % (Auto) Pending Lymph % (Auto) Sullivan % (Auto) Eos % (Auto) Baso % (Auto) Absolute Neuts (auto) Pending Absolute Lymphs (auto) Total Counted Pending Specimen Type Sample Site pH Bicarbonate Actual POC Total CO2 Base Excess O2 Saturation ABG pCO2 ABG pO2 Steven Test Respiration Rate O2 Delivery Device Liter Flow EPAP Blood Gas Notified Whom Blood Gas Notified Time Sodium 143 Potassium 4.8 Chloride 99 Carbon Dioxide 31.0 Anion Gap 13 BUN 59 H Creatinine 2.07 H Estim Creat Clear Calc 26.11 Est GFR (MDRD) Af Amer 40 L Est GFR (MDRD) Non-Af 33 L BUN/Creatinine Ratio 28.5 H Glucose 224 H Calcium 8.9 Phosphorus 3.1 Magnesium 2.4 Troponin I B-Natriuretic Peptide MRSA (PCR) POC Glucose 241 H 06/21/18 05:58 WBC RBC Hgb Hct MCV MCH MCHC RDW RDW Differential Plt Count MPV Immature Gran % (Auto) Neut % (Auto) Lymph % (Auto) Sullivan % (Auto) Eos % (Auto) Baso % (Auto) Absolute Neuts (auto) Absolute Lymphs (auto) Total Counted Specimen Type Sample Site pH Bicarbonate Actual POC Total CO2 Base Excess O2 Saturation ABG pCO2 ABG pO2 Steven Test Respiration Rate O2 Delivery Device Liter Flow EPAP Blood Gas Notified Whom Blood Gas Notified Time Sodium Potassium Chloride Carbon Dioxide Anion Gap BUN Creatinine Estim Creat Clear Calc Est GFR (MDRD) Af Amer Est GFR (MDRD) Non-Af BUN/Creatinine Ratio Glucose Calcium Phosphorus Magnesium Troponin I B-Natriuretic Peptide MRSA (PCR) POC Glucose 243 H Microbiology 06/20/18 12:50 Urine, Random Streptococcus pneumoniae Antigen (M - Final 06/20/18 12:50 Urine, Random Legionella Antigen - Final 06/20/18 09:25 Mucosa - Nasopharyngeal Respiratory Panel (PCR) - Final Clinical Impression(s) from Imaging Studies Chest X-Ray 06/19/18 11:50 IMPRESSION: COPD with lower lung infiltrates or edema. Electronically Signed: Rell Golden MD at 12:25 EDT , Service support , Medical Necessity - Tobacco Use Smoking Status: Former smoker Assessment/Plan All Active Problems (Last Reviewed 06/10/18 @ 08:33 by Indy White) Acute on chronic respiratory failure with hypoxia and hypercapnia (Acute) Shortness of breath (Acute) NSTEMI (non-ST elevated myocardial infarction) (Acute) COPD exacerbation (Acute) Acute and chronic respiratory failure (Acute) Thrush, oral (Acute) Irregular heart beat (Acute) History of cholecystectomy (Resolved) H/O hernia repair (Resolved) History of appendectomy (Resolved) RECOMMENDATIONS: 1. Gentle IV diuresis 2. Antibiotics can be discontinued from my perspective 3. Continue scheduled bronchodilators along with IV steroids 4. Wean oxygen as tolerated and continue AVAPS as needed 5. Cardiology evaluation pending. IMPRESSIONS: 1. Acute on chronic hypoxemic and hypercarbic respiratory failure/end-stage COPD The patient does have a history of end-stage COPD and chronic hypoxemic respiratory failure, for which he utilizes a trilogy noninvasive ventilator in his home environment. He is on maximal therapy from a COPD perspective and has already completed pulmonary rehabilitation. He is not a candidate for lung transplantation. The patient is in need of re-enrollment with palliative care. However, he has been reluctant to proceed with enrollment in hospice care. His CODE STATUS is DNR CCA without plans for intubation. At the present time, I have a low clinical index of suspicion for an underlying pulmonary infectious process. Antibiotics can be discontinued from my perspective. The patient did have an elevated BNP and troponin level at presentation. Recommend gentle IV diuresis as tolerated. Cardiology evaluation is pending. The patient is doing well on his baseline supplemental oxygen requirement and should be continued on AVAPS as needed. Continue scheduled bronchodilators and steroids. 2. Coronary artery disease status post CABG Continue baseline cardiac medications per outpatient regimen. Clinical concern for underlying cardiac etiology for the patient's presentation. 3. Hypertension/diabetes/hyperlipidemia Complicates care, management, recovery and prognosis. Likely okay to continue home medications as indicated. This note was generated with [employer] dictation software. It may contain incorrect words, spelling, and punctuation that were not noted in checking the note before signing. DISPOSITION: The patient is medically stable for transfer out of the intensive care unit. Code Visit Inpatient E&M: 20022 Subs Hosp L3
[2018-06-21 06:39] LABS: Differential Indicated SCAN CRITERIA MET; POSITIVE COUNT NO; POSITIVE DIFFERENTIAL YES; POSITIVE MORPHOLOGY NO
[2018-06-21 06:45] LABS: Anisocytosis 2+; Differential Comment SCANNED; Hypochromasia 1+; Microcytosis 2+
--- NOTE | 2018-06-21 08:28 | PCM.PN.HOSP ---
Patient Problems: Active and Suspected Problems (Last Updated 06/10/18 @ 09:58 by Nimisha Dickens) Acute on chronic respiratory failure with hypoxia and hypercapnia (Acute) Subjective: More short of breath on nasal canula than on mask (despite SaO2 being 99-100%). C/O chest tightness, not aggravated by deep respirations. Vitals/I&O's: Vital Signs Temp Pulse Resp BP Pulse Ox 36.4 C L 78 16 170/78 H 98 06/21/18 04:00 06/21/18 08:01 06/21/18 08:01 06/21/18 07:00 06/21/18 08:01 Oxygen Flow Rate (L/min) 2 Oxygen Delivery Method Nasal Cannula Weight: 83.5 kg Body Mass Index (BMI) 29.4 Finger Stick Blood Glucose 149 Intake and Output for Last 24 Hours 06/19/18 06/20/18 06/21/18 23:59 23:59 23:59 Intake Total 210 / 210 1059 / 1059 Output Total 300 / 300 1950 / 1950 200 / 200 Balance -90 / -90 -891 / -891 -200 / -200 General: Alert, No apparent distress HEENT: Atraumatic, Normocephalic Oral: Moist Mucosa, No Gingival or Mucosal Lesions/ Ulcerations Neck: No Nodes, Thyroid Normal Size and Texture Lungs: Clear to auscultation, Diminished Cardiovascular: Regular rate, Regular Rhythm, Normal S1, Normal S2, No murmurs Abdomen: Bowel Sounds Present, Soft, Non Tender, Non-Distended, No Hepato-splenomegaly Extremities: No edema, No Calf Tenderness Skin: No rashes, No breakdown Musculoskeletal: No Tenderness to Palpation of Joints or Extremities, No Muscle Wasting Neurological: Muscle tone normal, Sensory exam intact to light touch and pain Psych/Mental Status: Normal Affect, Appropriate Microbiology Past 72 Hours 06/20/18 12:50 Urine, Random Streptococcus pneumoniae Antigen (M - Final 06/20/18 12:50 Urine, Random Legionella Antigen - Final 06/20/18 09:25 Mucosa - Nasopharyngeal Respiratory Panel (PCR) - Final Laboratory Results 06/20/18 05:12: Troponin I 0.222 H 06/20/18 05:12: B-Natriuretic Peptide 900.5 H 06/20/18 08:31: POC Glucose 226 H 06/20/18 11:42: POC Glucose 366 H 06/20/18 16:58: POC Glucose 273 H 06/20/18 21:39: POC Glucose 241 H 06/21/18 04:33: WBC 12.3 H, RBC 2.71 L, Hgb 7.6 L, Hct 25.1 L, MCV 92.6, MCH 28.0, MCHC 30.3 L, RDW 14.1, RDW Differential 46.4 H, Plt Count 259, MPV 11.4, Immature Gran % (Auto) 0.300, Neut % (Auto) 92.1 H, Lymph % (Auto) 4.5 L, Jones % (Auto) 3.0, Eos % (Auto) 0.0, Baso % (Auto) 0.1, Absolute Neuts (auto) 11.3 H, Absolute Lymphs (auto) 0.55 L, Total Counted Not Reportable, Differential Comment SCANNED, Hypochromasia 1+, Anisocytosis 2+, Microcytosis 2+ 06/21/18 04:33: Sodium 143, Potassium 4.8, Chloride 99, Carbon Dioxide 31.0, Anion Gap 13, BUN 59 H, Creatinine 2.07 H, Estim Creat Clear Calc 26.11, Est GFR (MDRD) Af Amer 40 L, Est GFR (MDRD) Non-Af 33 L, BUN/Creatinine Ratio 28.5 H, Glucose 224 H, Calcium 8.9, Phosphorus 3.1, Magnesium 2.4 06/21/18 04:33: Troponin I 0.159 H 06/21/18 05:58: POC Glucose 243 H Current Medications Albuterol Sulfate (Ventolin Aerosols) 2.5 mg INHALATION Q2H PRN PRN PRN Reason: SHORTNESS OF BREATH Last Admin: 06/19/18 11:05 Dose: 2.5 mg Albuterol/Ipratropium (Duoneb) 3 ml INHALATION Q4H.RT [facility] Last Admin: 06/21/18 08:01 Dose: 3 ml Amiodarone HCl (Cordarone) 200 mg PO DAILY [facility] Last Admin: 06/20/18 10:35 Dose: 200 mg Aspirin (Aspirin, Baby) 81 mg PO DAILY@0800 [facility] Last Admin: 06/20/18 08:36 Dose: 81 mg Clopidogrel Bisulfate (Plavix) 75 mg PO DAILY [facility] Last Admin: 06/20/18 10:35 Dose: 75 mg Enoxaparin Sodium (Lovenox) 40 mg SC DAILY@1000 [facility] Last Admin: 06/20/18 10:35 Dose: 40 mg Furosemide (Lasix) 40 mg IV BID@1000,1800 [facility] Last Admin: 06/20/18 17:05 Dose: 40 mg Guaifenesin (Mucinex) 1,200 mg PO BID [facility] Last Admin: 06/20/18 21:41 Dose: 1,200 mg Sodium Chloride () 250 mls @ 15 mls/hr IV .[id number] PRN PRN Reason: SALINE FLUSH Cefepime HCl 2 gm/ Sodium (Chloride) 100 mls @ 200 mls/hr IV Q12 [facility] Last Admin: 06/20/18 21:40 Dose: 200 mls/hr Insulin Human Lispro (Humalog Kwikpen (Bkc)) 0 unit SC ACHS [facility] PRN Reason: Protocol Last Admin: 06/20/18 21:42 Dose: 3 u Losartan Potassium (Cozaar) 100 mg PO DAILY [facility] Last Admin: 06/20/18 10:34 Dose: 100 mg Magnesium Hydroxide (Milk Of Magnesia) 30 ml PO DAILY PRN PRN PRN Reason: Constipation Metformin HCl (Glucophage) 500 mg PO BIDCM [facility] Last Admin: 06/20/18 17:04 Dose: 500 mg Methylprednisolone (Solu-Medrol) 40 mg IV Q8 [facility] Last Admin: 06/21/18 05:38 Dose: 40 mg Metoprolol Tartrate (Lopressor (Beta Jr)) 12.5 mg PO BID [facility] Last Admin: 06/20/18 21:40 Dose: 12.5 mg Morphine Sulfate () 1 - 2 mg IV Q4H PRN PRN PRN Reason: Moderate Pain (pain scale 4-5) Potassium Chloride (K-Dur) 20 meq PO DAILYCM [facility] Last Admin: 06/20/18 09:54 Dose: 20 meq Sodium Chloride () 5 - 30 ml IV UD PRN PRN Reason: SALINE FLUSH Last Admin: 06/20/18 21:39 Dose: 10 ml Medical Necessity - Tobacco Use Smoking Status: Former smoker Assessment/Plan All Active Problems (Last Reviewed 06/10/18 @ 08:33 by Indy White) Acute on chronic respiratory failure with hypoxia and hypercapnia (Acute) Shortness of breath (Acute) NSTEMI (non-ST elevated myocardial infarction) (Acute) COPD exacerbation (Acute) Acute and chronic respiratory failure (Acute) Thrush, oral (Acute) Irregular heart beat (Acute) History of cholecystectomy (Resolved) H/O hernia repair (Resolved) History of appendectomy (Resolved) 1. Acute on chronic hypercapnic respiratory failure. Improving maintaining sats on NC due to COPD exacerbation 2. Acute COPD exacerbation improving continue Solumedrol, BDs no evidence on PNA on CXR, therefore, dc Cefepime. Resp panel, strep and legionella antigens negative using AVAPS pt on maximal therapy at home has fired palliative care. 3. elevated troponins 0.222 to 0.159 had NSTEMI last months and elected for medical mgmt cardiology on consult 4. elevated BNP no clinical CHF await further cardiology input 5. DVT proph: LMWH transfer to PCU. Code Visit Inpatient E&M: 55462 Subs Hosp L2
[2018-06-21] MEDS: Insulin Lispro 100 UNIT/ML INSULN.PEN SC ×4 (08:40→22:54)
[2018-06-21] MEDS: Amiodarone 200 MG Tablet PO (08:41)
[2018-06-21] MEDS: Losartan Potassium 100 MG Tablet PO (08:42)
[2018-06-21] MEDS: Aspirin 81 MG TAB.CHEW PO (08:42)
[2018-06-21] MEDS: Metoprolol Tartrate 25 MG Tablet 12.5 MG PO ×2 (08:42→22:55)
[2018-06-21] MEDS: Furosemide 40 MG/4 ML Vial IV ×2 (08:43→17:16)
[2018-06-21] MEDS: guaiFENesin 1,200 MG Tablet 1200 MG PO ×2 (08:43→22:54)
[2018-06-21] MEDS: Clopidogrel Bisulfate 75 MG Tablet PO (08:43)
[2018-06-21] MEDS: Enoxaparin 40 MG/0.4 ML Syringe SC (08:43)
--- NOTE | 2018-06-21 09:44 | NURSING ---
Report called to [place] in PCU.
[2018-06-21 11:36] LABS: Bedside Glucose 327 mg/dL (70-110)
--- NOTE | 2018-06-21 13:20 | PCM.CONS.C ---
Problem List (1) NSTEMI (non-ST elevated myocardial infarction) Status: Acute Reason for Consult Date of Consultation: 06/21/18 History of Present Illness: The patient is a 78 year old gentleman with a h/o severe COPD and CAD s/p CABG and frequent readmissions for COPD exacerbations and who has been recommended for palliative care/hospice as I am made to understand. He was transferred from [facility] where he had presented with severe SOB which had gradually started on 06/19/18. At [place], patient was found to be in severe hypercapnic and hypoxic respiratory failure. O2 sats 82 on his usual 4L at home and ABGs showing pH 7.08, pCO2 102, HCO3 29. CXR showed increased interstitial prominence in both mid and lower zones which on my own viewing and inspection appears worse on the right. BNP noted to be 2340 and at baseline patient usually about 300-800 per prior records. Patient started on BIPAP, given IV Lasix 20mg x 1 and IV antibiotics as well - Ceftriaxone and Azithromycin. Patient requested transfer to [facility] as he receives most of his care here and is well known to his spread cutter Dr. Mahendra Mckeon. Patient has done well since admission. At the time of my interview with the patient at 13:15, he feels at his base line. He denies any chest pains and his chronically elevated Troponin remains minimally abnormal without a peak. His rhythm strip shpws Sinus with frequent PACs and occasional PVCs. Past Medical History Allergies/Adverse Reactions: Allergies levofloxacin [From Levaquin] Allergy (Verified 06/10/18 09:52) Hives Penicillins [PCN] Allergy (Verified 06/10/18 09:52) Hives atorvastatin [From Lipitor] Adverse Reaction (Verified 06/10/18 09:52) Other Home Medications: Ambulatory Orders Medication Instructions Recorded Albuterol Inhaler [Ventolin Hfa] 2 puff INHALATION Q4H PRN PRN 08/04/16 Clopidogrel Bisulfate [Plavix] 75 mg PO DAILY 08/04/16 [place]-3 Fatty Acids [Fish Oil] 1,290 mg PO DAILY 03/30/17 Ubidecarenone [Coq10] 100 mg PO DAILY 03/30/17 cholecalciferol (vitamin D3) 5,000 2,000 unit PO DAILY cap 11/30/17 unit capsule budesonide 0.5 mg/2 mL suspension 0.5 mg INHALATION Q12H #120 ml 02/15/18 for nebulization ipratropium-albuterol 0.5 mg-3 3 ml INHALATION Q6HWA.RT #360 ml 02/15/18 mg(2.5 mg base)/3 mL nebulization soln Aspirin [Aspirin, Baby] 81 mg PO DAILY@0800 05/20/18 Amiodarone HCl [Cordarone] 200 mg PO DAILY #30 tab 05/31/18 furosemide 20 mg tablet 20 mg PO BIDLX #60 tab 06/10/18 losartan 100 mg tablet 100 mg PO DAILY #90 tab 06/10/18 metformin 500 mg tablet 500 mg PO BID #180 tab 06/10/18 metoprolol tartrate 25 mg tablet 12.5 mg PO BID #90 tab 06/10/18 pantoprazole 20 mg tablet,delayed 20 mg PO DAILY #90 tab 06/10/18 release polysaccharide iron complex 150 mg 150 mg PO DAILYCM #90 cap 06/10/18 iron capsule Potassium Chloride [K-Dur] 20 meq PO DAILYCM 06/19/18 Past Medical History (Chronic Problems): Chronic Problems (Last Updated 06/10/18 @ 09:58 by Nimisha Dickens) Acute on chronic diastolic heart failure (Chronic) Stroke (Chronic) Hx of CABG (Chronic) Severe chronic obstructive pulmonary disease (Chronic) Dyspnea on exertion (Chronic) Lung nodule (Chronic) Hypoxia (Chronic) Chronic hypoxemic respiratory failure (Chronic) LUIS (obstructive sleep apnea) (Chronic) Fatigue (Chronic) Sarcoidosis (Chronic) Pulmonary hypertension, mild (Chronic) Stage 4 very severe COPD by GOLD classification (Chronic) Dyspnea (Chronic) History of CVA (cerebrovascular accident) (Chronic) Hypertension (Chronic) Chronic respiratory failure (Chronic) Type 2 diabetes mellitus (Chronic) Status post coronary artery bypass graft (Chronic) Coronary artery disease (Chronic) COPD (chronic obstructive pulmonary disease) (Chronic) Surgical History: appendectomy, cholecystectomy, coronary bypass surgery, herniorrhaphy, - - Carotid endarterectomy Psychiatric History: No pertinent psych hx - *Family History Maternal Family History: Family History (Last Reviewed 06/10/18 @ 08:33 by Indy White) Mother Cancer Father Hypertension History Items: No pertinent history Paternal Family History: Family History (Last Reviewed 06/10/18 @ 08:33 by Indy White) Mother Cancer Father Hypertension History Items: No pertinent history Smoking Status: Former smoker Review of Systems - Review of Systems Cardiovascular: Reports: Shortness of Breath - All pertinent negative and postive ones are per HPI. Objective: Vital Signs Temp Pulse Resp BP Pulse Ox 98.4 F 80 20 H 160/98 H 98 06/21/18 10:25 06/21/18 11:42 06/21/18 11:42 06/21/18 10:25 06/21/18 10:25 Oxygen Flow Rate (L/min) 3 Oxygen Delivery Method Nasal Cannula Weight: 83.5 kg Body Mass Index (BMI) 29.4 Finger Stick Blood Glucose 149 Intake and Output for Last 24 Hours 06/19/18 06/20/18 06/21/18 23:59 23:59 23:59 Intake Total 210 / 210 1059 / 1059 360 / 360 Output Total 300 / 300 1950 / 1950 300 / 300 Balance -90 / -90 -891 / -891 60 / 60 General: Oriented x 3, No Acute Distress Neck: No JVD Lungs: Accessory Muscle Utilization, - - Severely diminished air entry bilaterally, no rales, rhonchi Cardiovascular: Irregular Rhythm, No Murmurs Abdomen: Soft, Non Tender Extremities: Bilateral Edema +1 Skin: No Rashes Neurological: No Focal Motor or Sensory Deficit Psych/Mental Status: Appropriate 06/21/18 04:33: WBC 12.3 H, RBC 2.71 L, Hgb 7.6 L, Hct 25.1 L, MCV 92.6, MCH 28.0, MCHC 30.3 L, RDW 14.1, RDW Differential 46.4 H, Plt Count 259, MPV 11.4, Immature Gran % (Auto) 0.300, Neut % (Auto) 92.1 H, Lymph % (Auto) 4.5 L, [place] % (Auto) 3.0, Eos % (Auto) 0.0, Baso % (Auto) 0.1, Absolute Neuts (auto) 11.3 H, Total Counted Not Reportable 06/21/18 04:33: Sodium 143, Potassium 4.8, Chloride 99, Carbon Dioxide 31.0, Anion Gap 13, BUN 59 H, Creatinine 2.07 H, Est GFR (MDRD) Af Amer 40 L, Est GFR (MDRD) Non-Af 33 L, BUN/Creatinine Ratio 28.5 H, Glucose 224 H, Calcium 8.9, Phosphorus 3.1, Magnesium 2.4 06/21/18 04:33: Troponin I 0.159 H Rhythm: EKG: Sinus with PACs, PVCs., Incomplete RBBB. ECHO: Stress Test: Cardiac Cath: PCI: CT Surgery: Holter monitor: EPS: PPM: CXR: Chest CT Scan: Assessment/Plan NSTEMI, type 2, due to hypoxia. PACs, PVCs, on Amiodarone. I could not find the previous notes as why Amiodarone has been started. CHF, chronic, diastolic, classification difficult due to severe COPD. Moderate Pulmonary hypertension. Moderate Mitral regurgitation. Severe COPD, improving with meds. CABG, old, no angina. DNR, DNI status. Suggest continuation of current medical therapy. Thanks
[2018-06-21] MEDS: 0.9% NaCl Peripheral Flush Adult/Peds IV (13:24)
[2018-06-21 16:36] LABS: Bedside Glucose 246 mg/dL (70-110)
--- NOTE | 2018-06-21 17:24 | CPS ---
Patient's own Trilogy with humidification and 4lpm bleed-in was set-up at bedside. Patient tested machine and it is working properly. Hospital's V60 BiPAP unit was removed from room.
--- NOTE | 2018-06-21 17:31 | CPS ---
Patient had been requiring AVAPS. Unable to start PEP therapy until now.
[2018-06-21 23:10] LABS: Bedside Glucose 336 mg/dL (70-110)
[2018-06-22] VITALS (18 sets, daily range): BP systolic 150–165; BP diastolic 61–77; PULSE 72–100; RESP 18–28; TEMP 36.4–37; O2SAT 95–99
[2018-06-22] MEDS: Ipratropium/Albuterol Sulfate 3 ML AMPUL.NEB INHALATION ×6 (03:35→23:20)
[2018-06-22 06:55] LABS: Bedside Glucose 266 mg/dL (70-110)
[2018-06-22 07:24] LABS: Absolute Lymphocyte Count 0.59 X10^3/ul (0.83-4.51); Absolute Neutrophil Count 12.4 X10^3/uL (2.0-7.7); Hematocrit 27.8 % (40-54); Hemoglobin 8.4 g/dl (13.0-16.5); Lymphocyte # 0.59 X10^3/ul (4.0); Lymphocyte % 4.3 % (19-41); Mean Corp Hgb Conc 30.2 g/gl (32-36); Mean Corpuscular Hgb 27.9 pg (27.0-32.0); Mean Corpuscular Volume 92.4 fL (80-94); Mean Platelet Vol. 11.4 fl (6.2-12.0); Monocyte# 0.52 X10^3/uL; Monocyte% 3.8 % (0-10); Neutrophil % 91.1 % (47-70); Platelet Count 288 K/mm3 (150-450); RBC Distribution Width CV 14.4 % (11.6-14.6); RBC Distribution Width SD 46.8 fl (35.1-43.9); Red Blood Count 3.01 M/mm3 (4.6-6.2); White Blood Count 13.6 K/mm3 (4.4-11.0)
[2018-06-22 07:25] LABS: Differential Indicated SCAN CRITERIA MET; POSITIVE COUNT NO; POSITIVE DIFFERENTIAL YES; POSITIVE MORPHOLOGY NO
[2018-06-22 07:31] LABS: Anion Gap 11 (5-15); BUN 65 mg/dL (7-18); BUN/Creat Ratio 33.5 RATIO (10-20); Calcium,Total 8.9 mg/dL (8.5-10.1); Chloride 101 mmol/L (98-107); Creatinine, Serum 1.94 mg/dL (0.70-1.30); EST Glomerular Filtration Rate 36 mL/min (>60); Est Glom Filt Rate - Afr Amer 43 mL/min (>60); Estimated Creatinine Clearance 27.86 ml/min; Glucose 270 mg/dL (74-106); Potassium 4.4 mmol/L (3.5-5.1); Sodium Level 144 mmol/L (136-145)
[2018-06-22] MEDS: Insulin Lispro 100 UNIT/ML INSULN.PEN SC ×4 (08:12→21:24)
[2018-06-22] MEDS: Aspirin 81 MG TAB.CHEW PO (08:12)
[2018-06-22] MEDS: Enoxaparin 40 MG/0.4 ML Syringe SC (09:38)
[2018-06-22] MEDS: Furosemide 40 MG/4 ML Vial IV ×2 (09:38→17:41)
[2018-06-22] MEDS: guaiFENesin 1,200 MG Tablet 1200 MG PO ×2 (09:39→21:24)
[2018-06-22] MEDS: Clopidogrel Bisulfate 75 MG Tablet PO (09:39)
[2018-06-22] MEDS: Losartan Potassium 100 MG Tablet PO (09:39)
[2018-06-22] MEDS: Amiodarone 200 MG Tablet PO (09:39)
[2018-06-22] MEDS: Metoprolol Tartrate 25 MG Tablet 12.5 MG PO ×2 (09:39→21:25)
[2018-06-22] MEDS: 0.9% NaCl Peripheral Flush Adult/Peds IV ×2 (09:39→17:42)
--- NOTE | 2018-06-22 09:53 | PN_ITS ---
Patient Problems: Active and Suspected Problems (Last Updated 06/10/18 @ 09:58 by Nimisha Dickens) Acute on chronic respiratory failure with hypoxia and hypercapnia (Acute) Subjective: Patient did well overnight. Patient was compliant with noninvasive therapy. Patient reports little subjective change in overall respiratory condition. Patient still having dyspnea with minimal exertion. Patient reports a cough that is nonproductive. - Physical Exam General: Alert, Oriented x3, Cooperative, No apparent distress, - - Speaking in full sentences. HEENT: Atraumatic, PERRLA, EOMI Oral: Moist Mucosa, No Gingival or Mucosal Lesions/ Ulcerations, - - Edentulous Neck: Supple, No JVD, No Nodes, Trachea Midline Lungs: No rhonchi, No rales, Diminished, Wheezes, - - Symmetric expansion. No dullness to percussion. Cardiovascular: Regular rate, Regular Rhythm, Normal S1, Normal S2, No murmurs, No rub noted, No Gallop Abdomen: Bowel Sounds Present, Soft, Non Tender, Non-Distended Extremities: No cyanosis, Capillary Refill Less than 3 Seconds, Clubbing, Edema Skin: No rashes, - - Venous stasis changes noted. Musculoskeletal: No Tenderness to Palpation of Joints or Extremities, No Muscle Wasting Lymphatic: No Cervical, Supraclavicular, or Inguinal Adenopathy Neurological: Cranial nerves II-XII grossly intact, Neuro grossly intact, Motor Exam 5/5 strength throughout Psych/Mental Status: Alert and oriented to time, place, person, mood and affect Vital Signs Temp Pulse Resp BP Pulse Ox 36.4 C L 90 20 H 151/61 H 99 06/22/18 09:35 06/22/18 09:39 06/22/18 09:35 06/22/18 09:39 06/22/18 09:35 Oxygen Flow Rate (L/min) 4 Oxygen Delivery Method Room Air Weight: 80.2 kg Body Mass Index (BMI) 29.4 Finger Stick Blood Glucose 149 Intake and Output for Last 24 Hours 06/20/18 06/21/18 06/22/18 23:59 23:59 23:59 Intake Total 1059 / 1059 600 / 600 Output Total 1950 / 1950 300 / 300 200 / 200 Balance -891 / -891 300 / 300 -200 / -200 Microbiology Past 72 Hours 06/20/18 12:50 Streptococcus pneumoniae Antigen (M - Final Urine, Random 06/20/18 12:50 Legionella Antigen - Final Urine, Random 06/20/18 09:25 Respiratory Panel (PCR) - Final Mucosa - Nasopharyngeal Laboratory Tests Past 24 Hrs 06/22/18 06/22/18 06:23 06:23 WBC 13.6 H RBC 3.01 L Hgb 8.4 L Hct 27.8 L MCV 92.4 MCH 27.9 MCHC 30.2 L RDW 14.4 RDW Differential 46.8 H Plt Count 288 MPV 11.4 Immature Gran % (Auto) 0.800 Neut % (Auto) 91.1 H Lymph % (Auto) 4.3 L [place] % (Auto) 3.8 Eos % (Auto) 0.0 Baso % (Auto) 0.0 Absolute Neuts (auto) 12.4 H Absolute Lymphs (auto) 0.59 L Total Counted Pending Differential Comment COMMENT Sodium 144 Potassium 4.4 Chloride 101 Carbon Dioxide 32.0 Anion Gap 11 BUN 65 H Creatinine 1.94 H Estim Creat Clear Calc 27.86 Est GFR (MDRD) Af Amer 43 L Est GFR (MDRD) Non-Af 36 L BUN/Creatinine Ratio 33.5 H Glucose 270 H Calcium 8.9 POC Glucose 06/22/18 06/21/18 06/21/18 06:52 22:54 16:31 POC Glucose 266 H 336 H 246 H 06/21/18 11:28 POC Glucose 327 H Medical Necessity - Tobacco Use Smoking Status: Former smoker Assessment/Plan All Active Problems (Last Reviewed 06/10/18 @ 08:33 by Indy White) Acute on chronic respiratory failure with hypoxia and hypercapnia (Acute) Shortness of breath (Acute) NSTEMI (non-ST elevated myocardial infarction) (Acute) COPD exacerbation (Acute) Acute and chronic respiratory failure (Acute) Thrush, oral (Acute) Irregular heart beat (Acute) History of cholecystectomy (Resolved) H/O hernia repair (Resolved) History of appendectomy (Resolved) RECOMMENDATIONS: 1. Continue gentle IV diuresis 2. Wean IV steroids 3. Continue scheduled bronchodilators 4. Wean oxygen as tolerated and continue AVAPS as needed 5. Cardiology evaluation pending. IMPRESSIONS: 1. Acute on chronic hypoxemic and hypercarbic respiratory failure/end-stage COPD Patient with advanced COPD on noninvasive therapy overnight. Patient has responded to diuretic therapy with a decrease in weight and improvement in saturations. Antibiotics were discontinued yesterday. Will wean steroids today. Continue with bronchodilators. Continue aggressive pulmonary toileting with Acapella. 2. Coronary artery disease status post CABG Continue baseline cardiac medications per outpatient regimen. Clinical concern for underlying cardiac etiology for the patient's presentation. 3. Hypertension/diabetes/hyperlipidemia Complicates care, management, recovery and prognosis. Likely okay to continue home medications as indicated. Patient may require supplemental basal insulin. This note was generated with [employer] dictation software. It may contain incorrect words, spelling, and punctuation that were not noted in checking the note before signing. Code Visit Inpatient E&M: [address] [facility] Hosp L3
--- NOTE | 2018-06-22 11:33 | PCM.PN.HOSP ---
Patient Problems: Active and Suspected Problems (Last Updated 06/10/18 @ 09:58 by Nimisha Dickens) Acute on chronic respiratory failure with hypoxia and hypercapnia (Acute) Subjective: Still short of breath, especially with exertion. No improvement. Vitals/I&O's: Vital Signs Temp Pulse Resp BP Pulse Ox 36.4 C L 90 20 H 151/61 H 99 06/22/18 09:35 06/22/18 09:39 06/22/18 09:35 06/22/18 09:39 06/22/18 09:35 Oxygen Flow Rate (L/min) 4 Oxygen Delivery Method Room Air Weight: 80.2 kg Body Mass Index (BMI) 29.4 Finger Stick Blood Glucose 149 Intake and Output for Last 24 Hours 06/20/18 06/21/18 06/22/18 23:59 23:59 23:59 Intake Total 1059 / 1059 600 / 600 Output Total 1950 / 1950 300 / 300 200 / 200 Balance -891 / -891 300 / 300 -200 / -200 General: Alert, No apparent distress HEENT: Atraumatic, Normocephalic Oral: Moist Mucosa, No Gingival or Mucosal Lesions/ Ulcerations Neck: No Nodes, Thyroid Normal Size and Texture Lungs: Diminished, Wheezes Cardiovascular: Regular rate, Regular Rhythm, Normal S1, Normal S2, No murmurs Abdomen: Bowel Sounds Present, Soft, Non Tender, Non-Distended, No Hepato-splenomegaly Extremities: No edema, No Calf Tenderness Skin: No rashes, No breakdown Musculoskeletal: No Tenderness to Palpation of Joints or Extremities, No Muscle Wasting Neurological: Neuro grossly intact, Coordination normal Psych/Mental Status: Normal Affect, Appropriate Microbiology Past 72 Hours 06/20/18 12:50 Urine, Random Streptococcus pneumoniae Antigen (M - Final 06/20/18 12:50 Urine, Random Legionella Antigen - Final 06/20/18 09:25 Mucosa - Nasopharyngeal Respiratory Panel (PCR) - Final Laboratory Results 06/21/18 11:28: POC Glucose 327 H 06/21/18 16:31: POC Glucose 246 H 06/21/18 22:54: POC Glucose 336 H 06/22/18 06:23: WBC 13.6 H, RBC 3.01 L, Hgb 8.4 L, Hct 27.8 L, MCV 92.4, MCH 27.9, MCHC 30.2 L, RDW 14.4, RDW Differential 46.8 H, Plt Count 288, MPV 11.4, Immature Gran % (Auto) 0.800, Neut % (Auto) 91.1 H, Lymph % (Auto) 4.3 L, [place] % (Auto) 3.8, Eos % (Auto) 0.0, Baso % (Auto) 0.0, Absolute Neuts (auto) 12.4 H, Absolute Lymphs (auto) 0.59 L, Total Counted Pending, Differential Comment COMMENT 06/22/18 06:23: Sodium 144, Potassium 4.4, Chloride 101, Carbon Dioxide 32.0, Anion Gap 11, BUN 65 H, Creatinine 1.94 H, Estim Creat Clear Calc 27.86, Est GFR (MDRD) Af Amer 43 L, Est GFR (MDRD) Non-Af 36 L, BUN/Creatinine Ratio 33.5 H, Glucose 270 H, Calcium 8.9 06/22/18 06:52: POC Glucose 266 H Current Medications Albuterol Sulfate (Ventolin Aerosols) 2.5 mg INHALATION Q2H PRN PRN PRN Reason: SHORTNESS OF BREATH Last Admin: 06/19/18 11:05 Dose: 2.5 mg Albuterol/Ipratropium (Duoneb) 3 ml INHALATION Q4H.RT [facility] Last Admin: 06/22/18 11:18 Dose: 3 ml Amiodarone HCl (Cordarone) 200 mg PO DAILY [facility] Last Admin: 06/22/18 09:39 Dose: 200 mg Aspirin (Aspirin, Baby) 81 mg PO DAILY@0800 [facility] Last Admin: 06/22/18 08:12 Dose: 81 mg Clopidogrel Bisulfate (Plavix) 75 mg PO DAILY [facility] Last Admin: 06/22/18 09:39 Dose: 75 mg Enoxaparin Sodium (Lovenox) 40 mg SC DAILY@1000 [facility] Last Admin: 06/22/18 09:38 Dose: 40 mg Furosemide (Lasix) 40 mg IV BID@1000,1800 [facility] Last Admin: 06/22/18 09:38 Dose: 40 mg Guaifenesin (Mucinex) 1,200 mg PO BID [facility] Last Admin: 06/22/18 09:39 Dose: 1,200 mg Insulin Human Lispro (Humalog Kwikpen (Bkc)) 0 unit SC [facility] PRN Reason: Protocol Last Admin: 06/22/18 11:22 Dose: 6 u Losartan Potassium (Cozaar) 100 mg PO DAILY [facility] Last Admin: 06/22/18 09:39 Dose: 100 mg Magnesium Hydroxide (Milk Of Magnesia) 30 ml PO DAILY PRN PRN PRN Reason: Constipation [facility] Last Admin: 06/22/18 08:12 Dose: 500 mg Methylprednisolone (Solu-Medrol) 40 mg IV Q12 [facility] Metoprolol Tartrate (Lopressor (Beta Jr)) 12.5 mg PO BID [facility] Last Admin: 06/22/18 09:39 Dose: 12.5 mg Morphine Sulfate () 1 - 2 mg IV Q4H PRN PRN PRN Reason: Moderate Pain (pain scale 4-5) Potassium Chloride (K[facility]Dur) [facility] Last Admin: 06/22/18 08:13 Dose: 20 meq Sodium Chloride () 5 - 30 ml IV UD PRN PRN Reason: SALINE FLUSH Last Admin: 06/22/18 09:39 Dose: 10 ml Medical Necessity - Tobacco Use Smoking Status: Former smoker Assessment/Plan All Active Problems (Last Reviewed 06/10/18 @ 08:33 by Indy White) Acute on chronic respiratory failure with hypoxia and hypercapnia (Acute) Shortness of breath (Acute) NSTEMI (non-ST elevated myocardial infarction) (Acute) COPD exacerbation (Acute) Acute and chronic respiratory failure (Acute) Thrush, oral (Acute) Irregular heart beat (Acute) History of cholecystectomy (Resolved) H/O hernia repair (Resolved) History of appendectomy (Resolved) 1. Acute on chronic hypercapnic respiratory failure. Improving maintaining sats on NC due to COPD exacerbation 2. Acute COPD exacerbation improving continue Solumedrol (decreased to Q12 today), BDs no evidence on PNA on CXR, therefore, dc Cefepime. Resp panel, strep and legionella antigens negative using AVAPS pt on maximal therapy at home 3. elevated troponins 0.222 to 0.159 had NSTEMI last months and elected for medical mgmt cardiology on consult, feels that it is related to hypoxia 4. elevated BNP no clinical CHF await further cardiology input diuresing weight went from 83.5 to 80.2 kg today. Doubt this is accurate. 5. DVT proph: LMWH Advanced care planning: Discussed with patients about palliative care and hospice. Patient states that he is still enrolled with palliative care and does have medications, including morphine, at home. Explained the patient that it has been told me by Dr. Mckeon that he has been on maximal therapy with minimal to no improvements and recommendation for hospice. I started the patient about quality versus quantity of life. Did inform patient that ultimately is his decision and what he is able to do but I did inform him this unclear from medical perspective, how much will be able to help him in his condition. Spent an additional 20 minutes outside of the history and physical discussing advanced care planning. Code Visit Inpatient E&M: 30307 [facility] Hosp L3 Procedures: 93813 Advncd Care Plan 30 Min
[2018-06-22 11:40] LABS: Bedside Glucose 384 mg/dL (70-110)
--- NOTE | 2018-06-22 14:20 | CASEMGMT ---
Social Work SW met with pt and Vannesa. Physicians have spoke to pt and about hospice and palliative care. SW inquired about their feelings about receiving hospice or palliative care. Pt defers decisions to . states she has talked to Amita at [facility] this morning and would like to pursue palliative care with them. Pt and stating they want to return home. SW inquired about 's ability to care for pt and she feels she can care for him at home and has support from her children and pt's children to assist. Phone call to Amita at [facility] and referral made. Referral information faxed. Amita to call pt to set up time to set up consultation. Dr. Grossman notified and agreeable. Plan: Home with [facility] NEETU Villalobos
--- NOTE | 2018-06-22 14:25 | CASEMGMT ---
RN CM Note. Spoke with pt known to me from previous admission. Pt is sitting in chair. Discussed PT/OT and recommendation for further therapy. Pt states he and his would like him to return home. Had had recent admission to TCU, but first choice is to return home w/Palliative Care (ISABEL working on Palliative Care referral with [facility]). Pt has trilogy in room, uses @ home. Henry MARINO RN ACM
[2018-06-22 16:56] LABS: Bedside Glucose 286 mg/dL (70-110)
[2018-06-22 22:36] LABS: Bedside Glucose 262 mg/dL (70-110)
[2018-06-23] VITALS (19 sets, daily range): BP systolic 152–166; BP diastolic 54–73; PULSE 72–87; RESP 16–26; TEMP 36.6–36.8; O2SAT 93–99
[2018-06-23] MEDS: Ipratropium/Albuterol Sulfate 3 ML AMPUL.NEB INHALATION ×6 (03:20→22:50)
[2018-06-23 07:00] LABS: Anion Gap 10 (5-15); BUN 66 mg/dL (7-18); BUN/Creat Ratio 34.6 RATIO (10-20); Calcium,Total 9.2 mg/dL (8.5-10.1); Chloride 99 mmol/L (98-107); Creatinine, Serum 1.91 mg/dL (0.70-1.30); EST Glomerular Filtration Rate 36 mL/min (>60); Est Glom Filt Rate - Afr Amer 44 mL/min (>60); Glucose 282 mg/dL (74-106); Sodium Level 141 mmol/L (136-145)
[2018-06-23 07:05] LABS: Bedside Glucose 275 mg/dL (70-110)
[2018-06-23] MEDS: Insulin Lispro 100 UNIT/ML INSULN.PEN SC ×4 (08:33→21:25)
[2018-06-23] MEDS: Aspirin 81 MG TAB.CHEW PO (08:34)
[2018-06-23] MEDS: Metoprolol Tartrate 25 MG Tablet 12.5 MG PO ×2 (08:34→21:25)
[2018-06-23] MEDS: Amiodarone 200 MG Tablet PO (08:34)
[2018-06-23] MEDS: Losartan Potassium 100 MG Tablet PO (08:34)
--- NOTE | 2018-06-23 08:40 | PCM.PROGNOTE ---
Patient Problems: Active and Suspected Problems (Last Updated 06/10/18 @ 09:58 by Nimisha Dickens) Acute on chronic respiratory failure with hypoxia and hypercapnia (Acute) Subjective: Patient did okay overnight. Patient did comply with noninvasive therapy while sleeping. Patient reports subjective improvement in overall condition compared to previous. Patient's blood sugars have been running high. Patient states this is typical when he gets steroid therapy. - Physical Exam General: Alert, Oriented x3, Cooperative, No apparent distress, - - Speaking in full sentences. HEENT: Atraumatic, PERRLA, EOMI, Normocephalic, - - No scleral icterus or injection noted. Oral: Moist Mucosa, No Gingival or Mucosal Lesions/ Ulcerations Neck: Supple, No JVD, No Nodes, Trachea Midline Lungs: No rhonchi, No rales, Diminished, Wheezes - Mild end expiratory, - - Increased AP diameter. Cardiovascular: Regular rate, Regular Rhythm, Normal S1, Normal S2, Murmur - Grade 2 out of 6 systolic ejection murmur at the left sternal border, No rub noted, No Gallop Abdomen: Bowel Sounds Present, Soft, Non Tender, Non-Distended Extremities: No cyanosis, Clubbing, Edema Skin: - - No significant change compared to previous Musculoskeletal: No Tenderness to Palpation of Joints or Extremities Lymphatic: No Cervical, Supraclavicular, or Inguinal Adenopathy Neurological: Cranial nerves II-XII grossly intact, Neuro grossly intact, Motor Exam 5/5 strength throughout Psych/Mental Status: Alert and oriented to time, place, person, mood and affect Vital Signs Temp Pulse Resp BP Pulse Ox 36.8 C 81 16 156/61 H 98 06/23/18 08:25 06/23/18 08:34 06/23/18 08:25 06/23/18 08:25 06/23/18 08:25 Oxygen Flow Rate (L/min) 4 Oxygen Delivery Method Nasal Cannula Weight: 79.7 kg Body Mass Index (BMI) 29.4 Finger Stick Blood Glucose 149 Intake and Output for Last 24 Hours 06/21/18 06/22/18 06/23/18 23:59 23:59 23:59 Intake Total 600 / 600 720 / 720 120 / 120 Output Total 300 / 300 1575 / 1575 250 / 250 Balance 300 / 300 -855 / -855 -130 / -130 Microbiology Past 72 Hours 06/20/18 12:50 Streptococcus pneumoniae Antigen (M - Final Urine, Random 06/20/18 12:50 Legionella Antigen - Final Urine, Random 06/20/18 09:25 Respiratory Panel (PCR) - Final Mucosa - Nasopharyngeal Laboratory Tests Past 24 Hrs 06/22/18 06/23/18 06:23 05:55 Total Counted Not Reportable Differential Comment COMMENT Sodium 141 Potassium 5.0 Chloride 99 Carbon Dioxide 32.0 Anion Gap 10 BUN 66 H Creatinine 1.91 H Estim Creat Clear Calc 28.30 Est GFR (MDRD) Af Amer 44 L Est GFR (MDRD) Non-Af 36 L BUN/Creatinine Ratio 34.6 H Glucose 282 H Calcium 9.2 POC Glucose 06/23/18 06/22/18 06/22/18 06:51 21:23 16:47 POC Glucose 275 H 262 H 286 H 06/22/18 11:21 POC Glucose 384 H Medical Necessity - Tobacco Use Smoking Status: Former smoker Assessment/Plan All Active Problems (Last Reviewed 06/10/18 @ 08:33 by Indy White) Acute on chronic respiratory failure with hypoxia and hypercapnia (Acute) Shortness of breath (Acute) NSTEMI (non-ST elevated myocardial infarction) (Acute) COPD exacerbation (Acute) Acute and chronic respiratory failure (Acute) Thrush, oral (Acute) Irregular heart beat (Acute) History of cholecystectomy (Resolved) H/O hernia repair (Resolved) History of appendectomy (Resolved) RECOMMENDATIONS: 1. Continue gentle IV diuresis 2. Transition to p.o. steroids and wean over 12-14 days 3. Continue scheduled bronchodilators 4. Wean oxygen as tolerated and continue AVAPS as needed 5. Add basal insulin therapy while on prednisone IMPRESSIONS: 1. Acute on chronic hypoxemic and hypercarbic respiratory failure/end-stage COPD Patient with advanced COPD on noninvasive therapy overnight. Patient has responded to diuretic therapy with a decrease in weight and improvement in saturations. Addition to p.o. steroids. Continue with bronchodilators. Continue aggressive pulmonary toileting with Acapella. Patient with advanced lung disease. Patient may be better served by symptomatic management as an outpatient given his continued symptoms despite maximal pulmonary management. 2. Coronary artery disease status post CABG Continue baseline cardiac medications per outpatient regimen. Clinical concern for underlying cardiac etiology for the patient's presentation. 3. Hypertension/diabetes/hyperlipidemia Complicates care, management, recovery and prognosis. Likely okay to continue home medications as indicated. Patient may require supplemental basal insulin. This note was generated with [employer] dictation software. It may contain incorrect words, spelling, and punctuation that were not noted in checking the note before signing. Code Visit Inpatient E&M: 12675 Subs Hosp L2
[2018-06-23] MEDS: Enoxaparin 40 MG/0.4 ML Syringe SC (09:18)
[2018-06-23] MEDS: Furosemide 40 MG/4 ML Vial IV ×2 (09:18→17:17)
[2018-06-23] MEDS: Clopidogrel Bisulfate 75 MG Tablet PO (09:19)
[2018-06-23] MEDS: guaiFENesin 1,200 MG Tablet 1200 MG PO ×2 (09:19→21:25)
[2018-06-23] MEDS: 0.9% NaCl Peripheral Flush Adult/Peds IV ×2 (09:27→17:17)
[2018-06-23 12:20] LABS: Bedside Glucose 261 mg/dL (70-110)
[2018-06-23] MEDS: predniSONE 20 MG Tablet 40 MG PO (13:40)
--- NOTE | 2018-06-23 15:42 | PCM.PN.HOSP ---
Patient Problems: Active and Suspected Problems (Last Updated 06/10/18 @ 09:58 by Nimisha Dickens) Acute on chronic respiratory failure with hypoxia and hypercapnia (Acute) Subjective: Breathing stable. Little less JENKINS than earlier. Vitals/I&O's: Vital Signs Temp Pulse Resp BP Pulse Ox 36.6 C 75 24 H 166/70 H 99 06/23/18 14:25 06/23/18 15:10 06/23/18 15:10 06/23/18 14:25 06/23/18 14:25 Oxygen Flow Rate (L/min) 4 Oxygen Delivery Method Bi-pap Weight: 79.7 kg Body Mass Index (BMI) 29.4 Finger Stick Blood Glucose 149 Intake and Output for Last 24 Hours 06/21/18 06/22/18 06/23/18 23:59 23:59 23:59 Intake Total 600 / 600 720 / 720 360 / 360 Output Total 300 / 300 1575 / 1575 850 / 850 Balance 300 / 300 -855 / -855 -490 / -490 General: Alert, No apparent distress HEENT: Atraumatic, Normocephalic Neck: No Nodes, Thyroid Normal Size and Texture Lungs: Diminished, - - bilateral crackles. Cardiovascular: Regular rate, Regular Rhythm, Normal S1, Normal S2, No murmurs Abdomen: Bowel Sounds Present, Soft, Non Tender, Non-Distended, No Hepato-splenomegaly Extremities: No edema, No Calf Tenderness Skin: No rashes, No breakdown Psych/Mental Status: Normal Affect, Appropriate Microbiology Past 72 Hours 06/20/18 12:50 Urine, Random Streptococcus pneumoniae Antigen (M - Final 06/20/18 12:50 Urine, Random Legionella Antigen - Final 06/20/18 09:25 Mucosa - Nasopharyngeal Respiratory Panel (PCR) - Final Laboratory Results 06/22/18 16:47: POC Glucose 286 H 06/22/18 21:23: POC Glucose 262 H 06/23/18 05:55: Sodium 141, Potassium 5.0, Chloride 99, Carbon Dioxide 32.0, Anion Gap 10, BUN 66 H, Creatinine 1.91 H, Estim Creat Clear Calc 28.30, Est GFR (MDRD) Af Amer 44 L, Est GFR (MDRD) Non-Af 36 L, BUN/Creatinine Ratio 34.6 H, Glucose 282 H, Calcium 9.2 06/23/18 06:51: POC Glucose 275 H 06/23/18 12:11: POC Glucose 261 H Current Medications Albuterol Sulfate (Ventolin Aerosols) 2.5 mg INHALATION Q2H PRN PRN PRN Reason: SHORTNESS OF BREATH Last Admin: 06/19/18 11:05 Dose: 2.5 mg Albuterol/Ipratropium (Duoneb) 3 ml INHALATION Q4H.RT [facility] Last Admin: 06/23/18 15:09 Dose: 3 ml Amiodarone HCl (Cordarone) 200 mg PO DAILY [facility] Last Admin: 06/23/18 08:34 Dose: 200 mg Aspirin (Aspirin, Baby) 81 mg PO DAILY@0800 [facility] Last Admin: 06/23/18 08:34 Dose: 81 mg Clopidogrel Bisulfate (Plavix) 75 mg PO DAILY [facility] Last Admin: 06/23/18 09:19 Dose: 75 mg Enoxaparin Sodium (Lovenox) 40 mg SC DAILY@1000 [facility] Last Admin: 06/23/18 09:18 Dose: 40 mg Furosemide (Lasix) 40 mg IV BID@1000,1800 [facility] Last Admin: 06/23/18 09:18 Dose: 40 mg Guaifenesin (Mucinex) 1,200 mg PO BID [facility] Last Admin: 06/23/18 09:19 Dose: 1,200 mg Insulin Glargine (Lantus (Bkc)) 10 units SC BID [facility] Last Admin: 06/23/18 09:24 Dose: 10 units Insulin Human Lispro (Humalog Kwikpen (Bkc)) 0 unit SC [facility] PRN Reason: Protocol Last Admin: 06/23/18 13:40 Dose: 3 u Losartan Potassium (Cozaar) 100 mg PO DAILY [facility] Last Admin: 06/23/18 08:34 Dose: 100 mg Magnesium Hydroxide (Milk Of Magnesia) 30 ml PO DAILY PRN PRN PRN Reason: Constipation [facility] Last Admin: 06/23/18 08:34 Dose: 500 mg Metoprolol Tartrate (Lopressor (Beta Jr)) 12.5 mg PO BID [facility] Last Admin: 06/23/18 08:34 Dose: 12.5 mg Morphine Sulfate () 1 - 2 mg IV Q4H PRN PRN PRN Reason: Moderate Pain (pain scale 4-5) Nutritional Formula (Lactose Free) (Glucerna Shake) 120 ml PO 4X/DAY [facility] Potassium Chloride (K-Dur) 20 meq PO DAILYCM [facility] Last Admin: 06/23/18 08:34 Dose: 20 meq Prednisone () 40 mg PO DAILY@0800 [facility] Last Admin: 06/23/18 13:40 Dose: 40 mg Sodium Chloride () 5 - 30 ml IV UD PRN PRN Reason: SALINE FLUSH Last Admin: 06/23/18 09:27 Dose: 10 ml Medical Necessity - Tobacco Use Smoking Status: Former smoker Assessment/Plan All Active Problems (Last Reviewed 06/10/18 @ 08:33 by Indy White) Acute on chronic respiratory failure with hypoxia and hypercapnia (Acute) Shortness of breath (Acute) NSTEMI (non-ST elevated myocardial infarction) (Acute) COPD exacerbation (Acute) Acute and chronic respiratory failure (Acute) Thrush, oral (Acute) Irregular heart beat (Acute) History of cholecystectomy (Resolved) H/O hernia repair (Resolved) History of appendectomy (Resolved) 1. Acute on chronic hypercapnic respiratory failure. Improving maintaining sats on NC due to COPD exacerbation 2. Acute COPD exacerbation improving changed to prednisone today. will require at 12-14 day taper no evidence on PNA on CXR, therefore, dc Cefepime. Resp panel, strep and legionella antigens negative using AVAPS pt on maximal therapy at home 3. elevated troponins 0.222 to 0.159 had NSTEMI last months and elected for medical mgmt cardiology on consult, feels that it is related to hypoxia 4. elevated BNP no clinical CHF await further cardiology input diuresing 5. DVT proph: LMWH 6. Disposition: Patient is stable or improved, the plan is for the patient be discharged home tomorrow. Elected to watch the patient's another nights with a change in his recent therapy and also his high likelihood of readmission to give with a later date admissions patient is otherwise doing well plan is to discharge him in the morning. Code Visit Inpatient E&M: 22153 Subs Hosp L2
[2018-06-23] MEDS: Glucerna Shake 120 ML LIQUID PO ×2 (17:17→21:25)
[2018-06-23 19:01] LABS: Bedside Glucose 202 mg/dL (70-110)
[2018-06-23 22:20] LABS: Bedside Glucose 309 mg/dL (70-110)
--- NOTE | 2018-06-23 23:15 | CPS ---
patient on home triloy machine per home settings.
[2018-06-24] VITALS (11 sets, daily range): BP systolic 136–155; BP diastolic 48–56; PULSE 66–82; RESP 16–18; TEMP 36.6–36.8; O2SAT 96–99
[2018-06-24] MEDS: Ipratropium/Albuterol Sulfate 3 ML AMPUL.NEB INHALATION ×3 (03:02→11:10)
[2018-06-24 06:40] LABS: Anion Gap 6 (5-15); BUN 66 mg/dL (7-18); BUN/Creat Ratio 37.9 RATIO (10-20); Calcium,Total 9.4 mg/dL (8.5-10.1); Chloride 98 mmol/L (98-107); Creatinine, Serum 1.74 mg/dL (0.70-1.30); EST Glomerular Filtration Rate 40 mL/min (>60); Est Glom Filt Rate - Afr Amer 49 mL/min (>60); Estimated Creatinine Clearance 31.06 ml/min; Glucose 154 mg/dL (74-106); Potassium 4.5 mmol/L (3.5-5.1); Sodium Level 140 mmol/L (136-145)
[2018-06-24 06:46] LABS: Hematocrit 32.2 % (40-54); Hemoglobin 9.8 g/dl (13.0-16.5); Mean Corp Hgb Conc 30.4 g/gl (32-36); Mean Corpuscular Hgb 28.2 pg (27.0-32.0); Mean Corpuscular Volume 92.5 fL (80-94); Mean Platelet Vol. 11.4 fl (6.2-12.0); Platelet Count 347 K/mm3 (150-450); RBC Distribution Width CV 14.2 % (11.6-14.6); RBC Distribution Width SD 46.3 fl (35.1-43.9); Red Blood Count 3.48 M/mm3 (4.6-6.2); White Blood Count 16.7 K/mm3 (4.4-11.0)
[2018-06-24 06:50] LABS: Differential Indicated MANUAL DIFF; POSITIVE COUNT YES; POSITIVE DIFFERENTIAL NO; POSITIVE MORPHOLOGY YES
[2018-06-24 07:00] LABS: Bedside Glucose 158 mg/dL (70-110)
[2018-06-24 08:15] LABS: Lymphocyte 16 % (19-41); Monocyte 4 % (0-10); Myelocyte 2 (0-0); Neutrophil-Band 1 % (0-5); Neutrophil-Segmented 77 % (47-70); Total Cells Counted 100 (MANUAL DIFF)
[2018-06-24 08:16] LABS: Platelet Estimate ADEQUATE (ADEQ); Red Cell Morphology NORM C+C NORMAL (NORM C&C)
[2018-06-24 08:17] LABS: Absolute Lymphocyte Count 2.67 X10^3/ul (0.83-4.51)
[2018-06-24] MEDS: Aspirin 81 MG TAB.CHEW PO (09:04)
[2018-06-24] MEDS: Insulin Lispro 100 UNIT/ML INSULN.PEN SC ×2 (09:04→11:14)
[2018-06-24] MEDS: predniSONE 20 MG Tablet 40 MG PO (09:05)
[2018-06-24] MEDS: Amiodarone 200 MG Tablet PO (10:36)
[2018-06-24] MEDS: Losartan Potassium 100 MG Tablet PO (10:36)
[2018-06-24] MEDS: Glucerna Shake 120 ML LIQUID PO ×2 (10:36→15:00)
[2018-06-24] MEDS: Enoxaparin 40 MG/0.4 ML Syringe SC (10:37)
[2018-06-24] MEDS: Furosemide 40 MG/4 ML Vial IV (10:37)
[2018-06-24] MEDS: Metoprolol Tartrate 25 MG Tablet 12.5 MG PO (10:37)
[2018-06-24] MEDS: Clopidogrel Bisulfate 75 MG Tablet PO (10:38)
[2018-06-24] MEDS: guaiFENesin 1,200 MG Tablet 1200 MG PO (10:38)
[2018-06-24] MEDS: 0.9% NaCl Peripheral Flush Adult/Peds IV (10:48)
[2018-06-24 11:20] LABS: Bedside Glucose 245 mg/dL (70-110)
--- NOTE | 2018-06-24 12:03 | PN_ITS ---
Patient Problems: Active and Suspected Problems (Last Updated 06/10/18 @ 09:58 by Nimisha Dickens) Acute on chronic respiratory failure with hypoxia and hypercapnia (Acute) Subjective: Patient did okay overnight. Patient did wear noninvasive therapy while sleeping. Patient reports slight subjective worsening in dyspnea compared to previous. Patient has had a periodic cough, but no change in sputum is reported. - Physical Exam General: Alert, Oriented x3, Cooperative, - - Mild respiratory distress with exertion. HEENT: Atraumatic, PERRLA, EOMI, Normocephalic, - - No scleral icterus or injection noted. Oral: Moist Mucosa, No Gingival or Mucosal Lesions/ Ulcerations Neck: Supple, No JVD, No Nodes, Trachea Midline Lungs: No rhonchi, No rales, Diminished, Wheezes - Sporadic end expiratory, - - Increased AP diameter Cardiovascular: Regular rate, Regular Rhythm, Normal S1, Normal S2, Murmur - Unchanged, No rub noted, No Gallop Abdomen: Bowel Sounds Present, Soft, Non Tender, Non-Distended Extremities: No cyanosis, Capillary Refill Less than 3 Seconds, Clubbing, Edema Skin: - - No significant change compared to previous. Dermal atrophy appreciated. Musculoskeletal: No Tenderness to Palpation of Joints or Extremities Lymphatic: No Cervical, Supraclavicular, or Inguinal Adenopathy Neurological: Cranial nerves II-XII grossly intact, Neuro grossly intact, Motor Exam 5/5 strength throughout Psych/Mental Status: Alert and oriented to time, place, person, mood and affect Vital Signs Temp Pulse Resp BP Pulse Ox 36.6 C 80 18 136/51 H 99 06/24/18 08:56 06/24/18 11:10 06/24/18 11:10 06/24/18 08:56 06/24/18 08:56 Oxygen Flow Rate (L/min) 4 Oxygen Delivery Method Bi-pap Weight: 80.1 kg Body Mass Index (BMI) 29.4 Finger Stick Blood Glucose 149 Intake and Output for Last 24 Hours 06/22/18 06/23/18 06/24/18 23:59 23:59 23:59 Intake Total 720 / 720 700 / 700 460 / 460 Output Total 1575 / 1575 1050 / 1050 1450 / 1450 Balance -855 / -855 -350 / -350 -990 / -990 Laboratory Tests Past 24 Hrs 06/24/18 06/24/18 05:44 05:44 WBC 16.7 H RBC 3.48 L Hgb 9.8 L Hct 32.2 L MCV 92.5 MCH 28.2 MCHC 30.4 L RDW 14.2 RDW Differential 46.3 H Plt Count 347 MPV 11.4 Neut % (Auto) Not Reportable Absolute Neuts (auto) 13.0 H Absolute Lymphs (auto) 2.67 Total Counted 100 Neutrophils % (Manual) 77 H Band Neutrophils % 1 Lymphocytes % (Manual) 16 L Monocytes % (Manual) 4 Myelocytes % 2 H Diff Path Review May foll Platelet Estimate ADEQUATE RBC Morphology NORM C+C Sodium 140 Potassium 4.5 Chloride 98 Carbon Dioxide 36.0 H Anion Gap 6 BUN 66 H Creatinine 1.74 H Estim Creat Clear Calc 31.06 Est GFR (MDRD) Af Amer 49 L Est GFR (MDRD) Non-Af 40 L BUN/Creatinine Ratio 37.9 H Glucose 154 H Calcium 9.4 POC Glucose 06/24/18 06/24/18 06/23/18 11:12 06:41 21:20 POC Glucose 245 H 158 H 309 H 06/23/18 06/23/18 17:11 12:11 POC Glucose 202 H 261 H Medical Necessity - Tobacco Use Smoking Status: Former smoker Assessment/Plan All Active Problems (Last Reviewed 06/10/18 @ 08:33 by Indy White) Acute on chronic respiratory failure with hypoxia and hypercapnia (Acute) Shortness of breath (Acute) NSTEMI (non-ST elevated myocardial infarction) (Acute) COPD exacerbation (Acute) Acute and chronic respiratory failure (Acute) Thrush, oral (Acute) Irregular heart beat (Acute) History of cholecystectomy (Resolved) H/O hernia repair (Resolved) History of appendectomy (Resolved) RECOMMENDATIONS: 1. Continue gentle IV diuresis 2. Continue p.o. steroids and wean over 12-14 days 3. Continue scheduled bronchodilators 4. Wean oxygen as tolerated and continue AVAPS as needed 5. Add basal insulin therapy while on prednisone 6. Okay to discharge from a pulmonary perspective IMPRESSIONS: 1. Acute on chronic hypoxemic and hypercarbic respiratory failure/end-stage COPD Patient with advanced COPD on noninvasive therapy overnight. Patient has responded to diuretic therapy with a decrease in weight and improvement in saturations. Continue p.o. steroids and wean over the next 12-14 days. Continue with bronchodilators. Continue aggressive pulmonary toileting with Acapella. Patient with advanced lung disease and supplemental oxygen will be anticipated on discharge. Patient may be better served by symptomatic management as an outpatient given his continued symptoms despite maximal pulmonary management. 2. Coronary artery disease status post CABG Continue baseline cardiac medications per outpatient regimen. Clinical concern for underlying cardiac etiology for the patient's presentation. 3. Hypertension/diabetes/hyperlipidemia Complicates care, management, recovery and prognosis. Likely okay to continue home medications as indicated. Patient may require supplemental basal insulin, especially while on prednisone therapy. This note was generated with [employer] dictation software. It may contain incorrect words, spelling, and punctuation that were not noted in checking the note before signing. Code Visit Inpatient E&M: 97904 [facility] Hosp L3
--- NOTE | 2018-06-24 13:42 | PCM.PN.HOSP ---
Patient Problems: Active and Suspected Problems (Last Updated 06/10/18 @ 09:58 by Nimisha Dickens) Acute on chronic respiratory failure with hypoxia and hypercapnia (Acute) Subjective: Breathing better now, but was short of breath earlier. Vitals/I&O's: Vital Signs Temp Pulse Resp BP Pulse Ox 36.6 C 80 18 136/51 H 99 06/24/18 08:56 06/24/18 11:10 06/24/18 11:10 06/24/18 08:56 06/24/18 08:56 Oxygen Flow Rate (L/min) 4 Oxygen Delivery Method Bi-pap Weight: 80.1 kg Body Mass Index (BMI) 29.4 Finger Stick Blood Glucose 149 Intake and Output for Last 24 Hours 06/22/18 06/23/18 06/24/18 23:59 23:59 23:59 Intake Total 720 / 720 700 / 700 620 / 620 Output Total 1575 / 1575 1050 / 1050 1850 / 1850 Balance -855 / -855 -350 / -350 -1230 / -1230 General: Alert, No apparent distress HEENT: Atraumatic, Normocephalic Oral: Moist Mucosa, No Gingival or Mucosal Lesions/ Ulcerations Neck: No Nodes, Thyroid Normal Size and Texture Lungs: Clear to auscultation, Normal air movement, No rhonchi, No wheeze Cardiovascular: Regular rate, Regular Rhythm, Normal S1, Normal S2, No murmurs Abdomen: Bowel Sounds Present, Soft, Non Tender, Non-Distended, No Hepato-splenomegaly Extremities: No edema, No Calf Tenderness Laboratory Results 06/23/18 17:11: POC Glucose 202 H 06/23/18 21:20: POC Glucose 309 H 06/24/18 05:44: WBC 16.7 H, RBC 3.48 L, Hgb 9.8 L, Hct 32.2 L, MCV 92.5, MCH 28.2, MCHC 30.4 L, RDW 14.2, RDW Differential 46.3 H, Plt Count 347, MPV 11.4, Neut % (Auto) Not Reportable, Absolute Neuts (auto) 13.0 H, Absolute Lymphs (auto) 2.67, Total Counted 100, Neutrophils % (Manual) 77 H, Band Neutrophils % 1, Lymphocytes % (Manual) 16 L, Monocytes % (Manual) 4, Myelocytes % 2 H, Diff Path Review February, Platelet Estimate ADEQUATE, RBC Morphology NORM C+C 06/24/18 05:44: Sodium 140, Potassium 4.5, Chloride 98, Carbon Dioxide 36.0 H, Anion Gap 6, BUN 66 H, Creatinine 1.74 H, Estim Creat Clear Calc 31.06, Est GFR (MDRD) Af Amer 49 L, Est GFR (MDRD) Non-Af 40 L, BUN/Creatinine Ratio 37.9 H, Glucose 154 H, Calcium 9.4 06/24/18 06:41: POC Glucose 158 H 06/24/18 11:12: POC Glucose 245 H Current Medications Albuterol Sulfate (Ventolin Aerosols) 2.5 mg INHALATION Q2H PRN PRN PRN Reason: SHORTNESS OF BREATH Last Admin: 06/19/18 11:05 Dose: 2.5 mg Albuterol/Ipratropium (Duoneb) 3 ml INHALATION Q4H.RT [facility] Last Admin: 06/24/18 11:10 Dose: 3 ml Amiodarone HCl (Cordarone) 200 mg PO DAILY [facility] Last Admin: 06/24/18 10:36 Dose: 200 mg Aspirin (Aspirin, Baby) 81 mg PO DAILY@0800 [facility] Last Admin: 06/24/18 09:04 Dose: 81 mg Clopidogrel Bisulfate (Plavix) 75 mg PO DAILY [facility] Last Admin: 06/24/18 10:38 Dose: 75 mg Enoxaparin Sodium (Lovenox) 40 mg SC DAILY@1000 [facility] Last Admin: 06/24/18 10:37 Dose: 40 mg Furosemide (Lasix) 40 mg IV BID@1000,1800 [facility] Last Admin: 06/24/18 10:37 Dose: 40 mg Guaifenesin (Mucinex) 1,200 mg PO BID [facility] Last Admin: 06/24/18 10:38 Dose: 1,200 mg Insulin Human Lispro (Humalog Kwikpen (Bkc)) 0 unit SC ACHS [facility] PRN Reason: Protocol Last Admin: 06/24/18 11:14 Dose: 3 u Losartan Potassium (Cozaar) 100 mg PO DAILY [facility] Last Admin: 06/24/18 10:36 Dose: 100 mg Magnesium Hydroxide (Milk Of Magnesia) 30 ml PO DAILY PRN PRN PRN Reason: Constipation Metformin HCl (Glucophage) 1,000 mg PO BIDCM [facility] Last Admin: 06/24/18 09:04 Dose: 1,000 mg Metoprolol Tartrate (Lopressor (Beta Jr)) 12.5 mg PO BID [facility] Last Admin: 06/24/18 10:37 Dose: 12.5 mg Morphine Sulfate () 1 - 2 mg IV Q4H PRN PRN PRN Reason: Moderate Pain (pain scale 4-5) Nutritional Formula (Lactose Free) (Glucerna Shake) 120 ml PO 4X/DAY [facility] Last Admin: 06/24/18 10:36 Dose: 120 mls Potassium Chloride (K-Dur) 20 meq PO DAILYCM [facility] Last Admin: 06/24/18 09:05 Dose: 20 meq Prednisone () 40 mg PO DAILY@0800 [facility] Last Admin: 06/24/18 09:05 Dose: 40 mg Sodium Chloride () 5 - 30 ml IV UD PRN PRN Reason: SALINE FLUSH Last Admin: 06/24/18 10:48 Dose: 10 ml Medical Necessity - Tobacco Use Smoking Status: Former smoker Assessment/Plan All Active Problems (Last Reviewed 06/10/18 @ 08:33 by Indy White) Acute on chronic respiratory failure with hypoxia and hypercapnia (Acute) Shortness of breath (Acute) NSTEMI (non-ST elevated myocardial infarction) (Acute) COPD exacerbation (Acute) Acute and chronic respiratory failure (Acute) Thrush, oral (Acute) Irregular heart beat (Acute) History of cholecystectomy (Resolved) H/O hernia repair (Resolved) History of appendectomy (Resolved) 1. Acute on chronic hypercapnic respiratory failure. Improving maintaining sats on NC due to COPD exacerbation 2. Acute COPD exacerbation improving changed to prednisone today. will require at 12-14 day taper no evidence on PNA on CXR, therefore, dc Cefepime. Resp panel, strep and legionella antigens negative using AVAPS pt on maximal therapy at home 3. elevated troponins 0.222 to 0.159 had NSTEMI last months and elected for medical mgmt cardiology on consult, feels that it is related to hypoxia 4. elevated BNP no clinical CHF await further cardiology input diuresing 5. DVT proph: LMWH 6. Disposition: Discharge home. long-term prognosis poor. Palliative Care with [facility].
--- NOTE | 2018-06-24 13:50 | PCM.DC ---
- Discharge Diagnoses Current Active Problems: Current Active and Chronic Problems (Last Updated 06/10/18 @ 09:58 by Nimisha Dickens) Acute on chronic respiratory failure with hypoxia and hypercapnia (Acute) You will use the following diet at home:: Cardiac, Fluid restricted (specify 2000 mls, 1500 mls) - 1800 Your food should be the consistency of: Regular Your liquids should be the consistency of: Regular/Thin Call your doctor if you observe: Shortness of breath Allergies/Adverse Reactions: Allergies levofloxacin [From Levaquin] Allergy (Verified 06/10/18 09:52) Hives Penicillins [PCN] Allergy (Verified 06/10/18 09:52) Hives atorvastatin [From Lipitor] Adverse Reaction (Verified 06/10/18 09:52) Other Medications to take at Discharge Albuterol Inhaler [Ventolin Hfa] 2 puff INHALATION Q4H PRN PRN 08/04/16 Clopidogrel Bisulfate [Plavix] 75 mg PO DAILY 08/04/16 [place]-3 Fatty Acids [Fish Oil] 1,290 mg PO DAILY 03/30/17 Ubidecarenone [Coq10] 100 mg PO DAILY 03/30/17 cholecalciferol (vitamin D3) 5,000 unit capsule 2,000 unit PO DAILY cap 11/30/17 budesonide 0.5 mg/2 mL suspension for nebulization 0.5 mg INHALATION Q12H #120 ml 02/15/18 ipratropium-albuterol 0.5 mg-3 mg(2.5 mg base)/3 mL nebulization soln 3 ml INHALATION Q6HWA.RT #360 ml 02/15/18 Aspirin [Aspirin, Baby] 81 mg PO DAILY@0800 05/20/18 Amiodarone HCl [Cordarone] 200 mg PO DAILY #30 tab 05/31/18 furosemide 20 mg tablet 20 mg PO BIDLX #60 tab 06/10/18 losartan 100 mg tablet 100 mg PO DAILY #90 tab 06/10/18 metoprolol tartrate 25 mg tablet 12.5 mg PO BID #90 tab 06/10/18 pantoprazole 20 mg tablet,delayed release 20 mg PO DAILY #90 tab 06/10/18 polysaccharide iron complex 150 mg iron capsule 150 mg PO DAILYCM #90 cap 06/10/18 Potassium Chloride [K-Dur] 20 meq PO DAILYCM 06/19/18 Guaifenesin [Mucinex] 1,200 mg PO BID #10 tab 06/24/18 Metformin HCl [Glucophage] 1,000 mg PO BIDCM #60 tab 06/24/18 Prednisone 10 mg PO DAILY #30 tab 06/24/18 The following prescriptions were given: Prednisone 10 mg PO DAILY #30 tab Guaifenesin [Mucinex] 1,200 mg PO BID #10 tab Metformin HCl [Glucophage] 1,000 mg PO BIDCM #60 tab Test Results: Test results from this visit will be discussed in further detail at your follow-up appointment, if applicable. Please Follow Up With: Mahendra Mckeon DO When: 2-4 weeks Please Follow Up With: PCP When: 1-2 weeks Proposed Discharge Date: 06/24/18
--- NOTE | 2018-06-24 13:53 | PCM.DC.SUM ---
Discharge Date and Diagnosis - Problem List Patient Problems: Active and Suspected Problems (Last Updated 06/10/18 @ 09:58 by Nimisha Dickens) Acute on chronic respiratory failure with hypoxia and hypercapnia (Acute) Date of Admission: 06/19/18 Date of Discharge: 06/24/18 - Primary Discharge Diagnosis Active and Suspected Problems (Last Updated 06/10/18 @ 09:58 by Nimisha Dickens) Acute on chronic respiratory failure with hypoxia and hypercapnia (Acute) - Secondary Discharge Diagnosis Chronic Problems (Last Updated 06/10/18 @ 09:58 by Nimisha Dickens) Acute on chronic diastolic heart failure (Chronic) Stroke (Chronic) Hx of CABG (Chronic) Severe chronic obstructive pulmonary disease (Chronic) Dyspnea on exertion (Chronic) Lung nodule (Chronic) Hypoxia (Chronic) Chronic hypoxemic respiratory failure (Chronic) LUIS (obstructive sleep apnea) (Chronic) Fatigue (Chronic) Sarcoidosis (Chronic) Pulmonary hypertension, mild (Chronic) Stage 4 very severe COPD by GOLD classification (Chronic) Dyspnea (Chronic) History of CVA (cerebrovascular accident) (Chronic) Hypertension (Chronic) Chronic respiratory failure (Chronic) Type 2 diabetes mellitus (Chronic) Status post coronary artery bypass graft (Chronic) Coronary artery disease (Chronic) COPD (chronic obstructive pulmonary disease) (Chronic) Hospital Course and Treatment Imaging Results: Clinical Impression(s) from Imaging Studies Chest X-Ray 06/19/18 11:50 IMPRESSION: COPD with lower lung infiltrates or edema. Electronically Signed: Rell Golden MD at 12:25 EDT , Service support , Operations: None Procedures: None Summary of Care Provided: The patient is a 78 year old M presents with shortness of breath 1. Acute on chronic hypercapnic respiratory failure. Improving maintaining sats on NC due to COPD exacerbation 2. Acute COPD exacerbation improving changed to prednisone today. will require at 12-14 day taper no evidence on PNA on CXR, therefore, dc Cefepime. Resp panel, strep and legionella antigens negative using AVAPS pt on maximal therapy at home 3. elevated troponins 0.222 to 0.159 had NSTEMI last months and elected for medical mgmt cardiology on consult, feels that it is related to hypoxia 4. elevated BNP no clinical CHF await further cardiology input diuresing 5. DVT proph: LMWH 6. Disposition: Discharge home. manager brand prognosis poor. Palliative Care with [facility].[] Discharge Diet: 1800 Calorie Control Diet Discharge Activity: Return to Normal Activity Call your doctor if you observe: Shortness of breath Home Medications: Medications to take at Discharge Albuterol Inhaler [Ventolin Hfa] 2 puff INHALATION Q4H PRN PRN 08/04/16 Clopidogrel Bisulfate [Plavix] 75 mg PO DAILY 08/04/16 [place]-3 Fatty Acids [Fish Oil] 1,290 mg PO DAILY 03/30/17 Ubidecarenone [Coq10] 100 mg PO DAILY 03/30/17 cholecalciferol (vitamin D3) 5,000 unit capsule 2,000 unit PO DAILY cap 11/30/17 budesonide 0.5 mg/2 mL suspension for nebulization 0.5 mg INHALATION Q12H #120 ml 02/15/18 ipratropium-albuterol 0.5 mg-3 mg(2.5 mg base)/3 mL nebulization soln 3 ml INHALATION Q6HWA.RT #360 ml 02/15/18 Aspirin [Aspirin, Baby] 81 mg PO DAILY@0800 05/20/18 Amiodarone HCl [Cordarone] 200 mg PO DAILY #30 tab 05/31/18 furosemide 20 mg tablet 20 mg PO BIDLX #60 tab 06/10/18 losartan 100 mg tablet 100 mg PO DAILY #90 tab 06/10/18 metoprolol tartrate 25 mg tablet 12.5 mg PO BID #90 tab 06/10/18 pantoprazole 20 mg tablet,delayed release 20 mg PO DAILY #90 tab 06/10/18 polysaccharide iron complex 150 mg iron capsule 150 mg PO DAILYCM #90 cap 06/10/18 Potassium Chloride [K-Dur] 20 meq PO DAILYCM 06/19/18 Guaifenesin [Mucinex] 1,200 mg PO BID #10 tab 06/24/18 Metformin HCl [Glucophage] 1,000 mg PO BIDCM #60 tab 06/24/18 Prednisone 10 mg PO DAILY #30 tab 06/24/18 Following Prescrptions Were Given to Patient: Prednisone 10 mg PO DAILY #30 tab Guaifenesin [Mucinex] 1,200 mg PO BID #10 tab Metformin HCl [Glucophage] 1,000 mg PO BIDCM #60 tab Please Follow Up With: Mahendra Mckeon DO When: 2-4 weeks Please Follow Up With: PCP When: 1-2 weeks Disposition: Home Minutes spent on discharge:: 32 Patient Condition:: Poor Medical Necessity - Tobacco Use Smoking Status: Former smoker Meaningful Use Info Meaningful Use Diagnoses (Choose all that apply): None applicable Code Visit Inpatient E&M: 65930 Disch Hosp
[2018-06-24 14:38] LABS: Pathologist Review Reviewed
--- NOTE | 2018-06-24 14:39 | CASEMGMT ---
ISABEL faxed order to resume home health to [facility]. ISABEL also notified their Palliative Care. Lanny FINNEY MSW
--- NOTE | 2018-06-25 16:08 | CASEMGMT ---
RN CM DISCHARGE PHONE CALL NOTE. DISCHARGE DATE: 06/24/18 LACE 3 DISPOSITION: Home w/HHS Intro role of CM to patient's via phone. She states pt is doing well, no questions re: medications or instructions. spoke with Home Health nurse this am and 1st visit is set up for tomorrow. No further concerns noted. Henry BRADFORDN RN ACM
== END 2018-06-24 15:40 | disposition home or self-care (01) | DRG 189 ==
LOC: ICU 06-21 07:12 → PCU 06-21 10:27
PROVIDERS: Internal Medicine; Internal Medicine Critical Care Medicine; Admitting Provider Internal Medicine
DX: J96.22 Acute and chronic respiratory failure with hypercapnia (principal); I21.A1 Myocardial infarction type 2; J44.1 Chronic obstructive pulmonary disease with (acute) exacerbation; I50.32 Chronic diastolic (congestive) heart failure; E87.2 Acidosis; J96.21 Acute and chronic respiratory failure with hypoxia; I25.10 Atherosclerotic heart disease of native coronary artery without angina pectoris; E11.9 Type 2 diabetes mellitus without complications; Z66 Do not resuscitate; Z95.1 Presence of aortocoronary bypass graft; Z99.81 Dependence on supplemental oxygen; Z87.891 Personal history of nicotine dependence; Z79.84 Long term (current) use of oral hypoglycemic drugs; G47.33 Obstructive sleep apnea (adult) (pediatric); D86.9 Sarcoidosis, unspecified; I27.20 Pulmonary hypertension, unspecified; Z86.73 Personal history of transient ischemic attack (TIA), and cerebral infarction without residual deficits; I11.0 Hypertensive heart disease with heart failure
CPT/HCPCS: 36415; 36600; 71045; 80048; 82803; 82962; 83735; 83880; 84100; 84484; 85025; 87449; 87633; 87641; 94002; 94003; 94640; 94667; 94668; 97110; 97116; 97161; 97166; 97530; 97535; A4216; J1940

== ENCOUNTER 2018-07-17 12:56 | Inpatient (IN) | payer MEDICARE, BC, SELFPAY ==
[2018-07-17] VITALS (12 sets, daily range): BP systolic 124–137; BP diastolic 46–98; PULSE 80–107; RESP 12–28; TEMP 36.9; O2SAT 98–99; BMI 25.5; BMI 25.6
--- NOTE | 2018-07-17 12:52 | PCM.HP.STD ---
Problem List (1) Acute on chronic respiratory failure with hypoxia and hypercapnia Status: Acute (2) NSTEMI (non-ST elevated myocardial infarction) Status: Chronic (3) Acute on chronic diastolic heart failure Status: Acute (4) Irregular heart beat Status: Resolved (5) History of cholecystectomy Status: Resolved (6) H/O hernia repair Status: Resolved (7) History of appendectomy Status: Resolved (8) Hx of CABG Status: Chronic (9) Lung nodule Status: Chronic (10) LUIS (obstructive sleep apnea) Status: Chronic (11) Sarcoidosis Status: Chronic (12) Pulmonary hypertension, mild Status: Chronic (13) Stage 4 very severe COPD by GOLD classification Status: Chronic (14) History of CVA (cerebrovascular accident) Status: Chronic (15) Hypertension Status: Chronic (16) Type 2 diabetes mellitus Status: Chronic (17) Status post coronary artery bypass graft Status: Chronic (18) Coronary artery disease Status: Chronic History of Present Illness Date of Admission: 07/17/18 Chief Complaint: Shortness of breath. The patient is a 78 year old M who presents from [place] emergency room due to shortness of breath. Patient states that shortness of breath initially started Thursday and has increased since that time. He states he received his flu shot on Thursday and thinks his shortness of breath started shortly after. Complains of fever, chills the past 2 nights. Complains of cough with green sputum. Denies exposure to sick contacts. Denies weight gain. Denies increased lower extremity edema. Patient states he tried home aerosols without improvement of symptoms. Patient follows with Dr. Mckeon for severe COPD and pulmonary hypertension. His past medical history includes chronic diastolic CHF, history of NSTEMI, chronic hypoxic and hypercapnic respiratory failure requiring 4 L nasal cannula at baseline and trilogy nightly, CAD status post CABG, obstructive sleep apnea, pulmonary hypertension, hypertension, type 2 diabetes mellitus, GERD. Patient follows with palliative , CODE STATUS DNR CCA. Past Medical History Past Medical History (Chronic Problems): Chronic Problems (Last Reviewed 07/15/18 @ 07:20 by Erum Angeles) NSTEMI (non-ST elevated myocardial infarction) (Chronic) Hx of CABG (Chronic) Lung nodule (Chronic) LUIS (obstructive sleep apnea) (Chronic) Sarcoidosis (Chronic) Pulmonary hypertension, mild (Chronic) Stage 4 very severe COPD by GOLD classification (Chronic) History of CVA (cerebrovascular accident) (Chronic) Hypertension (Chronic) Type 2 diabetes mellitus (Chronic) Status post coronary artery bypass graft (Chronic) Coronary artery disease (Chronic) Medical History: Medical History (Last Reviewed 07/15/18 @ 07:20 by Erum Angeles) Lung nodule (Chronic) R91.1 LUIS (obstructive sleep apnea) (Chronic) G47.33 Sarcoidosis (Chronic) D86.9 Pulmonary hypertension, mild (Chronic) I27.20 Stage 4 very severe COPD by GOLD classification (Chronic) J44.9 History of CVA (cerebrovascular accident) (Chronic) Z86.73 Hypertension (Chronic) I10 Type 2 diabetes mellitus (Chronic) E11.9 Coronary artery disease (Chronic) I25.10 Chronic diastolic heart failure I50.32 Allergies levofloxacin [From Levaquin] Allergy (Verified 07/02/18 10:31) Hives Penicillins [PCN] Allergy (Verified 07/02/18 10:31) Hives atorvastatin [From Lipitor] Adverse Reaction (Verified 07/02/18 10:31) Other Home Medications: Ambulatory Orders Medication Instructions Recorded Albuterol Inhaler [Ventolin Hfa] 2 puff INHALATION Q4H PRN PRN 08/04/16 Clopidogrel Bisulfate [Plavix] 75 mg PO DAILY 08/04/16 [place]-3 Fatty Acids [Fish Oil] 1,290 mg PO DAILY 03/30/17 Ubidecarenone [Coq10] 100 mg PO DAILY 03/30/17 cholecalciferol (vitamin D3) 5,000 2,000 unit PO DAILY cap 11/30/17 unit capsule budesonide 0.5 mg/2 mL suspension 0.5 mg INHALATION Q12H #120 ml 02/15/18 for nebulization ipratropium-albuterol 0.5 mg-3 3 ml INHALATION Q6HWA.RT #360 ml 02/15/18 mg(2.5 mg base)/3 mL nebulization soln Aspirin [Aspirin, Baby] 81 mg PO DAILY@0800 05/20/18 furosemide 20 mg tablet 20 mg PO BIDLX #60 tab 06/10/18 losartan 100 mg tablet 100 mg PO DAILY #90 tab 06/10/18 metoprolol tartrate 25 mg tablet 12.5 mg PO BID #90 tab 06/10/18 pantoprazole 20 mg tablet,delayed 20 mg PO DAILY #90 tab 06/10/18 release polysaccharide iron complex 150 mg 150 mg PO DAILYCM #90 cap 06/10/18 iron capsule Metformin HCl [Glucophage] 1,000 mg PO BIDCM #60 tab 06/24/18 Prednisone 10 mg PO DAILY #30 tab 06/24/18 amiodarone 200 mg tablet 200 mg PO DAILY #30 tab 07/07/18 ondansetron 4 mg disintegrating 4 mg PO BID-TID PRN #30 tab 07/08/18 tablet potassium chloride ER 20 mEq 10 meq PO DAILYCM #90 tab 07/09/18 tablet,extended release(part/cryst) Surgical History: Surgical History (Last Reviewed 07/17/18 @ 13:01 by LIDIA Whipple) History of cholecystectomy (Resolved) Z98.890, Z90.49 H/O hernia repair (Resolved) Z98.890, Z87.19 History of appendectomy (Resolved) Z98.890, Z90.49 Hx of CABG (Chronic) Z95.1 Status post coronary artery bypass graft (Chronic) Z95.1 Surgical History: appendectomy, cholecystectomy, coronary bypass surgery, herniorrhaphy, - Psychiatric History: No pertinent psych hx Lives: With Family Smoking Status: Former smoker Alcohol: None Drugs: None - *Family History Maternal Family History: Family History (Last Reviewed 07/17/18 @ 13:01 by LIDIA Whipple) Mother Cancer Father Hypertension History Items: No pertinent history Paternal Family History: Family History (Last Reviewed 07/17/18 @ 13:01 by LIDIA Whipple) Mother Cancer Father Hypertension History Items: No pertinent history Review of Systems Constitutional: Reports: Chills, Fever HEENT: Denies: Head Aches, Nasal Congestion, Sinus Congestion, Sinus Drainage, Sore Throat Cardiovascular: Denies: Chest Pain, Palpitations Respiratory: Reports: Cough, Shortness of Breath, Sputum production Gastrointestinal: Denies: Abdominal Pain, Nausea, Vomiting Genitourinary: Denies: Dysuria Musculoskeletal: Denies: Joint Pain, Joint Tenderness Skin: Denies: Rash, Wounds Neurological: Denies: Numbness, Tingling, Focal weakness Psychiatric: Denies: Anxiety, Depression, Homicidal Ideations, Suicidal Ideations Hematologic/ Lymphatic: Denies: Easy Bruising, Easy Bleeding VTE Information - Inpt Only VTE Present on Admission: No VTE Mechan Device Prophylaxis: None VTE Pharm Prophylaxis ordered?: Yes - Physical Exam General: Alert, Oriented x3, Cooperative, No apparent distress HEENT: Atraumatic, PERRLA, EOMI, Normocephalic Neck: Supple, No JVD, Negative Carotid Bruits Lungs: Diminished, - - Crackles bilateral bases Cardiovascular: Regular rate, Regular Rhythm, Normal S1, Normal S2, No murmurs Abdomen: Bowel Sounds Present, Soft, Non Tender, Non-Distended Extremities: No clubbing, No cyanosis, No edema, Capillary Refill Less than 3 Seconds Skin: No rashes, No breakdown Musculoskeletal: No Tenderness to Palpation of Joints or Extremities Neurological: Cranial nerves II-XII grossly intact, Neuro grossly intact Psych/Mental Status: Normal Affect, Appropriate Finger Stick Blood Glucose 149 Assessment/Plan All Active Problems (Last Reviewed 07/15/18 @ 07:20 by Erum Angeles) Acute on chronic respiratory failure with hypoxia and hypercapnia (Acute) Acute on chronic diastolic heart failure (Acute) History of cholecystectomy (Resolved) H/O hernia repair (Resolved) History of appendectomy (Resolved) Irregular heart beat (Resolved) 1. Acute on chronic hypoxic and hypercapnic respiratory failure secondary to acute on chronic diastolic CHF and acute exacerbation of chronic stage IV COPD-chronically wears 4 L and acutely at home with trilogy nightly. Chest x-ray with pulmonary edema. BNP 7100. placed on BiPAP initially on admission. Now on baseline 4 L nasal cannula. Mild leukocytosis at outside facility. IV Solu-Medrol. Oral azithromycin. IV Lasix. Albuterol and DuoNeb aerosol. Echocardiogram May 2018 with an EF of 65%, moderate mitral valve insufficiency, moderate tricuspid valve insufficiency, mild to moderate pulmonic valve insufficiency, RVSP estimated be 67 mmHg. 2. Hyperkalemia-potassium 6.1 at outside facility. Received Kayexalate. Trend BMP. Hold losartan. 3. Chronic kidney disease stage III-stable, trend BMP. 4. Type 2 diabetes mellitus- hold metformin regimen. Accu-Cheks ACHS with SSI. 5. CAD status post CABG-continue aspirin, Plavix, beta-ed. 6. History of CVA-continue aspirin, Plavix. Allergy to statin. 7. Pulmonary hypertension-RVSP estimated be 67 mmHg on echo 06/05. 8. Obstructive sleep apnea-wears trilogy nightly at home. 9. Hypertension-stable, continue home amiodarone, metoprolol regimen. Hold losartan. DVT prophylaxis-heparin SC This patient was seen by LIDIA Whipple under the supervision of Dr. Gamboa.
[2018-07-17] MEDS: Furosemide 100 MG/10 ML Vial 80 MG IV (13:40)
[2018-07-17] MEDS: Heparin Injection (Vial) 5,000 UNIT/ML VIAL 5000 UNIT SC ×2 (14:26→21:35)
[2018-07-17] MEDS: Azithromycin 250 MG Tablet 500 MG PO (14:30)
[2018-07-17] MEDS: Ipratropium/Albuterol Sulfate 3 ML AMPUL.NEB INHALATION ×3 (15:15→23:50)
[2018-07-17 16:16] LABS: Bedside Glucose 266 mg/dL (70-110)
[2018-07-17] MEDS: Insulin Lispro 100 UNIT/ML INSULN.PEN SC ×2 (16:27→22:10)
[2018-07-17 20:12] LABS: Magnesium 1.9 mg/dL (1.6-2.6)
[2018-07-17] MEDS: Furosemide 40 MG/4 ML Vial IV (21:35)
[2018-07-17] MEDS: Metoprolol Tartrate 25 MG Tablet 12.5 MG PO (21:36)
[2018-07-17] MEDS: 0.9% NaCl Peripheral Flush Adult/Peds IV (21:56)
[2018-07-17] MEDS: Docusate Sodium 100 MG Capsule PO (22:17)
[2018-07-17 22:20] LABS: Bedside Glucose 368 mg/dL (70-110)
[2018-07-18] VITALS (21 sets, daily range): BP systolic 111–160; BP diastolic 44–75; PULSE 83–104; RESP 12–29; TEMP 36.4–36.8; O2SAT 98–100
[2018-07-18] MEDS: Ipratropium/Albuterol Sulfate 3 ML AMPUL.NEB INHALATION ×6 (03:10→23:19)
--- NOTE | 2018-07-18 05:55 | RAD_ITS ---
STUDY: X-RAY CHEST REASON FOR EXAM: Male, 78 years old. Shortness of breath and cough TECHNIQUE: Single AP portable view of the chest. COMPARISON: 06/19/2018 FINDINGS: EKG leads overlie the chest Lungs are expanded with stable patchy opacifications in both lung mccoy. There has been mild improvement since the previous study, follow-up recommended to assure resolution. There is no demonstrated pleural abnormality. Sternal cerclage wires and vascular clips are present from a prior sternotomy and coronary artery bypass graft procedure (CABG). Normal mediastinum and abarham. Normal visualized pulmonary arteries. There is atherosclerotic calcification of the aortic arch with tortuosity. There are diffuse degenerative changes of the visualized thoracic spine. Normal visualized ribs, clavicles, and shoulders. There is no demonstrated abnormality of the visualized soft tissue structures of the upper abdomen. RAD/Chest 1 View (Portable) IMPRESSION: Persistent patchy opacifications in both lung mccoy, there has however been overall improvement compared to the previous study, follow-up recommended to assure complete resolution. Electronically Signed: Néstor Cintron MD at 8:34 EDT , Service support ,
[2018-07-18 06:09] LABS: Anion Gap 10 (5-15); BUN 52 mg/dL (7-18); BUN/Creat Ratio 24.9 RATIO (10-20); Calcium,Total 8.9 mg/dL (8.5-10.1); Chloride 98 mmol/L (98-107); Creatinine, Serum 2.09 mg/dL (0.70-1.30); EST Glomerular Filtration Rate 33 mL/min (>60); Est Glom Filt Rate - Afr Amer 40 mL/min (>60); Estimated Creatinine Clearance 27.73 ml/min; Glucose 351 mg/dL (74-106); Potassium 4.6 mmol/L (3.5-5.1); Sodium Level 141 mmol/L (136-145)
[2018-07-18] MEDS: 0.9% NaCl Peripheral Flush Adult/Peds IV ×3 (06:47→22:00)
[2018-07-18] MEDS: Heparin Injection (Vial) 5,000 UNIT/ML VIAL 5000 UNIT SC ×3 (06:47→21:42)
[2018-07-18] MEDS: Furosemide 40 MG/4 ML Vial IV ×3 (06:47→21:42)
[2018-07-18 07:10] LABS: Bedside Glucose 318 mg/dL (70-110)
[2018-07-18] MEDS: Insulin Lispro 100 UNIT/ML INSULN.PEN SC ×4 (08:22→22:01)
[2018-07-18] MEDS: Aspirin 81 MG TAB.CHEW PO (08:22)
[2018-07-18] MEDS: Metoprolol Tartrate 25 MG Tablet 12.5 MG PO ×2 (08:23→21:42)
[2018-07-18] MEDS: Amiodarone 200 MG Tablet PO (08:23)
[2018-07-18] MEDS: Docusate Sodium 100 MG Capsule PO ×2 (08:23→21:43)
[2018-07-18] MEDS: Clopidogrel Bisulfate 75 MG Tablet PO (08:24)
[2018-07-18] MEDS: Pantoprazole Sodium 20 MG Tablet PO (08:24)
[2018-07-18] MEDS: Azithromycin 250 MG Tablet 500 MG PO (08:24)
[2018-07-18 11:36] LABS: Bedside Glucose 450 mg/dL (70-110)
--- NOTE | 2018-07-18 12:32 | PN_ITS ---
Subjective: Patient seen and examined. Notes improvement in breathing. Denies wheezing. Denies further significant cough. No other complaints. - Physical Exam General: Alert, Oriented x3, Cooperative, No apparent distress HEENT: Atraumatic, PERRLA, EOMI, Normocephalic Neck: Supple, No JVD, Negative Carotid Bruits Lungs: Clear to auscultation, Diminished Cardiovascular: Regular rate, Regular Rhythm, Normal S1, Normal S2, No murmurs Abdomen: Bowel Sounds Present, Soft, Non Tender, Non-Distended Extremities: No clubbing, No cyanosis, No edema, Capillary Refill Less than 3 Seconds Skin: No rashes, No breakdown Musculoskeletal: No Tenderness to Palpation of Joints or Extremities Neurological: Cranial nerves II-XII grossly intact, Neuro grossly intact Psych/Mental Status: Normal Affect, Appropriate Vital Signs Temp Pulse Resp BP Pulse Ox 97.5 F L 91 24 H 111/44 L 100 07/18/18 09:40 07/18/18 11:15 07/18/18 11:15 07/18/18 09:40 07/18/18 09:40 Oxygen Flow Rate (L/min) 3 Oxygen Delivery Method Nasal Cannula Weight: 172 lb 2.896 oz Body Mass Index (BMI) 25.5 Finger Stick Blood Glucose 149 Intake and Output for Last 24 Hours 07/16/18 07/17/18 07/18/18 23:59 23:59 23:59 Intake Total 372 / 372 290 / 290 Output Total 1075 / 1075 500 / 500 Balance -703 / -703 -210 / -210 Laboratory Tests Past 24 Hrs 07/17/18 07/18/18 18:37 05:34 Sodium 141 Potassium 4.6 Chloride 98 Carbon Dioxide 33.0 H Anion Gap 10 BUN 52 H Creatinine 2.09 H Estim Creat Clear Calc 27.73 Est GFR (MDRD) Af Amer 40 L Est GFR (MDRD) Non-Af 33 L BUN/Creatinine Ratio 24.9 H Glucose 351 H Calcium 8.9 Magnesium 1.9 POC Glucose 07/18/18 07/18/18 07/17/18 11:33 06:53 22:08 POC Glucose 450 H 318 H 368 H 07/17/18 16:10 POC Glucose 266 H Medical Necessity - Tobacco Use Smoking Status: Former smoker Assessment/Plan All Active Problems (Last Reviewed 07/15/18 @ 07:20 by Erum Saenz Acute on chronic respiratory failure with hypoxia and hypercapnia (Acute) Acute on chronic diastolic heart failure (Acute) History of cholecystectomy (Resolved) H/O hernia repair (Resolved) History of appendectomy (Resolved) Irregular heart beat (Resolved) 1. Acute on chronic hypoxic and hypercapnic respiratory failure secondary to acute on chronic diastolic CHF and acute exacerbation of chronic stage IV COPD- chronically wears 4 L and acutely at home with trilogy nightly. Chest x-ray with pulmonary edema. BNP 7100. Placed on BiPAP initially on admission. Now on baseline 4 L nasal cannula. Mild leukocytosis at outside facility. Continue oral azithromycin empirically. IV Lasix 40 mg every 8. Albuterol and DuoNeb aerosol. Echocardiogram May 2018 with an EF of 65%, moderate mitral valve insufficiency, moderate tricuspid valve insufficiency, mild to moderate pulmonic valve insufficiency, RVSP estimated be 67 mmHg. Feel this is more CHF related as opposed to COPD. Discontinue IV Solu-Medrol. Recommend increased dose oral Lasix regimen at discharge. Patient previously on 20 mg p.o. twice daily. 2. Hyperkalemia-potassium 6.1 at outside facility. Received Kayexalate. Trend BMP. Hold losartan. Resolved. 3. Chronic kidney disease stage III-stable, trend BMP. 4. Type 2 diabetes mellitus- Continue metformin regimen. Accu-Cheks ACHS with SSI. 5. CAD status post CABG-continue aspirin, Plavix, beta-ed. 6. History of CVA-continue aspirin, Plavix. Allergy to statin. 7. Pulmonary hypertension-RVSP estimated be 67 mmHg on echo 06/05. 8. Obstructive sleep apnea-wears trilogy nightly at home. 9. Hypertension-stable, continue home amiodarone, metoprolol regimen. Hold losartan. DVT prophylaxis-heparin SC This patient was seen by LIDIA Whipple under the supervision of Dr. Gamboa.
--- NOTE | 2018-07-18 15:46 | CM.UR ---
Met face to face with patient introducing myself and explaining my role. Patient already has palliative care in place with aide 2x per week. Willing to change to hospice but they won't pay for his trilogy unit so they are talking about other options. probably a bipap. Denies any additional needs at this time. Plans to return home with palliative or hospice. Rubens Reich RN, [facility].
[2018-07-18 16:41] LABS: Bedside Glucose 278 mg/dL (70-110)
[2018-07-18 22:15] LABS: Bedside Glucose 210 mg/dL (70-110)
[2018-07-19] VITALS (18 sets, daily range): BP systolic 121–147; BP diastolic 47–68; PULSE 60–100; RESP 18–30; TEMP 36.5–36.9; O2SAT 99–100
[2018-07-19] MEDS: Heparin Injection (Vial) 5,000 UNIT/ML VIAL 5000 UNIT SC ×3 (06:22→21:26)
[2018-07-19] MEDS: Furosemide 40 MG/4 ML Vial IV (06:22)
[2018-07-19] MEDS: Insulin Lispro 100 UNIT/ML INSULN.PEN SC ×4 (06:23→21:27)
[2018-07-19 06:40] LABS: Bedside Glucose 231 mg/dL (70-110)
[2018-07-19 07:02] LABS: Anion Gap 10 (5-15); BUN 66 mg/dL (7-18); BUN/Creat Ratio 28.2 RATIO (10-20); Calcium,Total 8.9 mg/dL (8.5-10.1); Chloride 97 mmol/L (98-107); Creatinine, Serum 2.34 mg/dL (0.70-1.30); EST Glomerular Filtration Rate 29 mL/min (>60); Est Glom Filt Rate - Afr Amer 35 mL/min (>60); Estimated Creatinine Clearance 24.76 ml/min; Glucose 220 mg/dL (74-106); Sodium Level 141 mmol/L (136-145)
[2018-07-19] MEDS: Ipratropium/Albuterol Sulfate 3 ML AMPUL.NEB INHALATION ×5 (07:10→22:50)
[2018-07-19] MEDS: Metoprolol Tartrate 25 MG Tablet 12.5 MG PO ×2 (08:28→21:27)
[2018-07-19] MEDS: Pantoprazole Sodium 20 MG Tablet PO (08:28)
[2018-07-19] MEDS: Clopidogrel Bisulfate 75 MG Tablet PO (08:28)
[2018-07-19] MEDS: Azithromycin 250 MG Tablet 500 MG PO (08:31)
[2018-07-19] MEDS: Docusate Sodium 100 MG Capsule PO ×2 (08:31→21:26)
[2018-07-19] MEDS: Aspirin 81 MG TAB.CHEW PO (08:31)
[2018-07-19] MEDS: Amiodarone 200 MG Tablet PO (08:31)
--- NOTE | 2018-07-19 13:41 | PN_ITS ---
<Rosa Choe - Last Filed: 07/19/18 13:41> Subjective: Patient seen exam. Notes improvement in breathing. Continues to complain of generalized weakness. No other complaints. - Physical Exam General: Alert, Oriented x3, Cooperative, No apparent distress HEENT: Atraumatic, PERRLA, EOMI, Normocephalic Neck: Supple, No JVD, Negative Carotid Bruits Lungs: Diminished, Wheezes Cardiovascular: Regular rate, Regular Rhythm, Normal S1, Normal S2, No murmurs Abdomen: Bowel Sounds Present, Soft, Non Tender, Non-Distended Extremities: No clubbing, No cyanosis, No edema, Capillary Refill Less than 3 Seconds Skin: No rashes, No breakdown Musculoskeletal: No Tenderness to Palpation of Joints or Extremities Neurological: Cranial nerves II-XII grossly intact, Neuro grossly intact Psych/Mental Status: Normal Affect, Appropriate Vital Signs Temp Pulse Resp BP Pulse Ox 98.3 F 90 28 H 140/52 H 99 07/19/18 08:34 07/19/18 10:56 07/19/18 10:56 07/19/18 08:34 07/19/18 10:56 Oxygen Flow Rate (L/min) 4 Oxygen Delivery Method Nasal Cannula Weight: 177 lb 0.499 oz Body Mass Index (BMI) 25.5 Finger Stick Blood Glucose 149 Intake and Output for Last 24 Hours 07/17/18 07/18/18 07/19/18 23:59 23:59 23:59 Intake Total 372 / 372 530 / 530 600 / 600 Output Total 1075 / 1075 1000 / 1000 450 / 450 Balance -703 / -703 -470 / -470 150 / 150 Laboratory Tests Past 24 Hrs 07/19/18 05:20 Sodium 141 Potassium 4.0 Chloride 97 L Carbon Dioxide 34.0 H Anion Gap 10 BUN 66 H Creatinine 2.34 H Estim Creat Clear Calc 24.76 Est GFR (MDRD) Af Amer 35 L Est GFR (MDRD) Non-Af 29 L BUN/Creatinine Ratio 28.2 H Glucose 220 H Calcium 8.9 POC Glucose 07/19/18 07/18/18 07/18/18 06:16 21:55 16:22 POC Glucose 231 H 210 H 278 H Medical Necessity - Tobacco Use Smoking Status: Former smoker Assessment/Plan All Active Problems (Last Reviewed 07/15/18 @ 07:20 by Erum Angeles) Acute on chronic respiratory failure with hypoxia and hypercapnia (Acute) Acute on chronic diastolic heart failure (Acute) History of cholecystectomy (Resolved) H/O hernia repair (Resolved) History of appendectomy (Resolved) Irregular heart beat (Resolved) 1. Acute on chronic hypoxic and hypercapnic respiratory failure secondary to acute on chronic diastolic CHF and acute exacerbation of chronic stage IV COPD- chronically wears 4 L and acutely at home with trilogy nightly. Chest x-ray with pulmonary edema. BNP 7100. Placed on BiPAP initially on admission. Now on baseline 4 L nasal cannula. Mild leukocytosis at outside facility. Continue oral azithromycin empirically. Transition to oral Lasix 40 mg twice daily. Albuterol and DuoNeb aerosol. Echocardiogram May 2018 with an EF of 65%, moderate mitral valve insufficiency, moderate tricuspid valve insufficiency, mild to moderate pulmonic valve insufficiency, RVSP estimated be 67 mmHg. IV Solu-Medrol. Recommend increased dose oral Lasix regimen at discharge. Patient previously on 20 mg p.o. twice daily. 2. Hyperkalemia-potassium 6.1 at outside facility. Received Kayexalate. Trend BMP. Hold losartan. Resolved. 3. Acute kidney injury on chronic kidney disease stage III-secondary to IV Lasix regimen. Transition to oral Lasix. Trend BMP. 4. Type 2 diabetes mellitus- Continue metformin regimen. Accu-Cheks ACHS with SSI. 5. CAD status post CABG-continue aspirin, Plavix, beta-ed. 6. History of CVA-continue aspirin, Plavix. Allergy to statin. 7. Pulmonary hypertension-RVSP estimated be 67 mmHg on echo 06/05. 8. Obstructive sleep apnea-wears trilogy nightly at home. 9. Hypertension-stable, continue home amiodarone, metoprolol regimen. Hold losartan. DVT prophylaxis-heparin SC Discharge planning: Anticipate home with palliative care versus hospice. Case management involved. PT/OT eval. This patient was seen by LIDIA Whipple under the supervision of Dr. Leavitt. <Steve Leavitt F - Last Filed: 07/19/18 13:49> - Physical Exam Vital Signs Temp Pulse Resp BP Pulse Ox 98.3 F 90 28 H 140/52 H 99 07/19/18 08:34 07/19/18 10:56 10/01/18 10:56 07/19/18 08:34 07/19/18 10:56 Oxygen Flow Rate (L/min) 4 Oxygen Delivery Method Nasal Cannula Weight: 177 lb 0.499 oz Body Mass Index (BMI) 25.5 Finger Stick Blood Glucose 149 Intake and Output for Last 24 Hours 07/17/18 07/18/18 07/19/18 23:59 23:59 23:59 Intake Total 372 / 372 530 / 530 600 / 600 Output Total 1075 / 1075 1000 / 1000 450 / 450 Balance -703 / -703 -470 / -470 150 / 150 Laboratory Tests Past 24 Hrs 07/19/18 05:20 Sodium 141 Potassium 4.0 Chloride 97 L Carbon Dioxide 34.0 H Anion Gap 10 BUN 66 H Creatinine 2.34 H Estim Creat Clear Calc 24.76 Est GFR (MDRD) Af Amer 35 L Est GFR (MDRD) Non-Af 29 L BUN/Creatinine Ratio 28.2 H Glucose 220 H Calcium 8.9 POC Glucose 07/19/18 07/18/18 07/18/18 06:16 21:55 16:22 POC Glucose 231 H 210 H 278 H Code Visit Addendum: Dr. Leavitt I personally examined the patient and reviewed the chart. I agree with the above. 78 yo M with a h/o diastolic heart failure and end stage COPD presenting with SOB. We are treating as both COPD and heart failure. He is on aggressive diuresis but he is also wheezing on exam. C/w steroid, and monitor renal function while on the lasix. He has discussed multiple times about being on hospice given his declining health. He would like to go on hospice with his trilogy mask at home for when he sleeps because it is helps his breathing. I will plan on hospice and continue his trilogy as it is his machine. Inpatient E&M: 75704 Subs Hosp L2
--- NOTE | 2018-07-19 13:45 | CASEMGMT ---
Addendum entered by Marilyn North 07/19/18 15:11: This RN SIMEON received call from Italia at [facility] and she states that pt is active with them for RN, PT, and ST at this time. Resumption of care order placed at this time and [facility] to be notified at time of discharge as well as discharge instructions/summary to be faxed. Contact info for [facility] is phone: [phone] and fax: [phone]. Boyd HANLEY CM Original Note: Per Florencia COTA-C, pt would like to go from palliative to hospice, but pt states hospice will not let him go onto hospice due to Trilogy machine. Call to Hospice and per Norma, they will ok pt using Trilogy but it will not be covered by insurance if he is on Hospice so he will have to pay out of pocket for Trilogy or switch to bipap. Call to [facility] and per Meli, wallace for Trilogy out of pocket would be about $450 every 2 weeks. Pt updated on all at this time and he states 'I just need to make the decision about what I want to do.' Florencia CUSTOMER SERVICE ATTENDANT-C aware, voices understanding. Pt voices no further concerns/needs at this time and thanks this DAYAN HENDRIX at this time. Boyd HANLEY CM
[2018-07-19 13:46] LABS: Bedside Glucose 245 mg/dL (70-110)
[2018-07-19] MEDS: Furosemide 40 MG Tablet PO (16:30)
[2018-07-19 16:45] LABS: Bedside Glucose 161 mg/dL (70-110)
[2018-07-19] MEDS: 0.9% NaCl Peripheral Flush Adult/Peds IV (21:29)
[2018-07-19 21:40] LABS: Bedside Glucose 313 mg/dL (70-110)
[2018-07-20] VITALS (11 sets, daily range): BP systolic 122–152; BP diastolic 55–69; PULSE 85–109; RESP 18–26; TEMP 36.3–37.1; O2SAT 98–100
[2018-07-20] MEDS: Ipratropium/Albuterol Sulfate 3 ML AMPUL.NEB INHALATION ×3 (02:50→11:47)
[2018-07-20 05:56] LABS: Anion Gap 10 (5-15); BUN 68 mg/dL (7-18); BUN/Creat Ratio 31.3 RATIO (10-20); Calcium,Total 8.7 mg/dL (8.5-10.1); Chloride 97 mmol/L (98-107); Creatinine, Serum 2.17 mg/dL (0.70-1.30); EST Glomerular Filtration Rate 31 mL/min (>60); Est Glom Filt Rate - Afr Amer 38 mL/min (>60); Estimated Creatinine Clearance 26.71 ml/min; Glucose 277 mg/dL (74-106); Potassium 4.6 mmol/L (3.5-5.1); Sodium Level 142 mmol/L (136-145)
[2018-07-20] MEDS: Heparin Injection (Vial) 5,000 UNIT/ML VIAL 5000 UNIT SC (06:31)
[2018-07-20] MEDS: 0.9% NaCl Peripheral Flush Adult/Peds IV (06:32)
[2018-07-20 06:51] LABS: Bedside Glucose 289 mg/dL (70-110)
[2018-07-20] MEDS: Metoprolol Tartrate 25 MG Tablet 12.5 MG PO (08:04)
[2018-07-20] MEDS: Clopidogrel Bisulfate 75 MG Tablet PO (08:05)
[2018-07-20] MEDS: Furosemide 40 MG Tablet PO (08:05)
[2018-07-20] MEDS: Azithromycin 250 MG Tablet 500 MG PO (08:05)
[2018-07-20] MEDS: Polyethylene Glycol 3350 17 GM PACKET PO (08:05)
[2018-07-20] MEDS: Amiodarone 200 MG Tablet PO (08:05)
[2018-07-20] MEDS: Aspirin 81 MG TAB.CHEW PO (08:05)
[2018-07-20] MEDS: Pantoprazole Sodium 20 MG Tablet PO (08:05)
[2018-07-20] MEDS: Insulin Lispro 100 UNIT/ML INSULN.PEN SC ×2 (08:05→11:11)
[2018-07-20] MEDS: Docusate Sodium 100 MG Capsule PO (08:05)
[2018-07-20] MEDS: Magnesium Hydroxide 30 ML UDC 15 ML PO (09:36)
--- NOTE | 2018-07-20 09:46 | CASEMGMT ---
Physician is changing patient over to a bi-pap. Patient may be going Hospice now. SW spoke with patient and asked him if his plan is to go Hospice now that he will be switched to a bi-pap. He said he and his are going to decide. His will be in to the hospital in a little bit. ISABEL told him SW will check back with him in a little bit. Lanny FINNEY MSW
--- NOTE | 2018-07-20 10:54 | CASEMGMT ---
ISABEL spoke with patient and his . She said they have [facility] and they have their own Hospice called [facility]. They would like to go with [facility]. ISABEL told them ISABEL will work on setting this up. ISABEL called [facility] and made a referral. ISABEL faxed over a referral. They will order a bi-pap. ISABEL made sure they have the settings. Per Pulmonary Dr. he can use the same mask that he was using for his Trilogy. ISABEL also called [facility] and let Dhara know that patient is going with [facility]. Lanny FINNEY EDGING CATCHER
[2018-07-20 11:21] LABS: Bedside Glucose 326 mg/dL (70-110)
--- NOTE | 2018-07-20 11:44 | DCINST_ITS ---
You will use the following diet at home:: No restrictions Discharge Activity: Return to Normal Activity Allergies/Adverse Reactions: Allergies levofloxacin [From Levaquin] Allergy (Verified 07/02/18 10:31) Hives Penicillins [PCN] Allergy (Verified 07/02/18 10:31) Hives atorvastatin [From Lipitor] Adverse Reaction (Verified 07/02/18 10:31) Other Medications to take at Discharge Albuterol Inhaler [Ventolin Hfa] 2 puff INHALATION Q4H PRN PRN 08/04/16 Clopidogrel Bisulfate [Plavix] 75 mg PO DAILY 08/04/16 [place]-3 Fatty Acids [Fish Oil] 1,290 mg PO DAILY 03/30/17 Ubidecarenone [Coq10] 100 mg PO DAILY 03/30/17 cholecalciferol (vitamin D3) 5,000 unit capsule 2,000 unit PO DAILY cap 11/30/17 budesonide 0.5 mg/2 mL suspension for nebulization 0.5 mg INHALATION Q12H #120 ml 02/15/18 ipratropium-albuterol 0.5 mg-3 mg(2.5 mg base)/3 mL nebulization soln 3 ml INHALATION Q6HWA.RT #360 ml 02/15/18 Aspirin [Aspirin, Baby] 81 mg PO DAILY@0800 05/20/18 losartan 100 mg tablet 100 mg PO DAILY #90 tab 06/10/18 metoprolol tartrate 25 mg tablet 12.5 mg PO BID #90 tab 06/10/18 pantoprazole 20 mg tablet,delayed release 20 mg PO DAILY #90 tab 06/10/18 polysaccharide iron complex 150 mg iron capsule 150 mg PO DAILYCM #90 cap 06/10/18 Metformin HCl [Glucophage] 1,000 mg PO BIDCM #60 tab 06/24/18 amiodarone 200 mg tablet 200 mg PO DAILY #30 tab 07/07/18 ondansetron 4 mg disintegrating tablet 4 mg PO BID-TID PRN #30 tab 07/08/18 potassium chloride ER 20 mEq tablet,extended release(part/cryst) 10 meq PO DAILYCM #90 tab 07/09/18 Furosemide [Lasix] 40 mg PO BID@1000,1800 #60 tablet 07/20/18 Prednisone 40 mg PO DAILY #10 tablet 07/20/18 The following prescriptions were given: Furosemide [Lasix] 40 mg PO BID@1000,1800 #60 tablet Prednisone 40 mg PO DAILY #10 tablet Primary Care Physician: Ellie Ackerman MD [Primary Care Provider] - Please follow up with your Primary Care Physician in: As needed Test Results: Test results from this visit will be discussed in further detail at your follow- up appointment, if applicable. Proposed Discharge Date: 07/20/18
--- NOTE | 2018-07-20 11:44 | PCM.DC.SUM ---
<Rosa Choe - Last Filed: 07/20/18 12:02> Discharge Date and Diagnosis Date of Admission: 07/17/18 Date of Discharge: 07/20/18 - Primary Discharge Diagnosis 1. Acute on chronic hypoxic and hypercapnic respiratory failure secondary to acute on chronic diastolic CHF and acute exacerbation of stage IV COPD 2. Hyperkalemia 3. Acute kidney injury on chronic kidney disease stage III 4. Transition to hospice care at discharge - Secondary Discharge Diagnosis Chronic Problems (Last Reviewed 07/15/18 @ 07:20 by Erum Angeles) NSTEMI (non-ST elevated myocardial infarction) (Chronic) Hx of CABG (Chronic) Lung nodule (Chronic) LUIS (obstructive sleep apnea) (Chronic) Sarcoidosis (Chronic) Pulmonary hypertension, mild (Chronic) Stage 4 very severe COPD by GOLD classification (Chronic) History of CVA (cerebrovascular accident) (Chronic) Hypertension (Chronic) Type 2 diabetes mellitus (Chronic) Status post coronary artery bypass graft (Chronic) Coronary artery disease (Chronic) Hospital Course and Treatment Imaging Results: Diagnostic Data Chest X-Ray 07/18/18 05:55 IMPRESSION: Persistent patchy opacifications in both lung mccoy, there has however been overall improvement compared to the previous study, follow-up recommended to assure complete resolution. Electronically Signed: Néstor Cintron MD at 8:34 EDT , Service support , Dr. Liz- Pulmonary Medicine Hospice Consult Operations: None Procedures: None Summary of Care Provided: The patient is a 78 year old M admitted 07/17/2018 due to shortness of breath. 1. Acute on chronic hypoxic and hypercapnic respiratory failure secondary to acute on chronic diastolic CHF and acute exacerbation of chronic stage IV COPD-chronically wears 4 L and acutely at home with trilogy nightly. Chest x-ray with pulmonary edema. BNP 7100. Placed on BiPAP initially on admission. Now on baseline 4 L nasal cannula. Mild leukocytosis at outside facility. Received oral azithromycin empirically. Oral Lasix 40 mg twice daily. Albuterol and DuoNeb aerosol. Echocardiogram May 2018 with an EF of 65%, moderate mitral valve insufficiency, moderate tricuspid valve insufficiency, mild to moderate pulmonic valve insufficiency, RVSP estimated be 67 mmHg. Prednisone 40 mg daily for 5 days at discharge. 2. Hyperkalemia-potassium 6.1 at outside facility. Received Kayexalate. Resolved. 3. Acute kidney injury on chronic kidney disease stage III-secondary to IV Lasix regimen. Transition to oral Lasix at discharge. 4. Type 2 diabetes mellitus- Continue metformin regimen. 5. CAD status post CABG-continue aspirin, Plavix, beta-ed. 6. History of CVA-continue aspirin, Plavix. Allergy to statin. 7. Pulmonary hypertension-RVSP estimated be 67 mmHg on echo 06/05. 8. Obstructive sleep apnea-transition from trilogy to BiPAP nightly and PRN given hospice status. 9. Hypertension-stable, continue home amiodarone, losartan, metoprolol regimen. General: Alert, Oriented x3, Cooperative, No apparent distress HEENT: Atraumatic, PERRLA, EOMI, Normocephalic Neck: Supple, No JVD, Negative Carotid Bruits Lungs: Diminished, Wheezes Cardiovascular: Regular rate, Regular Rhythm, Normal S1, Normal S2, No murmurs Abdomen: Bowel Sounds Present, Soft, Non Tender, Non-Distended Extremities: No clubbing, No cyanosis, No edema, Capillary Refill Less than 3 Seconds Skin: No rashes, No breakdown Musculoskeletal: No Tenderness to Palpation of Joints or Extremities Neurological: Cranial nerves II-XII grossly intact, Neuro grossly intact Psych/Mental Status: Normal Affect, Appropriate Patient seen exam prior to discharge. Physical assessment as noted above. Patient discharged home with hospice. This patient was seen by LIDIA Whipple under the supervision of Dr. Leavitt. Discharge Diet: No Restrictions Discharge Activity: Return to Normal Activity Home Medications: Medications to take at Discharge Albuterol Inhaler [Ventolin Hfa] 2 puff INHALATION Q4H PRN PRN 08/04/16 Clopidogrel Bisulfate [Plavix] 75 mg PO DAILY 08/04/16 [place]-3 Fatty Acids [Fish Oil] 1,290 mg PO DAILY 03/30/17 Ubidecarenone [Coq10] 100 mg PO DAILY 03/30/17 cholecalciferol (vitamin D3) 5,000 unit capsule 2,000 unit PO DAILY cap 11/30/17 budesonide 0.5 mg/2 mL suspension for nebulization 0.5 mg INHALATION Q12H #120 ml 02/15/18 ipratropium-albuterol 0.5 mg-3 mg(2.5 mg base)/3 mL nebulization soln 3 ml INHALATION Q6HWA.RT #360 ml 02/15/18 Aspirin [Aspirin, Baby] 81 mg PO DAILY@0800 05/20/18 losartan 100 mg tablet 100 mg PO DAILY #90 tab 06/10/18 metoprolol tartrate 25 mg tablet 12.5 mg PO BID #90 tab 06/10/18 pantoprazole 20 mg tablet,delayed release 20 mg PO DAILY #90 tab 06/10/18 polysaccharide iron complex 150 mg iron capsule 150 mg PO DAILYCM #90 cap 06/10/18 Metformin HCl [Glucophage] 1,000 mg PO BIDCM #60 tab 06/24/18 amiodarone 200 mg tablet 200 mg PO DAILY #30 tab 07/07/18 ondansetron 4 mg disintegrating tablet 4 mg PO BID-TID PRN #30 tab 07/08/18 potassium chloride ER 20 mEq tablet,extended release(part/cryst) 10 meq PO DAILYCM #90 tab 07/09/18 Furosemide [Lasix] 40 mg PO BID@1000,1800 #60 tablet 07/20/18 Prednisone 40 mg PO DAILY #10 tablet 07/20/18 Following Prescrptions Were Given to Patient: Furosemide [Lasix] 40 mg PO BID@1000,1800 #60 tablet Prednisone 40 mg PO DAILY #10 tablet Primary Care Physician: Ellie Ackerman MD [Primary Care Provider] - Please follow up with your Primary Care Physician in: As needed Disposition: Home with Hospice Minutes spent on discharge:: 35 Patient Condition:: Stable Medical Necessity - Tobacco Use Smoking Status: Former smoker Meaningful Use Info Meaningful Use Diagnoses (Choose all that apply): CHF - CHF MAIA/ARB ordered at discharge?: No Reason MAIA/ARB not ordered?: Worsening renal dysfunctn Documented LVEF (%): 65 <Steve Leavitt - Last Filed: 07/20/18 14:01> Discharge Date and Diagnosis - Secondary Discharge Diagnosis Chronic Problems (Last Reviewed 07/15/18 @ 07:20 by Erum Agneles) NSTEMI (non-ST elevated myocardial infarction) (Chronic) Hx of CABG (Chronic) Lung nodule (Chronic) LUIS (obstructive sleep apnea) (Chronic) Sarcoidosis (Chronic) Pulmonary hypertension, mild (Chronic) Stage 4 very severe COPD by GOLD classification (Chronic) History of CVA (cerebrovascular accident) (Chronic) Hypertension (Chronic) Type 2 diabetes mellitus (Chronic) Status post coronary artery bypass graft (Chronic) Coronary artery disease (Chronic) Hospital Course and Treatment Summary of Care Provided: The patient is a 78 year old M [] Code Visit Addendum: Dr. Leavitt I personally examined the patient and reviewed the chart. I agree with the above. When who was admitted for acute on chronic hypoxic and hypercapnic respiratory failure secondary to acute on chronic diastolic CHF and an acute exacerbation of his chronic stage IV COPD. During his stay he was treated both with diuresis, azithromycin, and steroids. On his own brought up the possibility of going home with hospice and his biggest point of contention was being able to continue with his trilogy. Discussed this with his bleach chlorinator who stated that his respiratory settings on his trilogy was an IPAP of 12 and an EPAP of 5. In discussing this with hospice hospice will be able to provide a BiPAP with those settings and he should hopefully be comfortable at home with the BiPAP instead of the trilogy. Inpatient E&M: 31255 [facility]
--- NOTE | 2018-07-20 12:01 | DS.PCM_ITS ---
<Rosa Choe - Last Filed: 07/20/18 12:02> Discharge Date and Diagnosis Date of Admission: 07/17/18 Date of Discharge: 07/20/18 - Primary Discharge Diagnosis 1. Acute on chronic hypoxic and hypercapnic respiratory failure secondary to acute on chronic diastolic CHF and acute exacerbation of stage IV COPD 2. Hyperkalemia 3. Acute kidney injury on chronic kidney disease stage III 4. Transition to hospice care at discharge - Secondary Discharge Diagnosis Chronic Problems (Last Reviewed 07/15/18 @ 07:20 by Erum Angeles) NSTEMI (non-ST elevated myocardial infarction) (Chronic) Hx of CABG (Chronic) Lung nodule (Chronic) LUIS (obstructive sleep apnea) (Chronic) Sarcoidosis (Chronic) Pulmonary hypertension, mild (Chronic) Stage 4 very severe COPD by GOLD classification (Chronic) History of CVA (cerebrovascular accident) (Chronic) Hypertension (Chronic) Type 2 diabetes mellitus (Chronic) Status post coronary artery bypass graft (Chronic) Coronary artery disease (Chronic) Hospital Course and Treatment Imaging Results: Diagnostic Data Chest X-Ray 07/18/18 05:55 IMPRESSION: Persistent patchy opacifications in both lung mccoy, there has however been overall improvement compared to the previous study, follow-up recommended to assure complete resolution. Electronically Signed: Néstor Cintron MD at 8:34 EDT , Service support , Dr. Liz- [facility] Consult Operations: None Procedures: None Summary of Care Provided: The patient is a 78 year old M admitted 07/17/2018 due to shortness of breath. 1. Acute on chronic hypoxic and hypercapnic respiratory failure secondary to acute on chronic diastolic CHF and acute exacerbation of chronic stage IV COPD- chronically wears 4 L and acutely at home with trilogy nightly. Chest x-ray with pulmonary edema. BNP 7100. Placed on BiPAP initially on admission. Now on baseline 4 L nasal cannula. Mild leukocytosis at outside facility. Received oral azithromycin empirically. Oral Lasix 40 mg twice daily. Albuterol and DuoNeb aerosol. Echocardiogram May 2018 with an EF of 65%, moderate mitral valve insufficiency, moderate tricuspid valve insufficiency, mild to moderate pulmonic valve insufficiency, RVSP estimated be 67 mmHg. Prednisone 40 mg daily for 5 days at discharge. 2. Hyperkalemia-potassium 6.1 at outside facility. Received Kayexalate. Resolved. 3. Acute kidney injury on chronic kidney disease stage III-secondary to IV Lasix regimen. Transition to oral Lasix at discharge. 4. Type 2 diabetes mellitus- Continue metformin regimen. 5. CAD status post CABG-continue aspirin, Plavix, beta-ed. 6. History of CVA-continue aspirin, Plavix. Allergy to statin. 7. Pulmonary hypertension-RVSP estimated be 67 mmHg on echo 06/05. 8. Obstructive sleep apnea-transition from trilogy to BiPAP nightly and PRN given hospice status. 9. Hypertension-stable, continue home amiodarone, losartan, metoprolol regimen. General: Alert, Oriented x3, Cooperative, No apparent distress HEENT: Atraumatic, PERRLA, EOMI, Normocephalic Neck: Supple, No JVD, Negative Carotid Bruits Lungs: Diminished, Wheezes Cardiovascular: Regular rate, Regular Rhythm, Normal S1, Normal S2, No murmurs Abdomen: Bowel Sounds Present, Soft, Non Tender, Non-Distended Extremities: No clubbing, No cyanosis, No edema, Capillary Refill Less than 3 Seconds Skin: No rashes, No breakdown Musculoskeletal: No Tenderness to Palpation of Joints or Extremities Neurological: Cranial nerves II-XII grossly intact, Neuro grossly intact Psych/Mental Status: Normal Affect, Appropriate Patient seen exam prior to discharge. Physical assessment as noted above. Patient discharged home with hospice. This patient was seen by LIDIA Whipple under the supervision of Dr. Leavitt. Discharge Diet: No Restrictions Discharge Activity: Return to Normal Activity Home Medications: Medications to take at Discharge Albuterol Inhaler [Ventolin Hfa] 2 puff INHALATION Q4H PRN PRN 08/04/16 Clopidogrel Bisulfate [Plavix] 75 mg PO DAILY 08/04/16 Mize-3 Fatty Acids [Fish Oil] 1,290 mg PO DAILY 03/30/17 Ubidecarenone [Coq10] 100 mg PO DAILY 03/30/17 cholecalciferol (vitamin D3) 5,000 unit capsule 2,000 unit PO DAILY cap 11/30/17 budesonide 0.5 mg/2 mL suspension for nebulization 0.5 mg INHALATION Q12H #120 ml 02/15/18 ipratropium-albuterol 0.5 mg-3 mg(2.5 mg base)/3 mL nebulization soln 3 ml INHALATION Q6HWA.RT #360 ml 02/15/18 Aspirin [Aspirin, Baby] 81 mg PO DAILY@0800 05/20/18 losartan 100 mg tablet 100 mg PO DAILY #90 tab 06/10/18 metoprolol tartrate 25 mg tablet 12.5 mg PO BID #90 tab 06/10/18 pantoprazole 20 mg tablet,delayed release 20 mg PO DAILY #90 tab 06/10/18 polysaccharide iron complex 150 mg iron capsule 150 mg PO DAILYCM #90 cap 06/10/18 Metformin HCl [Glucophage] 1,000 mg PO BIDCM #60 tab 06/24/18 amiodarone 200 mg tablet 200 mg PO DAILY #30 tab 07/07/18 ondansetron 4 mg disintegrating tablet 4 mg PO BID-TID PRN #30 tab 07/08/18 potassium chloride ER 20 mEq tablet,extended release(part/cryst) 10 meq PO DAILYCM #90 tab 07/09/18 Furosemide [Lasix] 40 mg PO BID@1000,1800 #60 tablet 07/20/18 Prednisone 40 mg PO DAILY #10 tablet 07/20/18 Following Prescrptions Were Given to Patient: Furosemide [Lasix] 40 mg PO BID@1000,1800 #60 tablet Prednisone 40 mg PO DAILY #10 tablet Primary Care Physician: Ellie Ackerman MD [Primary Care Provider] - Please follow up with your Primary Care Physician in: As needed Disposition: Home with Hospice Minutes spent on discharge:: 35 Patient Condition:: Stable Medical Necessity - Tobacco Use Smoking Status: Former smoker Meaningful Use Info Meaningful Use Diagnoses (Choose all that apply): CHF - CHF MAIA/ARB ordered at discharge?: No Reason MAIA/ARB not ordered?: Worsening renal dysfunctn Documented LVEF (%): 65 <Steve Leavitt - Last Filed: 07/20/18 14:01> Discharge Date and Diagnosis - Secondary Discharge Diagnosis Chronic Problems (Last Reviewed 07/15/18 @ 07:20 by Erum Angeles) NSTEMI (non-ST elevated myocardial infarction) (Chronic) Hx of CABG (Chronic) Lung nodule (Chronic) LUIS (obstructive sleep apnea) (Chronic) Sarcoidosis (Chronic) Pulmonary hypertension, mild (Chronic) Stage 4 very severe COPD by GOLD classification (Chronic) History of CVA (cerebrovascular accident) (Chronic) Hypertension (Chronic) Type 2 diabetes mellitus (Chronic) Status post coronary artery bypass graft (Chronic) Coronary artery disease (Chronic) Hospital Course and Treatment Summary of Care Provided: The patient is a 78 year old M [] Code Visit Addendum: Dr. Leavitt I personally examined the patient and reviewed the chart. I agree with the above. When who was admitted for acute on chronic hypoxic and hypercapnic respiratory failure secondary to acute on chronic diastolic CHF and an acute exacerbation of his chronic stage IV COPD. During his stay he was treated both with diuresis, azithromycin, and steroids. On his own brought up the p ossibility of going home with hospice and his biggest point of contention was being able to continue with his trilogy. Discussed this with his furniture duster who stated that his respiratory settings on his trilogy was an IPAP of 12 and an EPAP of 5. In discussing this with hospice hospice will be able to provide a BiPAP with those settings and he should hopefully be comfortable at home with the BiPAP instead of the trilogy. Inpatient E&M: 56992 Disch Hosp
--- NOTE | 2018-07-20 14:21 | CASEMGMT ---
ISABEL spoke with Jules from [facility]. She said she spoke with patient's and they would all like to meet at patient's home at 4p if that is possible. She said they can get his equipment in the home today. When he comes home he will have his O2 and Trilogy still so they have a few hours to get the equipment to him. ISABEL told her SW will work on setting up transport. ISABEL called [facility] and arranged for patient to get picked up at 3p via cot. ISABEL notified patient, his , Jules at [facility], RN, and ship's surveyor. ISABEL received a call back from Jules stating they need a prescription for the bi-pap. ISABEL obtained a prescription and faxed it along with the d/c instructions to [facility]. Plan: Home with [facility]. [facility] [place] Lanny MCGUIRE
== END 2018-07-20 15:07 | disposition hospice, home (50) | DRG 291 ==
PROVIDERS: Nurse Practitioner Family; Admitting Provider Internal Medicine; Family Provider Internal Medicine; PCP Internal Medicine; Visit Provider Family Medicine
DX: I13.0 Hypertensive heart and chronic kidney disease with heart failure and stage 1 through stage 4 chronic kidney disease, or unspecified chronic kidney disease (principal); I50.33 Acute on chronic diastolic (congestive) heart failure; J96.22 Acute and chronic respiratory failure with hypercapnia; J96.21 Acute and chronic respiratory failure with hypoxia; J44.1 Chronic obstructive pulmonary disease with (acute) exacerbation; N17.9 Acute kidney failure, unspecified; N18.3 Chronic kidney disease, stage 3 (moderate); G47.33 Obstructive sleep apnea (adult) (pediatric); Z86.73 Personal history of transient ischemic attack (TIA), and cerebral infarction without residual deficits; Z79.82 Long term (current) use of aspirin; Z79.02 Long term (current) use of antithrombotics/antiplatelets; Z95.1 Presence of aortocoronary bypass graft; I25.10 Atherosclerotic heart disease of native coronary artery without angina pectoris; E11.22 Type 2 diabetes mellitus with diabetic chronic kidney disease; Z79.84 Long term (current) use of oral hypoglycemic drugs; Z99.81 Dependence on supplemental oxygen; E87.5 Hyperkalemia; Z51.5 Encounter for palliative care; Z66 Do not resuscitate; I25.2 Old myocardial infarction; D86.9 Sarcoidosis, unspecified; I27.20 Pulmonary hypertension, unspecified; Z87.891 Personal history of nicotine dependence
CPT/HCPCS: 36415; 71045; 80048; 82962; 83735; 94002; 94003; 94640; 97161; 97166; 97530; 97535; A4216; J1940